=== PATIENT | male | born 1955 | race American Indian/Alaskan Native ===

== ENCOUNTER 2017-09-28 16:14 | Inpatient (IN) | payer MEDICARE ==
[2017-09-28] MEDS ORDERED: NACL 0.9% 500 ML 500 ML IV ONE (16:39)
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
[2017-09-28 17:19] LABS: Eosinophils % (Auto) 0.3 % (0.0-4.3)
[2017-09-28 17:43] LABS: Albumin 3.9 g/dL (3.9-5); Albumin/Globulin Ratio 1.7 %; Bilirubin,Total 0.3 mg/dL (0.1-1.2); Calcium 8.8 mg/dL (8.4-10.2); Chloride 94.7 mmol/L (98-107); Potassium 4.4 mmol/L (3.6-5.0); Total Protein 6.2 g/dL (6.3-8.2)
[2017-09-28 17:45] LABS: Creatine Kinase MB 1.4 ng/mL (0.0-4.0)
[2017-09-28 17:47] LABS: Creatine Kinase 75 units/L (55-170)
[2017-09-28 17:49] LABS: Basophils % (Auto) 0.6 % (0.0-1.8); Hematocrit 47.2 % (35.5-45.6); Hemoglobin 14.9 gm/dl (11.8-15.2); Mean Corpuscular HGB Conc 32 % (32-34); Mean Corpuscular Hemoglobin 27 pg (28-32); Mean Corpuscular Volume 85 fl (84-94); Platelet Count 173 K/mm3 (140-440); Red Blood Count 5.55 M/mm3 (3.65-5.03); Red Cell Distribution Width 16.6 % (13.2-15.2); White Blood Count 6.3 K/mm3 (4.5-11.0)
[2017-09-28 17:52] LABS: INR 0.91 (0.87-1.13)
[2017-09-28] MEDS ORDERED: ZOFRAN IV ONE (18:17)
[2017-09-28] MEDS ORDERED: PLAVIX PO ONE (18:17)
[2017-09-28] MEDS ORDERED: SUBLIMAZE IV ONE (18:17)
[2017-09-28] MEDS ORDERED: ZOFRAN ONE (18:51)
[2017-09-28] MEDS ORDERED: PLAVIX ONE (18:51)
[2017-09-28] MEDS: FIORICET PO PRN (20:36)
[2017-09-28 20:59] LABS: Bilirubin,Urine NEG (Negative); Blood,Urine NEG (Negative); Ketones,Urine NEG (Negative); Leukocyte Esterase,Urine NEG (Negative); Mucus,Urine FEW /HPF; Nitrite,Urine NEG (Negative); Protein,Urine <15 mg/dL mg/dL (Negative); Urobilinogen,Urine < 2.0 mg/dL (<2.0)
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
[2017-09-28] MEDS ORDERED: DULCOLAX PR PRN (22:54)
[2017-09-28] MEDS ORDERED: ZOFRAN IV PRN (22:54)
[2017-09-29 00:37] LABS: Creatine Kinase MB 1.3 ng/mL (0.0-4.0)
[2017-09-29 00:38] LABS: Creatine Kinase 80 units/L (55-170)
[2017-09-29] MEDS: TYLENOL PO PRN (01:07)
[2017-09-29] MEDS: DUONEB *Not for PRN Use IH SCH ×4 (02:29→20:39)
[2017-09-29 06:05] LABS: Hematocrit 46.8 % (35.5-45.6); Hemoglobin 14.7 gm/dl (11.8-15.2); Mean Corpuscular HGB Conc 32 % (32-34); Mean Corpuscular Hemoglobin 27 pg (28-32); Mean Corpuscular Volume 85 fl (84-94); Platelet Count 174 K/mm3 (140-440); Red Blood Count 5.51 M/mm3 (3.65-5.03); Red Cell Distribution Width 16.4 % (13.2-15.2); White Blood Count 6.8 K/mm3 (4.5-11.0)
[2017-09-29 06:21] LABS: Anion Gap 21 mmol/L; BUN/Creatinine Ratio 19; Blood Urea Nitrogen 23 mg/dL (9-20); Calcium 8.9 mg/dL (8.4-10.2); Carbon Dioxide 30 mmol/L (22-30); Chloride 94.1 mmol/L (98-107); Glucose 179 mg/dL (75-100); Sodium 140 mmol/L (137-145)
[2017-09-29 06:22] LABS: Creatine Kinase MB 1.7 ng/mL (0.0-4.0)
[2017-09-29 06:24] LABS: Potassium 5.3 mmol/L (3.6-5.0)
[2017-09-29 06:25] LABS: Creatine Kinase 99 units/L (55-170)
[2017-09-29 07:13] LABS: Basophils % (Manual) 0 % (0.0-1.8); Blastocytes % (Manual) 0 %
[2017-09-29 07:14] LABS: Anisocytosis 1+; Diff Status Complete; Platelet Estimate Consistent w Auto
[2017-09-29] MEDS ORDERED: KIONEX PO ONE (07:21)
[2017-09-29] MEDS: PULMICORT IH SCH ×2 (08:33→20:39)
[2017-09-29] MEDS: BROVANA NEBU IH SCH ×2 (08:33→20:40)
[2017-09-29] MEDS ORDERED: NON-FORMULARY (Fluticasone/Salmeterol [Advair Diskus 250-50 Mcg] 1 PUFF) IH SCH (10:00)
[2017-09-29] MEDS: PLAVIX PO SCH (11:14)
[2017-09-29] MEDS: FIORICET PO PRN ×2 (11:14→21:00)
[2017-09-29] MEDS: NORVASC PO SCH (11:14)
--- NOTE | 2017-09-29 12:12 | Consultation ---
Medications and Allergies Allergies Allergy/AdvReac Type Severity Reaction Status Date / Time No Known Allergies Allergy Unverified 10/12/13 10:41 Home Medications Medication Instructions Recorded Confirmed Last Taken Type Albuterol Sulfate [Albuterol 0.63% 0.63 mg IH QID PRN #30 vial.neb 05/25/1711/14 Unknown Rx NEBS] Albuterol Sulfate [Ventolin HFA] 2 puff IH Q4H PRN #30 hfa.aer.ad 05/25/1709/28 Unknown Rx AtorvaSTATin [Lipitor] 20 mg PO QHS 05/25/17 09/28/17 Unknown History Clopidogrel [Plavix] 75 mg PO QDAY 05/25/17 09/28/17 Unknown History Elviteg/Jannet/Emtric/Tenofo Ala 1 each PO DAILY 05/25/17 09/28/17 Unknown History [Genvoya (Nf)] Fluticasone/Salmeterol [Advair 1 puff IH BID 05/25/17 09/28/17 Unknown History Diskus 250-50 mcg] Tiotropium [Spiriva] 18 mcg IH QDAY 05/25/17 09/28/17 Unknown History amLODIPine [Norvasc] 5 mg PO DAILY 05/25/17 09/28/17 Unknown History predniSONE [Deltasone] 20 mg PO BID #10 tablet 05/25/17 09/28/17 Unknown Rx traMADol [Ultram 50 MG tab] 50 mg PO Q6HR PRN 05/25/17 09/28/17 Unknown History Lisinopril/Hydrochlorothiazide 1 tab PO QDAY 09/28/17 09/28/17 Unknown History [Zestoretic 20-12.5 mg] Active Meds: Active Medications Acetaminophen (Tylenol) 650 mg PO Q4H PRN PRN Reason: Pain MILD(1-3)/Fever >100.5/CHRISTIAN Last Admin: 09/29/17 01:07 Dose: 650 mg Acetaminophen/Butalbital/Caffeine (Fioricet) 1 tab PO Q6H PRN PRN Reason: Headache Last Admin: 09/29/17 11:14 Dose: 1 tab Albuterol/Ipratropium (Duoneb *Not For Prn Use*) 1 ampul IH Q6HRT [facility] Last Admin: 09/29/17 08:33 Dose: Not Given Amlodipine Besylate (Norvasc) 5 mg PO DAILY [facility] Last Admin: 09/29/17 11:14 Dose: 5 mg Arformoterol Tartrate (Brovana Nebu) 15 mcg IH Q12HRT [facility] Last Admin: 09/29/17 08:33 Dose: 15 mcg Atorvastatin Calcium (Lipitor) 20 mg PO QHS [facility] Bisacodyl (Dulcolax) 10 mg SD QDAY PRN PRN Reason: Constipation unrelieved by MOM Budesonide (Pulmicort) 0.5 mg IH Q12HRT [facility] Last Admin: 09/29/17 08:33 Dose: 0.5 mg Clopidogrel Bisulfate (Plavix) 75 mg PO QDAY [facility] Last Admin: 09/29/17 11:14 Dose: 75 mg Sodium Chloride (Nacl 0.9% 1000 Ml) 1,000 mls @ 75 mls/hr IV DIRECT [facility] Last Admin: 09/29/17 00:00 Dose: 75 mls/hr Magnesium Hydroxide (Milk Of Magnesia) 30 ml PO Q4H PRN PRN Reason: Constipation Methylprednisolone Sodium Succinate (Solu-Medrol) 125 mg IV Q6HR [facility] Last Admin: 09/29/17 11:19 Dose: 125 mg Miscellaneous Medication (Elviteg/Jannet/Emtric/Tenofo Ala) 1 each PO DAILY [facility] Ondansetron HCl (Zofran) 4 mg IV Q8H PRN PRN Reason: N/V unrelieved by Reglan Physical Examination Vital Signs Temp Pulse Resp BP Pulse Ox 97.6 F 92 H 28 H 66/39 92 09/28/17 16:36 09/28/17 16:36 09/28/17 16:36 09/28/17 16:36 09/28/17 16:36 Results 09/29/17 03:47 09/29/17 03:47 Cardiac Enzymes 09/28/17 09/28/17 09/28/17 Range/Units 16:52 16:52 23:38 AST 14 (5-40) units/L CK-MB (CK-2) 1.4 1.3 (0.0-4.0) ng/mL 09/29/17 Range/Units 03:47 AST (5-40) units/L CK-MB (CK-2) 1.7 (0.0-4.0) ng/mL Coagulation 09/28/17 Range/Units 16:52 PT 12.7 (12.2-14.9) Sec. INR 0.91 (0.87-1.13) CBC 09/28/17 09/29/17 Range/Units 16:52 03:47 WBC 6.3 6.8 (4.5-11.0) K/mm3 RBC 5.55 H 5.51 H (3.65-5.03) M/mm3 Hgb 14.9 14.7 (11.8-15.2) gm/dl Hct 47.2 H 46.8 H (35.5-45.6) % Plt Count 173 174 (140-440) K/mm3 Lymph # 0.8 L (1.2-5.4) K/mm3 [place] # 0.7 (0.0-0.8) K/mm3 Eos # 0.0 (0.0-0.4) K/mm3 Baso # 0.0 (0.0-0.1) K/mm3 Comprehensive Metabolic Panel 09/28/17 09/29/17 Range/Units 16:52 03:47 Sodium 140 140 (137-145) mmol/L Potassium 4.4 5.3 H D (3.6-5.0) mmol/L Chloride 94.7 L 94.1 L (98-107) mmol/L Carbon Dioxide 34 H 30 (22-30) mmol/L BUN 21 H 23 H (9-20) mg/dL Creatinine 1.8 H 1.2 (0.8-1.5) mg/dL Glucose 89 179 H (75-100) mg/dL Calcium 8.8 8.9 (8.4-10.2) mg/dL AST 14 (5-40) units/L ALT 21 (7-56) units/L Alkaline Phosphatase 60 (35-129) units/L Total Protein 6.2 L (6.3-8.2) g/dL Albumin 3.9 (3.9-5) g/dL Assessment and Plan full consult dictated thx
[2017-09-29] MEDS: NACL 0.9% 1000 ML 1,000 ML IV SCH ×2 (14:21)
--- NOTE | 2017-09-29 16:46 | Progress Note ---
Assessment and Plan Assessment and plan: COPD excaerbation. Cont solumedrol iv Q8hrs, Duoneb nebulizer, Supplemental Oxygen Acute on chronic respiratory failure due to COPD excerbation. Continue Oxygen supplementation Chest pain. Cardiology consulted for evaluation Coronary artery disease. Cardiology evaluation. For stress test. Hyperkalemia with Potassium 5.3. Give kayexalate and repeat in am Hypertension. BP stable HIV infection. On HAART DVT prophylaxis with Lovenox Full code status History Interval history: chest pain Shortness of breath Hospitalist Physical - Physical exam Narrative exam: GEN APPEARANCE :Not in acute distress HEENT: Normocephalic Atraumatic NECK : supple, no JVD LUNGS: Decreased Breath sounds bilat, bilateral rhonchi HEART: S1 and S2 regular, no murmurs, rubs or gallop, ABD: Soft, no tenderness, no distension, normal bowel sounds EXT: No edema, no clubbing, no cyanosis NEURO: Awake,alert,oriented x 3, moves all extremities, non focal - Constitutional Vitals: Temp Pulse Resp BP Pulse Ox 98.3 F 89 20 116/74 93 09/29/17 11:59 09/29/17 13:17 09/29/17 13:17 09/29/17 11:59 09/29/17 11:59 Results - Labs CBC & Chem 7: 09/29/17 03:47 09/30/17 07:24 Labs: Laboratory Last Values WBC 6.8 K/mm3 (4.5-11.0) 09/29/17 03:47 RBC 5.51 M/mm3 (3.65-5.03) H 09/29/17 03:47 Hgb 14.7 gm/dl (11.8-15.2) 09/29/17 03:47 Hct 46.8 % (35.5-45.6) H 09/29/17 03:47 MCV 85 fl (84-94) 09/29/17 03:47 MCH 27 pg (28-32) L 09/29/17 03:47 MCHC 32 % (32-34) 09/29/17 03:47 RDW 16.4 % (13.2-15.2) H 09/29/17 03:47 Plt Count 174 K/mm3 (140-440) 09/29/17 03:47 Lymph % (Auto) 12.3 % (13.4-35.0) L 09/28/17 16:52 [place] % (Auto) 11.3 % (0.0-7.3) H 09/28/17 16:52 Eos % (Auto) 0.3 % (0.0-4.3) 09/28/17 16:52 Baso % (Auto) 0.6 % (0.0-1.8) 09/28/17 16:52 Lymph # 0.8 K/mm3 (1.2-5.4) L 09/28/17 16:52 [place] # 0.7 K/mm3 (0.0-0.8) 09/28/17 16:52 Eos # 0.0 K/mm3 (0.0-0.4) 09/28/17 16:52 Baso # 0.0 K/mm3 (0.0-0.1) 09/28/17 16:52 Add Manual Diff Complete 09/29/17 03:47 Total Counted 100 09/29/17 03:47 Seg Neutrophils % Process Safety Engineer 09/29/17 03:47 Seg Neuts % (Manual) 91.0 % (40.0-70.0) H 09/29/17 03:47 Band Neutrophils % 0 % 09/29/17 03:47 Lymphocytes % (Manual) 5.0 % (13.4-35.0) L 09/29/17 03:47 Reactive Lymphs % (Man) 0 % 09/29/17 03:47 Monocytes % (Manual) 3.0 % (0.0-7.3) 09/29/17 03:47 Eosinophils % (Manual) 1.0 % (0.0-4.3) 09/29/17 03:47 Basophils % (Manual) 0 % (0.0-1.8) 09/29/17 03:47 Metamyelocytes % 0 % 09/29/17 03:47 Myelocytes % 0 % 09/29/17 03:47 Promyelocytes % 0 % 09/29/17 03:47 Blast Cells % 0 % 09/29/17 03:47 Nucleated RBC % Not Reportable 09/29/17 03:47 Seg Neutrophils # 4.7 K/mm3 (1.8-7.7) 09/28/17 16:52 Seg Neutrophils # Man 6.2 K/mm3 (1.8-7.7) 09/29/17 03:47 Band Neutrophils # 0.0 K/mm3 09/29/17 03:47 Lymphocytes # (Manual) 0.3 K/mm3 (1.2-5.4) L 09/29/17 03:47 Abs React Lymphs (Man) 0.0 K/mm3 09/29/17 03:47 Monocytes # (Manual) 0.2 K/mm3 (0.0-0.8) 09/29/17 03:47 Eosinophils # (Manual) 0.1 K/mm3 (0.0-0.4) 09/29/17 03:47 Basophils # (Manual) 0.0 K/mm3 (0.0-0.1) 09/29/17 03:47 Metamyelocytes # 0.0 K/mm3 09/29/17 03:47 Myelocytes # 0.0 K/mm3 09/29/17 03:47 Promyelocytes # 0.0 K/mm3 09/29/17 03:47 Blast Cells # 0.0 K/mm3 09/29/17 03:47 WBC Morphology Not Reportable 09/29/17 03:47 Hypersegmented Neuts Not Reportable 09/29/17 03:47 Hyposegmented Neuts Not Reportable 09/29/17 03:47 Hypogranular Neuts Not Reportable 09/29/17 03:47 Smudge Cells Not Reportable 09/29/17 03:47 Toxic Granulation Not Reportable 09/29/17 03:47 Toxic Vacuolation Not Reportable 09/29/17 03:47 Dohle Bodies Not Reportable 09/29/17 03:47 Pelger-Huet Anomaly Not Reportable 09/29/17 03:47 Davina Rods Not Reportable 09/29/17 03:47 Platelet Estimate Consistent w auto 09/29/17 03:47 Clumped Platelets Not Reportable 09/29/17 03:47 Plt Clumps, EDTA Not Reportable 09/29/17 03:47 Large Platelets Not Reportable 09/29/17 03:47 Giant Platelets Not Reportable 09/29/17 03:47 Platelet Satelliting Not Reportable 09/29/17 03:47 Plt Morphology Comment Not Reportable 09/29/17 03:47 RBC Morphology Not Reportable 09/29/17 03:47 Dimorphic RBCs Not Reportable 09/29/17 03:47 Polychromasia Not Reportable 09/29/17 03:47 Hypochromasia Not Reportable 09/29/17 03:47 Poikilocytosis Not Reportable 09/29/17 03:47 Anisocytosis 1+ 09/29/17 03:47 Microcytosis Not Reportable 09/29/17 03:47 Macrocytosis Not Reportable 09/29/17 03:47 Spherocytes Not Reportable 09/29/17 03:47 Pappenheimer Bodies Not Reportable 09/29/17 03:47 Sickle Cells Not Reportable 09/29/17 03:47 Target Cells Not Reportable 09/29/17 03:47 Tear Drop Cells Not Reportable 09/29/17 03:47 Ovalocytes Not Reportable 09/29/17 03:47 Helmet Cells Not Reportable 09/29/17 03:47 [place] Bodies Not Reportable 09/29/17 03:47 Sharon Rings Not Reportable 09/29/17 03:47 Marisa Cells Not Reportable 09/29/17 03:47 Bite Cells Not Reportable 09/29/17 03:47 Crenated Cell Not Reportable 09/29/17 03:47 Elliptocytes Not Reportable 09/29/17 03:47 Acanthocytes (Spur) Not Reportable 09/29/17 03:47 Rouleaux Not Reportable 09/29/17 03:47 Hemoglobin C Crystals Not Reportable 09/29/17 03:47 Schistocytes Not Reportable 09/29/17 03:47 Malaria parasites Not Reportable 09/29/17 03:47 German Bodies Not Reportable 09/29/17 03:47 Hem Pathologist Commnt No 09/29/17 03:47 PT 12.7 Sec. (12.2-14.9) 09/28/17 16:52 INR 0.91 (0.87-1.13) 09/28/17 16:52 VBG pH 7.354 (7.320-7.420) 09/28/17 16:52 Sodium 140 mmol/L (137-145) 09/29/17 03:47 Potassium 5.3 mmol/L (3.6-5.0) H D 09/29/17 03:47 Chloride 94.1 mmol/L (98-107) L 09/29/17 03:47 Carbon Dioxide 30 mmol/L (22-30) 09/29/17 03:47 Anion Gap 21 mmol/L 09/29/17 03:47 BUN 23 mg/dL (9-20) H 09/29/17 03:47 Creatinine 1.2 mg/dL (0.8-1.5) 09/29/17 03:47 Estimated GFR > 60 ml/min 09/29/17 03:47 BUN/Creatinine Ratio 19 % 09/29/17 03:47 Glucose 179 mg/dL (75-100) H 09/29/17 03:47 Lactic Acid 1.50 mmol/L (0.7-2.0) 09/28/17 17:43 Calcium 8.9 mg/dL (8.4-10.2) 09/29/17 03:47 Total Bilirubin 0.30 mg/dL (0.1-1.2) 09/28/17 16:52 AST 14 units/L (5-40) 09/28/17 16:52 ALT 21 units/L (7-56) 09/28/17 16:52 Alkaline Phosphatase 60 units/L (35-129) 09/28/17 16:52 Total Creatine Kinase 99 units/L (55-170) 09/29/17 03:47 CK-MB (CK-2) 1.7 ng/mL (0.0-4.0) 09/29/17 03:47 CK-MB (CK-2) Rel Index 1.7 (0-4) 09/29/17 03:47 Troponin T < 0.010 ng/mL (0.00-0.029) 09/29/17 03:47 NT-Pro-B Natriuret Pep 10.47 pg/mL (0-900) 09/28/17 16:52 Total Protein 6.2 g/dL (6.3-8.2) L 09/28/17 16:52 Albumin 3.9 g/dL (3.9-5) 09/28/17 16:52 Albumin/Globulin Ratio 1.7 % 09/28/17 16:52 Urine Color Yellow (Yellow) 09/28/17 20:30 Urine Turbidity Clear (Clear) 09/28/17 20:30 Urine pH 5.0 (5.0-7.0) 09/28/17 20:30 Ur Specific [place] 1.015 (1.003-1.030) 09/28/17 20:30 Urine Protein <15 mg/dl mg/dL (Negative) 09/28/17 20:30 Urine Glucose (UA) Neg mg/dL (Negative) 09/28/17 20:30 Urine Ketones Neg mg/dL (Negative) 09/28/17 20:30 Urine Blood Neg (Negative) 09/28/17 20:30 Urine Nitrite Neg (Negative) 09/28/17 20:30 Urine Bilirubin Neg (Negative) 09/28/17 20:30 Urine Urobilinogen < 2.0 mg/dL (<2.0) 09/28/17 20:30 Ur Leukocyte Esterase Neg (Negative) 09/28/17 20:30 Urine WBC (Auto) 1.0 /HPF (0.0-6.0) 09/28/17 20:30 Urine RBC (Auto) 2.0 /HPF (0.0-6.0) 09/28/17 20:30 Urine Mucus Few /HPF 09/28/17 20:30
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
[2017-09-30] MEDS: TYLENOL PO PRN (02:00)
[2017-09-30] MEDS: DUONEB *Not for PRN Use IH SCH ×4 (02:31→20:49)
[2017-09-30] MEDS: NACL 0.9% 1000 ML 1,000 ML IV SCH (07:00)
[2017-09-30] MEDS: PULMICORT IH SCH ×2 (07:42→20:49)
[2017-09-30] MEDS: BROVANA NEBU IH SCH ×2 (07:42→20:49)
[2017-09-30 08:07] LABS: Anion Gap 17 mmol/L; BUN/Creatinine Ratio 26; Blood Urea Nitrogen 18 mg/dL (9-20); Calcium 8.7 mg/dL (8.4-10.2); Carbon Dioxide 31 mmol/L (22-30); Chloride 100.9 mmol/L (98-107); Glucose 175 mg/dL (75-100); Potassium 4.4 mmol/L (3.6-5.0); Sodium 144 mmol/L (137-145)
[2017-09-30] MEDS: PLAVIX PO SCH (10:30)
[2017-09-30] MEDS: NORVASC PO SCH (10:30)
--- NOTE | 2017-09-30 11:58 | Progress Note ---
Assessment and Plan 62 aam: 1. Acute/chronic COPD exacerbation * on home o2 * nebs/solumedrol per primary 2. Atypical cp * now resolved * ecg w/o acute change * ce neg x 2 3. h/o cad/pci 4. caden - resolved 5. htn 6. hiv 7. hl rec: dobutamine stress mpi in am tte pending My findings and plan of care d/w pt at length Multiple questions addressed. Subjective Date of service: 09/30/17 Interval history: I hurt all over and don't feel well no cp, sob mildly improved Objective Vital Signs Temp Pulse Pulse Resp Resp BP BP 09/30/17 09:46 09/30/17 09:45 85 18 09/30/17 08:10 95 H 18 09/30/17 08:00 94 H 18 09/30/17 02:49 93 H 20 09/30/17 02:31 91 H 22 09/30/17 00:11 98.5 F 104 H 16 140/97 09/29/17 22:00 92 H 09/29/17 21:11 99 H 20 09/29/17 20:44 96 H 18 09/29/17 19:52 98.4 F 92 H 16 137/87 09/29/17 17:11 98.2 F 95 H 18 126/84 09/29/17 13:17 89 20 09/29/17 13:07 91 H 20 09/29/17 11:59 98.3 F 93 H 18 116/74 Pulse Ox 09/30/17 09:46 96 09/30/17 09:45 96 09/30/17 08:10 09/30/17 08:00 09/30/17 02:49 09/30/17 02:31 09/30/17 00:11 95 09/29/17 22:00 99 09/29/17 21:11 09/29/17 20:44 09/29/17 19:52 96 09/29/17 17:11 94 09/29/17 13:17 09/29/17 13:07 09/29/17 11:59 93 - Labs and Meds Comprehensive Metabolic Panel 09/30/17 Range/Units 07:24 Sodium 144 (137-145) mmol/L Potassium 4.4 (3.6-5.0) mmol/L Chloride 100.9 (98-107) mmol/L Carbon Dioxide 31 H (22-30) mmol/L BUN 18 (9-20) mg/dL Creatinine 0.7 L (0.8-1.5) mg/dL Glucose 175 H (75-100) mg/dL Calcium 8.7 (8.4-10.2) mg/dL - Imaging and Cardiology EKG: image reviewed
[2017-09-30] MEDS: MILK OF MAGNESIA PO PRN ×2 (12:59→17:42)
[2017-09-30] MEDS: HEPARIN SUB-Q SCH ×2 (14:16→22:00)
--- NOTE | 2017-09-30 18:28 | Progress Note ---
Assessment and Plan Assessment and plan: COPD excaerbation. Cont solumedrol iv Q8hrs, Duoneb nebulizer, Supplemental Oxygen. Still having shortness of breath. May consult Home Designer. Acute on chronic respiratory failure due to COPD excerbation. Continue Oxygen supplementation Chest pain. Still having chest pain. Stress test not done today because he had Fioricet which has caffeine. Cardiology following. I discussed with Dr. Martínez, Cardiology. Will also obtain d-dimer Coronary artery disease. Cardiology following. Hyperkalemia with Potassium 5.3 yesterday. Potassium 4.4 toay. Now resolved after Kayexalate. Hypertension. BP stable HIV infection. On HAART DVT prophylaxis with Heparin subcut. Full code status History Interval history: Still having chest pain Still having Shortness of breath Stress test not done today because he took Fioricet Hospitalist Physical - Physical exam Narrative exam: GEN APPEARANCE :Not in acute distress HEENT: Normocephalic Atraumatic NECK : supple, no JVD LUNGS: Decreased Breath sounds bilat, bilateral rhonchi HEART: S1 and S2 regular, no murmurs, rubs or gallop, ABD: Soft, no tenderness, no distension, normal bowel sounds EXT: No edema, no clubbing, no cyanosis NEURO: Awake,alert,oriented x 3, moves all extremities, non focal - Constitutional Vitals: Temp Pulse Resp BP Pulse Ox 98.5 F 85 18 140/97 96 09/30/17 00:11 09/30/17 09:45 09/30/17 09:45 09/30/17 00:11 09/30/17 09:46 Results - Labs CBC & Chem 7: 09/29/17 03:47 09/30/17 07:24 Labs: Laboratory Last Values WBC 6.8 K/mm3 (4.5-11.0) 09/29/17 03:47 RBC 5.51 M/mm3 (3.65-5.03) H 09/29/17 03:47 Hgb 14.7 gm/dl (11.8-15.2) 09/29/17 03:47 Hct 46.8 % (35.5-45.6) H 09/29/17 03:47 MCV 85 fl (84-94) 09/29/17 03:47 MCH 27 pg (28-32) L 09/29/17 03:47 MCHC 32 % (32-34) 09/29/17 03:47 RDW 16.4 % (13.2-15.2) H 09/29/17 03:47 Plt Count 174 K/mm3 (140-440) 09/29/17 03:47 Lymph % (Auto) 12.3 % (13.4-35.0) L 09/28/17 16:52 [place] % (Auto) 11.3 % (0.0-7.3) H 09/28/17 16:52 Eos % (Auto) 0.3 % (0.0-4.3) 09/28/17 16:52 Baso % (Auto) 0.6 % (0.0-1.8) 09/28/17 16:52 Lymph # 0.8 K/mm3 (1.2-5.4) L 09/28/17 16:52 [place] # 0.7 K/mm3 (0.0-0.8) 09/28/17 16:52 Eos # 0.0 K/mm3 (0.0-0.4) 09/28/17 16:52 Baso # 0.0 K/mm3 (0.0-0.1) 09/28/17 16:52 Add Manual Diff Complete 09/29/17 03:47 Total Counted 100 09/29/17 03:47 Seg Neutrophils % [employer] Office Markup Clerk 09/29/17 03:47 Seg Neuts % (Manual) 91.0 % (40.0-70.0) H 09/29/17 03:47 Band Neutrophils % 0 % 09/29/17 03:47 Lymphocytes % (Manual) 5.0 % (13.4-35.0) L 09/29/17 03:47 Reactive Lymphs % (Man) 0 % 09/29/17 03:47 Monocytes % (Manual) 3.0 % (0.0-7.3) 09/29/17 03:47 Eosinophils % (Manual) 1.0 % (0.0-4.3) 09/29/17 03:47 Basophils % (Manual) 0 % (0.0-1.8) 09/29/17 03:47 Metamyelocytes % 0 % 09/29/17 03:47 Myelocytes % 0 % 09/29/17 03:47 Promyelocytes % 0 % 09/29/17 03:47 Blast Cells % 0 % 09/29/17 03:47 Nucleated RBC % Not Reportable 09/29/17 03:47 Seg Neutrophils # 4.7 K/mm3 (1.8-7.7) 09/28/17 16:52 Seg Neutrophils # Man 6.2 K/mm3 (1.8-7.7) 09/29/17 03:47 Band Neutrophils # 0.0 K/mm3 09/29/17 03:47 Lymphocytes # (Manual) 0.3 K/mm3 (1.2-5.4) L 09/29/17 03:47 Abs React Lymphs (Man) 0.0 K/mm3 09/29/17 03:47 Monocytes # (Manual) 0.2 K/mm3 (0.0-0.8) 09/29/17 03:47 Eosinophils # (Manual) 0.1 K/mm3 (0.0-0.4) 09/29/17 03:47 Basophils # (Manual) 0.0 K/mm3 (0.0-0.1) 09/29/17 03:47 Metamyelocytes # 0.0 K/mm3 09/29/17 03:47 Myelocytes # 0.0 K/mm3 09/29/17 03:47 Promyelocytes # 0.0 K/mm3 09/29/17 03:47 Blast Cells # 0.0 K/mm3 09/29/17 03:47 WBC Morphology Not Reportable 09/29/17 03:47 Hypersegmented Neuts Not Reportable 09/29/17 03:47 Hyposegmented Neuts Not Reportable 09/29/17 03:47 Hypogranular Neuts Not Reportable 09/29/17 03:47 Smudge Cells Not Reportable 09/29/17 03:47 Toxic Granulation Not Reportable 09/29/17 03:47 Toxic Vacuolation Not Reportable 09/29/17 03:47 Dohle Bodies Not Reportable 09/29/17 03:47 Pelger-Huet Anomaly Not Reportable 09/29/17 03:47 Davina Rods Not Reportable 09/29/17 03:47 Platelet Estimate Consistent w auto 09/29/17 03:47 Clumped Platelets Not Reportable 09/29/17 03:47 Plt Clumps, EDTA Not Reportable 09/29/17 03:47 Large Platelets Not Reportable 09/29/17 03:47 Giant Platelets Not Reportable 09/29/17 03:47 Platelet Satelliting Not Reportable 09/29/17 03:47 Plt Morphology Comment Not Reportable 09/29/17 03:47 RBC Morphology Not Reportable 09/29/17 03:47 Dimorphic RBCs Not Reportable 09/29/17 03:47 Polychromasia Not Reportable 09/29/17 03:47 Hypochromasia Not Reportable 09/29/17 03:47 Poikilocytosis Not Reportable 09/29/17 03:47 Anisocytosis 1+ 09/29/17 03:47 Microcytosis Not Reportable 09/29/17 03:47 Macrocytosis Not Reportable 09/29/17 03:47 Spherocytes Not Reportable 09/29/17 03:47 Pappenheimer Bodies Not Reportable 09/29/17 03:47 Sickle Cells Not Reportable 09/29/17 03:47 Target Cells Not Reportable 09/29/17 03:47 Tear Drop Cells Not Reportable 09/29/17 03:47 Ovalocytes Not Reportable 09/29/17 03:47 Helmet Cells Not Reportable 09/29/17 03:47 [place] Bodies Not Reportable 09/29/17 03:47 [place] Rings Not Reportable 09/29/17 03:47 Marisa Cells Not Reportable 09/29/17 03:47 Bite Cells Not Reportable 09/29/17 03:47 Crenated Cell Not Reportable 09/29/17 03:47 Elliptocytes Not Reportable 09/29/17 03:47 Acanthocytes (Spur) Not Reportable 09/29/17 03:47 Rouleaux Not Reportable 09/29/17 03:47 Hemoglobin C Crystals Not Reportable 09/29/17 03:47 Schistocytes Not Reportable 09/29/17 03:47 Malaria parasites Not Reportable 09/29/17 03:47 German Bodies Not Reportable 09/29/17 03:47 Hem Pathologist Commnt No 09/29/17 03:47 PT 12.7 Sec. (12.2-14.9) 09/28/17 16:52 INR 0.91 (0.87-1.13) 09/28/17 16:52 D-Dimer 155.44 ng/mlDDU (0-234) 09/30/17 11:43 VBG pH 7.354 (7.320-7.420) 09/28/17 16:52 Sodium 144 mmol/L (137-145) 09/30/17 07:24 Potassium 4.4 mmol/L (3.6-5.0) 09/30/17 07:24 Chloride 100.9 mmol/L (98-107) 09/30/17 07:24 Carbon Dioxide 31 mmol/L (22-30) H 09/30/17 07:24 Anion Gap 17 mmol/L 09/30/17 07:24 BUN 18 mg/dL (9-20) 09/30/17 07:24 Creatinine 0.7 mg/dL (0.8-1.5) L 09/30/17 07:24 Estimated GFR > 60 ml/min 09/30/17 07:24 BUN/Creatinine Ratio 26 % 09/30/17 07:24 Glucose 175 mg/dL (75-100) H 09/30/17 07:24 Lactic Acid 1.50 mmol/L (0.7-2.0) 09/28/17 17:43 Calcium 8.7 mg/dL (8.4-10.2) 09/30/17 07:24 Total Bilirubin 0.30 mg/dL (0.1-1.2) 09/28/17 16:52 AST 14 units/L (5-40) 09/28/17 16:52 ALT 21 units/L (7-56) 09/28/17 16:52 Alkaline Phosphatase 60 units/L (35-129) 09/28/17 16:52 Total Creatine Kinase 99 units/L (55-170) 09/29/17 03:47 CK-MB (CK-2) 1.7 ng/mL (0.0-4.0) 09/29/17 03:47 CK-MB (CK-2) Rel Index 1.7 (0-4) 09/29/17 03:47 Troponin T < 0.010 ng/mL (0.00-0.029) 09/29/17 03:47 NT-Pro-B Natriuret Pep 10.47 pg/mL (0-900) 09/28/17 16:52 Total Protein 6.2 g/dL (6.3-8.2) L 09/28/17 16:52 Albumin 3.9 g/dL (3.9-5) 09/28/17 16:52 Albumin/Globulin Ratio 1.7 % 09/28/17 16:52 Urine Color Yellow (Yellow) 09/28/17 20:30 Urine Turbidity Clear (Clear) 09/28/17 20:30 Urine pH 5.0 (5.0-7.0) 09/28/17 20:30 Ur Specific [place] 1.015 (1.003-1.030) 09/28/17 20:30 Urine Protein <15 mg/dl mg/dL (Negative) 09/28/17 20:30 Urine Glucose (UA) Neg mg/dL (Negative) 09/28/17 20:30 Urine Ketones Neg mg/dL (Negative) 09/28/17 20:30 Urine Blood Neg (Negative) 09/28/17 20:30 Urine Nitrite Neg (Negative) 09/28/17 20:30 Urine Bilirubin Neg (Negative) 09/28/17 20:30 Urine Urobilinogen < 2.0 mg/dL (<2.0) 09/28/17 20:30 Ur Leukocyte Esterase Neg (Negative) 09/28/17 20:30 Urine WBC (Auto) 1.0 /HPF (0.0-6.0) 09/28/17 20:30 Urine RBC (Auto) 2.0 /HPF (0.0-6.0) 09/28/17 20:30 Urine Mucus Few /HPF 09/28/17 20:30
[2017-10-01] MEDS: DUONEB *Not for PRN Use IH SCH ×5 (02:20→20:51)
[2017-10-01] MEDS: TYLENOL PO PRN (08:39)
[2017-10-01] MEDS ORDERED: DOBUTamine 100 MG in D5W 92 ML IV ONE (09:00)
[2017-10-01] MEDS: BROVANA NEBU IH SCH ×3 (09:23→20:52)
[2017-10-01] MEDS: PULMICORT IH SCH ×3 (09:23→20:50)
[2017-10-01] MEDS ORDERED: LEXISCAN IV ONE (10:34)
[2017-10-01] MEDS ORDERED: ATROPINE IV ONE (11:01)
[2017-10-01] MEDS: HEPARIN SUB-Q SCH ×2 (12:22→22:54)
[2017-10-01] MEDS: PLAVIX PO SCH (12:23)
[2017-10-01] MEDS: NORVASC PO SCH (12:23)
[2017-10-01] MEDS: MILK OF MAGNESIA PO PRN (12:25)
--- NOTE | 2017-10-01 13:09 | Progress Note ---
Assessment and Plan 1. Acute/chronic COPD exacerbation * on home o2 * nebs/solumedrol per primary 2. Atypical cp possible costochrondisit * now resolved * ecg w/o acute change * ce neg x 2 3. h/o cad/pci 4. caden - resolved 5. htn 6. hiv 7. hl 8. acute respiratory failure secondary to hypoxemia rec: in view of negative stress test , try nsaid and cont home meds and followup with pcp in one week Subjective Date of service: 10/01/17 Principal diagnosis: chest pain Interval history: pt states having chest pain sometimes with inspiration. Objective Vital Signs Temp Pulse Pulse Resp Resp BP BP 10/01/17 12:32 98.2 F 88 20 140/79 10/01/17 12:24 10/01/17 12:18 75 18 10/01/17 11:56 91 H 18 10/01/17 09:52 73 10/01/17 08:39 16 10/01/17 07:52 97.7 F 77 18 145/106 10/01/17 05:33 97.8 F 81 20 124/80 10/01/17 00:49 97.8 F 92 H 20 133/72 09/30/17 22:00 88 09/30/17 21:42 18 09/30/17 20:51 09/30/17 20:00 91 H 18 09/30/17 19:22 97.9 F 94 H 20 116/80 09/30/17 17:00 98.6 F 86 22 136/83 Pulse Ox 10/01/17 12:32 96 10/01/17 12:24 99 10/01/17 12:18 10/01/17 11:56 10/01/17 09:52 10/01/17 08:39 10/01/17 07:52 97 10/01/17 05:33 98 10/01/17 00:49 95 09/30/17 22:00 09/30/17 21:42 96 09/30/17 20:51 97 09/30/17 20:00 09/30/17 19:22 97 09/30/17 17:00 - Physical Examination General: Appears Well, No Apparent Distress HEENT: Positive: PERRL Neck: Negative: neck supple Cardiac: Positive: Reg Rate and Rhythm, Audible Murmur Lungs: Positive: Decreased Breath Sounds Neuro: Positive: Grossly Intact Abdomen: Positive: Soft /Rectal: Normal Prostate, No Masses Skin: Musculoskeletal: No Fluid Collection, No Pain, Normal Range of Motion Gait: Normal Gait Extremities: Absent: edema - Imaging and Cardiology EKG: image reviewed Pharmacologic stress test: report reviewed (no ischemia ef 45%) - Telemetry EKG Rhythm: Sinus Rhythm
[2017-10-01] MEDS ORDERED: ATROPINE 0.1% (CARDIAC) ONE (14:29)
--- NOTE | 2017-10-01 17:03 | Progress Note ---
Assessment and Plan Assessment and plan: COPD excaerbation. Cont solumedrol iv Q8hrs, Duoneb nebulizer, Supplemental Oxygen. Still having shortness of breath. Consulted Charge Nurse. Acute on chronic respiratory failure due to COPD excerbation. Continue Oxygen supplementation Chest pain. Non-cardiac. Ngative dobutamine stress test today. I discussed with Dr. Can, Cardiology. D-dimer neg Coronary artery disease. Cardiology following. Hyperkalemia now rersolved after Kayexalate. Hypertension. BP stable HIV infection. On HAART DVT prophylaxis with Heparin subcut. Full code status History Interval history: Still having chest pain Still having Shortness of breath Hospitalist Physical - Physical exam Narrative exam: GEN APPEARANCE :Not in acute distress HEENT: Normocephalic Atraumatic NECK : supple, no JVD LUNGS: Decreased Breath sounds bilat, bilateral rhonchi HEART: S1 and S2 regular, no murmurs, rubs or gallop, ABD: Soft, no tenderness, no distension, normal bowel sounds EXT: No edema, no clubbing, no cyanosis NEURO: Awake,alert,oriented x 3, moves all extremities, non focal - Constitutional Vitals: Temp Pulse Resp BP Pulse Ox 97.8 F 84 18 129/83 97 10/01/17 16:44 10/01/17 16:44 10/01/17 16:44 10/01/17 16:44 10/01/17 16:44 Results - Labs CBC & Chem 7: 09/29/17 03:47 09/30/17 07:24 Labs: Laboratory Last Values WBC 6.8 K/mm3 (4.5-11.0) 09/29/17 03:47 RBC 5.51 M/mm3 (3.65-5.03) H 09/29/17 03:47 Hgb 14.7 gm/dl (11.8-15.2) 09/29/17 03:47 Hct 46.8 % (35.5-45.6) H 09/29/17 03:47 MCV 85 fl (84-94) 09/29/17 03:47 MCH 27 pg (28-32) L 09/29/17 03:47 MCHC 32 % (32-34) 09/29/17 03:47 RDW 16.4 % (13.2-15.2) H 09/29/17 03:47 Plt Count 174 K/mm3 (140-440) 09/29/17 03:47 Lymph % (Auto) 12.3 % (13.4-35.0) L 09/28/17 16:52 [place] % (Auto) 11.3 % (0.0-7.3) H 09/28/17 16:52 Eos % (Auto) 0.3 % (0.0-4.3) 09/28/17 16:52 Baso % (Auto) 0.6 % (0.0-1.8) 09/28/17 16:52 Lymph # 0.8 K/mm3 (1.2-5.4) L 09/28/17 16:52 [place] # 0.7 K/mm3 (0.0-0.8) 09/28/17 16:52 Eos # 0.0 K/mm3 (0.0-0.4) 09/28/17 16:52 Baso # 0.0 K/mm3 (0.0-0.1) 09/28/17 16:52 Add Manual Diff Complete 09/29/17 03:47 Total Counted 100 09/29/17 03:47 Seg Neutrophils % Skimmer Scoop Operator 09/29/17 03:47 Seg Neuts % (Manual) 91.0 % (40.0-70.0) H 09/29/17 03:47 Band Neutrophils % 0 % 09/29/17 03:47 Lymphocytes % (Manual) 5.0 % (13.4-35.0) L 09/29/17 03:47 Reactive Lymphs % (Man) 0 % 09/29/17 03:47 Monocytes % (Manual) 3.0 % (0.0-7.3) 09/29/17 03:47 Eosinophils % (Manual) 1.0 % (0.0-4.3) 09/29/17 03:47 Basophils % (Manual) 0 % (0.0-1.8) 09/29/17 03:47 Metamyelocytes % 0 % 09/29/17 03:47 Myelocytes % 0 % 09/29/17 03:47 Promyelocytes % 0 % 09/29/17 03:47 Blast Cells % 0 % 09/29/17 03:47 Nucleated RBC % Not Reportable 09/29/17 03:47 Seg Neutrophils # 4.7 K/mm3 (1.8-7.7) 09/28/17 16:52 Seg Neutrophils # Man 6.2 K/mm3 (1.8-7.7) 09/29/17 03:47 Band Neutrophils # 0.0 K/mm3 09/29/17 03:47 Lymphocytes # (Manual) 0.3 K/mm3 (1.2-5.4) L 09/29/17 03:47 Abs React Lymphs (Man) 0.0 K/mm3 09/29/17 03:47 Monocytes # (Manual) 0.2 K/mm3 (0.0-0.8) 09/29/17 03:47 Eosinophils # (Manual) 0.1 K/mm3 (0.0-0.4) 09/29/17 03:47 Basophils # (Manual) 0.0 K/mm3 (0.0-0.1) 09/29/17 03:47 Metamyelocytes # 0.0 K/mm3 09/29/17 03:47 Myelocytes # 0.0 K/mm3 09/29/17 03:47 Promyelocytes # 0.0 K/mm3 09/29/17 03:47 Blast Cells # 0.0 K/mm3 09/29/17 03:47 WBC Morphology Not Reportable 09/29/17 03:47 Hypersegmented Neuts Not Reportable 09/29/17 03:47 Hyposegmented Neuts Not Reportable 09/29/17 03:47 Hypogranular Neuts Not Reportable 09/29/17 03:47 Smudge Cells Not Reportable 09/29/17 03:47 Toxic Granulation Not Reportable 09/29/17 03:47 Toxic Vacuolation Not Reportable 09/29/17 03:47 Dohle Bodies Not Reportable 09/29/17 03:47 Pelger-Huet Anomaly Not Reportable 09/29/17 03:47 Davina Rods Not Reportable 09/29/17 03:47 Platelet Estimate Consistent w auto 09/29/17 03:47 Clumped Platelets Not Reportable 09/29/17 03:47 Plt Clumps, EDTA Not Reportable 09/29/17 03:47 Large Platelets Not Reportable 09/29/17 03:47 Giant Platelets Not Reportable 09/29/17 03:47 Platelet Satelliting Not Reportable 09/29/17 03:47 Plt Morphology Comment Not Reportable 09/29/17 03:47 RBC Morphology Not Reportable 09/29/17 03:47 Dimorphic RBCs Not Reportable 09/29/17 03:47 Polychromasia Not Reportable 09/29/17 03:47 Hypochromasia Not Reportable 09/29/17 03:47 Poikilocytosis Not Reportable 09/29/17 03:47 Anisocytosis 1+ 09/29/17 03:47 Microcytosis Not Reportable 09/29/17 03:47 Macrocytosis Not Reportable 09/29/17 03:47 Spherocytes Not Reportable 09/29/17 03:47 Pappenheimer Bodies Not Reportable 09/29/17 03:47 Sickle Cells Not Reportable 09/29/17 03:47 Target Cells Not Reportable 09/29/17 03:47 Tear Drop Cells Not Reportable 09/29/17 03:47 Ovalocytes Not Reportable 09/29/17 03:47 Helmet Cells Not Reportable 09/29/17 03:47 [place] Bodies Not Reportable 09/29/17 03:47 [place] Rings Not Reportable 09/29/17 03:47 Marisa Cells Not Reportable 09/29/17 03:47 Bite Cells Not Reportable 09/29/17 03:47 Crenated Cell Not Reportable 09/29/17 03:47 Elliptocytes Not Reportable 09/29/17 03:47 Acanthocytes (Spur) Not Reportable 09/29/17 03:47 Rouleaux Not Reportable 09/29/17 03:47 Hemoglobin C Crystals Not Reportable 09/29/17 03:47 Schistocytes Not Reportable 09/29/17 03:47 Malaria parasites Not Reportable 09/29/17 03:47 [place] Bodies Not Reportable 09/29/17 03:47 Hem Pathologist Commnt No 09/29/17 03:47 PT 12.7 Sec. (12.2-14.9) 09/28/17 16:52 INR 0.91 (0.87-1.13) 09/28/17 16:52 D-Dimer 155.44 ng/mlDDU (0-234) 09/30/17 11:43 VBG pH 7.354 (7.320-7.420) 09/28/17 16:52 Sodium 144 mmol/L (137-145) 09/30/17 07:24 Potassium 4.4 mmol/L (3.6-5.0) 09/30/17 07:24 Chloride 100.9 mmol/L (98-107) 09/30/17 07:24 Carbon Dioxide 31 mmol/L (22-30) H 09/30/17 07:24 Anion Gap 17 mmol/L 09/30/17 07:24 BUN 18 mg/dL (9-20) 09/30/17 07:24 Creatinine 0.7 mg/dL (0.8-1.5) L 09/30/17 07:24 Estimated GFR > 60 ml/min 09/30/17 07:24 BUN/Creatinine Ratio 26 % 09/30/17 07:24 Glucose 175 mg/dL (75-100) H 09/30/17 07:24 Lactic Acid 1.50 mmol/L (0.7-2.0) 09/28/17 17:43 Calcium 8.7 mg/dL (8.4-10.2) 09/30/17 07:24 Total Bilirubin 0.30 mg/dL (0.1-1.2) 09/28/17 16:52 AST 14 units/L (5-40) 09/28/17 16:52 ALT 21 units/L (7-56) 09/28/17 16:52 Alkaline Phosphatase 60 units/L (35-129) 09/28/17 16:52 Total Creatine Kinase 99 units/L (55-170) 09/29/17 03:47 CK-MB (CK-2) 1.7 ng/mL (0.0-4.0) 09/29/17 03:47 CK-MB (CK-2) Rel Index 1.7 (0-4) 09/29/17 03:47 Troponin T < 0.010 ng/mL (0.00-0.029) 09/29/17 03:47 NT-Pro-B Natriuret Pep 10.47 pg/mL (0-900) 09/28/17 16:52 Total Protein 6.2 g/dL (6.3-8.2) L 09/28/17 16:52 Albumin 3.9 g/dL (3.9-5) 09/28/17 16:52 Albumin/Globulin Ratio 1.7 % 09/28/17 16:52 Urine Color Yellow (Yellow) 09/28/17 20:30 Urine Turbidity Clear (Clear) 09/28/17 20:30 Urine pH 5.0 (5.0-7.0) 09/28/17 20:30 Ur Specific [place] 1.015 (1.003-1.030) 09/28/17 20:30 Urine Protein <15 mg/dl mg/dL (Negative) 09/28/17 20:30 Urine Glucose (UA) Neg mg/dL (Negative) 09/28/17 20:30 Urine Ketones Neg mg/dL (Negative) 09/28/17 20:30 Urine Blood Neg (Negative) 09/28/17 20:30 Urine Nitrite Neg (Negative) 09/28/17 20:30 Urine Bilirubin Neg (Negative) 09/28/17 20:30 Urine Urobilinogen < 2.0 mg/dL (<2.0) 09/28/17 20:30 Ur Leukocyte Esterase Neg (Negative) 09/28/17 20:30 Urine WBC (Auto) 1.0 /HPF (0.0-6.0) 09/28/17 20:30 Urine RBC (Auto) 2.0 /HPF (0.0-6.0) 09/28/17 20:30 Urine Mucus Few /HPF 09/28/17 20:30
--- NOTE | 2017-10-01 18:45 | Event Note ---
Date: 10/01/[address] Lewis thank you for asking me to participate in the care of this patient. Full consultation dictated. Consultation dictation number:[id number].. This is 61 year old male with history of COPD and on home O2 , Hypertension, hyperlipidemia,CAD,HIV positive admitted with shortness of breath and cough with productive green sputum.Patient also complained chest tightness. Patient has history of stress test and cardiac cath about year ago. Patient has no known drug allergies. Patient has history of smoking 1 pack a day. Denies alcohol or drug abuse. 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 Impression: 1. Acute Exacerbation of COPD 2. CAD 3. Hypertension 4. Hyperlipidemia. 5. HIV Positive. 6. Acute bronchitis PLAN: 1. ABGs on room air. 2. O2 2 litres via nasal canula. 3. Albuterol/atrovent aerosol treatments q 6 hours. 4. Increase I/V solumedral q 6 hours. 5. Continue S/C Heparin. 6. Sputum for gram stain and C&S 7. Augmentin 875 mg po BID Patient does not want to use BIPAP under any circumastances.
[2017-10-01] MEDS: AUGMENTIN 875 MG PO SCH (22:53)
--- NOTE | 2017-10-02 02:13 | Treadmill Report ---
NUCLEAR STUDY REASON FOR STUDY: Chest pain. IMAGING PROTOCOL: The patient received 10 mCi of Technetium 99m Tetrofosmin for resting image and 28 mCi of Technetium 99m Tetrofosmin for stress imaging. The imaging for the whole procedure was completed 30-90 minutes following the initial injection of Technetium 99m tetrofosmin. The SPECT imaging in the 180 degree arc was performed in the right anterior oblique projection. Computerized reconstruction of the images was performed for analysis. IMAGING RESULTS: Normal cavity size from stress to rest. Normal distribution of radionuclide in the anterior, inferior, septal, and apical regions. Gated SPECT; EF around 45-50%. The patient was infused with dobutamine and at 30 mcg with 0.25 atropine with which, he was able to achieve a peak heart rate 145, which is 90% of max predicted heart rate. The patient had no EKG changes that suggest ischemia. SUMMARY: 1. Negative dobutamine stress EKG. 2. Normal rest and stress myocardial perfusion scan. No significant stress ischemia. EF approximately 45-50%. No inducible ischemia noted. [facility]# [id number] MICAELA/DYLAN
[2017-10-02] MEDS: DUONEB *Not for PRN Use IH SCH ×4 (02:31→20:16)
[2017-10-02] MEDS: HEPARIN SUB-Q SCH ×2 (09:18→23:01)
[2017-10-02] MEDS: NORVASC PO SCH (09:18)
[2017-10-02] MEDS: PLAVIX PO SCH (09:18)
[2017-10-02] MEDS: AUGMENTIN 875 MG PO SCH ×3 (09:19→23:01)
[2017-10-02] MEDS: BROVANA NEBU IH SCH ×3 (12:21→20:15)
[2017-10-02] MEDS: PULMICORT IH SCH ×2 (12:22→20:15)
--- NOTE | 2017-10-02 14:02 | Progress Note ---
Assessment and Plan Assessment and plan: COPD excaerbation. Cont solumedrol iv Q8hrs, Duoneb nebulizer, Supplemental Oxygen. Still having shortness of breath. Consulted Scientific Advisor and he was seen by Dr. Schuster, and I discussed case with Dr. Schuster Acute on chronic respiratory failure due to COPD excerbation. Continue Oxygen supplementation. He is on home Oxygen. Chest pain. Non-cardiac. Negative dobutamine stress test today. I discussed with Dr. Can, Cardiology. D-dimer neg Coronary artery disease. Cardiology following. Hyperkalemia now rersolved after Kayexalate. Hypertension. BP stable HIV infection. On HAART DVT prophylaxis with Heparin subcut. Full code status Hopefully d/c home in 1-2 days History Interval history: Still having Shortness of breath, No more chest pain Hospitalist Physical - Physical exam Narrative exam: GEN APPEARANCE :Not in acute distress, obese HEENT: Normocephalic Atraumatic NECK : supple, no JVD LUNGS: Decreased Breath sounds bilat, bilateral rhonchi HEART: S1 and S2 regular, no murmurs, rubs or gallop, ABD: Soft, no tenderness, no distension, normal bowel sounds EXT: No edema, no clubbing, no cyanosis NEURO: Awake,alert,oriented x 3, moves all extremities, non focal - Constitutional Vitals: Temp Pulse Resp BP Pulse Ox 98.3 F 77 18 151/100 100 10/02/17 12:16 10/02/17 12:25 10/02/17 12:25 10/02/17 12:16 10/02/17 12:16 Results - Labs CBC & Chem 7: 09/29/17 03:47 09/30/17 07:24 Labs: Laboratory Last Values WBC 6.8 K/mm3 (4.5-11.0) 09/29/17 03:47 RBC 5.51 M/mm3 (3.65-5.03) H 09/29/17 03:47 Hgb 14.7 gm/dl (11.8-15.2) 09/29/17 03:47 Hct 46.8 % (35.5-45.6) H 09/29/17 03:47 MCV 85 fl (84-94) 09/29/17 03:47 MCH 27 pg (28-32) L 09/29/17 03:47 MCHC 32 % (32-34) 09/29/17 03:47 RDW 16.4 % (13.2-15.2) H 09/29/17 03:47 Plt Count 174 K/mm3 (140-440) 09/29/17 03:47 Lymph % (Auto) 12.3 % (13.4-35.0) L 09/28/17 16:52 [place] % (Auto) 11.3 % (0.0-7.3) H 09/28/17 16:52 Eos % (Auto) 0.3 % (0.0-4.3) 09/28/17 16:52 Baso % (Auto) 0.6 % (0.0-1.8) 09/28/17 16:52 Lymph # 0.8 K/mm3 (1.2-5.4) L 09/28/17 16:52 [place] # 0.7 K/mm3 (0.0-0.8) 09/28/17 16:52 Eos # 0.0 K/mm3 (0.0-0.4) 09/28/17 16:52 Baso # 0.0 K/mm3 (0.0-0.1) 09/28/17 16:52 Add Manual Diff Complete 09/29/17 03:47 Total Counted 100 09/29/17 03:47 Seg Neutrophils % Garbage Collector Driver 09/29/17 03:47 Seg Neuts % (Manual) 91.0 % (40.0-70.0) H 09/29/17 03:47 Band Neutrophils % 0 % 09/29/17 03:47 Lymphocytes % (Manual) 5.0 % (13.4-35.0) L 09/29/17 03:47 Reactive Lymphs % (Man) 0 % 09/29/17 03:47 Monocytes % (Manual) 3.0 % (0.0-7.3) 09/29/17 03:47 Eosinophils % (Manual) 1.0 % (0.0-4.3) 09/29/17 03:47 Basophils % (Manual) 0 % (0.0-1.8) 09/29/17 03:47 Metamyelocytes % 0 % 09/29/17 03:47 Myelocytes % 0 % 09/29/17 03:47 Promyelocytes % 0 % 09/29/17 03:47 Blast Cells % 0 % 09/29/17 03:47 Nucleated RBC % Not Reportable 09/29/17 03:47 Seg Neutrophils # 4.7 K/mm3 (1.8-7.7) 09/28/17 16:52 Seg Neutrophils # Man 6.2 K/mm3 (1.8-7.7) 09/29/17 03:47 Band Neutrophils # 0.0 K/mm3 09/29/17 03:47 Lymphocytes # (Manual) 0.3 K/mm3 (1.2-5.4) L 09/29/17 03:47 Abs React Lymphs (Man) 0.0 K/mm3 09/29/17 03:47 Monocytes # (Manual) 0.2 K/mm3 (0.0-0.8) 09/29/17 03:47 Eosinophils # (Manual) 0.1 K/mm3 (0.0-0.4) 09/29/17 03:47 Basophils # (Manual) 0.0 K/mm3 (0.0-0.1) 09/29/17 03:47 Metamyelocytes # 0.0 K/mm3 09/29/17 03:47 Myelocytes # 0.0 K/mm3 09/29/17 03:47 Promyelocytes # 0.0 K/mm3 09/29/17 03:47 Blast Cells # 0.0 K/mm3 09/29/17 03:47 WBC Morphology Not Reportable 09/29/17 03:47 Hypersegmented Neuts Not Reportable 09/29/17 03:47 Hyposegmented Neuts Not Reportable 09/29/17 03:47 Hypogranular Neuts Not Reportable 09/29/17 03:47 Smudge Cells Not Reportable 09/29/17 03:47 Toxic Granulation Not Reportable 09/29/17 03:47 Toxic Vacuolation Not Reportable 09/29/17 03:47 Dohle Bodies Not Reportable 09/29/17 03:47 Pelger-Huet Anomaly Not Reportable 09/29/17 03:47 Davina Rods Not Reportable 09/29/17 03:47 Platelet Estimate Consistent w auto 09/29/17 03:47 Clumped Platelets Not Reportable 09/29/17 03:47 Plt Clumps, EDTA Not Reportable 09/29/17 03:47 Large Platelets Not Reportable 09/29/17 03:47 Giant Platelets Not Reportable 09/29/17 03:47 Platelet Satelliting Not Reportable 09/29/17 03:47 Plt Morphology Comment Not Reportable 09/29/17 03:47 RBC Morphology Not Reportable 09/29/17 03:47 Dimorphic RBCs Not Reportable 09/29/17 03:47 Polychromasia Not Reportable 09/29/17 03:47 Hypochromasia Not Reportable 09/29/17 03:47 Poikilocytosis Not Reportable 09/29/17 03:47 Anisocytosis 1+ 09/29/17 03:47 Microcytosis Not Reportable 09/29/17 03:47 Macrocytosis Not Reportable 09/29/17 03:47 Spherocytes Not Reportable 09/29/17 03:47 Pappenheimer Bodies Not Reportable 09/29/17 03:47 Sickle Cells Not Reportable 09/29/17 03:47 Target Cells Not Reportable 09/29/17 03:47 Tear Drop Cells Not Reportable 09/29/17 03:47 Ovalocytes Not Reportable 09/29/17 03:47 Helmet Cells Not Reportable 09/29/17 03:47 [place] Bodies Not Reportable 09/29/17 03:47 [place] Rings Not Reportable 09/29/17 03:47 [place] Cells Not Reportable 09/29/17 03:47 Bite Cells Not Reportable 09/29/17 03:47 Crenated Cell Not Reportable 09/29/17 03:47 Elliptocytes Not Reportable 09/29/17 03:47 Acanthocytes (Spur) Not Reportable 09/29/17 03:47 Rouleaux Not Reportable 09/29/17 03:47 Hemoglobin C Crystals Not Reportable 09/29/17 03:47 Schistocytes Not Reportable 09/29/17 03:47 Malaria parasites Not Reportable 09/29/17 03:47 [place] Bodies Not Reportable 09/29/17 03:47 Hem Pathologist Commnt No 09/29/17 03:47 PT 12.7 Sec. (12.2-14.9) 09/28/17 16:52 INR 0.91 (0.87-1.13) 09/28/17 16:52 D-Dimer 155.44 ng/mlDDU (0-234) 09/30/17 11:43 VBG pH 7.354 (7.320-7.420) 09/28/17 16:52 Sodium 144 mmol/L (137-145) 09/30/17 07:24 Potassium 4.4 mmol/L (3.6-5.0) 09/30/17 07:24 Chloride 100.9 mmol/L (98-107) 09/30/17 07:24 Carbon Dioxide 31 mmol/L (22-30) H 09/30/17 07:24 Anion Gap 17 mmol/L 09/30/17 07:24 BUN 18 mg/dL (9-20) 09/30/17 07:24 Creatinine 0.7 mg/dL (0.8-1.5) L 09/30/17 07:24 Estimated GFR > 60 ml/min 09/30/17 07:24 BUN/Creatinine Ratio 26 % 09/30/17 07:24 Glucose 175 mg/dL (75-100) H 09/30/17 07:24 Lactic Acid 1.50 mmol/L (0.7-2.0) 09/28/17 17:43 Calcium 8.7 mg/dL (8.4-10.2) 09/30/17 07:24 Total Bilirubin 0.30 mg/dL (0.1-1.2) 09/28/17 16:52 AST 14 units/L (5-40) 09/28/17 16:52 ALT 21 units/L (7-56) 09/28/17 16:52 Alkaline Phosphatase 60 units/L (35-129) 09/28/17 16:52 Total Creatine Kinase 99 units/L (55-170) 09/29/17 03:47 CK-MB (CK-2) 1.7 ng/mL (0.0-4.0) 09/29/17 03:47 CK-MB (CK-2) Rel Index 1.7 (0-4) 09/29/17 03:47 Troponin T < 0.010 ng/mL (0.00-0.029) 09/29/17 03:47 NT-Pro-B Natriuret Pep 10.47 pg/mL (0-900) 09/28/17 16:52 Total Protein 6.2 g/dL (6.3-8.2) L 09/28/17 16:52 Albumin 3.9 g/dL (3.9-5) 09/28/17 16:52 Albumin/Globulin Ratio 1.7 % 09/28/17 16:52 Urine Color Yellow (Yellow) 09/28/17 20:30 Urine Turbidity Clear (Clear) 09/28/17 20:30 Urine pH 5.0 (5.0-7.0) 09/28/17 20:30 Ur Specific [place] 1.015 (1.003-1.030) 09/28/17 20:30 Urine Protein <15 mg/dl mg/dL (Negative) 09/28/17 20:30 Urine Glucose (UA) Neg mg/dL (Negative) 09/28/17 20:30 Urine Ketones Neg mg/dL (Negative) 09/28/17 20:30 Urine Blood Neg (Negative) 09/28/17 20:30 Urine Nitrite Neg (Negative) 09/28/17 20:30 Urine Bilirubin Neg (Negative) 09/28/17 20:30 Urine Urobilinogen < 2.0 mg/dL (<2.0) 09/28/17 20:30 Ur Leukocyte Esterase Neg (Negative) 09/28/17 20:30 Urine WBC (Auto) 1.0 /HPF (0.0-6.0) 09/28/17 20:30 Urine RBC (Auto) 2.0 /HPF (0.0-6.0) 09/28/17 20:30 Urine Mucus Few /HPF 09/28/17 20:30
--- NOTE | 2017-10-02 18:42 | Progress Note ---
Assessment and Plan Patient awake. Anxious and irritable. still complaining shortness of breath. No Acute respiratory distress at rest.O2 saturation 99% on 3 litres O2. - Patient Problems (1) COPD (chronic obstructive pulmonary disease) Current Visit: No Status: Chronic Qualifiers: COPD type: emphysema Emphysema type: unspecified Qualified Code(s): J43.9 - Emphysema, unspecified Plan to address problem: O2 3 litres via nasal canula. Albuterol/atrovent aerosol treatments q 6 hours I/V solumedral 100mg I/V q 6 hours. Continue S/C Heparin. (2) HIV (human immunodeficiency virus infection) Current Visit: No Status: Chronic Plan to address problem: Management as per infectious disease specialists. (3) CAD (coronary artery disease) Current Visit: No Status: Acute Qualifiers: Coronary Disease-Associated Artery/Lesion type: [place] artery Plan to address problem: Management as per cardiology. (4) History of coronary artery stent placement Current Visit: No Status: Chronic Plan to address problem: Management as per cardiology. (5) Hypertension Current Visit: No Status: Chronic Plan to address problem: Management as per primary care. Subjective Date of service: 10/02/17 Principal diagnosis: chest pain Interval history: Patient awake. Anxious and irritable. still complaining shortness of breath. No Acute respiratory distress at rest.O2 saturation 99% on 3 litres O2. Objective Vital Signs - 12hr 10/02/17 10/02/17 10/02/17 10:00 12:16 12:25 Temperature 98.3 F Pulse Rate 82 79 Pulse Rate [ 77 Bilateral Throughout] Pulse Rate [ 80 Throughout] Respiratory 18 Rate Respiratory 18 Rate [Bilateral Throughout] Respiratory 18 Rate [ Throughout] Blood Pressure 151/100 O2 Sat by Pulse 100 100 Oximetry 10/02/17 10/02/17 14:00 15:57 Temperature 98.3 F Pulse Rate 88 Pulse Rate [ Bilateral Throughout] Pulse Rate [ 87 Throughout] Respiratory 20 Rate Respiratory Rate [Bilateral Throughout] Respiratory 20 Rate [ Throughout] Blood Pressure 132/80 O2 Sat by Pulse 99 Oximetry Constitutional: no acute distress, alert Eyes: non-icteric ENT: oropharynx moist Neck: supple, no lymphadenopathy Ascultation: Bilateral: diminished breath sounds Cardiovascular: regular rate and rhythm Gastrointestinal: normoactive bowel sounds, soft, non-tender Integumentary: normal Extremities: no cyanosis, no edema Neurologic: non-focal exam, pupils equal and round, CN II-XII normal Psychiatric: anxious, other (Irritable.) CBC and BMP: 09/29/17 03:47 09/30/17 07:24 ABG, PT/INR, D-dimer: PT/INR, D-dimer PT 12.7 Sec. (12.2-14.9) 09/28/17 16:52 INR 0.91 (0.87-1.13) 09/28/17 16:52 D-Dimer 155.44 ng/mlDDU (0-234) 09/30/17 11:43 Abnormal lab findings: Abnormal Labs 09/28/17 09/28/17 09/28/17 16:52 16:52 16:52 RBC 5.55 H Hct 47.2 H MCH 27 L RDW 16.6 H Lymph % (Auto) 12.3 L [place] % (Auto) 11.3 H Lymph # 0.8 L Seg Neutrophils % 75.5 H Seg Neuts % (Manual) Lymphocytes % (Manual) Lymphocytes # (Manual) Potassium Chloride 94.7 L Carbon Dioxide 34 H BUN 21 H Creatinine 1.8 H Glucose Lactic Acid 2.50 H* Total Protein 6.2 L 09/29/17 09/29/17 09/30/17 03:47 03:47 07:24 RBC 5.51 H Hct 46.8 H MCH 27 L RDW 16.4 H Lymph % (Auto) [place] % (Auto) Lymph # Seg Neutrophils % Seg Neuts % (Manual) 91.0 H Lymphocytes % (Manual) 5.0 L Lymphocytes # (Manual) 0.3 L Potassium 5.3 H D Chloride 94.1 L Carbon Dioxide 31 H BUN 23 H Creatinine 0.7 L Glucose 179 H 175 H Lactic Acid Total Protein
[2017-10-03] MEDS: PULMICORT IH SCH ×3 (01:38→20:44)
[2017-10-03] MEDS: DUONEB *Not for PRN Use IH SCH ×4 (01:47→20:47)
[2017-10-03] MEDS: TYLENOL PO PRN (05:56)
[2017-10-03] MEDS: BROVANA NEBU IH SCH ×2 (08:22→20:44)
[2017-10-03] MEDS: MILK OF MAGNESIA PO PRN ×2 (10:05→17:46)
[2017-10-03] MEDS: NORVASC PO SCH (10:05)
[2017-10-03] MEDS: HEPARIN SUB-Q SCH ×2 (10:05→21:55)
[2017-10-03] MEDS: AUGMENTIN 875 MG PO SCH ×2 (10:05→21:54)
[2017-10-03] MEDS: PLAVIX PO SCH (10:05)
[2017-10-03] MEDS: NON-FORMULARY (Elviteg/Cobi/Emtric/Tenofo Ala 1 EACH) PO SCH (10:08)
--- NOTE | 2017-10-03 16:11 | Progress Note ---
Assessment and Plan Assessment and plan: COPD excaerbation. Cont solumedrol iv Q8hrs, Duoneb nebulizer, Supplemental Oxygen. Still having shortness of breath. Consulted Contour Sander and he was seen by Dr. Schuster, and I discussed case with Dr. Schuster. his solumedrol dose was increased to 100mg q 6. he feels a little better. Acute on chronic respiratory failure due to COPD excerbation. Continue Oxygen supplementation. He is on home Oxygen. Chest pain. Non-cardiac. may be due to GERD. Negative dobutamine stress test. D- dimer neg GERD. Start Pepcid. Coronary artery disease. Stress test negative. Hyperkalemia now rersolved after Kayexalate. Hypertension. BP stable HIV infection. On HAART DVT prophylaxis with Heparin subcut. Full code status Hopefully d/c home tomorrow. Patient refused to do ABG History Interval history: Feels slightly better , less shortness of breath, No more chest pain no fever Hospitalist Physical - Physical exam Narrative exam: GEN APPEARANCE :Not in acute distress, obese HEENT: Normocephalic Atraumatic NECK : supple, no JVD LUNGS: Decreased Breath sounds bilat, bilateral rhonchi HEART: S1 and S2 regular, no murmurs, rubs or gallop, ABD: Soft, no tenderness, no distension, normal bowel sounds EXT: No edema, no clubbing, no cyanosis NEURO: Awake,alert,oriented x 3, moves all extremities, non focal - Constitutional Vitals: Temp Pulse Resp BP Pulse Ox 98.3 F 90 16 137/85 97 10/03/17 12:38 10/03/17 14:06 10/03/17 14:06 10/03/17 12:38 10/03/17 12:38 Results - Labs CBC & Chem 7: 09/29/17 03:47 09/30/17 07:24 Labs: Laboratory Last Values WBC 6.8 K/mm3 (4.5-11.0) 09/29/17 03:47 RBC 5.51 M/mm3 (3.65-5.03) H 09/29/17 03:47 Hgb 14.7 gm/dl (11.8-15.2) 09/29/17 03:47 Hct 46.8 % (35.5-45.6) H 09/29/17 03:47 MCV 85 fl (84-94) 09/29/17 03:47 MCH 27 pg (28-32) L 09/29/17 03:47 MCHC 32 % (32-34) 09/29/17 03:47 RDW 16.4 % (13.2-15.2) H 09/29/17 03:47 Plt Count 174 K/mm3 (140-440) 09/29/17 03:47 Lymph % (Auto) 12.3 % (13.4-35.0) L 09/28/17 16:52 [place] % (Auto) 11.3 % (0.0-7.3) H 09/28/17 16:52 Eos % (Auto) 0.3 % (0.0-4.3) 09/28/17 16:52 Baso % (Auto) 0.6 % (0.0-1.8) 09/28/17 16:52 Lymph # 0.8 K/mm3 (1.2-5.4) L 09/28/17 16:52 [place] # 0.7 K/mm3 (0.0-0.8) 09/28/17 16:52 Eos # 0.0 K/mm3 (0.0-0.4) 09/28/17 16:52 Baso # 0.0 K/mm3 (0.0-0.1) 09/28/17 16:52 Add Manual Diff Complete 09/29/17 03:47 Total Counted 100 09/29/17 03:47 Seg Neutrophils % Life Enrichment Specialist 09/29/17 03:47 Seg Neuts % (Manual) 91.0 % (40.0-70.0) H 09/29/17 03:47 Band Neutrophils % 0 % 09/29/17 03:47 Lymphocytes % (Manual) 5.0 % (13.4-35.0) L 09/29/17 03:47 Reactive Lymphs % (Man) 0 % 09/29/17 03:47 Monocytes % (Manual) 3.0 % (0.0-7.3) 09/29/17 03:47 Eosinophils % (Manual) 1.0 % (0.0-4.3) 09/29/17 03:47 Basophils % (Manual) 0 % (0.0-1.8) 09/29/17 03:47 Metamyelocytes % 0 % 09/29/17 03:47 Myelocytes % 0 % 09/29/17 03:47 Promyelocytes % 0 % 09/29/17 03:47 Blast Cells % 0 % 09/29/17 03:47 Nucleated RBC % Not Reportable 09/29/17 03:47 Seg Neutrophils # 4.7 K/mm3 (1.8-7.7) 09/28/17 16:52 Seg Neutrophils # Man 6.2 K/mm3 (1.8-7.7) 09/29/17 03:47 Band Neutrophils # 0.0 K/mm3 09/29/17 03:47 Lymphocytes # (Manual) 0.3 K/mm3 (1.2-5.4) L 09/29/17 03:47 Abs React Lymphs (Man) 0.0 K/mm3 09/29/17 03:47 Monocytes # (Manual) 0.2 K/mm3 (0.0-0.8) 09/29/17 03:47 Eosinophils # (Manual) 0.1 K/mm3 (0.0-0.4) 09/29/17 03:47 Basophils # (Manual) 0.0 K/mm3 (0.0-0.1) 09/29/17 03:47 Metamyelocytes # 0.0 K/mm3 09/29/17 03:47 Myelocytes # 0.0 K/mm3 09/29/17 03:47 Promyelocytes # 0.0 K/mm3 09/29/17 03:47 Blast Cells # 0.0 K/mm3 09/29/17 03:47 WBC Morphology Not Reportable 09/29/17 03:47 Hypersegmented Neuts Not Reportable 09/29/17 03:47 Hyposegmented Neuts Not Reportable 09/29/17 03:47 Hypogranular Neuts Not Reportable 09/29/17 03:47 Smudge Cells Not Reportable 09/29/17 03:47 Toxic Granulation Not Reportable 09/29/17 03:47 Toxic Vacuolation Not Reportable 09/29/17 03:47 Dohle Bodies Not Reportable 09/29/17 03:47 Pelger-Huet Anomaly Not Reportable 09/29/17 03:47 Davina Rods Not Reportable 09/29/17 03:47 Platelet Estimate Consistent w auto 09/29/17 03:47 Clumped Platelets Not Reportable 09/29/17 03:47 Plt Clumps, EDTA Not Reportable 09/29/17 03:47 Large Platelets Not Reportable 09/29/17 03:47 Giant Platelets Not Reportable 09/29/17 03:47 Platelet Satelliting Not Reportable 09/29/17 03:47 Plt Morphology Comment Not Reportable 09/29/17 03:47 RBC Morphology Not Reportable 09/29/17 03:47 Dimorphic RBCs Not Reportable 09/29/17 03:47 Polychromasia Not Reportable 09/29/17 03:47 Hypochromasia Not Reportable 09/29/17 03:47 Poikilocytosis Not Reportable 09/29/17 03:47 Anisocytosis 1+ 09/29/17 03:47 Microcytosis Not Reportable 09/29/17 03:47 Macrocytosis Not Reportable 09/29/17 03:47 Spherocytes Not Reportable 09/29/17 03:47 Pappenheimer Bodies Not Reportable 09/29/17 03:47 Sickle Cells Not Reportable 09/29/17 03:47 Target Cells Not Reportable 09/29/17 03:47 Tear Drop Cells Not Reportable 09/29/17 03:47 Ovalocytes Not Reportable 09/29/17 03:47 Helmet Cells Not Reportable 09/29/17 03:47 [place] Bodies Not Reportable 09/29/17 03:47 [place] Rings Not Reportable 09/29/17 03:47 [place] Cells Not Reportable 09/29/17 03:47 Bite Cells Not Reportable 09/29/17 03:47 Crenated Cell Not Reportable 09/29/17 03:47 Elliptocytes Not Reportable 09/29/17 03:47 Acanthocytes (Spur) Not Reportable 09/29/17 03:47 Rouleaux Not Reportable 09/29/17 03:47 Hemoglobin C Crystals Not Reportable 09/29/17 03:47 Schistocytes Not Reportable 09/29/17 03:47 Malaria parasites Not Reportable 09/29/17 03:47 [place] Bodies Not Reportable 09/29/17 03:47 Hem Pathologist Commnt No 09/29/17 03:47 PT 12.7 Sec. (12.2-14.9) 09/28/17 16:52 INR 0.91 (0.87-1.13) 09/28/17 16:52 D-Dimer 155.44 ng/mlDDU (0-234) 09/30/17 11:43 VBG pH 7.354 (7.320-7.420) 09/28/17 16:52 Sodium 144 mmol/L (137-145) 09/30/17 07:24 Potassium 4.4 mmol/L (3.6-5.0) 09/30/17 07:24 Chloride 100.9 mmol/L (98-107) 09/30/17 07:24 Carbon Dioxide 31 mmol/L (22-30) H 09/30/17 07:24 Anion Gap 17 mmol/L 09/30/17 07:24 BUN 18 mg/dL (9-20) 09/30/17 07:24 Creatinine 0.7 mg/dL (0.8-1.5) L 09/30/17 07:24 Estimated GFR > 60 ml/min 09/30/17 07:24 BUN/Creatinine Ratio 26 % 09/30/17 07:24 Glucose 175 mg/dL (75-100) H 09/30/17 07:24 Lactic Acid 1.50 mmol/L (0.7-2.0) 09/28/17 17:43 Calcium 8.7 mg/dL (8.4-10.2) 09/30/17 07:24 Total Bilirubin 0.30 mg/dL (0.1-1.2) 09/28/17 16:52 AST 14 units/L (5-40) 09/28/17 16:52 ALT 21 units/L (7-56) 09/28/17 16:52 Alkaline Phosphatase 60 units/L (35-129) 09/28/17 16:52 Total Creatine Kinase 99 units/L (55-170) 09/29/17 03:47 CK-MB (CK-2) 1.7 ng/mL (0.0-4.0) 09/29/17 03:47 CK-MB (CK-2) Rel Index 1.7 (0-4) 09/29/17 03:47 Troponin T < 0.010 ng/mL (0.00-0.029) 09/29/17 03:47 NT-Pro-B Natriuret Pep 10.47 pg/mL (0-900) 09/28/17 16:52 Total Protein 6.2 g/dL (6.3-8.2) L 09/28/17 16:52 Albumin 3.9 g/dL (3.9-5) 09/28/17 16:52 Albumin/Globulin Ratio 1.7 % 09/28/17 16:52 Urine Color Yellow (Yellow) 09/28/17 20:30 Urine Turbidity Clear (Clear) 09/28/17 20:30 Urine pH 5.0 (5.0-7.0) 09/28/17 20:30 Ur Specific [place] 1.015 (1.003-1.030) 09/28/17 20:30 Urine Protein <15 mg/dl mg/dL (Negative) 09/28/17 20:30 Urine Glucose (UA) Neg mg/dL (Negative) 09/28/17 20:30 Urine Ketones Neg mg/dL (Negative) 09/28/17 20:30 Urine Blood Neg (Negative) 09/28/17 20:30 Urine Nitrite Neg (Negative) 09/28/17 20:30 Urine Bilirubin Neg (Negative) 09/28/17 20:30 Urine Urobilinogen < 2.0 mg/dL (<2.0) 09/28/17 20:30 Ur Leukocyte Esterase Neg (Negative) 09/28/17 20:30 Urine WBC (Auto) 1.0 /HPF (0.0-6.0) 09/28/17 20:30 Urine RBC (Auto) 2.0 /HPF (0.0-6.0) 09/28/17 20:30 Urine Mucus Few /HPF 09/28/17 20:30
--- NOTE | 2017-10-03 21:41 | Progress Note ---
Assessment and Plan Patient awake. Says shortness of breath litttle better today. No Acute respiratory distress at rest.O2 saturation 99% on 3 litres O2. Patient refusing to draw blood gases. - Patient Problems (1) COPD (chronic obstructive pulmonary disease) Current Visit: No Status: Chronic Qualifiers: COPD type: emphysema Emphysema type: unspecified Qualified Code(s): J43.9 - Emphysema, unspecified Plan to address problem: O2 3 litres via nasal canula. Albuterol/atrovent aerosol treatments q 6 hours I/V solumedral 100mg I/V q 6 hours. Continue S/C Heparin. (2) HIV (human immunodeficiency virus infection) Current Visit: No Status: Chronic Plan to address problem: Management as per infectious disease specialists. (3) CAD (coronary artery disease) Current Visit: No Status: Acute Qualifiers: Coronary Disease-Associated Artery/Lesion type: [place] artery Plan to address problem: Management as per cardiology. (4) History of coronary artery stent placement Current Visit: No Status: Chronic Plan to address problem: Management as per cardiology. (5) Hypertension Current Visit: No Status: Chronic Plan to address problem: Management as per primary care. Subjective Date of service: 10/03/17 Principal diagnosis: chest pain Interval history: Patient awake. Says shortness of breath litttle better today. No Acute respiratory distress at rest.O2 saturation 99% on 3 litres O2. Patient refusing to draw blood gases. Objective Vital Signs - 12hr 10/03/17 10/03/17 10/03/17 12:38 13:55 14:06 Temperature 98.3 F Pulse Rate 86 Pulse Rate [ 89 90 Throughout] Respiratory 18 Rate Respiratory 16 16 Rate [ Throughout] Blood Pressure 137/85 O2 Sat by Pulse 97 Oximetry 10/03/17 10/03/17 10/03/17 16:02 19:44 20:45 Temperature 98.7 F 97.7 F Pulse Rate 100 H 88 Pulse Rate [ Throughout] Respiratory 18 18 Rate Respiratory Rate [ Throughout] Blood Pressure 136/87 152/97 O2 Sat by Pulse 98 97 99 Oximetry 10/03/17 20:54 Temperature Pulse Rate Pulse Rate [ 81 Throughout] Respiratory Rate Respiratory 17 Rate [ Throughout] Blood Pressure O2 Sat by Pulse Oximetry Constitutional: no acute distress, alert Eyes: non-icteric ENT: oropharynx moist Neck: supple, no lymphadenopathy Ascultation: Bilateral: diminished breath sounds Cardiovascular: regular rate and rhythm Gastrointestinal: normoactive bowel sounds, soft, non-tender Integumentary: normal Extremities: no cyanosis, no edema Neurologic: non-focal exam, pupils equal and round, CN II-XII normal Psychiatric: anxious, other (Irritable.) CBC and BMP: 09/29/17 03:47 09/30/17 07:24 ABG, PT/INR, D-dimer: PT/INR, D-dimer PT 12.7 Sec. (12.2-14.9) 09/28/17 16:52 INR 0.91 (0.87-1.13) 09/28/17 16:52 D-Dimer 155.44 ng/mlDDU (0-234) 09/30/17 11:43 Abnormal lab findings: Abnormal Labs 09/28/17 09/28/17 09/28/17 16:52 16:52 16:52 RBC 5.55 H Hct 47.2 H MCH 27 L RDW 16.6 H Lymph % (Auto) 12.3 L [place] % (Auto) 11.3 H Lymph # 0.8 L Seg Neutrophils % 75.5 H Seg Neuts % (Manual) Lymphocytes % (Manual) Lymphocytes # (Manual) Potassium Chloride 94.7 L Carbon Dioxide 34 H BUN 21 H Creatinine 1.8 H Glucose Lactic Acid 2.50 H* Total Protein 6.2 L 09/29/17 09/29/17 09/30/17 03:47 03:47 07:24 RBC 5.51 H Hct 46.8 H MCH 27 L RDW 16.4 H Lymph % (Auto) [place] % (Auto) Lymph # Seg Neutrophils % Seg Neuts % (Manual) 91.0 H Lymphocytes % (Manual) 5.0 L Lymphocytes # (Manual) 0.3 L Potassium 5.3 H D Chloride 94.1 L Carbon Dioxide 31 H BUN 23 H Creatinine 0.7 L Glucose 179 H 175 H Lactic Acid Total Protein
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
[2017-10-04] MEDS: DUONEB *Not for PRN Use IH SCH ×4 (01:57→20:00)
[2017-10-04] MEDS: TYLENOL PO PRN (04:40)
[2017-10-04] MEDS: PULMICORT IH SCH ×2 (08:33→20:00)
[2017-10-04] MEDS: BROVANA NEBU IH SCH ×2 (08:33→20:00)
[2017-10-04] MEDS: PLAVIX PO SCH (09:59)
[2017-10-04] MEDS: AUGMENTIN 875 MG PO SCH (09:59)
[2017-10-04] MEDS: HEPARIN SUB-Q SCH (10:00)
[2017-10-04] MEDS: NORVASC PO SCH (10:00)
[2017-10-04] MEDS: NON-FORMULARY (Elviteg/Cobi/Emtric/Tenofo Ala 1 EACH) PO SCH (10:32)
--- NOTE | 2017-10-04 11:18 | Progress Note ---
Assessment and Plan Acute COPD excaerbation Acute on chronic respiratory failure due to COPD excerbation Chest pain GERD Coronary artery disease Hyperkalemia Hypertension HIV infection - continue systemic steroids but taper - continue supplemental oxygen to keep sats > 90% - has home oxygen - chest pain resolved - negative stress test - EF 55% - hyperkalemia resolved s/p kayexalate - continue ART for HIV ...d/c planning ongoing ...overall improved Subjective Date of service: 10/04/17 Principal diagnosis: Acute COPD exacerbation; SOB; Chest Pain Interval history: Patient is seen today for: Seen and examined at bedside; 24hour events reviewed; nursing and respiratory care staff consulted; no adverse overnight events reported to me; resting in bed; denies acute chest pains or increased SOB; No palpitations; overall feels better Objective Vital Signs - 12hr 10/04/17 10/04/17 10/04/17 00:08 06:03 08:00 Temperature 97.2 F L 97.8 F Pulse Rate 90 77 Pulse Rate [ 80 Throughout] Respiratory 20 18 Rate Respiratory 17 Rate [ Throughout] Blood Pressure 147/89 159/98 O2 Sat by Pulse 95 96 Oximetry 10/04/17 08:34 Temperature Pulse Rate Pulse Rate [ 81 Throughout] Respiratory Rate Respiratory 19 Rate [ Throughout] Blood Pressure O2 Sat by Pulse 100 Oximetry Constitutional: no acute distress, alert Eyes: non-icteric ENT: oropharynx moist Neck: supple, no lymphadenopathy, no JVD, other (No Thyromegaly) Effort: mildly labored Ascultation: Bilateral: diminished breath sounds, rhonchi (scant in posterior bases) Percussion: Bilateral: not dull Cardiovascular: regular rate and rhythm, murmur noted, other (No rubs) Gastrointestinal: normoactive bowel sounds, soft, non-tender, non-distended, other (No HSM) Integumentary: normal Extremities: no cyanosis, no edema, pulses normal, no ischemia or petechiae Neurologic: normal mental status, non-focal exam, pupils equal and round, CN II- XII normal Psychiatric: anxious CBC and BMP: 09/29/17 03:47 09/30/17 07:24 ABG, PT/INR, D-dimer: PT/INR, D-dimer PT 12.7 Sec. (12.2-14.9) 09/28/17 16:52 INR 0.91 (0.87-1.13) 09/28/17 16:52 D-Dimer 155.44 ng/mlDDU (0-234) 09/30/17 11:43 Abnormal lab findings: Abnormal Labs 09/28/17 09/28/17 09/28/17 16:52 16:52 16:52 RBC 5.55 H Hct 47.2 H MCH 27 L RDW 16.6 H Lymph % (Auto) 12.3 L [facility] % (Auto) 11.3 H Lymph # 0.8 L Seg Neutrophils % 75.5 H Seg Neuts % (Manual) Lymphocytes % (Manual) Lymphocytes # (Manual) Potassium Chloride 94.7 L Carbon Dioxide 34 H BUN 21 H Creatinine 1.8 H Glucose Lactic Acid 2.50 H* Total Protein 6.2 L 09/29/17 09/29/17 09/30/17 03:47 03:47 07:24 RBC 5.51 H Hct 46.8 H MCH 27 L RDW 16.4 H Lymph % (Auto) [facility] % (Auto) Lymph # Seg Neutrophils % Seg Neuts % (Manual) 91.0 H Lymphocytes % (Manual) 5.0 L Lymphocytes # (Manual) 0.3 L Potassium 5.3 H D Chloride 94.1 L Carbon Dioxide 31 H BUN 23 H Creatinine 0.7 L Glucose 179 H 175 H Lactic Acid Total Protein Chest x-ray: image reviewed (right costophrenic angle pleural thickening) Allied health notes reviewed: nursing
[2017-10-04] MEDS ORDERED: PEPCID PO SCH (13:00)
--- NOTE | 2017-10-04 15:06 | Discharge Summary ---
Providers - Providers Date of Admission: 09/28/17 18:36 Date of discharge: 10/04/17 Attending physician: RADHA MOY 09/28/17 22:54 Consult to Physician [CONS] Routine Consulting Provider: DEREK STERN Reason For Exam: ua Place consult to:: [facility] Notified:: y Comment:: added to list 10/01/17 08:19 Consult to Physician [CONS] Routine Consulting Provider: APPLE AVALOS Reason For Exam: COPD exacerbation Place consult to:: Office Notified:: yes Phone number called:: [phone] Was contact made?: Yes If yes, spoke with:: Arely Time called:: 10:45 Primary care physician: ANTIONETTE DUFF MD Hospitalization Condition: Stable Hospital course: 61 year old man with a history of hypertension, hyperlipidemia, coronary artery disease, COPD on home oxygen, HIV comes to the emergency room with complaints of shortness of breath, cough productive of green phlegm for 2 weeks and no improvement with his nebulizer treatments. He was admitted and treated for COPD exacerbation and discharged home in stable condition. Discharge diagnosis and management: /COPD excaerbation. Placed on solumedrol iv Q8hrs, Duoneb nebulizer, Supplemental Oxygen. Consulted Director Trading and he was seen by Dr. Schuster, and his solumedrol dose was increased to 100mg q 6. His symptom improved. Steroid tapered off. O2 requirement was at baseline. /Acute on chronic respiratory failure due to COPD excerbation. Continued Oxygen supplementation to keep o2 sat >92%. He is on home Oxygen. /Chest pain. Non-cardiac. may be due to GERD. Negative dobutamine stress test. D -dimer neg /GERD. Started on Pepcid. /Coronary artery disease. Stress test was negative. /Hyperkalemia now rersolved after Kayexalate. /Hypertension. BP stable, cont current meds /HIV infection. On HAART Disposition: TO HOME OR SELFCARE Time spent for discharge: 32 minutes Core Measure Documentation - Palliative Care Palliative Care/ Comfort Measures: Not Applicable - Core Measures Any of the following diagnoses?: history only Exam - Physical Exam Narrative exam: GEN APPEARANCE: Not in acute distress, obese HEENT: Normocephalic Atraumatic NECK : supple, no JVD LUNGS: Decreased Breath sounds bilat, bilateral rhonchi HEART: S1 and S2 regular, no murmurs, rubs or gallop, ABD: Soft, no tenderness, no distension, normal bowel sounds EXT: No edema, no clubbing, no cyanosis NEURO: Awake,alert,oriented x 3, moves all extremities, non focal - Constitutional Vitals: Temp Pulse Resp BP Pulse Ox 97.8 F 80 17 149/88 100 10/04/17 06:03 10/04/17 14:08 10/04/17 14:08 10/04/17 06:03 10/04/17 08:34 Plan Activity: advance as tolerated Weight Bearing Status: Weight Bear as Tolerated Diet: low fat, low salt Durable Medical Equipment Needed Upon Discharge: Oxygen Follow up with: DEREK STERN MD [Staff Physician] - 7 Days ANTIONETTE DUFF MD [Primary Care Provider] - 7 Days Prescriptions: Albuterol Sulfate [Albuterol 0.63% NEBS] 0.63 mg IH QID PRN #30 vial.neb PRN Reason: Shortness Of Breath Amoxicillin/K Clav Tab [Augmentin 875MG TAB] 1 each PO Q12HR #6 tablet Fluticasone/Salmeterol [Advair Diskus 250-50 mcg] 1 puff IH BID 30 Days blst.w.dev predniSONE [Deltasone] 20 mg PO BID #10 tablet Tiotropium [Spiriva] 18 mcg IH QDAY #30 cap
[2017-10-04 18:32] VITALS: BP 126/78
== END 2017-10-04 22:30 | disposition home or self-care (01) | DRG 682 ==
LOC: ED 16:14 → 4A 18:36
PROVIDERS: ADMIT Internal Medicine; ATTEND Internal Medicine
DX: N17.9 Acute kidney failure, unspecified (principal); J96.21 Acute and chronic respiratory failure with hypoxia; J44.1 Chronic obstructive pulmonary disease with (acute) exacerbation; J44.0 Chronic obstructive pulmonary disease with (acute) lower respiratory infection; K21.9 Gastro-esophageal reflux disease without esophagitis; Z79.899 Other long term (current) drug therapy; Z82.49 Family history of ischemic heart disease and other diseases of the circulatory system; F17.200 Nicotine dependence, unspecified, uncomplicated; J20.9 Acute bronchitis, unspecified
CPT/HCPCS: 36415; 71010; 78452; 80048; 80053; 81001; 82140; 82550; 82553; 82805; 83880; 84484; 85007; 85025; 85379; 85610; 87040; 87070; 87076; 87086; 87186; 87205; 93005; 93010; 93017; 93306; 94640; 94760; 96374; 96375; A9270-GY; A9502; J0461; J1250; J1644; J2405; J2785; J2930; J3010; J7030

== ENCOUNTER 2018-11-28 22:50 | Inpatient (IN) | payer MEDICARE ==
[2018-11-28] MEDS ORDERED: PROVENTIL IH ONE ×2 (23:09→23:10)
[2018-11-28] MEDS ORDERED: ATROVENT IH ONE ×2 (23:09→23:10)
[2018-11-28] MEDS ORDERED: BRETHINE SUB-Q ONE (23:22)
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
[2018-11-29 00:03] LABS: INR 0.9 (0.87-1.13)
[2018-11-29 00:04] LABS: Partial Thromboplastin Time 30.8 Sec. (24.2-36.6)
[2018-11-29 00:13] LABS: Basophils # (Auto) 0.1 K/mm3 (0.0-0.1); Basophils % (Auto) 0.8 % (0.0-1.8); Eosinophils % (Auto) 0.2 % (0.0-4.3); Lymphocytes # (Auto) 0.6 K/mm3 (1.2-5.4); Mean Corpuscular HGB Conc 30 % (32-34); Mean Corpuscular Volume 87 fl (84-94); Monocytes # (Auto) 0.5 K/mm3 (0.0-0.8); Monocytes % (Auto) 7.5 % (0.0-7.3); Platelet Count 157 K/mm3 (140-440); Red Cell Distribution Width 17.7 % (13.2-15.2)
[2018-11-29 00:19] LABS: Creatine Kinase MB 3.3 ng/mL (0.0-4.0)
[2018-11-29 00:21] LABS: Alanine Aminotransferase 30 units/L (7-56); Albumin 4.3 g/dL (3.9-5); BUN/Creatinine Ratio 16; Blood Urea Nitrogen 11 mg/dL (9-20); Hemolysis Index 16
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
[2018-11-29 00:26] LABS: Hematocrit 45.1 % (35.5-45.6); Hemoglobin 13.8 gm/dl (11.8-15.2)
[2018-11-29] MEDS ORDERED: ZOFRAN IV PRN (01:08)
[2018-11-29] MEDS ORDERED: SODIUM CHLORIDE FLUSH SYRINGE 10 ML IV PRN (01:08)
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
[2018-11-29] MEDS: SOLU-Medrol IV SCH ×3 (02:15→17:45)
[2018-11-29] MEDS: DUONEB *Not for PRN Use IH SCH ×5 (02:57→19:31)
[2018-11-29 04:26] LABS: Mean Corpuscular HGB Conc 30 % (32-34); Mean Corpuscular Volume 87 fl (84-94); Platelet Count 171 K/mm3 (140-440); Red Cell Distribution Width 17.2 % (13.2-15.2)
[2018-11-29 04:29] LABS: Hematocrit 47.7 % (35.5-45.6); Hemoglobin 14.3 gm/dl (11.8-15.2)
[2018-11-29 04:41] LABS: BUN/Creatinine Ratio 17; Blood Urea Nitrogen 12 mg/dL (9-20); Calcium 9.4 mg/dL (8.4-10.2); Hemolysis Index 17
[2018-11-29] MEDS ORDERED: APRESOLINE IV ONE (05:32)
[2018-11-29] MEDS ORDERED: APRESOLINE ONE (05:37)
[2018-11-29 05:57] LABS: Band Neutrophils # (Manual) 0.3 K/mm3; Basophils % (Manual) 0 % (0.0-1.8); Eosinophils % (Manual) 0 % (0.0-4.3); Total Cells Counted 100
[2018-11-29 05:58] LABS: Hypochromasia 1+
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
[2018-11-29] MEDS: LOVENOX SUB-Q SCH (09:59)
[2018-11-29] MEDS: PLAVIX PO SCH (09:59)
[2018-11-29] MEDS ORDERED: LOVENOX SUB-Q SCH (10:00)
[2018-11-29] MEDS: NORVASC PO SCH (10:00)
[2018-11-29] MEDS: SODIUM CHLORIDE FLUSH SYRINGE 10 ML IV SCH ×2 (10:01→21:13)
--- NOTE | 2018-11-29 10:56 | Event Note ---
Date: 11/29/18 Patient was seen and developed this morning, patient was on BiPAP. Alert and oriented. H&P, workup includes events and recommendations noted. Continue management per H&P. Will check ABG at 11 AM.
[2018-11-29] MEDS: TYLENOL PO PRN ×2 (12:14→23:06)
[2018-11-29] MEDS: APRESOLINE IV PRN ×2 (12:33→22:19)
[2018-11-29] MEDS: LEVAQUIN 750MG/150ML 750 MG/150 ML BAG IV SCH (13:43)
[2018-11-29] MEDS: ZITHROMAX PO SCH (13:43)
[2018-11-29] MEDS: COLCHICINE PO SCH ×2 (13:43→22:20)
[2018-11-30] MEDS: SOLU-Medrol IV SCH ×3 (01:25→16:46)
[2018-11-30] MEDS: DUONEB *Not for PRN Use IH SCH ×4 (02:14→19:49)
[2018-11-30 05:51] LABS: Mean Corpuscular HGB Conc 31 % (32-34); Mean Corpuscular Volume 84 fl (84-94); Platelet Count 175 K/mm3 (140-440); Red Blood Count 5.09 M/mm3 (3.65-5.03); Red Cell Distribution Width 16.9 % (13.2-15.2)
[2018-11-30 05:59] LABS: BUN/Creatinine Ratio 21; Blood Urea Nitrogen 17 mg/dL (9-20); Calcium 9.3 mg/dL (8.4-10.2); Hemolysis Index 6
[2018-11-30 06:04] LABS: Hematocrit 42.8 % (35.5-45.6); Hemoglobin 13.1 gm/dl (11.8-15.2)
[2018-11-30 07:58] LABS: Basophils % (Manual) 0 % (0.0-1.8); Eosinophils % (Manual) 0 % (0.0-4.3); Total Cells Counted 100
[2018-11-30 07:59] LABS: Anisocytosis 1+
[2018-11-30 08:00] LABS: Hypochromasia 1+
[2018-11-30] MEDS: PLAVIX PO SCH (09:04)
[2018-11-30] MEDS: ZITHROMAX PO SCH (09:05)
[2018-11-30] MEDS: NORVASC PO SCH (09:05)
[2018-11-30] MEDS: LOVENOX SUB-Q SCH (09:05)
[2018-11-30] MEDS: LEVAQUIN 750MG/150ML 750 MG/150 ML BAG IV SCH (09:06)
[2018-11-30] MEDS: SODIUM CHLORIDE FLUSH SYRINGE 10 ML IV SCH ×2 (09:06→22:50)
[2018-11-30] MEDS: COLCHICINE PO SCH ×2 (09:08→22:49)
--- NOTE | 2018-11-30 12:30 | Progress Note ---
Assessment and Plan - Acute and chronic hypoxemic-hypercapnic respiratory failure Continue on bronchodilators, supplemental oxygen, IV Solu-Medrol, IV antibiotics - Right lower lobe infiltrate IV Levaquin and azithromycin, on supplemental oxygen - COPD exacerbation [place] additives, IV Solu-Medrol, supplemental oxygen - CKD IV hydration. Trend BUN and creatinine - H/o Tobacco abuse disorder/Nicotine dependence Counseling on tobacco cessation done -Coronary artery disease Aspirin, statins, -Hypertension Controlled. Continue with antihypertensive medications -Hyperlipidemia Continue with atorvastatin - HIV Resume any antiretroviral medications - DVT and GI prophylaxis with Lovenox and Pepcid Disposition: Per Clinical course Subjective Date of service: 11/30/18 Principal diagnosis: Acute on Chr. Hypoxemic Respir Failure, Pneumonia, COPD Exace Interval history: Having shortness of breath. Denies any fever. No orthopnea. Objective - Exam Narrative Exam: Constitutional: Well-nourished well-developed. In no distress Head: Normocephalic atraumatic Eyes: Pupils are equal round and reactive to light Nose: No enlarged turbinates, no septal deviation. Mouth: Moist mucous membranes. Neck: Supple no thyromegaly. No bruit. No JVD Heart: Regular rate and rhythm, S1-S2 normal. No rubs murmurs or gallop Lungs: Decreased breath sounds bilaterally. Has rhonchi Abdomen: Soft, nontender. Bowel sound are present. Extremities: No edema, no cyanosis, no clubbing. Neuro: Alert oriented Oriented x3. No focal sensory or motor deficit. Skin: No rashes or hyperpigmented spots Musculoskeletal system: No joint pain or swelling Hematological: No petechia or subcutanous hemorrhages. Immunological: No multiple septic spots on the skin Lymphatic: No generalized lymphadenopathy Psychiatry: Euthymic. Calm. - Constitutional Vitals: Vital Signs - 12hr 11/30/18 11/30/18 11/30/18 00:31 00:41 00:51 Temperature Pulse Rate 82 89 81 Pulse Rate [ Anterior Bilateral Throughout] Pulse Rate [ From Monitor] Respiratory 18 42 H 37 H Rate Respiratory Rate [Anterior Bilateral Throughout] Respiratory Rate [Chest] Respiratory Rate [Head] Blood Pressure 123/75 123/75 123/75 O2 Sat by Pulse 94 98 95 Oximetry 11/30/18 11/30/18 11/30/18 01:00 01:11 01:21 Temperature Pulse Rate 91 H 83 89 Pulse Rate [ Anterior Bilateral Throughout] Pulse Rate [ From Monitor] Respiratory 38 H 39 H 37 H Rate Respiratory Rate [Anterior Bilateral Throughout] Respiratory Rate [Chest] Respiratory Rate [Head] Blood Pressure 132/77 132/77 132/77 O2 Sat by Pulse 98 98 Oximetry 11/30/18 11/30/18 11/30/18 01:31 01:41 01:51 Temperature Pulse Rate 86 88 86 Pulse Rate [ Anterior Bilateral Throughout] Pulse Rate [ From Monitor] Respiratory 27 H 33 H 35 H Rate Respiratory Rate [Anterior Bilateral Throughout] Respiratory Rate [Chest] Respiratory Rate [Head] Blood Pressure 132/77 132/77 132/77 O2 Sat by Pulse 98 98 97 Oximetry 11/30/18 11/30/18 11/30/18 02:01 02:11 02:14 Temperature Pulse Rate 83 91 H Pulse Rate [ 89 Anterior Bilateral Throughout] Pulse Rate [ From Monitor] Respiratory 37 H 37 H Rate Respiratory 21 Rate [Anterior Bilateral Throughout] Respiratory Rate [Chest] Respiratory Rate [Head] Blood Pressure 143/79 143/79 O2 Sat by Pulse 98 98 Oximetry 11/30/18 11/30/18 11/30/18 02:21 02:29 02:31 Temperature Pulse Rate 89 88 Pulse Rate [ 91 H Anterior Bilateral Throughout] Pulse Rate [ From Monitor] Respiratory 34 H 38 H Rate Respiratory 21 Rate [Anterior Bilateral Throughout] Respiratory Rate [Chest] Respiratory Rate [Head] Blood Pressure 143/79 143/79 O2 Sat by Pulse 95 93 Oximetry 11/30/18 11/30/18 11/30/18 02:41 02:51 03:01 Temperature Pulse Rate 99 H 98 H 96 H Pulse Rate [ Anterior Bilateral Throughout] Pulse Rate [ From Monitor] Respiratory 41 H 36 H 34 H Rate Respiratory Rate [Anterior Bilateral Throughout] Respiratory Rate [Chest] Respiratory Rate [Head] Blood Pressure 143/79 143/79 149/68 O2 Sat by Pulse 92 96 97 Oximetry 11/30/18 11/30/18 11/30/18 03:11 03:17 03:20 Temperature Pulse Rate 96 H 96 H 92 H Pulse Rate [ Anterior Bilateral Throughout] Pulse Rate [ 85 From Monitor] Respiratory 30 H 34 H 33 H Rate Respiratory Rate [Anterior Bilateral Throughout] Respiratory Rate [Chest] Respiratory Rate [Head] Blood Pressure 149/68 149/68 O2 Sat by Pulse 96 96 97 Oximetry 11/30/18 11/30/18 11/30/18 03:30 03:31 03:41 Temperature 98.0 F Pulse Rate 85 96 H Pulse Rate [ Anterior Bilateral Throughout] Pulse Rate [ From Monitor] Respiratory 21 25 H Rate Respiratory Rate [Anterior Bilateral Throughout] Respiratory Rate [Chest] Respiratory Rate [Head] Blood Pressure 149/68 149/68 O2 Sat by Pulse 94 97 Oximetry 11/30/18 11/30/18 11/30/18 03:51 04:01 04:11 Temperature Pulse Rate 93 H 97 H 85 Pulse Rate [ Anterior Bilateral Throughout] Pulse Rate [ From Monitor] Respiratory 32 H 16 25 H Rate Respiratory Rate [Anterior Bilateral Throughout] Respiratory Rate [Chest] Respiratory Rate [Head] Blood Pressure 149/68 149/68 149/68 O2 Sat by Pulse 97 96 Oximetry 11/30/18 11/30/18 11/30/18 04:21 04:31 04:41 Temperature Pulse Rate 94 H 84 79 Pulse Rate [ Anterior Bilateral Throughout] Pulse Rate [ From Monitor] Respiratory 19 39 H 39 H Rate Respiratory Rate [Anterior Bilateral Throughout] Respiratory Rate [Chest] Respiratory Rate [Head] Blood Pressure 149/68 149/68 149/68 O2 Sat by Pulse 95 95 94 Oximetry 11/30/18 11/30/18 11/30/18 04:51 05:01 05:11 Temperature Pulse Rate 80 87 92 H Pulse Rate [ Anterior Bilateral Throughout] Pulse Rate [ From Monitor] Respiratory 41 H 33 H 42 H Rate Respiratory Rate [Anterior Bilateral Throughout] Respiratory Rate [Chest] Respiratory Rate [Head] Blood Pressure 149/68 149/68 149/68 O2 Sat by Pulse 96 98 97 Oximetry 11/30/18 11/30/18 11/30/18 05:17 05:21 05:31 Temperature Pulse Rate 97 H 82 84 Pulse Rate [ Anterior Bilateral Throughout] Pulse Rate [ From Monitor] Respiratory 31 H 37 H 25 H Rate Respiratory Rate [Anterior Bilateral Throughout] Respiratory Rate [Chest] Respiratory Rate [Head] Blood Pressure 149/68 149/68 O2 Sat by Pulse 97 97 97 Oximetry 11/30/18 11/30/18 11/30/18 05:41 05:51 06:01 Temperature Pulse Rate 88 84 84 Pulse Rate [ Anterior Bilateral Throughout] Pulse Rate [ From Monitor] Respiratory 38 H 38 H 35 H Rate Respiratory Rate [Anterior Bilateral Throughout] Respiratory Rate [Chest] Respiratory Rate [Head] Blood Pressure 149/68 149/68 149/68 O2 Sat by Pulse 98 95 95 Oximetry 11/30/18 11/30/18 11/30/18 06:11 06:21 06:31 Temperature Pulse Rate 86 85 87 Pulse Rate [ Anterior Bilateral Throughout] Pulse Rate [ From Monitor] Respiratory 34 H 31 H 37 H Rate Respiratory Rate [Anterior Bilateral Throughout] Respiratory Rate [Chest] Respiratory Rate [Head] Blood Pressure 149/68 149/68 149/68 O2 Sat by Pulse 94 95 95 Oximetry 11/30/18 11/30/18 11/30/18 06:41 06:51 07:01 Temperature Pulse Rate 86 83 83 Pulse Rate [ Anterior Bilateral Throughout] Pulse Rate [ From Monitor] Respiratory 36 H 32 H 38 H Rate Respiratory Rate [Anterior Bilateral Throughout] Respiratory Rate [Chest] Respiratory Rate [Head] Blood Pressure 146/89 146/89 143/95 O2 Sat by Pulse 93 93 94 Oximetry 11/30/18 11/30/18 11/30/18 07:11 07:21 07:31 Temperature Pulse Rate 84 86 88 Pulse Rate [ Anterior Bilateral Throughout] Pulse Rate [ From Monitor] Respiratory 34 H 27 H 34 H Rate Respiratory Rate [Anterior Bilateral Throughout] Respiratory Rate [Chest] Respiratory Rate [Head] Blood Pressure 143/95 143/95 143/95 O2 Sat by Pulse 95 96 93 Oximetry 11/30/18 11/30/18 11/30/18 07:41 07:51 08:00 Temperature Pulse Rate 89 87 90 Pulse Rate [ Anterior Bilateral Throughout] Pulse Rate [ 86 From Monitor] Respiratory 22 22 36 H Rate Respiratory Rate [Anterior Bilateral Throughout] Respiratory Rate [Chest] Respiratory Rate [Head] Blood Pressure 143/95 143/95 137/93 O2 Sat by Pulse 94 94 95 Oximetry 11/30/18 11/30/18 11/30/18 08:11 08:21 08:31 Temperature Pulse Rate 87 85 87 Pulse Rate [ Anterior Bilateral Throughout] Pulse Rate [ From Monitor] Respiratory 36 H 37 H 37 H Rate Respiratory Rate [Anterior Bilateral Throughout] Respiratory Rate [Chest] Respiratory Rate [Head] Blood Pressure 137/93 137/93 137/93 O2 Sat by Pulse 95 98 96 Oximetry 11/30/18 11/30/18 11/30/18 08:41 08:51 09:05 Temperature Pulse Rate 87 84 98 H Pulse Rate [ Anterior Bilateral Throughout] Pulse Rate [ From Monitor] Respiratory 35 H 30 H Rate Respiratory Rate [Anterior Bilateral Throughout] Respiratory Rate [Chest] Respiratory Rate [Head] Blood Pressure 137/93 137/93 151/129 O2 Sat by Pulse 97 98 Oximetry 11/30/18 11/30/18 11/30/18 09:49 10:00 10:03 Temperature Pulse Rate 103 H Pulse Rate [ 89 98 H Anterior Bilateral Throughout] Pulse Rate [ From Monitor] Respiratory Rate Respiratory 20 20 Rate [Anterior Bilateral Throughout] Respiratory 34 H Rate [Chest] Respiratory 34 H Rate [Head] Blood Pressure O2 Sat by Pulse Oximetry 11/30/18 10:04 Temperature Pulse Rate Pulse Rate [ Anterior Bilateral Throughout] Pulse Rate [ From Monitor] Respiratory Rate Respiratory Rate [Anterior Bilateral Throughout] Respiratory Rate [Chest] Respiratory Rate [Head] Blood Pressure O2 Sat by Pulse 97 Oximetry - Labs CBC & Chem 7: 11/30/18 05:16 11/30/18 05:16 Labs: Abnormal lab results 11/29/18 11/30/18 11/30/18 Range/Units 16:07 05:16 05:16 WBC 15.7 H (4.5-11.0) K/mm3 RBC 5.09 H (3.65-5.03) M/mm3 MCH 26 L (28-32) pg MCHC 31 L (32-34) % RDW 16.9 H (13.2-15.2) % Seg Neuts % (Manual) 74.0 H (40.0-70.0) % Lymphocytes % (Manual) 6.0 L (13.4-35.0) % Seg Neutrophils # Man 11.6 H (1.8-7.7) K/mm3 Lymphocytes # (Manual) 0.9 L (1.2-5.4) K/mm3 POC ABG pCO2 61.8 H (35-45) POC ABG pO2 38 L (80-105) Chloride 95.2 L (98-107) mmol/L Carbon Dioxide 35 H (22-30) mmol/L Glucose 149 H (75-100) mg/dL 11/30/18 Range/Units 05:31 WBC (4.5-11.0) K/mm3 RBC (3.65-5.03) M/mm3 MCH (28-32) pg MCHC (32-34) % RDW (13.2-15.2) % Seg Neuts % (Manual) (40.0-70.0) % Lymphocytes % (Manual) (13.4-35.0) % Seg Neutrophils # Man (1.8-7.7) K/mm3 Lymphocytes # (Manual) (1.2-5.4) K/mm3 POC ABG pCO2 69.1 H (35-45) POC ABG pO2 (80-105) Chloride (98-107) mmol/L Carbon Dioxide (22-30) mmol/L Glucose (75-100) mg/dL
--- NOTE | 2018-11-30 21:24 | Progress Note ---
Assessment and Plan atient alert, awake. Presently resting on BIPAP 16/6, rate 20, FIO2 40%.O2 saturation 97%.No acute respiratory distress. - Patient Problems (1) COPD exacerbation Current Visit: Yes Status: Acute Plan to address problem: BIPAP 16/6, rate 20, FIO2 40% Albuterol/atrovent aerosol treatments q 6 hours. Continue I/V solumedrol. Continue S/C Lovenox. Continue Levaquin. (2) Hypoxia Current Visit: Yes Status: Acute Plan to address problem: Patient is on BIPAP 16/6, rate 20, FIO2 40%. O2 saturation 97%. (3) CAD (coronary artery disease) Current Visit: No Status: Acute Qualifiers: Coronary Disease-Associated Artery/Lesion type: [place] artery Plan to address problem: Patient has history of coronary stent placement. Management as per cardiology. (4) HIV (human immunodeficiency virus infection) Current Visit: No Status: Chronic Plan to address problem: Management as per primary care and infectious diseases. (5) Hypertension Current Visit: No Status: Chronic Plan to address problem: Management as per primary care. Subjective Date of service: 11/30/18 Interval history: Patient alert, awake. Presently resting on BIPAP 16/6, rate 20, FIO2 40%.O2 saturation 97%.No acute respiratory distress. Objective Vital Signs - 12hr 11/30/18 11/30/18 11/30/18 09:21 09:31 09:41 Temperature Pulse Rate 99 H 99 H 99 H Pulse Rate [ Anterior Bilateral Throughout] Pulse Rate [ From Monitor] Respiratory 22 49 H 40 H Rate Respiratory Rate [Anterior Bilateral Throughout] Respiratory Rate [Chest] Respiratory Rate [Head] Blood Pressure 137/93 137/93 137/93 O2 Sat by Pulse 100 96 99 Oximetry 11/30/18 11/30/18 11/30/18 09:49 09:51 10:00 Temperature Pulse Rate 99 H 103 H Pulse Rate [ 89 Anterior Bilateral Throughout] Pulse Rate [ From Monitor] Respiratory 28 H Rate Respiratory 20 Rate [Anterior Bilateral Throughout] Respiratory 34 H Rate [Chest] Respiratory 34 H Rate [Head] Blood Pressure 151/129 O2 Sat by Pulse 94 Oximetry 11/30/18 11/30/18 11/30/18 10:01 10:03 10:04 Temperature Pulse Rate 102 H Pulse Rate [ 98 H Anterior Bilateral Throughout] Pulse Rate [ From Monitor] Respiratory 28 H Rate Respiratory 20 Rate [Anterior Bilateral Throughout] Respiratory Rate [Chest] Respiratory Rate [Head] Blood Pressure 124/87 O2 Sat by Pulse 95 97 Oximetry 11/30/18 11/30/18 11/30/18 10:11 10:21 10:31 Temperature Pulse Rate 103 H 100 H 94 H Pulse Rate [ Anterior Bilateral Throughout] Pulse Rate [ From Monitor] Respiratory 16 19 49 H Rate Respiratory Rate [Anterior Bilateral Throughout] Respiratory Rate [Chest] Respiratory Rate [Head] Blood Pressure 124/87 124/87 124/87 O2 Sat by Pulse 96 96 98 Oximetry 11/30/18 11/30/18 11/30/18 10:41 10:51 11:00 Temperature Pulse Rate 97 H 96 H 98 H Pulse Rate [ Anterior Bilateral Throughout] Pulse Rate [ From Monitor] Respiratory 41 H 51 H 17 Rate Respiratory Rate [Anterior Bilateral Throughout] Respiratory Rate [Chest] Respiratory Rate [Head] Blood Pressure 124/87 124/87 132/113 O2 Sat by Pulse 96 96 97 Oximetry 11/30/18 11/30/18 11/30/18 11:11 11:21 11:31 Temperature Pulse Rate 90 92 H 89 Pulse Rate [ Anterior Bilateral Throughout] Pulse Rate [ From Monitor] Respiratory 41 H 39 H 44 H Rate Respiratory Rate [Anterior Bilateral Throughout] Respiratory Rate [Chest] Respiratory Rate [Head] Blood Pressure 132/113 132/113 132/113 O2 Sat by Pulse 98 98 99 Oximetry 11/30/18 11/30/18 11/30/18 11:41 11:51 12:00 Temperature Pulse Rate 88 85 Pulse Rate [ Anterior Bilateral Throughout] Pulse Rate [ 96 H From Monitor] Respiratory 23 42 H 27 H Rate Respiratory Rate [Anterior Bilateral Throughout] Respiratory Rate [Chest] Respiratory Rate [Head] Blood Pressure 132/113 132/113 O2 Sat by Pulse 100 98 96 Oximetry 11/30/18 11/30/18 11/30/18 12:01 12:11 12:21 Temperature Pulse Rate 84 85 87 Pulse Rate [ Anterior Bilateral Throughout] Pulse Rate [ From Monitor] Respiratory 40 H 41 H 40 H Rate Respiratory Rate [Anterior Bilateral Throughout] Respiratory Rate [Chest] Respiratory Rate [Head] Blood Pressure 132/113 132/113 132/113 O2 Sat by Pulse 97 97 99 Oximetry 11/30/18 11/30/18 11/30/18 12:31 12:41 12:51 Temperature Pulse Rate 94 H 91 H 93 H Pulse Rate [ Anterior Bilateral Throughout] Pulse Rate [ From Monitor] Respiratory 17 25 H 23 Rate Respiratory Rate [Anterior Bilateral Throughout] Respiratory Rate [Chest] Respiratory Rate [Head] Blood Pressure 132/113 132/113 132/113 O2 Sat by Pulse 97 96 95 Oximetry 11/30/18 11/30/18 11/30/18 13:01 13:11 13:21 Temperature Pulse Rate 95 H 106 H 96 H Pulse Rate [ Anterior Bilateral Throughout] Pulse Rate [ From Monitor] Respiratory 12 27 H 36 H Rate Respiratory Rate [Anterior Bilateral Throughout] Respiratory Rate [Chest] Respiratory Rate [Head] Blood Pressure 132/113 132/113 132/113 O2 Sat by Pulse 96 96 97 Oximetry 11/30/18 11/30/18 11/30/18 13:31 13:41 13:45 Temperature Pulse Rate 100 H 98 H 95 H Pulse Rate [ Anterior Bilateral Throughout] Pulse Rate [ From Monitor] Respiratory 28 H 27 H 39 H Rate Respiratory Rate [Anterior Bilateral Throughout] Respiratory Rate [Chest] Respiratory Rate [Head] Blood Pressure 132/113 132/113 104/76 O2 Sat by Pulse 93 94 95 Oximetry 11/30/18 11/30/18 11/30/18 13:51 14:00 14:09 Temperature Pulse Rate 93 H 90 Pulse Rate [ 92 H 92 H Anterior Bilateral Throughout] Pulse Rate [ From Monitor] Respiratory 25 H 42 H Rate Respiratory 34 H 31 H Rate [Anterior Bilateral Throughout] Respiratory Rate [Chest] Respiratory Rate [Head] Blood Pressure 104/76 112/73 O2 Sat by Pulse 91 Oximetry 11/30/18 11/30/18 11/30/18 14:11 14:21 14:31 Temperature Pulse Rate 90 90 90 Pulse Rate [ Anterior Bilateral Throughout] Pulse Rate [ From Monitor] Respiratory 41 H 42 H 42 H Rate Respiratory Rate [Anterior Bilateral Throughout] Respiratory Rate [Chest] Respiratory Rate [Head] Blood Pressure 112/73 112/73 112/73 O2 Sat by Pulse 95 Oximetry 11/30/18 11/30/18 11/30/18 14:41 14:51 15:00 Temperature Pulse Rate 90 89 91 H Pulse Rate [ Anterior Bilateral Throughout] Pulse Rate [ From Monitor] Respiratory 37 H 38 H 22 Rate Respiratory Rate [Anterior Bilateral Throughout] Respiratory Rate [Chest] Respiratory Rate [Head] Blood Pressure 112/73 112/73 114/78 O2 Sat by Pulse Oximetry 11/30/18 11/30/18 11/30/18 15:11 15:21 15:31 Temperature Pulse Rate 97 H 84 90 Pulse Rate [ Anterior Bilateral Throughout] Pulse Rate [ From Monitor] Respiratory 23 34 H 33 H Rate Respiratory Rate [Anterior Bilateral Throughout] Respiratory Rate [Chest] Respiratory Rate [Head] Blood Pressure 114/78 114/78 114/78 O2 Sat by Pulse Oximetry 11/30/18 11/30/18 11/30/18 15:41 15:51 16:00 Temperature Pulse Rate 92 H 92 H 90 Pulse Rate [ Anterior Bilateral Throughout] Pulse Rate [ 89 From Monitor] Respiratory 31 H 33 H 35 H Rate Respiratory Rate [Anterior Bilateral Throughout] Respiratory Rate [Chest] Respiratory Rate [Head] Blood Pressure 114/78 114/78 120/84 O2 Sat by Pulse 96 Oximetry 11/30/18 11/30/18 11/30/18 16:54 17:00 18:00 Temperature Pulse Rate 86 89 111 H Pulse Rate [ Anterior Bilateral Throughout] Pulse Rate [ From Monitor] Respiratory 26 H 40 H 24 Rate Respiratory Rate [Anterior Bilateral Throughout] Respiratory Rate [Chest] Respiratory Rate [Head] Blood Pressure 120/84 130/81 113/76 O2 Sat by Pulse 95 98 Oximetry 11/30/18 11/30/18 11/30/18 19:01 19:49 19:50 Temperature Pulse Rate 92 H Pulse Rate [ 89 Anterior Bilateral Throughout] Pulse Rate [ From Monitor] Respiratory 31 H Rate Respiratory 26 H Rate [Anterior Bilateral Throughout] Respiratory Rate [Chest] Respiratory Rate [Head] Blood Pressure 117/86 O2 Sat by Pulse 100 100 Oximetry 11/30/18 11/30/18 11/30/18 20:00 20:05 20:11 Temperature 98.4 F Pulse Rate 92 H Pulse Rate [ 91 H Anterior Bilateral Throughout] Pulse Rate [ From Monitor] Respiratory 26 H Rate Respiratory 26 H Rate [Anterior Bilateral Throughout] Respiratory Rate [Chest] Respiratory Rate [Head] Blood Pressure 122/90 O2 Sat by Pulse 97 Oximetry Constitutional: no acute distress, alert Ascultation: Bilateral: diminished breath sounds, wheezes Cardiovascular: regular rate and rhythm Gastrointestinal: normoactive bowel sounds Integumentary: normal Extremities: no cyanosis, no edema Neurologic: normal mental status CBC and BMP: 11/30/18 05:16 11/30/18 05:16 ABG, PT/INR, D-dimer: ABG POC ABG pH 7.384 (7.35-7.45) 11/30/18 05:31 POC ABG pCO2 69.1 (35-45) H 11/30/18 05:31 POC ABG pO2 90 (80-105) 11/30/18 05:31 POC ABG HCO3 41.2 11/30/18 05:31 POC ABG Total CO2 43 11/30/18 05:31 POC ABG O2 Sat 96 11/30/18 05:31 PT/INR, D-dimer PT 12.6 Sec. (12.2-14.9) 11/28/18 23:34 INR 0.90 (0.87-1.13) 11/28/18 23:34 Abnormal lab findings: Abnormal Labs 11/28/18 11/28/18 11/29/18 23:34 23:34 00:26 WBC RBC 5.30 H Hct MCH 26 L MCHC 30 L RDW 17.7 H Lymph % (Auto) 10.0 L [place] % (Auto) 7.5 H Lymph # 0.6 L Seg Neutrophils % 81.5 H Seg Neuts % (Manual) Lymphocytes % (Manual) Seg Neutrophils # Man Lymphocytes # (Manual) POC ABG pH 7.230 L POC ABG pCO2 100.6 H POC ABG pO2 Chloride 96.9 L Carbon Dioxide 38 H Creatinine 0.7 L Glucose 123 H 11/29/18 11/29/18 11/29/18 01:37 03:07 04:04 WBC RBC 5.50 H Hct 47.7 H MCH 26 L MCHC 30 L RDW 17.2 H Lymph % (Auto) [place] % (Auto) Lymph # Seg Neutrophils % Seg Neuts % (Manual) 85.0 H Lymphocytes % (Manual) 6.0 L Seg Neutrophils # Man Lymphocytes # (Manual) 0.3 L POC ABG pH 7.211 L 7.236 L POC ABG pCO2 108.5 H 98.1 H POC ABG pO2 62 L Chloride Carbon Dioxide Creatinine Glucose 11/29/18 11/29/18 11/29/18 04:04 11:04 11:15 WBC RBC Hct MCH MCHC RDW Lymph % (Auto) [place] % (Auto) Lymph # Seg Neutrophils % Seg Neuts % (Manual) Lymphocytes % (Manual) Seg Neutrophils # Man Lymphocytes # (Manual) POC ABG pH POC ABG pCO2 72.9 H 71.0 H POC ABG pO2 32 L 53 L Chloride 94.7 L Carbon Dioxide 38 H Creatinine 0.7 L Glucose 152 H 11/29/18 11/30/18 11/30/18 16:07 05:16 05:16 WBC 15.7 H RBC 5.09 H Hct MCH 26 L MCHC 31 L RDW 16.9 H Lymph % (Auto) [place] % (Auto) Lymph # Seg Neutrophils % Seg Neuts % (Manual) 74.0 H Lymphocytes % (Manual) 6.0 L Seg Neutrophils # Man 11.6 H Lymphocytes # (Manual) 0.9 L POC ABG pH POC ABG pCO2 61.8 H POC ABG pO2 38 L Chloride 95.2 L Carbon Dioxide 35 H Creatinine Glucose 149 H 11/30/18 05:31 WBC RBC Hct MCH MCHC RDW Lymph % (Auto) [place] % (Auto) Lymph # Seg Neutrophils % Seg Neuts % (Manual) Lymphocytes % (Manual) Seg Neutrophils # Man Lymphocytes # (Manual) POC ABG pH POC ABG pCO2 69.1 H POC ABG pO2 Chloride Carbon Dioxide Creatinine Glucose Chest x-ray: report reviewed (Reported no acute cardiopulmonary process.), image reviewed
[2018-12-01] MEDS: SOLU-Medrol IV SCH ×3 (00:52→17:50)
[2018-12-01] MEDS: DUONEB *Not for PRN Use IH SCH ×4 (03:29→20:06)
[2018-12-01] MEDS: TYLENOL PO PRN ×2 (09:14→14:48)
[2018-12-01] MEDS: PLAVIX PO SCH (09:15)
[2018-12-01] MEDS: NORVASC PO SCH (09:15)
[2018-12-01] MEDS: LOVENOX SUB-Q SCH (09:16)
[2018-12-01] MEDS: LEVAQUIN 750MG/150ML 750 MG/150 ML BAG IV SCH (09:24)
[2018-12-01] MEDS: COLCHICINE PO SCH ×2 (09:24→21:40)
[2018-12-01] MEDS: SODIUM CHLORIDE FLUSH SYRINGE 10 ML IV SCH ×2 (09:24→21:42)
[2018-12-01] MEDS: ZITHROMAX PO SCH (09:25)
--- NOTE | 2018-12-01 12:16 | Progress Note ---
Assessment and Plan - Acute and chronic hypoxemic-hypercapnic respiratory failure Continue on bronchodilators, supplemental oxygen, IV Solu-Medrol, IV antibiotics - Right lower lobe infiltrate IV Levaquin and azithromycin, on supplemental oxygen - COPD exacerbation [place] additives, IV Solu-Medrol, supplemental oxygen - CKD IV hydration. Trend BUN and creatinine - H/o Tobacco abuse disorder/Nicotine dependence Counseling on tobacco cessation done -Coronary artery disease Aspirin, statins, -Hypertension Controlled. Continue with antihypertensive medications -Hyperlipidemia Continue with atorvastatin - HIV Resume any antiretroviral medications - DVT and GI prophylaxis with Lovenox and Pepcid Disposition: Per Clinical course Subjective Date of service: 12/01/18 Principal diagnosis: Acute on Chr. Hypoxemic Respir Failure, Pneumonia, COPD Exace Interval history: Having shortness of breath. Denies any fever. No orthopnea. On oxygen via nasal cannula Objective - Exam Narrative Exam: Constitutional: Well-nourished well-developed. In no distress Head: Normocephalic atraumatic Eyes: Pupils are equal round and reactive to light Nose: No enlarged turbinates, no septal deviation. Mouth: Moist mucous membranes. Neck: Supple no thyromegaly. No bruit. No JVD Heart: Regular rate and rhythm, S1-S2 normal. No rubs murmurs or gallop Lungs: Decreased breath sounds bilaterally. Has rhonchi Abdomen: Soft, nontender. Bowel sound are present. Extremities: No edema, no cyanosis, no clubbing. Neuro: Alert oriented Oriented x3. No focal sensory or motor deficit. Skin: No rashes or hyperpigmented spots Musculoskeletal system: No joint pain or swelling Hematological: No petechia or subcutanous hemorrhages. Immunological: No multiple septic spots on the skin Lymphatic: No generalized lymphadenopathy Psychiatry: Euthymic. Calm. - Constitutional Vitals: Vital Signs - 12hr 12/01/18 12/01/18 12/01/18 00:21 01:00 02:02 Temperature Pulse Rate 78 81 87 Pulse Rate [ Anterior Bilateral Throughout] Respiratory 30 H 22 Rate Respiratory Rate [Anterior Bilateral Throughout] Blood Pressure 133/80 133/80 O2 Sat by Pulse 95 93 Oximetry 12/01/18 12/01/18 12/01/18 03:00 03:29 03:44 Temperature Pulse Rate 99 H Pulse Rate [ 90 92 H Anterior Bilateral Throughout] Respiratory 21 Rate Respiratory 23 23 Rate [Anterior Bilateral Throughout] Blood Pressure 125/94 O2 Sat by Pulse 95 Oximetry 12/01/18 12/01/18 12/01/18 04:00 04:40 07:42 Temperature 98.1 F 98.2 F Pulse Rate 91 H 25 L Pulse Rate [ Anterior Bilateral Throughout] Respiratory 42 H 20 Rate Respiratory Rate [Anterior Bilateral Throughout] Blood Pressure 126/80 126/80 O2 Sat by Pulse 91 93 Oximetry 12/01/18 12/01/18 12/01/18 08:20 08:35 08:36 Temperature Pulse Rate Pulse Rate [ 87 89 Anterior Bilateral Throughout] Respiratory Rate Respiratory 20 22 Rate [Anterior Bilateral Throughout] Blood Pressure O2 Sat by Pulse 96 Oximetry 12/01/18 12/01/18 09:15 09:45 Temperature Pulse Rate 94 H 92 H Pulse Rate [ Anterior Bilateral Throughout] Respiratory 38 H Rate Respiratory Rate [Anterior Bilateral Throughout] Blood Pressure 139/90 139/90 O2 Sat by Pulse 96 Oximetry - Labs CBC & Chem 7: 11/30/18 05:16 11/30/18 05:16
--- NOTE | 2018-12-01 17:57 | Progress Note ---
Assessment and Plan Patient sleeping at this time.. Presently resting on BIPAP 16/6, rate 20, FIO2 40%.O2 saturation 96%.No acute respiratory distress. - Patient Problems (1) COPD exacerbation Current Visit: Yes Status: Acute Plan to address problem: BIPAP 16/6, rate 20, FIO2 40% Albuterol/atrovent aerosol treatments q 6 hours. Continue I/V solumedrol. Continue S/C Lovenox. Continue Levaquin. (2) Hypoxia Current Visit: Yes Status: Acute Plan to address problem: Patient is on BIPAP 16/6, rate 20, FIO2 40%. O2 saturation 96%. (3) CAD (coronary artery disease) Current Visit: No Status: Acute Qualifiers: Coronary Disease-Associated Artery/Lesion type: [place] artery Plan to address problem: Patient has history of coronary stent placement. Management as per cardiology. (4) HIV (human immunodeficiency virus infection) Current Visit: No Status: Chronic Plan to address problem: Management as per primary care and infectious diseases. (5) Hypertension Current Visit: No Status: Chronic Plan to address problem: Management as per primary care. Subjective Date of service: 12/01/18 Principal diagnosis: Acute on Chr. Hypoxemic Respir Failure, Pneumonia, COPD Exace Interval history: Patient sleeping at this time. Presently resting on BIPAP 16/6, rate 20, FIO2 40%.O2 saturation 96%.No acute respiratory distress. Objective Vital Signs - 12hr 12/01/18 12/01/18 12/01/18 06:00 07:00 07:42 Temperature 98.2 F Pulse Rate 83 77 Pulse Rate [ Anterior Bilateral Throughout] Respiratory 33 H 27 H Rate Respiratory Rate [Anterior Bilateral Throughout] Blood Pressure 144/89 124/75 O2 Sat by Pulse 95 95 Oximetry 12/01/18 12/01/18 12/01/18 08:00 08:20 08:35 Temperature Pulse Rate 89 Pulse Rate [ 87 89 Anterior Bilateral Throughout] Respiratory 27 H Rate Respiratory 20 22 Rate [Anterior Bilateral Throughout] Blood Pressure 124/75 O2 Sat by Pulse 96 Oximetry 12/01/18 12/01/18 12/01/18 08:36 09:00 09:15 Temperature Pulse Rate 93 H 94 H Pulse Rate [ Anterior Bilateral Throughout] Respiratory 24 Rate Respiratory Rate [Anterior Bilateral Throughout] Blood Pressure 139/90 139/90 O2 Sat by Pulse 96 97 Oximetry 12/01/18 12/01/18 12/01/18 09:45 10:00 11:00 Temperature Pulse Rate 92 H 83 90 Pulse Rate [ Anterior Bilateral Throughout] Respiratory 38 H 41 H 34 H Rate Respiratory Rate [Anterior Bilateral Throughout] Blood Pressure 139/90 139/90 141/101 O2 Sat by Pulse 96 97 95 Oximetry 12/01/18 12/01/18 12/01/18 12:00 13:00 14:00 Temperature 97.6 F Pulse Rate 84 89 91 H Pulse Rate [ Anterior Bilateral Throughout] Respiratory 22 41 H 16 Rate Respiratory Rate [Anterior Bilateral Throughout] Blood Pressure 135/84 135/84 135/84 O2 Sat by Pulse 96 98 94 Oximetry 12/01/18 12/01/18 12/01/18 14:29 14:43 15:00 Temperature Pulse Rate 82 Pulse Rate [ 83 93 H Anterior Bilateral Throughout] Respiratory 27 H Rate Respiratory 20 23 Rate [Anterior Bilateral Throughout] Blood Pressure 130/87 O2 Sat by Pulse 97 Oximetry 12/01/18 12/01/18 15:14 16:00 Temperature Pulse Rate 92 H Pulse Rate [ Anterior Bilateral Throughout] Respiratory 21 Rate Respiratory Rate [Anterior Bilateral Throughout] Blood Pressure 130/87 O2 Sat by Pulse 95 95 Oximetry Constitutional: no acute distress, asleep Ascultation: Bilateral: diminished breath sounds, wheezes Cardiovascular: regular rate and rhythm Gastrointestinal: normoactive bowel sounds Integumentary: normal Extremities: no cyanosis, no edema Neurologic: normal mental status CBC and BMP: 12/02/18 05:50 12/02/18 05:50 ABG, PT/INR, D-dimer: ABG POC ABG pH 7.384 (7.35-7.45) 11/30/18 05:31 POC ABG pCO2 69.1 (35-45) H 11/30/18 05:31 POC ABG pO2 90 (80-105) 11/30/18 05:31 POC ABG HCO3 41.2 11/30/18 05:31 POC ABG Total CO2 43 11/30/18 05:31 POC ABG O2 Sat 96 11/30/18 05:31 PT/INR, D-dimer PT 12.6 Sec. (12.2-14.9) 11/28/18 23:34 INR 0.90 (0.87-1.13) 11/28/18 23:34 Abnormal lab findings: Abnormal Labs 11/28/18 11/28/18 11/29/18 23:34 23:34 00:26 WBC RBC 5.30 H Hct MCH 26 L MCHC 30 L RDW 17.7 H Lymph % (Auto) 10.0 L [place] % (Auto) 7.5 H Lymph # 0.6 L Seg Neutrophils % 81.5 H Seg Neuts % (Manual) Lymphocytes % (Manual) Seg Neutrophils # Man Lymphocytes # (Manual) POC ABG pH 7.230 L POC ABG pCO2 100.6 H POC ABG pO2 Chloride 96.9 L Carbon Dioxide 38 H Creatinine 0.7 L Glucose 123 H 11/29/18 11/29/18 11/29/18 01:37 03:07 04:04 WBC RBC 5.50 H Hct 47.7 H MCH 26 L MCHC 30 L RDW 17.2 H Lymph % (Auto) [place] % (Auto) Lymph # Seg Neutrophils % Seg Neuts % (Manual) 85.0 H Lymphocytes % (Manual) 6.0 L Seg Neutrophils # Man Lymphocytes # (Manual) 0.3 L POC ABG pH 7.211 L 7.236 L POC ABG pCO2 108.5 H 98.1 H POC ABG pO2 62 L Chloride Carbon Dioxide Creatinine Glucose 11/29/18 11/29/18 11/29/18 04:04 11:04 11:15 WBC RBC Hct MCH MCHC RDW Lymph % (Auto) [place] % (Auto) Lymph # Seg Neutrophils % Seg Neuts % (Manual) Lymphocytes % (Manual) Seg Neutrophils # Man Lymphocytes # (Manual) POC ABG pH POC ABG pCO2 72.9 H 71.0 H POC ABG pO2 32 L 53 L Chloride 94.7 L Carbon Dioxide 38 H Creatinine 0.7 L Glucose 152 H 11/29/18 11/30/18 11/30/18 16:07 05:16 05:16 WBC 15.7 H RBC 5.09 H Hct MCH 26 L MCHC 31 L RDW 16.9 H Lymph % (Auto) [place] % (Auto) Lymph # Seg Neutrophils % Seg Neuts % (Manual) 74.0 H Lymphocytes % (Manual) 6.0 L Seg Neutrophils # Man 11.6 H Lymphocytes # (Manual) 0.9 L POC ABG pH POC ABG pCO2 61.8 H POC ABG pO2 38 L Chloride 95.2 L Carbon Dioxide 35 H Creatinine Glucose 149 H 11/30/18 05:31 WBC RBC Hct MCH MCHC RDW Lymph % (Auto) [place] % (Auto) Lymph # Seg Neutrophils % Seg Neuts % (Manual) Lymphocytes % (Manual) Seg Neutrophils # Man Lymphocytes # (Manual) POC ABG pH POC ABG pCO2 69.1 H POC ABG pO2 Chloride Carbon Dioxide Creatinine Glucose
[2018-12-02] MEDS: DUONEB *Not for PRN Use IH SCH ×5 (01:20→20:06)
[2018-12-02] MEDS: TYLENOL PO PRN ×2 (03:35→09:30)
[2018-12-02 06:42] LABS: Mean Corpuscular HGB Conc 30 % (32-34); Mean Corpuscular Volume 85 fl (84-94); Platelet Count 185 K/mm3 (140-440); Red Blood Count 5.33 M/mm3 (3.65-5.03); Red Cell Distribution Width 16.7 % (13.2-15.2)
[2018-12-02 06:46] LABS: Hematocrit 45.1 % (35.5-45.6); Hemoglobin 13.7 gm/dl (11.8-15.2)
[2018-12-02 07:01] LABS: Alanine Aminotransferase 17 units/L (7-56); Albumin 3.9 g/dL (3.9-5); BUN/Creatinine Ratio 28; Blood Urea Nitrogen 28 mg/dL (9-20); Calcium 9.1 mg/dL (8.4-10.2); Hemolysis Index 6
[2018-12-02 08:18] LABS: Basophils % (Manual) 0 % (0.0-1.8); Total Cells Counted 100
[2018-12-02 08:19] LABS: Anisocytosis 1+; Hypochromasia 1+; Platelet Estimate Consistent w Auto
[2018-12-02] MEDS: LEVAQUIN 750MG/150ML 750 MG/150 ML BAG IV SCH (09:27)
[2018-12-02] MEDS: ZITHROMAX PO SCH (09:27)
[2018-12-02] MEDS: LOVENOX SUB-Q SCH (09:27)
[2018-12-02] MEDS: COLCHICINE PO SCH ×2 (09:27→22:36)
[2018-12-02] MEDS: PLAVIX PO SCH (09:28)
[2018-12-02] MEDS: SOLU-Medrol IV SCH ×4 (09:28→23:55)
[2018-12-02] MEDS: SODIUM CHLORIDE FLUSH SYRINGE 10 ML IV SCH ×2 (09:29→22:38)
[2018-12-02] MEDS: NORVASC PO SCH (09:29)
--- NOTE | 2018-12-02 14:40 | Progress Note ---
Assessment and Plan Patient alert, awake .Resting on nasal canula.Patient is on 4 litres O2. O2 saturation 94%. Patient goes on BIPAP during night time.No acute respiratory distress. - Patient Problems (1) COPD exacerbation Current Visit: Yes Status: Acute Plan to address problem: Presently resting on 4 litres O2. O2 saturation 94% BIPAP 16/6, rate 20, FIO2 40% during night time. Albuterol/atrovent aerosol treatments q 6 hours. Continue I/V solumedrol. Continue S/C Lovenox. Continue Levaquin. (2) Hypoxia Current Visit: Yes Status: Acute Plan to address problem: Presently resting on 4 litres O2. O2 saturation 94% Patient is on BIPAP 16/6, rate 20, FIO2 40%. O2 saturation 96%. (3) CAD (coronary artery disease) Current Visit: No Status: Acute Qualifiers: Coronary Disease-Associated Artery/Lesion type: [place] artery Plan to address problem: Patient has history of coronary stent placement. Management as per cardiology. (4) HIV (human immunodeficiency virus infection) Current Visit: No Status: Chronic Plan to address problem: Management as per primary care and infectious diseases. (5) Hypertension Current Visit: No Status: Chronic Plan to address problem: Management as per primary care. Subjective Date of service: 12/02/18 Principal diagnosis: Acute on Chr. Hypoxemic Respir Failure, Pneumonia, COPD Exace Interval history: Patient alert, awake .Resting on nasal canula.Patient is on 4 litres O2. O2 saturation 94%. Patient goes on BIPAP during night time.No acute respiratory distress. Objective Vital Signs - 12hr 12/02/18 12/02/18 12/02/18 03:00 03:12 03:27 Temperature 98.9 F Pulse Rate 82 Pulse Rate [ 88 Anterior Bilateral Throughout] Pulse Rate [ From Monitor] Respiratory 19 Rate Respiratory 18 Rate [Anterior Bilateral Throughout] Respiratory Rate [Head] Blood Pressure 113/62 O2 Sat by Pulse 96 Oximetry 12/02/18 12/02/18 12/02/18 03:36 04:00 05:00 Temperature Pulse Rate 98 H Pulse Rate [ 89 Anterior Bilateral Throughout] Pulse Rate [ From Monitor] Respiratory Rate Respiratory 17 Rate [Anterior Bilateral Throughout] Respiratory Rate [Head] Blood Pressure 151/96 133/75 O2 Sat by Pulse 97 93 Oximetry 12/02/18 12/02/1819 06:00 07:00 07:18 Temperature Pulse Rate 90 92 H Pulse Rate [ 86 Anterior Bilateral Throughout] Pulse Rate [ From Monitor] Respiratory 13 Rate Respiratory 20 Rate [Anterior Bilateral Throughout] Respiratory Rate [Head] Blood Pressure 133/75 134/74 O2 Sat by Pulse 96 92 94 Oximetry 12/02/18 12/02/18 12/02/18 08:00 09:00 10:00 Temperature Pulse Rate 94 H 97 H Pulse Rate [ Anterior Bilateral Throughout] Pulse Rate [ 93 H From Monitor] Respiratory 21 40 H Rate Respiratory Rate [Anterior Bilateral Throughout] Respiratory 23 Rate [Head] Blood Pressure 141/110 163/101 145/78 O2 Sat by Pulse 95 99 Oximetry 12/02/18 12/02/18 12/02/18 11:00 12:00 13:00 Temperature 98.4 F Pulse Rate 95 H 96 H 108 H Pulse Rate [ Anterior Bilateral Throughout] Pulse Rate [ 98 H From Monitor] Respiratory 19 33 H 27 H Rate Respiratory Rate [Anterior Bilateral Throughout] Respiratory Rate [Head] Blood Pressure 141/74 164/92 164/92 O2 Sat by Pulse 96 93 93 Oximetry Constitutional: no acute distress, asleep Ascultation: Bilateral: diminished breath sounds, wheezes Cardiovascular: regular rate and rhythm Gastrointestinal: normoactive bowel sounds Integumentary: normal Extremities: no cyanosis, no edema Neurologic: normal mental status CBC and BMP: 12/02/18 05:50 12/02/18 05:50 ABG, PT/INR, D-dimer: ABG POC ABG pH 7.384 (7.35-7.45) 11/30/18 05:31 POC ABG pCO2 69.1 (35-45) H 11/30/18 05:31 POC ABG pO2 90 (80-105) 11/30/18 05:31 POC ABG HCO3 41.2 11/30/18 05:31 POC ABG Total CO2 43 11/30/18 05:31 POC ABG O2 Sat 96 11/30/18 05:31 PT/INR, D-dimer PT 12.6 Sec. (12.2-14.9) 11/28/18 23:34 INR 0.90 (0.87-1.13) 11/28/18 23:34 Abnormal lab findings: Abnormal Labs 11/28/18 11/28/1811/29/19 23:34 23:34 00:26 WBC RBC 5.30 H Hct MCH 26 L MCHC 30 L RDW 17.7 H Lymph % (Auto) 10.0 L [place] % (Auto) 7.5 H Lymph # 0.6 L Seg Neutrophils % 81.5 H Seg Neuts % (Manual) Lymphocytes % (Manual) Seg Neutrophils # Man Lymphocytes # (Manual) POC ABG pH 7.230 L POC ABG pCO2 100.6 H POC ABG pO2 Sodium Chloride 96.9 L Carbon Dioxide 38 H BUN Creatinine 0.7 L Glucose 123 H 11/29/18 11/29/18 11/29/18 01:37 03:07 04:04 WBC RBC 5.50 H Hct 47.7 H MCH 26 L MCHC 30 L RDW 17.2 H Lymph % (Auto) [place] % (Auto) Lymph # Seg Neutrophils % Seg Neuts % (Manual) 85.0 H Lymphocytes % (Manual) 6.0 L Seg Neutrophils # Man Lymphocytes # (Manual) 0.3 L POC ABG pH 7.211 L 7.236 L POC ABG pCO2 108.5 H 98.1 H POC ABG pO2 62 L Sodium Chloride Carbon Dioxide BUN Creatinine Glucose 11/29/18 11/29/18 11/29/18 04:04 11:04 11:15 WBC RBC Hct MCH MCHC RDW Lymph % (Auto) [place] % (Auto) Lymph # Seg Neutrophils % Seg Neuts % (Manual) Lymphocytes % (Manual) Seg Neutrophils # Man Lymphocytes # (Manual) POC ABG pH POC ABG pCO2 72.9 H 71.0 H POC ABG pO2 32 L 53 L Sodium Chloride 94.7 L Carbon Dioxide 38 H BUN Creatinine 0.7 L Glucose 152 H 11/29/18 11/30/18 11/30/18 16:07 05:16 05:16 WBC 15.7 H RBC 5.09 H Hct MCH 26 L MCHC 31 L RDW 16.9 H Lymph % (Auto) [place] % (Auto) Lymph # Seg Neutrophils % Seg Neuts % (Manual) 74.0 H Lymphocytes % (Manual) 6.0 L Seg Neutrophils # Man 11.6 H Lymphocytes # (Manual) 0.9 L POC ABG pH POC ABG pCO2 61.8 H POC ABG pO2 38 L Sodium Chloride 95.2 L Carbon Dioxide 35 H BUN Creatinine Glucose 149 H 02/02/19 02/04/19 02/04/19 05:31 05:50 05:50 WBC 11.5 H RBC 5.33 H Hct MCH 26 L MCHC 30 L RDW 16.7 H Lymph % (Auto) [place] % (Auto) Lymph # Seg Neutrophils % Seg Neuts % (Manual) 91.0 H Lymphocytes % (Manual) 6.0 L Seg Neutrophils # Man 10.5 H Lymphocytes # (Manual) 0.7 L POC ABG pH POC ABG pCO2 69.1 H POC ABG pO2 Sodium 146 H Chloride 97.9 L Carbon Dioxide 40 H BUN 28 H Creatinine Glucose 230 H
[2018-12-02] MEDS: APRESOLINE IV PRN (15:22)
[2018-12-02] MEDS ORDERED: NON-FORMULARY (Elviteg/Cobi/Emtric/Tenofo Ala 1 EACH) PO SCH (16:15)
--- NOTE | 2018-12-02 16:25 | Progress Note ---
Assessment and Plan Assessment and plan: - Acute and chronic hypoxemic-hypercapnic respiratory failure Continue on bronchodilators, supplemental oxygen, IV Solu-Medrol, IV antibiotics Pulmonary is following Patient said he is not feeling better - Right lower lobe infiltrate IV Levaquin and azithromycin, rocephin on supplemental oxygen - COPD exacerbation [place] additives, IV Solu-Medrol, supplemental oxygen - CKD IV hydration Resolved - H/o Tobacco abuse disorder/Nicotine dependence Counseling on tobacco cessation done -Coronary artery disease Aspirin, statins, -Hypertension Controlled. Continue with antihypertensive medications -Hyperlipidemia Continue with atorvastatin - HIV patient doesn't want to discuss about his HIV status - DVT and GI prophylaxis with Lovenox and Pepcid Loose stool - c.diff ordered Disposition: Per Clinical course History Interval history: Patient was seen and vital to this morning, patient said he has shortness of breath and is not feeling good. Patient doesn't want to discuss about his HIV status and medications. Hospitalist Physical - Physical exam Narrative exam: Patient is on [place] oxygen The patient appeared well nourished and normally developed. Vital signs as documented. Head exam is unremarkable. No scleral icterus . Neck is without jugular venous distension, thyromegaly, or carotid bruits. Lungs wheezing and decrease air entry. Cardiac exam reveals regular rate and Rhythm. First and second heart sounds normal. No murmurs, rubs or gallops. Abdominal exam reveals normal bowel sounds, no masses, no organomegaly and no aortic enlargement. Extremities are nonedematous and both femoral and pedal pulses are normal. DEFENSE ATTORNEY: Alert and oriented 3. No focal weakness. - Constitutional Vitals: Temp Pulse Resp BP Pulse Ox 98.4 F 90 20 163/93 93 12/02/18 12:00 12/02/18 15:22 12/02/18 14:53 12/02/18 15:22 12/02/18 13:00 Results - Labs CBC & Chem 7: 12/02/18 05:50 12/02/18 05:50 Labs: Laboratory Last Values WBC 11.5 K/mm3 (4.5-11.0) H 12/02/18 05:50 RBC 5.33 M/mm3 (3.65-5.03) H 12/02/18 05:50 Hgb 13.7 gm/dl (11.8-15.2) 12/02/18 05:50 Hct 45.1 % (35.5-45.6) 12/02/18 05:50 MCV 85 fl (84-94) 12/02/18 05:50 MCH 26 pg (28-32) L 12/02/18 05:50 MCHC 30 % (32-34) L 12/02/18 05:50 RDW 16.7 % (13.2-15.2) H 12/02/18 05:50 Plt Count 185 K/mm3 (140-440) 12/02/18 05:50 Lymph % (Auto) 10.0 % (13.4-35.0) L 11/28/18 23:34 [place] % (Auto) 7.5 % (0.0-7.3) H 11/28/18 23:34 Eos % (Auto) 0.2 % (0.0-4.3) 11/28/18 23:34 Baso % (Auto) 0.8 % (0.0-1.8) 11/28/18 23:34 Lymph # 0.6 K/mm3 (1.2-5.4) L 11/28/18 23:34 [place] # 0.5 K/mm3 (0.0-0.8) 11/28/18 23:34 Eos # 0.0 K/mm3 (0.0-0.4) 11/28/18 23:34 Baso # 0.1 K/mm3 (0.0-0.1) 11/28/18 23:34 Add Manual Diff Complete 12/02/18 05:50 Total Counted 100 12/02/18 05:50 Seg Neutrophils % Carpet Installer Helper 12/02/18 05:50 Seg Neuts % (Manual) 91.0 % (40.0-70.0) H 12/02/18 05:50 Band Neutrophils % 0 % 12/02/18 05:50 Lymphocytes % (Manual) 6.0 % (13.4-35.0) L 12/02/18 05:50 Reactive Lymphs % (Man) 0 % 12/02/18 05:50 Monocytes % (Manual) 1.0 % (0.0-7.3) 12/02/18 05:50 Eosinophils % (Manual) 2.0 % (0.0-4.3) 12/02/18 05:50 Basophils % (Manual) 0 % (0.0-1.8) 12/02/18 05:50 Metamyelocytes % 0 % 12/02/18 05:50 Myelocytes % 0 % 12/02/18 05:50 Promyelocytes % 0 % 12/02/18 05:50 Blast Cells % 0 % 12/02/18 05:50 Nucleated RBC % Not Reportable 12/02/18 05:50 Seg Neutrophils # 5.3 K/mm3 (1.8-7.7) 11/28/18 23:34 Seg Neutrophils # Man 10.5 K/mm3 (1.8-7.7) H 12/02/18 05:50 Band Neutrophils # 0.0 K/mm3 12/02/18 05:50 Lymphocytes # (Manual) 0.7 K/mm3 (1.2-5.4) L 12/02/18 05:50 Abs React Lymphs (Man) 0.0 K/mm3 12/02/18 05:50 Monocytes # (Manual) 0.1 K/mm3 (0.0-0.8) 12/02/18 05:50 Eosinophils # (Manual) 0.2 K/mm3 (0.0-0.4) 12/02/18 05:50 Basophils # (Manual) 0.0 K/mm3 (0.0-0.1) 12/02/18 05:50 Metamyelocytes # 0.0 K/mm3 12/02/18 05:50 Myelocytes # 0.0 K/mm3 12/02/18 05:50 Promyelocytes # 0.0 K/mm3 12/02/18 05:50 Blast Cells # 0.0 K/mm3 12/02/18 05:50 WBC Morphology Not Reportable 12/02/18 05:50 Hypersegmented Neuts Not Reportable 12/02/18 05:50 Hyposegmented Neuts Not Reportable 12/02/18 05:50 Hypogranular Neuts Not Reportable 12/02/18 05:50 Smudge Cells Not Reportable 12/02/18 05:50 Toxic Granulation Not Reportable 12/02/18 05:50 Toxic Vacuolation Not Reportable 12/02/18 05:50 Dohle Bodies Not Reportable 12/02/18 05:50 [place]-Huet Anomaly Not Reportable 12/02/18 05:50 Davina Rods Not Reportable 12/02/18 05:50 Platelet Estimate Consistent w auto 12/02/18 05:50 Clumped Platelets Not Reportable 12/02/18 05:50 Plt Clumps, EDTA Not Reportable 12/02/18 05:50 Large Platelets Not Reportable 12/02/18 05:50 Giant Platelets Not Reportable 12/02/18 05:50 Platelet Satelliting Not Reportable 12/02/18 05:50 Plt Morphology Comment Not Reportable 12/02/18 05:50 RBC Morphology Not Reportable 12/02/18 05:50 Dimorphic RBCs Not Reportable 12/02/18 05:50 Polychromasia Not Reportable 12/02/18 05:50 Hypochromasia 1+ 12/02/18 05:50 Poikilocytosis Not Reportable 12/02/18 05:50 Anisocytosis 1+ 12/02/18 05:50 Microcytosis Not Reportable 12/02/18 05:50 Macrocytosis Not Reportable 12/02/18 05:50 Spherocytes Not Reportable 12/02/18 05:50 Pappenheimer Bodies Not Reportable 12/02/18 05:50 Sickle Cells Not Reportable 12/02/18 05:50 Target Cells Not Reportable 12/02/18 05:50 Tear Drop Cells Not Reportable 12/02/18 05:50 Ovalocytes Not Reportable 12/02/18 05:50 Helmet Cells Not Reportable 12/02/18 05:50 [place] Bodies Not Reportable 12/02/18 05:50 [place] Rings Not Reportable 12/02/18 05:50 Marisa Cells Not Reportable 12/02/18 05:50 Bite Cells Not Reportable 12/02/18 05:50 Crenated Cell Not Reportable 12/02/18 05:50 Elliptocytes Not Reportable 12/02/18 05:50 Acanthocytes (Spur) Not Reportable 12/02/18 05:50 Rouleaux Not Reportable 12/02/18 05:50 Hemoglobin C Crystals Not Reportable 12/02/18 05:50 Schistocytes Not Reportable 12/02/18 05:50 Malaria parasites Not Reportable 12/02/18 05:50 [place] Bodies Not Reportable 12/02/18 05:50 Hem Pathologist Commnt No 12/02/18 05:50 PT 12.6 Sec. (12.2-14.9) 11/28/18 23:34 INR 0.90 (0.87-1.13) 11/28/18 23:34 APTT 30.8 Sec. (24.2-36.6) 11/28/18 23:34 POC ABG pH 7.384 (7.35-7.45) 11/30/18 05:31 POC ABG pCO2 69.1 (35-45) H 11/30/18 05:31 POC ABG pO2 90 (80-105) 11/30/18 05:31 POC ABG HCO3 41.2 11/30/18 05:31 POC ABG Total CO2 43 11/30/18 05:31 POC ABG O2 Sat 96 11/30/18 05:31 POC ABG Base Excess 16 11/30/18 05:31 FiO2 40 % 11/30/18 05:31 Sodium 146 mmol/L (137-145) H 12/02/18 05:50 Potassium 4.3 mmol/L (3.6-5.0) 12/02/18 05:50 Chloride 97.9 mmol/L (98-107) L 12/02/18 05:50 Carbon Dioxide 40 mmol/L (22-30) H 12/02/18 05:50 Anion Gap 12 mmol/L 12/02/18 05:50 BUN 28 mg/dL (9-20) H 12/02/18 05:50 Creatinine 1.0 mg/dL (0.8-1.5) 12/02/18 05:50 Estimated GFR > 60 ml/min 12/02/18 05:50 BUN/Creatinine Ratio 28 % 12/02/18 05:50 Glucose 230 mg/dL (75-100) H 12/02/18 05:50 Calcium 9.1 mg/dL (8.4-10.2) 12/02/18 05:50 Total Bilirubin < 0.20 mg/dL (0.1-1.2) 12/02/18 05:50 AST 10 units/L (5-40) 12/02/18 05:50 ALT 17 units/L (7-56) 12/02/18 05:50 Alkaline Phosphatase 80 units/L (35-129) 12/02/18 05:50 Total Creatine Kinase 145 units/L (55-170) 11/28/18 23:34 CK-MB (CK-2) 3.3 ng/mL (0.0-4.0) 11/28/18 23:34 CK-MB (CK-2) Rel Index 2.2 (0-4) 11/28/18 23:34 Troponin T < 0.010 ng/mL (0.00-0.029) 11/28/18 23:34 NT-Pro-B Natriuret Pep 99.93 pg/mL (0-900) 11/28/18 23:34 Total Protein 6.7 g/dL (6.3-8.2) 12/02/18 05:50 Albumin 3.9 g/dL (3.9-5) 12/02/18 05:50 Albumin/Globulin Ratio 1.4 % 12/02/18 05:50 Nutrition/Malnutrition Assess - Dietary Evaluation Nutrition/Malnutrition Findings: Nutrition Notes Start: 12/02/18 11:54 Freq: Status: Active Protocol: Document 12/02/18 11:54 OL (Rec: 12/02/18 11:55 OL [id number]) Nutrition Notes Need for Assessment generated from: Low BMI Initial or Follow up Brief Note Current Diagnosis COPD Coronary Artery Disease Hypertension Hyperlipidemia Current Diet cardiac Subjective/Other Information RD screen for low BMI. Pt. with wt. of 30.7kg in chart. Had RN ronn pt. Current wt. reflects wt. obtained from [facility]. Nutrition Intervention Revisit per MD consult or patient Sign Off request:
[2018-12-02] MEDS: ROCEPHIN/NS 1 GM/50 ML 1 GM/50 ML BAG IV SCH (18:39)
[2018-12-03] MEDS: DUONEB *Not for PRN Use IH SCH ×5 (02:58→19:25)
[2018-12-03] MEDS: TYLENOL PO PRN ×2 (05:25→10:40)
[2018-12-03 05:28] LABS: Mean Corpuscular HGB Conc 30 % (32-34); Mean Corpuscular Volume 86 fl (84-94); Platelet Count 167 K/mm3 (140-440); Red Blood Count 5.31 M/mm3 (3.65-5.03); Red Cell Distribution Width 16.9 % (13.2-15.2)
[2018-12-03 05:30] LABS: Hematocrit 45.5 % (35.5-45.6); Hemoglobin 13.7 gm/dl (11.8-15.2)
[2018-12-03 05:37] LABS: BUN/Creatinine Ratio 38; Blood Urea Nitrogen 23 mg/dL (9-20); Hemolysis Index 28
[2018-12-03 07:46] LABS: Band Neutrophils # (Manual) 1.2 K/mm3; Basophils % (Manual) 0 % (0.0-1.8); Eosinophils % (Manual) 0 % (0.0-4.3); Total Cells Counted 100
[2018-12-03 07:47] LABS: Anisocytosis 1+; Hypochromasia 1+; Ovalocytes Few; Target Cells Few
[2018-12-03] MEDS: ZITHROMAX PO SCH (10:11)
[2018-12-03] MEDS: PLAVIX PO SCH (10:11)
[2018-12-03] MEDS: LOVENOX SUB-Q SCH (10:11)
[2018-12-03] MEDS: ROCEPHIN/NS 1 GM/50 ML 1 GM/50 ML BAG IV SCH (10:11)
[2018-12-03] MEDS: NORVASC PO SCH (10:12)
[2018-12-03] MEDS: SODIUM CHLORIDE FLUSH SYRINGE 10 ML IV SCH ×2 (10:13→23:17)
[2018-12-03] MEDS: APRESOLINE IV PRN (10:14)
[2018-12-03] MEDS: SOLU-Medrol IV SCH ×3 (10:14→23:35)
[2018-12-03] MEDS: COLCHICINE PO SCH ×2 (10:15→23:16)
--- NOTE | 2018-12-03 13:14 | Progress Note ---
Assessment and Plan Patient awake . Still complaining shortness of breath.On nasal canula 5 litres O2. O2 saturation 97%. Patient goes on BIPAP during night time. Mild respiratory distress at rest. - Patient Problems (1) COPD exacerbation Current Visit: Yes Status: Acute Plan to address problem: Presently resting on 5 litres O2. O2 saturation 97% BIPAP 16/6, rate 20, FIO2 40% during night time. Albuterol/atrovent aerosol treatments q 6 hours. Continue I/V solumedrol. Continue S/C Lovenox. Continue Levaquin. (2) Hypoxia Current Visit: Yes Status: Acute Plan to address problem: Presently resting on 5 litres O2. O2 saturation 97% Patient is on BIPAP 16/6, rate 20, FIO2 40%. O2 saturation 96%. (3) CAD (coronary artery disease) Current Visit: No Status: Acute Qualifiers: Coronary Disease-Associated Artery/Lesion type: [place] artery Plan to address problem: Patient has history of coronary stent placement. Management as per cardiology. (4) HIV (human immunodeficiency virus infection) Current Visit: No Status: Chronic Plan to address problem: Management as per primary care and infectious diseases. (5) Hypertension Current Visit: No Status: Chronic Plan to address problem: Management as per primary care. Subjective Date of service: 12/03/18 Principal diagnosis: Acute on Chr. Hypoxemic Respir Failure, Pneumonia, COPD Exace Interval history: Patient awake . Still complaining shortness of breath.On nasal canula 5 litres O2. O2 saturation 97%. Patient goes on BIPAP during night time. Mild respiratory distress at rest. Objective Vital Signs - 12hr 12/03/18 12/03/18 12/03/18 02:00 03:00 04:00 Temperature Pulse Rate 83 75 84 Pulse Rate [ Anterior Bilateral Throughout] Pulse Rate [ 85 From Monitor] Pulse Rate [ Throughout] Respiratory 36 H 11 L 36 H Rate Respiratory Rate [Anterior Bilateral Throughout] Respiratory Rate [ Throughout] Blood Pressure 155/84 150/126 150/126 O2 Sat by Pulse 96 97 96 Oximetry 12/03/18 12/03/18 12/03/18 05:00 06:00 07:00 Temperature Pulse Rate 83 85 96 H Pulse Rate [ Anterior Bilateral Throughout] Pulse Rate [ From Monitor] Pulse Rate [ Throughout] Respiratory 32 H 23 32 H Rate Respiratory Rate [Anterior Bilateral Throughout] Respiratory Rate [ Throughout] Blood Pressure 183/115 188/114 144/121 O2 Sat by Pulse 98 95 97 Oximetry 12/03/18 12/03/18 12/03/18 08:00 09:29 09:35 Temperature Pulse Rate 80 Pulse Rate [ 78 Anterior Bilateral Throughout] Pulse Rate [ From Monitor] Pulse Rate [ 80 Throughout] Respiratory 27 H Rate Respiratory 27 H Rate [Anterior Bilateral Throughout] Respiratory 20 Rate [ Throughout] Blood Pressure O2 Sat by Pulse 97 97 Oximetry 12/03/18 12/03/18 12/03/18 10:12 10:14 12:00 Temperature 98.4 F Pulse Rate 95 H 97 H Pulse Rate [ Anterior Bilateral Throughout] Pulse Rate [ From Monitor] Pulse Rate [ Throughout] Respiratory Rate Respiratory Rate [Anterior Bilateral Throughout] Respiratory Rate [ Throughout] Blood Pressure 194/125 195/125 O2 Sat by Pulse Oximetry Constitutional: no acute distress, alert Ascultation: Bilateral: diminished breath sounds, wheezes Cardiovascular: regular rate and rhythm Gastrointestinal: normoactive bowel sounds Integumentary: normal Extremities: no cyanosis, no edema Neurologic: normal mental status CBC and BMP: 12/03/18 04:51 12/03/18 04:51 ABG, PT/INR, D-dimer: ABG POC ABG pH 7.384 (7.35-7.45) 11/30/18 05:31 POC ABG pCO2 69.1 (35-45) H 11/30/18 05:31 POC ABG pO2 90 (80-105) 11/30/18 05:31 POC ABG HCO3 41.2 11/30/18 05:31 POC ABG Total CO2 43 11/30/18 05:31 POC ABG O2 Sat 96 11/30/18 05:31 PT/INR, D-dimer PT 12.6 Sec. (12.2-14.9) 11/28/18 23:34 INR 0.90 (0.87-1.13) 11/28/18 23:34 Abnormal lab findings: Abnormal Labs 11/28/18 11/28/18 11/29/18 23:34 23:34 00:26 WBC RBC 5.30 H Hct MCH 26 L MCHC 30 L RDW 17.7 H Lymph % (Auto) 10.0 L [place] % (Auto) 7.5 H Lymph # 0.6 L Seg Neutrophils % 81.5 H Seg Neuts % (Manual) Lymphocytes % (Manual) Seg Neutrophils # Man Lymphocytes # (Manual) POC ABG pH 7.230 L POC ABG pCO2 100.6 H POC ABG pO2 Sodium Chloride 96.9 L Carbon Dioxide 38 H BUN Creatinine 0.7 L Glucose 123 H 11/29/18 11/29/18 11/29/18 01:37 03:07 04:04 WBC RBC 5.50 H Hct 47.7 H MCH 26 L MCHC 30 L RDW 17.2 H Lymph % (Auto) [place] % (Auto) Lymph # Seg Neutrophils % Seg Neuts % (Manual) 85.0 H Lymphocytes % (Manual) 6.0 L Seg Neutrophils # Man Lymphocytes # (Manual) 0.3 L POC ABG pH 7.211 L 7.236 L POC ABG pCO2 108.5 H 98.1 H POC ABG pO2 62 L Sodium Chloride Carbon Dioxide BUN Creatinine Glucose 11/29/18 11/29/18 11/29/18 04:04 11:04 11:15 WBC RBC Hct MCH MCHC RDW Lymph % (Auto) [place] % (Auto) Lymph # Seg Neutrophils % Seg Neuts % (Manual) Lymphocytes % (Manual) Seg Neutrophils # Man Lymphocytes # (Manual) POC ABG pH POC ABG pCO2 72.9 H 71.0 H POC ABG pO2 32 L 53 L Sodium Chloride 94.7 L Carbon Dioxide 38 H BUN Creatinine 0.7 L Glucose 152 H 11/29/18 11/30/18 11/30/18 16:07 05:16 05:16 WBC 15.7 H RBC 5.09 H Hct MCH 26 L MCHC 31 L RDW 16.9 H Lymph % (Auto) [place] % (Auto) Lymph # Seg Neutrophils % Seg Neuts % (Manual) 74.0 H Lymphocytes % (Manual) 6.0 L Seg Neutrophils # Man 11.6 H Lymphocytes # (Manual) 0.9 L POC ABG pH POC ABG pCO2 61.8 H POC ABG pO2 38 L Sodium Chloride 95.2 L Carbon Dioxide 35 H BUN Creatinine Glucose 149 H 11/30/18 12/02/18 12/02/18 05:31 05:50 05:50 WBC 11.5 H RBC 5.33 H Hct MCH 26 L MCHC 30 L RDW 16.7 H Lymph % (Auto) [place] % (Auto) Lymph # Seg Neutrophils % Seg Neuts % (Manual) 91.0 H Lymphocytes % (Manual) 6.0 L Seg Neutrophils # Man 10.5 H Lymphocytes # (Manual) 0.7 L POC ABG pH POC ABG pCO2 69.1 H POC ABG pO2 Sodium 146 H Chloride 97.9 L Carbon Dioxide 40 H BUN 28 H Creatinine Glucose 230 H 12/03/18 12/03/18 04:51 04:51 WBC RBC 5.31 H Hct MCH 26 L MCHC 30 L RDW 16.9 H Lymph % (Auto) [place] % (Auto) Lymph # Seg Neutrophils % Seg Neuts % (Manual) 79.0 H Lymphocytes % (Manual) 3.0 L Seg Neutrophils # Man 8.4 H Lymphocytes # (Manual) 0.3 L POC ABG pH POC ABG pCO2 POC ABG pO2 Sodium 146 H Chloride Carbon Dioxide 39 H BUN 23 H Creatinine 0.6 L Glucose 141 H
[2018-12-03] MEDS ORDERED: LASIX IV ONE ×2 (16:00→18:22)
--- NOTE | 2018-12-03 17:36 | Progress Note ---
Assessment and Plan Assessment and plan: - Acute and chronic hypoxemic-hypercapnic respiratory failure Continue on bronchodilators, supplemental oxygen, IV Solu-Medrol, IV antibiotics Pulmonary is following Patient said he is not feeling better - Right lower lobe infiltrate IV Levaquin and azithromycin, rocephin on supplemental oxygen Give lasix one dose. - COPD exacerbation additives, IV Solu-Medrol, supplemental oxygen - CKD IV hydration Resolved - H/o Tobacco abuse disorder/Nicotine dependence Counseling on tobacco cessation done -Coronary artery disease Aspirin, statins, -Hypertension Controlled. Continue with antihypertensive medications -Hyperlipidemia Continue with atorvastatin - HIV patient doesn't want to discuss about his HIV status - DVT and GI prophylaxis with Lovenox and Pepcid Loose stool - c.diff ordered Disposition: Per Clinical course History Interval history: Patient is seen today for: Sitting up at bedside still complain of shortness of breath. Seen and examined at bedside; 24hour events reviewed; nursing staff ; no adverse overnight events reported to me; Denies any chest pain, nausea, vomiting, diarrhea No fever noted blood pressure controlled Hospitalist Physical - Physical exam Narrative exam: Patient is on [place] oxygen The patient appeared well nourished and normally developed. Mild shortness of breath persist Vital signs as documented. Head exam is unremarkable. No scleral icterus . Neck is without jugular venous distension, thyromegaly, or carotid bruits. Lungs wheezing and decrease air entry bilaterally. Cardiac exam reveals regular rate and Rhythm. First and second heart sounds normal. No murmurs, rubs or gallops. Abdominal exam reveals normal bowel sounds, no masses, no organomegaly and no aortic enlargement. Extremities are trace pitting edema and both femoral and pedal pulses are normal. GOLD MARKER: Alert and oriented 3. No focal weakness. - Constitutional Vitals: Temp Pulse Resp BP Pulse Ox 98.4 F 95 H 26 H 168/93 100 12/03/18 12:00 12/03/18 13:47 12/03/18 13:47 12/03/18 13:00 12/03/18 13:00 Results - Labs CBC & Chem 7: 12/04/18 05:00 12/04/18 05:00 Labs: Laboratory Last Values WBC 10.6 K/mm3 (4.5-11.0) 12/03/18 04:51 RBC 5.31 M/mm3 (3.65-5.03) H 12/03/18 04:51 Hgb 13.7 gm/dl (11.8-15.2) 12/03/18 04:51 Hct 45.5 % (35.5-45.6) 12/03/18 04:51 MCV 86 fl (84-94) 12/03/18 04:51 MCH 26 pg (28-32) L 12/03/18 04:51 MCHC 30 % (32-34) L 12/03/18 04:51 RDW 16.9 % (13.2-15.2) H 12/03/18 04:51 Plt Count 167 K/mm3 (140-440) 12/03/18 04:51 Lymph % (Auto) 10.0 % (13.4-35.0) L 11/28/18 23:34 [place] % (Auto) 7.5 % (0.0-7.3) H 11/28/18 23:34 Eos % (Auto) 0.2 % (0.0-4.3) 11/28/18 23:34 Baso % (Auto) 0.8 % (0.0-1.8) 11/28/18 23:34 Lymph # 0.6 K/mm3 (1.2-5.4) L 11/28/18 23:34 [place] # 0.5 K/mm3 (0.0-0.8) 11/28/18 23:34 Eos # 0.0 K/mm3 (0.0-0.4) 11/28/18 23:34 Baso # 0.1 K/mm3 (0.0-0.1) 11/28/18 23:34 Add Manual Diff Complete 12/03/18 04:51 Total Counted 100 12/03/18 04:51 Seg Neutrophils % Crop Pest Control Specialist 12/03/18 04:51 Seg Neuts % (Manual) 79.0 % (40.0-70.0) H 12/03/18 04:51 Band Neutrophils % 11.0 % 12/03/18 04:51 Lymphocytes % (Manual) 3.0 % (13.4-35.0) L 12/03/18 04:51 Reactive Lymphs % (Man) 0 % 12/03/18 04:51 Monocytes % (Manual) 7.0 % (0.0-7.3) 12/03/18 04:51 Eosinophils % (Manual) 0 % (0.0-4.3) 12/03/18 04:51 Basophils % (Manual) 0 % (0.0-1.8) 12/03/18 04:51 Metamyelocytes % 0 % 12/03/18 04:51 Myelocytes % 0 % 12/03/18 04:51 Promyelocytes % 0 % 12/03/18 04:51 Blast Cells % 0 % 12/03/18 04:51 Nucleated RBC % Not Reportable 12/03/18 04:51 Seg Neutrophils # 5.3 K/mm3 (1.8-7.7) 11/28/18 23:34 Seg Neutrophils # Man 8.4 K/mm3 (1.8-7.7) H 12/03/18 04:51 Band Neutrophils # 1.2 K/mm3 12/03/18 04:51 Lymphocytes # (Manual) 0.3 K/mm3 (1.2-5.4) L 12/03/18 04:51 Abs React Lymphs (Man) 0.0 K/mm3 12/03/18 04:51 Monocytes # (Manual) 0.7 K/mm3 (0.0-0.8) 12/03/18 04:51 Eosinophils # (Manual) 0.0 K/mm3 (0.0-0.4) 12/03/18 04:51 Basophils # (Manual) 0.0 K/mm3 (0.0-0.1) 12/03/18 04:51 Metamyelocytes # 0.0 K/mm3 12/03/18 04:51 Myelocytes # 0.0 K/mm3 12/03/18 04:51 Promyelocytes # 0.0 K/mm3 12/03/18 04:51 Blast Cells # 0.0 K/mm3 12/03/18 04:51 WBC Morphology Not Reportable 12/03/18 04:51 Hypersegmented Neuts Not Reportable 12/03/18 04:51 Hyposegmented Neuts Not Reportable 12/03/18 04:51 Hypogranular Neuts Not Reportable 12/03/18 04:51 Smudge Cells Not Reportable 12/03/18 04:51 Toxic Granulation Not Reportable 12/03/18 04:51 Toxic Vacuolation Not Reportable 12/03/18 04:51 Dohle Bodies Not Reportable 12/03/18 04:51 Pelger-Huet Anomaly Not Reportable 12/03/18 04:51 Davina Rods Not Reportable 12/03/18 04:51 Platelet Estimate Appears normal 12/03/18 04:51 Clumped Platelets Not Reportable 12/03/18 04:51 Plt Clumps, EDTA Not Reportable 12/03/18 04:51 Large Platelets Not Reportable 12/03/18 04:51 Giant Platelets Not Reportable 12/03/18 04:51 Platelet Satelliting Not Reportable 12/03/18 04:51 Plt Morphology Comment Not Reportable 12/03/18 04:51 RBC Morphology Not Reportable 12/03/18 04:51 Dimorphic RBCs Not Reportable 12/03/18 04:51 Polychromasia Rare 12/03/18 04:51 Hypochromasia 1+ 12/03/18 04:51 Poikilocytosis Not Reportable 12/03/18 04:51 Anisocytosis 1+ 12/03/18 04:51 Microcytosis Not Reportable 12/03/18 04:51 Macrocytosis Not Reportable 12/03/18 04:51 Spherocytes Not Reportable 12/03/18 04:51 Pappenheimer Bodies Not Reportable 12/03/18 04:51 Sickle Cells Not Reportable 12/03/18 04:51 Target Cells Few 12/03/18 04:51 Tear Drop Cells Not Reportable 12/03/18 04:51 Ovalocytes Few 12/03/18 04:51 Helmet Cells Not Reportable 12/03/18 04:51 [place] Bodies Not Reportable 12/03/18 04:51 [place] Rings Not Reportable 12/03/18 04:51 [place]isa Cells Not Reportable 12/03/18 04:51 Bite Cells Not Reportable 12/03/18 04:51 Crenated Cell Not Reportable 12/03/18 04:51 Elliptocytes Not Reportable 12/03/18 04:51 Acanthocytes (Spur) Not Reportable 12/03/18 04:51 Rouleaux Not Reportable 12/03/18 04:51 Hemoglobin C Crystals Not Reportable 12/03/18 04:51 Schistocytes Not Reportable 12/03/18 04:51 Malaria parasites Not Reportable 12/03/18 04:51 German Bodies Not Reportable 12/03/18 04:51 Hem Pathologist Commnt No 12/03/18 04:51 PT 12.6 Sec. (12.2-14.9) 11/28/18 23:34 INR 0.90 (0.87-1.13) 11/28/18 23:34 APTT 30.8 Sec. (24.2-36.6) 11/28/18 23:34 POC ABG pH 7.384 (7.35-7.45) 11/30/18 05:31 POC ABG pCO2 69.1 (35-45) H 11/30/18 05:31 POC ABG pO2 90 (80-105) 11/30/18 05:31 POC ABG HCO3 41.2 11/30/18 05:31 POC ABG Total CO2 43 11/30/18 05:31 POC ABG O2 Sat 96 11/30/18 05:31 POC ABG Base Excess 16 11/30/18 05:31 FiO2 40 % 11/30/18 05:31 Sodium 146 mmol/L (137-145) H 12/03/18 04:51 Potassium 4.7 mmol/L (3.6-5.0) 12/03/18 04:51 Chloride 99.8 mmol/L (98-107) 12/03/18 04:51 Carbon Dioxide 39 mmol/L (22-30) H 12/03/18 04:51 Anion Gap 12 mmol/L 12/03/18 04:51 BUN 23 mg/dL (9-20) H 12/03/18 04:51 Creatinine 0.6 mg/dL (0.8-1.5) L 12/03/18 04:51 Estimated GFR > 60 ml/min 12/03/18 04:51 BUN/Creatinine Ratio 38 % 12/03/18 04:51 Glucose 141 mg/dL (75-100) H 12/03/18 04:51 Lactic Acid 1.30 mmol/L (0.7-2.0) 12/02/18 16:09 Calcium 9.0 mg/dL (8.4-10.2) 12/03/18 04:51 Total Bilirubin < 0.20 mg/dL (0.1-1.2) 12/02/18 05:50 AST 10 units/L (5-40) 12/02/18 05:50 ALT 17 units/L (7-56) 12/02/18 05:50 Alkaline Phosphatase 80 units/L (35-129) 12/02/18 05:50 Total Creatine Kinase 145 units/L (55-170) 11/28/18 23:34 CK-MB (CK-2) 3.3 ng/mL (0.0-4.0) 11/28/18 23:34 CK-MB (CK-2) Rel Index 2.2 (0-4) 11/28/18 23:34 Troponin T < 0.010 ng/mL (0.00-0.029) 12/02/18 16:09 NT-Pro-B Natriuret Pep 99.93 pg/mL (0-900) 11/28/18 23:34 Total Protein 6.7 g/dL (6.3-8.2) 12/02/18 05:50 Albumin 3.9 g/dL (3.9-5) 12/02/18 05:50 Albumin/Globulin Ratio 1.4 % 12/02/18 05:50 Nutrition/Malnutrition Assess - Dietary Evaluation Nutrition/Malnutrition Findings: Nutrition Notes Start: 12/02/18 11:54 Freq: Status: Active Protocol: Document 12/02/18 11:54 OL (Rec: 12/02/18 11:55 OL [id number]) Nutrition Notes Need for Assessment generated from: Low BMI Initial or Follow up Brief Note Current Diagnosis COPD Coronary Artery Disease Hypertension Hyperlipidemia Current Diet cardiac Subjective/Other Information RD screen for low BMI. Pt. with wt. of 30.7kg in chart. Had SUSAN brody pt. Current wt. reflects wt. obtained from [facility]. Nutrition Intervention Revisit per MD consult or patient Sign Off request:
[2018-12-03] MEDS: PULMICORT IH SCH (19:25)
[2018-12-03] MEDS: BROVANA NEBU IH SCH (19:25)
[2018-12-04] MEDS: DUONEB *Not for PRN Use IH SCH ×4 (02:14→20:03)
[2018-12-04 05:12] LABS: Hematocrit 44.5 % (35.5-45.6); Hemoglobin 13.5 gm/dl (11.8-15.2); Mean Corpuscular Volume 85 fl (84-94); Red Blood Count 5.26 M/mm3 (3.65-5.03)
[2018-12-04 05:13] LABS: Mean Corpuscular HGB Conc 30 % (32-34); Platelet Count 188 K/mm3 (140-440); Red Cell Distribution Width 16.6 % (13.2-15.2)
[2018-12-04 05:31] LABS: BUN/Creatinine Ratio 33; Blood Urea Nitrogen 23 mg/dL (9-20); Calcium 8.7 mg/dL (8.4-10.2); Hemolysis Index 12
[2018-12-04] MEDS: APRESOLINE IV PRN (08:03)
[2018-12-04] MEDS: COLCHICINE PO SCH ×2 (09:43→22:21)
[2018-12-04] MEDS: LOVENOX SUB-Q SCH (09:43)
[2018-12-04] MEDS: PLAVIX PO SCH (09:43)
[2018-12-04] MEDS: ZITHROMAX PO SCH (09:45)
[2018-12-04] MEDS: ROCEPHIN/NS 1 GM/50 ML 1 GM/50 ML BAG IV SCH (09:47)
[2018-12-04] MEDS: SODIUM CHLORIDE FLUSH SYRINGE 10 ML IV SCH ×2 (09:48→22:21)
[2018-12-04] MEDS ORDERED: NON-FORMULARY (Lisinopril/Hydrochlorothiazide [Zestoretic 20-12.5 Mg] 1 TAB) PO SCH (10:00)
[2018-12-04] MEDS: BROVANA NEBU IH SCH ×2 (11:46→20:03)
[2018-12-04] MEDS: PULMICORT IH SCH ×2 (11:47→20:03)
--- NOTE | 2018-12-04 13:20 | Progress Note ---
Assessment and Plan Patient awake . Patient says breathing slightly better than yesterday.On nasal canula 5 litres O2. O2 saturation 98%. Patient goes on BIPAP during night time. - Patient Problems (1) COPD exacerbation Current Visit: Yes Status: Acute Plan to address problem: Presently resting on 5 litres O2. O2 saturation 98% BIPAP 16/6, rate 20, FIO2 40% during night time. Albuterol/atrovent aerosol treatments q 6 hours. Continue I/V solumedrol. Continue S/C Lovenox. Continue Levaquin. (2) Hypoxia Current Visit: Yes Status: Acute Plan to address problem: Presently resting on 5 litres O2. O2 saturation 98% Patient is on BIPAP 16/6, rate 20, FIO2 40%. (3) CAD (coronary artery disease) Current Visit: No Status: Acute Qualifiers: Coronary Disease-Associated Artery/Lesion type: [place] artery Plan to address problem: Patient has history of coronary stent placement. Management as per cardiology. (4) HIV (human immunodeficiency virus infection) Current Visit: No Status: Chronic Plan to address problem: Management as per primary care and infectious diseases. (5) Hypertension Current Visit: No Status: Chronic Plan to address problem: Management as per primary care. Subjective Date of service: 12/04/18 Principal diagnosis: Acute on Chr. Hypoxemic Respir Failure, Pneumonia, COPD Exace Interval history: Patient awake . Patient says breathing slightly better than yesterday.On nasal canula 5 litres O2. O2 saturation 98%. Patient goes on BIPAP during night time. Objective Vital Signs - 12hr 12/04/18 12/04/18 12/04/18 02:00 02:15 02:22 Temperature Pulse Rate 88 Pulse Rate [ From Monitor] Pulse Rate [ 80 81 Throughout] Respiratory 14 Rate Respiratory 23 23 Rate [ Throughout] Blood Pressure 144/90 O2 Sat by Pulse Oximetry 12/04/18 12/04/18 12/04/18 03:01 04:00 05:01 Temperature 98.7 F Pulse Rate Pulse Rate [ 72 From Monitor] Pulse Rate [ Throughout] Respiratory 22 Rate Respiratory Rate [ Throughout] Blood Pressure 161/93 161/93 158/97 O2 Sat by Pulse Oximetry 12/04/18 12/04/18 12/04/18 05:41 06:00 07:00 Temperature Pulse Rate 93 H 82 95 H Pulse Rate [ From Monitor] Pulse Rate [ Throughout] Respiratory 25 H 20 32 H Rate Respiratory Rate [ Throughout] Blood Pressure 170/101 170/101 O2 Sat by Pulse 98 Oximetry 12/04/18 12/04/18 08:03 12:05 Temperature Pulse Rate 84 87 Pulse Rate [ From Monitor] Pulse Rate [ Throughout] Respiratory 20 Rate Respiratory Rate [ Throughout] Blood Pressure 180/113 163/106 O2 Sat by Pulse 98 Oximetry Constitutional: no acute distress, alert Ascultation: Bilateral: diminished breath sounds, wheezes Cardiovascular: regular rate and rhythm Gastrointestinal: normoactive bowel sounds Integumentary: normal Extremities: no cyanosis, no edema Neurologic: normal mental status CBC and BMP: 12/04/18 05:00 12/04/18 05:00 ABG, PT/INR, D-dimer: ABG POC ABG pH 7.384 (7.35-7.45) 11/30/18 05:31 POC ABG pCO2 69.1 (35-45) H 11/30/18 05:31 POC ABG pO2 90 (80-105) 11/30/18 05:31 POC ABG HCO3 41.2 11/30/18 05:31 POC ABG Total CO2 43 11/30/18 05:31 POC ABG O2 Sat 96 11/30/18 05:31 PT/INR, D-dimer PT 12.6 Sec. (12.2-14.9) 11/28/18 23:34 INR 0.90 (0.87-1.13) 11/28/18 23:34 Abnormal lab findings: Abnormal Labs 11/28/18 11/28/18 11/29/18 23:34 23:34 00:26 WBC RBC 5.30 H Hct MCH 26 L MCHC 30 L RDW 17.7 H Lymph % (Auto) 10.0 L [place] % (Auto) 7.5 H Lymph # 0.6 L Seg Neutrophils % 81.5 H Seg Neuts % (Manual) Lymphocytes % (Manual) Seg Neutrophils # Man Lymphocytes # (Manual) POC ABG pH 7.230 L POC ABG pCO2 100.6 H POC ABG pO2 Sodium Chloride 96.9 L Carbon Dioxide 38 H BUN Creatinine 0.7 L Glucose 123 H 11/29/18 11/29/18 11/29/18 01:37 03:07 04:04 WBC RBC 5.50 H Hct 47.7 H MCH 26 L MCHC 30 L RDW 17.2 H Lymph % (Auto) [place] % (Auto) Lymph # Seg Neutrophils % Seg Neuts % (Manual) 85.0 H Lymphocytes % (Manual) 6.0 L Seg Neutrophils # Man Lymphocytes # (Manual) 0.3 L POC ABG pH 7.211 L 7.236 L POC ABG pCO2 108.5 H 98.1 H POC ABG pO2 62 L Sodium Chloride Carbon Dioxide BUN Creatinine Glucose 11/29/18 11/29/18 11/29/18 04:04 11:04 11:15 WBC RBC Hct MCH MCHC RDW Lymph % (Auto) [place] % (Auto) Lymph # Seg Neutrophils % Seg Neuts % (Manual) Lymphocytes % (Manual) Seg Neutrophils # Man Lymphocytes # (Manual) POC ABG pH POC ABG pCO2 72.9 H 71.0 H POC ABG pO2 32 L 53 L Sodium Chloride 94.7 L Carbon Dioxide 38 H BUN Creatinine 0.7 L Glucose 152 H 11/29/18 11/30/18 11/30/18 16:07 05:16 05:16 WBC 15.7 H RBC 5.09 H Hct MCH 26 L MCHC 31 L RDW 16.9 H Lymph % (Auto) [place] % (Auto) Lymph # Seg Neutrophils % Seg Neuts % (Manual) 74.0 H Lymphocytes % (Manual) 6.0 L Seg Neutrophils # Man 11.6 H Lymphocytes # (Manual) 0.9 L POC ABG pH POC ABG pCO2 61.8 H POC ABG pO2 38 L Sodium Chloride 95.2 L Carbon Dioxide 35 H BUN Creatinine Glucose 149 H 11/30/18 12/02/18 12/02/18 05:31 05:50 05:50 WBC 11.5 H RBC 5.33 H Hct MCH 26 L MCHC 30 L RDW 16.7 H Lymph % (Auto) [place] % (Auto) Lymph # Seg Neutrophils % Seg Neuts % (Manual) 91.0 H Lymphocytes % (Manual) 6.0 L Seg Neutrophils # Man 10.5 H Lymphocytes # (Manual) 0.7 L POC ABG pH POC ABG pCO2 69.1 H POC ABG pO2 Sodium 146 H Chloride 97.9 L Carbon Dioxide 40 H BUN 28 H Creatinine Glucose 230 H 12/03/18 12/03/18 12/04/18 04:51 04:51 05:00 WBC RBC 5.31 H 5.26 H Hct MCH 26 L 26 L MCHC 30 L 30 L RDW 16.9 H 16.6 H Lymph % (Auto) [place] % (Auto) Lymph # Seg Neutrophils % Seg Neuts % (Manual) 79.0 H Lymphocytes % (Manual) 3.0 L Seg Neutrophils # Man 8.4 H Lymphocytes # (Manual) 0.3 L POC ABG pH POC ABG pCO2 POC ABG pO2 Sodium 146 H Chloride Carbon Dioxide 39 H BUN 23 H Creatinine 0.6 L Glucose 141 H 12/04/18 05:00 WBC RBC Hct MCH MCHC RDW Lymph % (Auto) [place] % (Auto) Lymph # Seg Neutrophils % Seg Neuts % (Manual) Lymphocytes % (Manual) Seg Neutrophils # Man Lymphocytes # (Manual) POC ABG pH POC ABG pCO2 POC ABG pO2 Sodium 149 H Chloride Carbon Dioxide 43 H* BUN 23 H Creatinine 0.7 L Glucose 147 H
[2018-12-04] MEDS ORDERED: DIAMOX PO ONE (16:21)
--- NOTE | 2018-12-04 17:52 | Progress Note ---
Assessment and Plan Assessment and plan: - Acute and chronic hypoxemic-hypercapnic respiratory failure Continue on bronchodilators, supplemental oxygen, IV Solu-Medrol, IV antibiotics BIPAP Pulmonary is following Patient said he is not feeling better - Right lower lobe infiltrate IV Levaquin and azithromycin, rocephin on supplemental oxygen Give lasix one dose. - COPD exacerbation additives, IV Solu-Medrol, supplemental oxygen - CKD IV hydration Resolved - H/o Tobacco abuse disorder/Nicotine dependence Counseling on tobacco cessation done -Coronary artery disease Aspirin, statins, -Hypertension Controlled. Continue with antihypertensive medications -Hyperlipidemia Continue with atorvastatin Hypernatremia -Monitor Metabolic Alkalosis -Possible contraction -Monitor - HIV patient doesn't want to discuss about his HIV status - DVT and GI prophylaxis with Lovenox and Pepcid Loose stool - c.diff ordered- will cancel. No further Loss stool Disposition: Per Clinical course History Interval history: Patient is seen today for: Sitting up at bedside still complain of shortness of breath. Seen and examined at bedside; 24hour events reviewed; nursing staff ; no adverse overnight events reported to me; Denies any chest pain, nausea, vomiting, diarrhea No fever noted blood pressure controlled Asked patient multipile times if he will want to be intubated if it arrives to that, he changed his mind multiple times but now more affirmative that if need be he is ok with intubated Hospitalist Physical - Physical exam Narrative exam: Patient is on BIPAP The patient appeared well nourished and normally developed. Mild shortness of breath persist Vital signs as documented. Head exam is unremarkable. No scleral icterus . Neck is without jugular venous distension, thyromegaly, or carotid bruits. Lungs wheezing and decrease air entry bilaterally. Cardiac exam reveals regular rate and Rhythm. First and second heart sounds normal. No murmurs, rubs or gallops. Abdominal exam reveals normal bowel sounds, no masses, no organomegaly and no aortic enlargement. Extremities are trace pitting edema and both femoral and pedal pulses are normal. DRIED FRUIT WASHER: Alert and oriented 3. No focal weakness. - Constitutional Vitals: Temp Pulse Resp BP Pulse Ox 98.7 F 88 20 154/109 98 12/04/18 04:00 12/04/18 15:30 12/04/18 15:30 12/04/18 15:30 12/04/18 15:30 Results - Labs CBC & Chem 7: 12/04/18 05:00 12/04/18 05:00 Labs: Laboratory Last Values WBC 7.5 K/mm3 (4.5-11.0) 12/04/18 05:00 RBC 5.26 M/mm3 (3.65-5.03) H 12/04/18 05:00 Hgb 13.5 gm/dl (11.8-15.2) 12/04/18 05:00 Hct 44.5 % (35.5-45.6) 12/04/18 05:00 MCV 85 fl (84-94) 12/04/18 05:00 MCH 26 pg (28-32) L 12/04/18 05:00 MCHC 30 % (32-34) L 12/04/18 05:00 RDW 16.6 % (13.2-15.2) H 12/04/18 05:00 Plt Count 188 K/mm3 (140-440) 12/04/18 05:00 Lymph % (Auto) 10.0 % (13.4-35.0) L 11/28/18 23:34 [place] % (Auto) 7.5 % (0.0-7.3) H 11/28/18 23:34 Eos % (Auto) 0.2 % (0.0-4.3) 11/28/18 23:34 Baso % (Auto) 0.8 % (0.0-1.8) 11/28/18 23:34 Lymph # 0.6 K/mm3 (1.2-5.4) L 11/28/18 23:34 [place] # 0.5 K/mm3 (0.0-0.8) 11/28/18 23:34 Eos # 0.0 K/mm3 (0.0-0.4) 11/28/18 23:34 Baso # 0.1 K/mm3 (0.0-0.1) 11/28/18 23:34 Add Manual Diff Complete 12/03/18 04:51 Total Counted 100 12/03/18 04:51 Seg Neutrophils % Customer Relations Specialist 12/03/18 04:51 Seg Neuts % (Manual) 79.0 % (40.0-70.0) H 12/03/18 04:51 Band Neutrophils % 11.0 % 12/03/18 04:51 Lymphocytes % (Manual) 3.0 % (13.4-35.0) L 12/03/18 04:51 Reactive Lymphs % (Man) 0 % 12/03/18 04:51 Monocytes % (Manual) 7.0 % (0.0-7.3) 12/03/18 04:51 Eosinophils % (Manual) 0 % (0.0-4.3) 12/03/18 04:51 Basophils % (Manual) 0 % (0.0-1.8) 12/03/18 04:51 Metamyelocytes % 0 % 12/03/18 04:51 Myelocytes % 0 % 12/03/18 04:51 Promyelocytes % 0 % 12/03/18 04:51 Blast Cells % 0 % 12/03/18 04:51 Nucleated RBC % Not Reportable 12/03/18 04:51 Seg Neutrophils # 5.3 K/mm3 (1.8-7.7) 11/28/18 23:34 Seg Neutrophils # Man 8.4 K/mm3 (1.8-7.7) H 12/03/18 04:51 Band Neutrophils # 1.2 K/mm3 12/03/18 04:51 Lymphocytes # (Manual) 0.3 K/mm3 (1.2-5.4) L 12/03/18 04:51 Abs React Lymphs (Man) 0.0 K/mm3 12/03/18 04:51 Monocytes # (Manual) 0.7 K/mm3 (0.0-0.8) 12/03/18 04:51 Eosinophils # (Manual) 0.0 K/mm3 (0.0-0.4) 12/03/18 04:51 Basophils # (Manual) 0.0 K/mm3 (0.0-0.1) 12/03/18 04:51 Metamyelocytes # 0.0 K/mm3 12/03/18 04:51 Myelocytes # 0.0 K/mm3 12/03/18 04:51 Promyelocytes # 0.0 K/mm3 12/03/18 04:51 Blast Cells # 0.0 K/mm3 12/03/18 04:51 WBC Morphology Not Reportable 12/03/18 04:51 Hypersegmented Neuts Not Reportable 12/03/18 04:51 Hyposegmented Neuts Not Reportable 12/03/18 04:51 Hypogranular Neuts Not Reportable 12/03/18 04:51 Smudge Cells Not Reportable 12/03/18 04:51 Toxic Granulation Not Reportable 12/03/18 04:51 Toxic Vacuolation Not Reportable 12/03/18 04:51 Dohle Bodies Not Reportable 12/03/18 04:51 Pelger-Huet Anomaly Not Reportable 12/03/18 04:51 Davina Rods Not Reportable 12/03/18 04:51 Platelet Estimate Appears normal 12/03/18 04:51 Clumped Platelets Not Reportable 12/03/18 04:51 Plt Clumps, EDTA Not Reportable 12/03/18 04:51 Large Platelets Not Reportable 12/03/18 04:51 Giant Platelets Not Reportable 12/03/18 04:51 Platelet Satelliting Not Reportable 12/03/18 04:51 Plt Morphology Comment Not Reportable 12/03/18 04:51 RBC Morphology Not Reportable 12/03/18 04:51 Dimorphic RBCs Not Reportable 12/03/18 04:51 Polychromasia Rare 12/03/18 04:51 Hypochromasia 1+ 12/03/18 04:51 Poikilocytosis Not Reportable 12/03/18 04:51 Anisocytosis 1+ 12/03/18 04:51 Microcytosis Not Reportable 12/03/18 04:51 Macrocytosis Not Reportable 12/03/18 04:51 Spherocytes Not Reportable 12/03/18 04:51 Pappenheimer Bodies Not Reportable 12/03/18 04:51 Sickle Cells Not Reportable 12/03/18 04:51 Target Cells Few 12/03/18 04:51 Tear Drop Cells Not Reportable 12/03/18 04:51 Ovalocytes Few 12/03/18 04:51 Helmet Cells Not Reportable 12/03/18 04:51 [place] Bodies Not Reportable 12/03/18 04:51 [place] Rings Not Reportable 12/03/18 04:51 Marisa Cells Not Reportable 12/03/18 04:51 Bite Cells Not Reportable 12/03/18 04:51 Crenated Cell Not Reportable 12/03/18 04:51 Elliptocytes Not Reportable 12/03/18 04:51 Acanthocytes (Spur) Not Reportable 12/03/18 04:51 Rouleaux Not Reportable 12/03/18 04:51 Hemoglobin C Crystals Not Reportable 12/03/18 04:51 Schistocytes Not Reportable 12/03/18 04:51 Malaria parasites Not Reportable 12/03/18 04:51 [place] Bodies Not Reportable 12/03/18 04:51 Hem Pathologist Commnt No 12/03/18 04:51 PT 12.6 Sec. (12.2-14.9) 11/28/18 23:34 INR 0.90 (0.87-1.13) 11/28/18 23:34 APTT 30.8 Sec. (24.2-36.6) 11/28/18 23:34 POC ABG pH 7.487 (7.35-7.45) H 12/04/18 15:58 POC ABG pCO2 67.0 (35-45) H 12/04/18 15:58 POC ABG pO2 85 (80-105) 12/04/18 15:58 POC ABG HCO3 50.7 12/04/18 15:58 POC ABG Total CO2 > 50 12/04/18 15:58 POC ABG O2 Sat 97 12/04/18 15:58 POC ABG Base Excess 27 12/04/18 15:58 FiO2 40 % 11/30/18 05:31 Sodium 149 mmol/L (137-145) H 12/04/18 05:00 Potassium 4.4 mmol/L (3.6-5.0) 12/04/18 05:00 Chloride 99.7 mmol/L (98-107) 12/04/18 05:00 Carbon Dioxide 43 mmol/L (22-30) H* 12/04/18 05:00 Anion Gap 11 mmol/L 12/04/18 05:00 BUN 23 mg/dL (9-20) H 12/04/18 05:00 Creatinine 0.7 mg/dL (0.8-1.5) L 12/04/18 05:00 Estimated GFR > 60 ml/min 12/04/18 05:00 BUN/Creatinine Ratio 33 % 12/04/18 05:00 Glucose 147 mg/dL (75-100) H 12/04/18 05:00 Lactic Acid 1.30 mmol/L (0.7-2.0) 12/02/18 16:09 Calcium 8.7 mg/dL (8.4-10.2) 12/04/18 05:00 Total Bilirubin < 0.20 mg/dL (0.1-1.2) 12/02/18 05:50 AST 10 units/L (5-40) 12/02/18 05:50 ALT 17 units/L (7-56) 12/02/18 05:50 Alkaline Phosphatase 80 units/L (35-129) 12/02/18 05:50 Total Creatine Kinase 145 units/L (55-170) 11/28/18 23:34 CK-MB (CK-2) 3.3 ng/mL (0.0-4.0) 11/28/18 23:34 CK-MB (CK-2) Rel Index 2.2 (0-4) 11/28/18 23:34 Troponin T < 0.010 ng/mL (0.00-0.029) 12/02/18 16:09 NT-Pro-B Natriuret Pep 99.93 pg/mL (0-900) 11/28/18 23:34 Total Protein 6.7 g/dL (6.3-8.2) 12/02/18 05:50 Albumin 3.9 g/dL (3.9-5) 12/02/18 05:50 Albumin/Globulin Ratio 1.4 % 12/02/18 05:50 Nutrition/Malnutrition Assess - Dietary Evaluation Nutrition/Malnutrition Findings: Nutrition Notes Start: 12/02/18 11:54 Freq: Status: Active Protocol: Document 12/02/18 11:54 OL (Rec: 12/02/18 11:55 OL [id number]) Nutrition Notes Need for Assessment generated from: Low BMI Initial or Follow up Brief Note Current Diagnosis COPD Coronary Artery Disease Hypertension Hyperlipidemia Current Diet cardiac Subjective/Other Information RD screen for low BMI. Pt. with wt. of 30.7kg in chart. Had SUSAN brody pt. Current wt. reflects wt. obtained from [facility]. Nutrition Intervention Revisit per MD consult or patient Sign Off request:
[2018-12-04] MEDS: NORVASC PO SCH (18:27)
[2018-12-04] MEDS: SOLU-Medrol IV SCH (18:28)
[2018-12-05] MEDS: SOLU-Medrol IV SCH ×4 (00:31→17:08)
[2018-12-05] MEDS: DUONEB *Not for PRN Use IH SCH ×4 (02:00→21:05)
[2018-12-05 05:30] LABS: Mean Corpuscular HGB Conc 31 % (32-34); Mean Corpuscular Volume 84 fl (84-94); Platelet Count 188 K/mm3 (140-440); Red Blood Count 5.84 M/mm3 (3.65-5.03); Red Cell Distribution Width 16.6 % (13.2-15.2)
[2018-12-05 05:36] LABS: Hematocrit 49.2 % (35.5-45.6)
[2018-12-05 05:42] LABS: BUN/Creatinine Ratio 37; Blood Urea Nitrogen 22 mg/dL (9-20); Calcium 8.9 mg/dL (8.4-10.2); Hemolysis Index 37
[2018-12-05] MEDS: BROVANA NEBU IH SCH ×2 (07:29→21:27)
[2018-12-05] MEDS: PULMICORT IH SCH ×2 (07:29→21:05)
[2018-12-05] MEDS ORDERED: HCTZ PO SCH ×2 (10:00)
[2018-12-05] MEDS: ROCEPHIN/NS 1 GM/50 ML 1 GM/50 ML BAG IV SCH (10:05)
[2018-12-05] MEDS: SODIUM CHLORIDE FLUSH SYRINGE 10 ML IV SCH ×2 (10:06→22:09)
[2018-12-05] MEDS: LOVENOX SUB-Q SCH (10:06)
[2018-12-05] MEDS: ZESTRIL PO SCH (10:07)
[2018-12-05] MEDS: ZITHROMAX PO SCH (10:08)
[2018-12-05] MEDS: NORVASC PO SCH (10:09)
[2018-12-05] MEDS: PLAVIX PO SCH (10:10)
[2018-12-05] MEDS: COLCHICINE PO SCH ×2 (10:10→22:09)
--- NOTE | 2018-12-05 10:35 | Progress Note ---
Assessment and Plan Assessment and plan: 63 year old man with a history of hypertension, hyperlipidemia, coronary artery disease, COPD, HIV comes to the emergency room with complaints of shortness of breath not relieved with his nebulizer treatments. Complain of cough productive of santos phlegm - Acute and chronic hypoxemic-hypercapnic respiratory failure Continue on bronchodilators, supplemental oxygen, IV Solu-Medrol, IV antibiotics BIPAP Pulmonary is following Patient said he is not feeling better - Right lower lobe infiltrate IV Levaquin and azithromycin, rocephin on supplemental oxygen - COPD exacerbation Continue with slow taper, IV Solu-Medrol, supplemental oxygen - CKD IV hydration Resolved - H/o Tobacco abuse disorder/Nicotine dependence Counseling on tobacco cessation done -Coronary artery disease Aspirin, statins, -Hypertension Controlled. Continue with antihypertensive medications -Hyperlipidemia Continue with atorvastatin Hypernatremia -Monitor Metabolic Alkalosis Resolved - HIV patient doesn't want to discuss about his HIV status - DVT and GI prophylaxis with Lovenox and Pepcid Loose stool - c.diff ordered- will cancel. No further Loss stool Disposition: Per Clinical course History Interval history: Patient is seen today for: respiratory failure Seen and examined at bedside; 24hour events reviewed; nursing staff ; no adverse overnight events reported to me; reports improvement in shortness of breath. A bit emotional this am. Denies any chest pain, nausea, vomiting, diarrhea No fever Hospitalist Physical - Physical exam Narrative exam: Patient is on NC The patient appeared well nourished and normally developed. Mild shortness of breath persist Vital signs as documented. Head exam is unremarkable. No scleral icterus . Neck is without jugular venous distension, thyromegaly, or carotid bruits. Lungs wheezing improved and decrease air entry bilaterally. Cardiac exam reveals regular rate and Rhythm. First and second heart sounds normal. No murmurs, rubs or gallops. Abdominal exam reveals normal bowel sounds, no masses, no organomegaly and no aortic enlargement. Extremities are trace pitting edema and both femoral and pedal pulses are normal. HAIR BOILER: Alert and oriented 3. No focal weakness. - Constitutional Vitals: Temp Pulse Resp BP Pulse Ox 98.0 F 89 20 160/78 94 12/05/18 08:00 12/05/18 10:12/05/18 07:43 12/05/18 10:12/05/18 08:03 Results - Labs CBC & Chem 7: 12/05/18 05:06 12/05/18 05:06 Labs: Laboratory Last Values WBC 5.9 K/mm3 (4.5-11.0) 12/05/18 05:06 RBC 5.84 M/mm3 (3.65-5.03) H 12/05/18 05:06 Hgb 15.0 gm/dl (11.8-15.2) 12/05/18 05:06 Hct 49.2 % (35.5-45.6) H 12/05/18 05:06 MCV 84 fl (84-94) 12/05/18 05:06 MCH 26 pg (28-32) L 12/05/18 05:06 MCHC 31 % (32-34) L 12/05/18 05:06 RDW 16.6 % (13.2-15.2) H 12/05/18 05:06 Plt Count 188 K/mm3 (140-440) 12/05/18 05:06 Lymph % (Auto) 10.0 % (13.4-35.0) L 11/28/18 23:34 [place] % (Auto) 7.5 % (0.0-7.3) H 11/28/18 23:34 Eos % (Auto) 0.2 % (0.0-4.3) 11/28/18 23:34 Baso % (Auto) 0.8 % (0.0-1.8) 11/28/18 23:34 Lymph # 0.6 K/mm3 (1.2-5.4) L 11/28/18 23:34 [place] # 0.5 K/mm3 (0.0-0.8) 11/28/18 23:34 Eos # 0.0 K/mm3 (0.0-0.4) 11/28/18 23:34 Baso # 0.1 K/mm3 (0.0-0.1) 11/28/18 23:34 Add Manual Diff Complete 12/03/18 04:51 Total Counted 100 12/03/18 04:51 Seg Neutrophils % Resource Conservation Specialist 12/03/18 04:51 Seg Neuts % (Manual) 79.0 % (40.0-70.0) H 12/03/18 04:51 Band Neutrophils % 11.0 % 12/03/18 04:51 Lymphocytes % (Manual) 3.0 % (13.4-35.0) L 12/03/18 04:51 Reactive Lymphs % (Man) 0 % 12/03/18 04:51 Monocytes % (Manual) 7.0 % (0.0-7.3) 12/03/18 04:51 Eosinophils % (Manual) 0 % (0.0-4.3) 12/03/18 04:51 Basophils % (Manual) 0 % (0.0-1.8) 12/03/18 04:51 Metamyelocytes % 0 % 12/03/18 04:51 Myelocytes % 0 % 12/03/18 04:51 Promyelocytes % 0 % 12/03/18 04:51 Blast Cells % 0 % 12/03/18 04:51 Nucleated RBC % Not Reportable 12/03/18 04:51 Seg Neutrophils # 5.3 K/mm3 (1.8-7.7) 11/28/18 23:34 Seg Neutrophils # Man 8.4 K/mm3 (1.8-7.7) H 12/03/18 04:51 Band Neutrophils # 1.2 K/mm3 12/03/18 04:51 Lymphocytes # (Manual) 0.3 K/mm3 (1.2-5.4) L 12/03/18 04:51 Abs React Lymphs (Man) 0.0 K/mm3 12/03/18 04:51 Monocytes # (Manual) 0.7 K/mm3 (0.0-0.8) 12/03/18 04:51 Eosinophils # (Manual) 0.0 K/mm3 (0.0-0.4) 12/03/18 04:51 Basophils # (Manual) 0.0 K/mm3 (0.0-0.1) 12/03/18 04:51 Metamyelocytes # 0.0 K/mm3 12/03/18 04:51 Myelocytes # 0.0 K/mm3 12/03/18 04:51 Promyelocytes # 0.0 K/mm3 12/03/18 04:51 Blast Cells # 0.0 K/mm3 12/03/18 04:51 WBC Morphology Not Reportable 12/03/18 04:51 Hypersegmented Neuts Not Reportable 12/03/18 04:51 Hyposegmented Neuts Not Reportable 12/03/18 04:51 Hypogranular Neuts Not Reportable 12/03/18 04:51 Smudge Cells Not Reportable 12/03/18 04:51 Toxic Granulation Not Reportable 12/03/18 04:51 Toxic Vacuolation Not Reportable 12/03/18 04:51 Dohle Bodies Not Reportable 12/03/18 04:51 Pelger-Huet Anomaly Not Reportable 12/03/18 04:51 Davina Rods Not Reportable 12/03/18 04:51 Platelet Estimate Appears normal 12/03/18 04:51 Clumped Platelets Not Reportable 12/03/18 04:51 Plt Clumps, EDTA Not Reportable 12/03/18 04:51 Large Platelets Not Reportable 12/03/18 04:51 Giant Platelets Not Reportable 12/03/18 04:51 Platelet Satelliting Not Reportable 12/03/18 04:51 Plt Morphology Comment Not Reportable 12/03/18 04:51 RBC Morphology Not Reportable 12/03/18 04:51 Dimorphic RBCs Not Reportable 12/03/18 04:51 Polychromasia Rare 12/03/18 04:51 Hypochromasia 1+ 12/03/18 04:51 Poikilocytosis Not Reportable 12/03/18 04:51 Anisocytosis 1+ 12/03/18 04:51 Microcytosis Not Reportable 12/03/18 04:51 Macrocytosis Not Reportable 12/03/18 04:51 Spherocytes Not Reportable 12/03/18 04:51 Pappenheimer Bodies Not Reportable 12/03/18 04:51 Sickle Cells Not Reportable 12/03/18 04:51 Target Cells Few 12/03/18 04:51 Tear Drop Cells Not Reportable 12/03/18 04:51 Ovalocytes Few 12/03/18 04:51 Helmet Cells Not Reportable 12/03/18 04:51 [place] Bodies Not Reportable 12/03/18 04:51 [place] Rings Not Reportable 12/03/18 04:51 [place] Cells Not Reportable 12/03/18 04:51 Bite Cells Not Reportable 12/03/18 04:51 Crenated Cell Not Reportable 12/03/18 04:51 Elliptocytes Not Reportable 12/03/18 04:51 Acanthocytes (Spur) Not Reportable 12/03/18 04:51 Rouleaux Not Reportable 12/03/18 04:51 Hemoglobin C Crystals Not Reportable 12/03/18 04:51 Schistocytes Not Reportable 12/03/18 04:51 Malaria parasites Not Reportable 12/03/18 04:51 [place] Bodies Not Reportable 12/03/18 04:51 Hem Pathologist Commnt No 12/03/18 04:51 PT 12.6 Sec. (12.2-14.9) 11/28/18 23:34 INR 0.90 (0.87-1.13) 11/28/18 23:34 APTT 30.8 Sec. (24.2-36.6) 11/28/18 23:34 POC ABG pH 7.487 (7.35-7.45) H 12/04/18 15:58 POC ABG pCO2 67.0 (35-45) H 12/04/18 15:58 POC ABG pO2 85 (80-105) 12/04/18 15:58 POC ABG HCO3 50.7 12/04/18 15:58 POC ABG Total CO2 > 50 12/04/18 15:58 POC ABG O2 Sat 97 12/04/18 15:58 POC ABG Base Excess 27 12/04/18 15:58 FiO2 40 % 11/30/18 05:31 Sodium 146 mmol/L (137-145) H 12/05/18 05:06 Potassium 4.9 mmol/L (3.6-5.0) 12/05/18 05:06 Chloride 96.2 mmol/L (98-107) L 12/05/18 05:06 Carbon Dioxide 39 mmol/L (22-30) H 12/05/18 05:06 Anion Gap 16 mmol/L 12/05/18 05:06 BUN 22 mg/dL (9-20) H 12/05/18 05:06 Creatinine 0.6 mg/dL (0.8-1.5) L 12/05/18 05:06 Estimated GFR > 60 ml/min 12/05/18 05:06 BUN/Creatinine Ratio 37 % 12/05/18 05:06 Glucose 156 mg/dL (75-100) H 12/05/18 05:06 Lactic Acid 1.30 mmol/L (0.7-2.0) 12/02/18 16:09 Calcium 8.9 mg/dL (8.4-10.2) 12/05/18 05:06 Total Bilirubin < 0.20 mg/dL (0.1-1.2) 12/02/18 05:50 AST 10 units/L (5-40) 12/02/18 05:50 ALT 17 units/L (7-56) 12/02/18 05:50 Alkaline Phosphatase 80 units/L (35-129) 12/02/18 05:50 Total Creatine Kinase 145 units/L (55-170) 11/28/18 23:34 CK-MB (CK-2) 3.3 ng/mL (0.0-4.0) 11/28/18 23:34 CK-MB (CK-2) Rel Index 2.2 (0-4) 11/28/18 23:34 Troponin T < 0.010 ng/mL (0.00-0.029) 12/02/18 16:09 NT-Pro-B Natriuret Pep 99.93 pg/mL (0-900) 11/28/18 23:34 Total Protein 6.7 g/dL (6.3-8.2) 12/02/18 05:50 Albumin 3.9 g/dL (3.9-5) 12/02/18 05:50 Albumin/Globulin Ratio 1.4 % 12/02/18 05:50 Nutrition/Malnutrition Assess - Dietary Evaluation Nutrition/Malnutrition Findings: Nutrition Notes Start: 12/02/18 11:54 Freq: Status: Active Protocol: Document 12/02/18 11:54 OL (Rec: 12/02/18 11:55 OL [id number]) Nutrition Notes Need for Assessment generated from: Low BMI Initial or Follow up Brief Note Current Diagnosis COPD Coronary Artery Disease Hypertension Hyperlipidemia Current Diet cardiac Subjective/Other Information RD screen for low BMI. Pt. with wt. of 30.7kg in chart. Had SUSAN brody pt. Current wt. reflects wt. obtained from [facility]. Nutrition Intervention Revisit per MD consult or patient Sign Off request:
[2018-12-05] MEDS: HCTZ PO SCH (11:54)
[2018-12-05] MEDS: GENVOYA (NF) PO SCH (12:32)
--- NOTE | 2018-12-05 14:50 | Progress Note ---
Assessment and Plan Acute and chronic hypoxemic hypercapnic respiratory failure Right lower lobe infiltrate COPD exacerbation CKD Obesity h/o Tobacco abuse disorder/Nicotine dependence Coronary artery disease Hypertension Hyperlipidemia HIV - get stats ABG re: ? hypercapnia ansd address - asked RT to place him back on BIPAP at this time - continue NIPPV scheduled QHS otherwise - continue supplemental oxygen but oxygen restrictive strategies to keep O2 sats 88-90%, avoid Haldane effect - Follow up CXR ordered re: RLL process - continue bronchodilators with pulmonary hygiene per RT - complete empiric antibiotics course - continue VTE prophylaxis - add GI prophylaxis especially with NIV / positive pressure ventilation - continue systemic steroids with slow taper - continued smoking cessation counselling done and encouraged to remain quit - continue chronic home medications per attending - continue aspiration precautions - PT/OT/Mobility as tolerated - continue Accuchecks with glycemic control per SSI for target blood glucose 140mg/dL to 180mg/dL - continue other care per attending / other consultants ... re-evaluate in am & prn Subjective Date of service: 12/05/18 Principal diagnosis: Acute on Chr. Hypoxemic Respir Failure, Pneumonia, COPD Exace Interval history: Patient is seen today for: Seen and examined at bedside; 24hour events reviewed; nursing and respiratory care staff consulted; no adverse overnight events reported to me; sitting in bed with head on table; "i dont feel good doc"; denies acute chest pains or palpitations; his oxygen if off ; No N/V/F/C; no new issues otherwise Objective Vital Signs - 12hr 12/05/18 12/05/18 12/05/18 03:01 04:00 04:25 Temperature Pulse Rate 84 83 124 H Pulse Rate [ 82 From Monitor] Pulse Rate [ Right Dorsalis Pedis] Pulse Rate [ Throughout] Respiratory 21 24 Rate Respiratory Rate [ Throughout] Blood Pressure 165/103 137/79 119/66 O2 Sat by Pulse 94 97 100 Oximetry 12/05/18 12/05/18 12/05/18 05:00 06:00 07:01 Temperature Pulse Rate 90 85 Pulse Rate [ From Monitor] Pulse Rate [ Right Dorsalis Pedis] Pulse Rate [ Throughout] Respiratory Rate Respiratory Rate [ Throughout] Blood Pressure 145/99 164/116 161/47 O2 Sat by Pulse 99 100 100 Oximetry 02/07/19 02/07/19 02/07/19 07:24 07:29 07:43 Temperature Pulse Rate 82 Pulse Rate [ From Monitor] Pulse Rate [ Right Dorsalis Pedis] Pulse Rate [ 82 84 Throughout] Respiratory 22 Rate Respiratory 22 20 Rate [ Throughout] Blood Pressure 161/47 O2 Sat by Pulse 98 Oximetry 12/05/18 12/05/18 12/05/18 08:00 08:03 09:01 Temperature 98.0 F Pulse Rate 85 85 Pulse Rate [ 85 From Monitor] Pulse Rate [ 84 Right Dorsalis Pedis] Pulse Rate [ Throughout] Respiratory 17 14 Rate Respiratory Rate [ Throughout] Blood Pressure 159/54 181/53 O2 Sat by Pulse 97 94 98 Oximetry 12/05/18 12/05/18 12/05/18 10:00 10:07 10:09 Temperature Pulse Rate 91 H 89 89 Pulse Rate [ From Monitor] Pulse Rate [ Right Dorsalis Pedis] Pulse Rate [ Throughout] Respiratory 41 H Rate Respiratory Rate [ Throughout] Blood Pressure 160/78 160/78 160/78 O2 Sat by Pulse 72 L Oximetry 12/05/18 12/05/18 12/05/18 11:00 12:00 12:01 Temperature 98.6 F Pulse Rate 85 90 Pulse Rate [ 94 H From Monitor] Pulse Rate [ 94 H Right Dorsalis Pedis] Pulse Rate [ Throughout] Respiratory 30 H 24 28 H Rate Respiratory Rate [ Throughout] Blood Pressure 159/100 121/82 O2 Sat by Pulse 93 97 96 Oximetry Constitutional: alert (AAM normocephalic and atraumatic resting in bed with increased resp effort at rest), appears uncomfortable, other Eyes: non-icteric ENT: oropharynx moist, other (Mallampati 3) Neck: supple, no lymphadenopathy, no JVD, other (large neck circumference) Effort: mildly labored Ascultation: Bilateral: diminished breath sounds, rhonchi, other (prolonged exp phase) Percussion: Bilateral: not dull Cardiovascular: regular rate and rhythm Gastrointestinal: normoactive bowel sounds, soft, non-tender, non-distended Integumentary: normal Extremities: no cyanosis, no edema, pulses normal, no ischemia or petechiae Neurologic: normal mental status, non-focal exam, pupils equal and round, CN II- XII normal, motor strength normal and Psychiatric: depressed CBC and BMP: 12/05/18 05:06 12/05/18 05:06 ABG, PT/INR, D-dimer: ABG POC ABG pH 7.487 (7.35-7.45) H 12/04/18 15:58 POC ABG pCO2 67.0 (35-45) H 12/04/18 15:58 POC ABG pO2 85 (80-105) 12/04/18 15:58 POC ABG HCO3 50.7 12/04/18 15:58 POC ABG Total CO2 > 50 12/04/18 15:58 POC ABG O2 Sat 97 12/04/18 15:58 PT/INR, D-dimer PT 12.6 Sec. (12.2-14.9) 11/28/18 23:34 INR 0.90 (0.87-1.13) 11/28/18 23:34 Abnormal lab findings: Abnormal Labs 11/28/18 11/28/18 11/29/18 23:34 23:34 00:26 WBC RBC 5.30 H Hct MCH 26 L MCHC 30 L RDW 17.7 H Lymph % (Auto) 10.0 L Jay % (Auto) 7.5 H Lymph # 0.6 L Seg Neutrophils % 81.5 H Seg Neuts % (Manual) Lymphocytes % (Manual) Seg Neutrophils # Man Lymphocytes # (Manual) POC ABG pH 7.230 L POC ABG pCO2 100.6 H POC ABG pO2 Sodium Chloride 96.9 L Carbon Dioxide 38 H BUN Creatinine 0.7 L Glucose 123 H 11/29/18 11/29/18 11/29/18 01:37 03:07 04:04 WBC RBC 5.50 H Hct 47.7 H MCH 26 L MCHC 30 L RDW 17.2 H Lymph % (Auto) Jay % (Auto) Lymph # Seg Neutrophils % Seg Neuts % (Manual) 85.0 H Lymphocytes % (Manual) 6.0 L Seg Neutrophils # Man Lymphocytes # (Manual) 0.3 L POC ABG pH 7.211 L 7.236 L POC ABG pCO2 108.5 H 98.1 H POC ABG pO2 62 L Sodium Chloride Carbon Dioxide BUN Creatinine Glucose 11/29/18 11/29/18 11/30/18 04:04 11:15 05:16 WBC 15.7 H RBC 5.09 H Hct MCH 26 L MCHC 31 L RDW 16.9 H Lymph % (Auto) [place] % (Auto) Lymph # Seg Neutrophils % Seg Neuts % (Manual) 74.0 H Lymphocytes % (Manual) 6.0 L Seg Neutrophils # Man 11.6 H Lymphocytes # (Manual) 0.9 L POC ABG pH POC ABG pCO2 71.0 H POC ABG pO2 53 L Sodium Chloride 94.7 L Carbon Dioxide 38 H BUN Creatinine 0.7 L Glucose 152 H 11/30/18 11/30/18 12/02/18 05:16 05:31 05:50 WBC 11.5 H RBC 5.33 H Hct MCH 26 L MCHC 30 L RDW 16.7 H Lymph % (Auto) [place] % (Auto) Lymph # Seg Neutrophils % Seg Neuts % (Manual) 91.0 H Lymphocytes % (Manual) 6.0 L Seg Neutrophils # Man 10.5 H Lymphocytes # (Manual) 0.7 L POC ABG pH POC ABG pCO2 69.1 H POC ABG pO2 Sodium Chloride 95.2 L Carbon Dioxide 35 H BUN Creatinine Glucose 149 H 12/02/18 12/03/18 12/03/18 05:50 04:51 04:51 WBC RBC 5.31 H Hct MCH 26 L MCHC 30 L RDW 16.9 H Lymph % (Auto) Jay % (Auto) Lymph # Seg Neutrophils % Seg Neuts % (Manual) 79.0 H Lymphocytes % (Manual) 3.0 L Seg Neutrophils # Man 8.4 H Lymphocytes # (Manual) 0.3 L POC ABG pH POC ABG pCO2 POC ABG pO2 Sodium 146 H 146 H Chloride 97.9 L Carbon Dioxide 40 H 39 H BUN 28 H 23 H Creatinine 0.6 L Glucose 230 H 141 H 12/04/18 12/04/18 12/04/18 05:00 05:00 15:58 WBC RBC 5.26 H Hct MCH 26 L MCHC 30 L RDW 16.6 H Lymph % (Auto) Jay % (Auto) Lymph # Seg Neutrophils % Seg Neuts % (Manual) Lymphocytes % (Manual) Seg Neutrophils # Man Lymphocytes # (Manual) POC ABG pH 7.487 H POC ABG pCO2 67.0 H POC ABG pO2 Sodium 149 H Chloride Carbon Dioxide 43 H* BUN 23 H Creatinine 0.7 L Glucose 147 H 12/05/18 12/05/18 05:06 05:06 WBC RBC 5.84 H Hct 49.2 H MCH 26 L MCHC 31 L RDW 16.6 H Lymph % (Auto) Jay % (Auto) Lymph # Seg Neutrophils % Seg Neuts % (Manual) Lymphocytes % (Manual) Seg Neutrophils # Man Lymphocytes # (Manual) POC ABG pH POC ABG pCO2 POC ABG pO2 Sodium 146 H Chloride 96.2 L Carbon Dioxide 39 H BUN 22 H Creatinine 0.6 L Glucose 156 H Chest x-ray: pending Allied health notes reviewed: nursing
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
[2018-12-06] MEDS: SOLU-Medrol IV SCH ×4 (01:19→23:31)
[2018-12-06] MEDS: DUONEB *Not for PRN Use IH SCH ×4 (02:46→19:47)
[2018-12-06] MEDS: PULMICORT IH SCH ×2 (07:19→19:47)
[2018-12-06] MEDS: BROVANA NEBU IH SCH ×2 (07:19→19:47)
--- NOTE | 2018-12-06 09:31 | Progress Note ---
Assessment and Plan Assessment and plan: 63 year old man with a history of hypertension, hyperlipidemia, coronary artery disease, COPD, HIV comes to the emergency room with complaints of shortness of breath not relieved with his nebulizer treatments. Complain of cough productive of santos phlegm - Acute and chronic hypoxemic-hypercapnic respiratory failure Continue on bronchodilators, supplemental oxygen, slow IV Solu-Medrol, IV antibiotics BIPAP Pulmonary is following ABG still showing elevated CO2 Will need CPAP at night on discharge - Right lower lobe infiltrate IV Levaquin and azithromycin, rocephin on supplemental oxygen - COPD exacerbation Continue with slow taper, IV Solu-Medrol, supplemental oxygen - CKD IV hydration Resolved - H/o Tobacco abuse disorder/Nicotine dependence Counseling on tobacco cessation done -Coronary artery disease Aspirin, statins, -Hypertension Controlled. Continue with antihypertensive medications -Hyperlipidemia Continue with atorvastatin Hypernatremia -Monitor Metabolic Alkalosis Resolved - HIV patient doesn't want to discuss about his HIV status - DVT and GI prophylaxis with Lovenox and Pepcid Loose stool - c.diff ordered- will cancel. No further Loss stool Disposition: Per Clinical course History Interval history: Patient is seen today for: respiratory failure Seen and examined at bedside; 24hour events reviewed; nursing staff ; no adverse overnight events reported to me; reports improvement in shortness of breath. Denies any chest pain, nausea, vomiting, diarrhea No fever Hospitalist Physical - Physical exam Narrative exam: Patient is on NC The patient appeared well nourished and normally developed. Mild shortness of breath persist Vital signs as documented. Head exam is unremarkable. No scleral icterus . Neck is without jugular venous distension, thyromegaly, or carotid bruits. Lungs wheezing improved and decrease air entry bilaterally. Cardiac exam reveals regular rate and Rhythm. First and second heart sounds normal. No murmurs, rubs or gallops. Abdominal exam reveals normal bowel sounds, no masses, no organomegaly and no aortic enlargement. Extremities are trace pitting edema and both femoral and pedal pulses are larisa l. [employer] PROCESSING: Alert and oriented 3. No focal weakness. - Constitutional Vitals: Temp Pulse Resp BP Pulse Ox 98.0 F 87 31 H 123/66 93 12/06/18 04:00 12/06/18 08:00 12/06/18 08:00 12/06/18 08:00 12/06/18 08:00 Results - Labs CBC & Chem 7: 12/05/18 05:06 12/05/18 05:06 Labs: Laboratory Last Values WBC 5.9 K/mm3 (4.5-11.0) 12/05/18 05:06 RBC 5.84 M/mm3 (3.65-5.03) H 12/05/18 05:06 Hgb 15.0 gm/dl (11.8-15.2) 12/05/18 05:06 Hct 49.2 % (35.5-45.6) H 12/05/18 05:06 MCV 84 fl (84-94) 12/05/18 05:06 MCH 26 pg (28-32) L 12/05/18 05:06 MCHC 31 % (32-34) L 12/05/18 05:06 RDW 16.6 % (13.2-15.2) H 12/05/18 05:06 Plt Count 188 K/mm3 (140-440) 12/05/18 05:06 Lymph % (Auto) 10.0 % (13.4-35.0) L 11/28/18 23:34 [place] % (Auto) 7.5 % (0.0-7.3) H 11/28/18 23:34 Eos % (Auto) 0.2 % (0.0-4.3) 11/28/18 23:34 Baso % (Auto) 0.8 % (0.0-1.8) 11/28/18 23:34 Lymph # 0.6 K/mm3 (1.2-5.4) L 11/28/18 23:34 [place] # 0.5 K/mm3 (0.0-0.8) 11/28/18 23:34 Eos # 0.0 K/mm3 (0.0-0.4) 11/28/18 23:34 Baso # 0.1 K/mm3 (0.0-0.1) 11/28/18 23:34 Add Manual Diff Complete 12/03/18 04:51 Total Counted 100 12/03/18 04:51 Seg Neutrophils % Bell Maker 12/03/18 04:51 Seg Neuts % (Manual) 79.0 % (40.0-70.0) H 12/03/18 04:51 Band Neutrophils % 11.0 % 12/03/18 04:51 Lymphocytes % (Manual) 3.0 % (13.4-35.0) L 12/03/18 04:51 Reactive Lymphs % (Man) 0 % 12/03/18 04:51 Monocytes % (Manual) 7.0 % (0.0-7.3) 12/03/18 04:51 Eosinophils % (Manual) 0 % (0.0-4.3) 12/03/18 04:51 Basophils % (Manual) 0 % (0.0-1.8) 12/03/18 04:51 Metamyelocytes % 0 % 12/03/18 04:51 Myelocytes % 0 % 12/03/18 04:51 Promyelocytes % 0 % 12/03/18 04:51 Blast Cells % 0 % 12/03/18 04:51 Nucleated RBC % Not Reportable 12/03/18 04:51 Seg Neutrophils # 5.3 K/mm3 (1.8-7.7) 11/28/18 23:34 Seg Neutrophils # Man 8.4 K/mm3 (1.8-7.7) H 12/03/18 04:51 Band Neutrophils # 1.2 K/mm3 12/03/18 04:51 Lymphocytes # (Manual) 0.3 K/mm3 (1.2-5.4) L 12/03/18 04:51 Abs React Lymphs (Man) 0.0 K/mm3 12/03/18 04:51 Monocytes # (Manual) 0.7 K/mm3 (0.0-0.8) 12/03/18 04:51 Eosinophils # (Manual) 0.0 K/mm3 (0.0-0.4) 12/03/18 04:51 Basophils # (Manual) 0.0 K/mm3 (0.0-0.1) 12/03/18 04:51 Metamyelocytes # 0.0 K/mm3 12/03/18 04:51 Myelocytes # 0.0 K/mm3 12/03/18 04:51 Promyelocytes # 0.0 K/mm3 12/03/18 04:51 Blast Cells # 0.0 K/mm3 12/03/18 04:51 WBC Morphology Not Reportable 12/03/18 04:51 Hypersegmented Neuts Not Reportable 12/03/18 04:51 Hyposegmented Neuts Not Reportable 12/03/18 04:51 Hypogranular Neuts Not Reportable 12/03/18 04:51 Smudge Cells Not Reportable 12/03/18 04:51 Toxic Granulation Not Reportable 12/03/18 04:51 Toxic Vacuolation Not Reportable 12/03/18 04:51 Dohle Bodies Not Reportable 12/03/18 04:51 Pelger-Huet Anomaly Not Reportable 12/03/18 04:51 Davina Rods Not Reportable 12/03/18 04:51 Platelet Estimate Appears normal 12/03/18 04:51 Clumped Platelets Not Reportable 12/03/18 04:51 Plt Clumps, EDTA Not Reportable 12/03/18 04:51 Large Platelets Not Reportable 12/03/18 04:51 Giant Platelets Not Reportable 12/03/18 04:51 Platelet Satelliting Not Reportable 12/03/18 04:51 Plt Morphology Comment Not Reportable 12/03/18 04:51 RBC Morphology Not Reportable 12/03/18 04:51 Dimorphic RBCs Not Reportable 12/03/18 04:51 Polychromasia Rare 12/03/18 04:51 Hypochromasia 1+ 12/03/18 04:51 Poikilocytosis Not Reportable 12/03/18 04:51 Anisocytosis 1+ 12/03/18 04:51 Microcytosis Not Reportable 12/03/18 04:51 Macrocytosis Not Reportable 12/03/18 04:51 Spherocytes Not Reportable 12/03/18 04:51 Pappenheimer Bodies Not Reportable 12/03/18 04:51 Sickle Cells Not Reportable 12/03/18 04:51 Target Cells Few 12/03/18 04:51 Tear Drop Cells Not Reportable 12/03/18 04:51 Ovalocytes Few 12/03/18 04:51 Helmet Cells Not Reportable 12/03/18 04:51 Devries-Cuartelez Bodies Not Reportable 12/03/18 04:51 Sylmar Rings Not Reportable 12/03/18 04:51 Marisa Cells Not Reportable 12/03/18 04:51 Bite Cells Not Reportable 12/03/18 04:51 Crenated Cell Not Reportable 12/03/18 04:51 Elliptocytes Not Reportable 12/03/18 04:51 Acanthocytes (Spur) Not Reportable 12/03/18 04:51 Rouleaux Not Reportable 12/03/18 04:51 Hemoglobin C Crystals Not Reportable 12/03/18 04:51 Schistocytes Not Reportable 12/03/18 04:51 Malaria parasites Not Reportable 12/03/18 04:51 [place] Bodies Not Reportable 12/03/18 04:51 Hem Pathologist Commnt No 12/03/18 04:51 PT 12.6 Sec. (12.2-14.9) 11/28/18 23:34 INR 0.90 (0.87-1.13) 11/28/18 23:34 APTT 30.8 Sec. (24.2-36.6) 11/28/18 23:34 POC ABG pH 7.329 (7.35-7.45) L 12/05/18 15:52 POC ABG pCO2 80.5 (35-45) H 12/05/18 15:52 POC ABG pO2 73 (80-105) L 12/05/18 15:52 POC ABG HCO3 42.3 12/05/18 15:52 POC ABG Total CO2 45 12/05/18 15:52 POC ABG O2 Sat 92 12/05/18 15:52 POC ABG Base Excess 16 12/05/18 15:52 FiO2 35 % 12/05/18 15:52 Sodium 146 mmol/L (137-145) H 12/05/18 05:06 Potassium 4.9 mmol/L (3.6-5.0) 12/05/18 05:06 Chloride 96.2 mmol/L (98-107) L 12/05/18 05:06 Carbon Dioxide 39 mmol/L (22-30) H 12/05/18 05:06 Anion Gap 16 mmol/L 12/05/18 05:06 BUN 22 mg/dL (9-20) H 12/05/18 05:06 Creatinine 0.6 mg/dL (0.8-1.5) L 12/05/18 05:06 Estimated GFR > 60 ml/min 12/05/18 05:06 BUN/Creatinine Ratio 37 % 12/05/18 05:06 Glucose 156 mg/dL (75-100) H 12/05/18 05:06 Lactic Acid 1.30 mmol/L (0.7-2.0) 12/02/18 16:09 Calcium 8.9 mg/dL (8.4-10.2) 12/05/18 05:06 Total Bilirubin < 0.20 mg/dL (0.1-1.2) 12/02/18 05:50 AST 10 units/L (5-40) 12/02/18 05:50 ALT 17 units/L (7-56) 12/02/18 05:50 Alkaline Phosphatase 80 units/L (35-129) 12/02/18 05:50 Total Creatine Kinase 145 units/L (55-170) 11/28/18 23:34 CK-MB (CK-2) 3.3 ng/mL (0.0-4.0) 11/28/18 23:34 CK-MB (CK-2) Rel Index 2.2 (0-4) 11/28/18 23:34 Troponin T < 0.010 ng/mL (0.00-0.029) 12/02/18 16:09 NT-Pro-B Natriuret Pep 99.93 pg/mL (0-900) 11/28/18 23:34 Total Protein 6.7 g/dL (6.3-8.2) 12/02/18 05:50 Albumin 3.9 g/dL (3.9-5) 12/02/18 05:50 Albumin/Globulin Ratio 1.4 % 12/02/18 05:50 Nutrition/Malnutrition Assess - Dietary Evaluation Nutrition/Malnutrition Findings: Nutrition Notes Start: 12/02/18 11:54 Freq: Status: Active Protocol: Document 12/02/18 11:54 OL (Rec: 12/02/18 11:55 OL [id number]) Nutrition Notes Need for Assessment generated from: Low BMI Initial or Follow up Brief Note Current Diagnosis COPD Coronary Artery Disease Hypertension Hyperlipidemia Current Diet cardiac Subjective/Other Information RD screen for low BMI. Pt. with wt. of 30.7kg in chart. Had SUSAN brody pt. Current wt. reflects wt. obtained from [facility]. Nutrition Intervention Revisit per MD consult or patient Sign Off request:
[2018-12-06] MEDS: ZESTRIL PO SCH (10:37)
[2018-12-06] MEDS: NORVASC PO SCH (10:38)
[2018-12-06] MEDS: PLAVIX PO SCH (10:38)
[2018-12-06] MEDS: HCTZ PO SCH (10:38)
[2018-12-06] MEDS: ZITHROMAX PO SCH (10:38)
[2018-12-06] MEDS: LOVENOX SUB-Q SCH (10:39)
[2018-12-06] MEDS: ROCEPHIN/NS 1 GM/50 ML 1 GM/50 ML BAG IV SCH (10:39)
[2018-12-06] MEDS: COLCHICINE PO SCH ×2 (10:39→21:25)
[2018-12-06] MEDS: SODIUM CHLORIDE FLUSH SYRINGE 10 ML IV SCH ×2 (10:40→21:26)
[2018-12-06] MEDS: GENVOYA (NF) PO SCH (10:41)
--- NOTE | 2018-12-06 15:12 | Progress Note ---
Assessment and Plan Acute and chronic hypoxemic hypercapnic respiratory failure Right lower lobe infiltrate COPD exacerbation CKD Obesity h/o Tobacco abuse disorder/Nicotine dependence Coronary artery disease Hypertension Hyperlipidemia HIV - ABG reviewed and addressed - continue NIPPV scheduled QHS otherwise - continue supplemental oxygen but oxygen restrictive strategies to keep O2 sats 88-90%, avoid Haldane effect - Follow up CXR ordered re: RLL process - continue bronchodilators with pulmonary hygiene per RT - complete empiric antibiotics course - continue VTE prophylaxis - add GI prophylaxis especially with NIV / positive pressure ventilation - continue systemic steroids with slow taper - continued smoking cessation counselling done and encouraged to remain quit - continue chronic home medications per attending - continue aspiration precautions - PT/OT/Mobility as tolerated - continue Accuchecks with glycemic control per SSI for target blood glucose 140mg/dL to 180mg/dL - continue other care per attending / other consultants ... re-evaluate in am & prn Subjective Date of service: 12/06/18 Principal diagnosis: Ac and Ch hypoxemic hypercapnic Resp failure; RLL infiltrate; AE-COPD; CKD Interval history: Patient is seen today for: Acute and chronic hypoxemic hypercapnic respiratory failure; Right lower lobe infiltrate; COPD exacerbation; CKD; Obesity Seen and examined at bedside; 24hour events reviewed; nursing and respiratory care staff consulted; no adverse overnight events reported to me; remains on supplemental oxygen; No N/V/F/C Objective Vital Signs - 12hr 12/06/18 12/06/18 12/06/18 04:00 05:00 06:00 Temperature 98.0 F Pulse Rate 78 88 79 Pulse Rate [ 87 From Monitor] Pulse Rate [ 94 H Right Dorsalis Pedis] Pulse Rate [ Throughout] Respiratory 30 H 20 28 H Rate Respiratory Rate [ Throughout] Blood Pressure 119/79 125/93 130/71 O2 Sat by Pulse 96 96 99 Oximetry 12/06/18 12/06/18 12/06/18 07:00 07:15 07:19 Temperature Pulse Rate 78 77 Pulse Rate [ From Monitor] Pulse Rate [ Right Dorsalis Pedis] Pulse Rate [ 77 Throughout] Respiratory 22 21 Rate Respiratory 21 Rate [ Throughout] Blood Pressure 112/70 112/70 O2 Sat by Pulse 96 99 Oximetry 12/06/18 12/06/18 12/06/18 07:40 08:00 09:01 Temperature Pulse Rate 79 90 Pulse Rate [ 87 From Monitor] Pulse Rate [ 94 H Right Dorsalis Pedis] Pulse Rate [ Throughout] Respiratory 30 H 20 Rate Respiratory Rate [ Throughout] Blood Pressure 123/66 156/88 O2 Sat by Pulse 99 92 90 Oximetry 12/06/18 12/06/18 12/06/18 10:00 10:37 10:38 Temperature Pulse Rate 85 90 93 H Pulse Rate [ From Monitor] Pulse Rate [ Right Dorsalis Pedis] Pulse Rate [ Throughout] Respiratory 34 H Rate Respiratory Rate [ Throughout] Blood Pressure 98/59 112/69 112/69 O2 Sat by Pulse 97 Oximetry 12/06/18 12/06/18 12/06/18 11:00 12:00 13:00 Temperature Pulse Rate 91 H 93 H 90 Pulse Rate [ 87 From Monitor] Pulse Rate [ 94 H Right Dorsalis Pedis] Pulse Rate [ Throughout] Respiratory 37 H 26 H 25 H Rate Respiratory Rate [ Throughout] Blood Pressure 142/87 122/76 125/74 O2 Sat by Pulse 95 95 92 Oximetry Constitutional: alert (AAM normocephalic and atraumatic resting in bed with increased resp effort at rest), appears uncomfortable, other Eyes: non-icteric ENT: oropharynx moist, other (Mallampati 3) Neck: supple, no lymphadenopathy, no JVD, other (large neck circumference) Effort: mildly labored Ascultation: Bilateral: diminished breath sounds, rhonchi, other (prolonged exp phase) Percussion: Bilateral: not dull Cardiovascular: regular rate and rhythm Gastrointestinal: normoactive bowel sounds, soft, non-tender, non-distended Integumentary: normal Extremities: no cyanosis, no edema, pulses normal, no ischemia or petechiae Neurologic: normal mental status, non-focal exam, pupils equal and round, CN II- XII normal, motor strength normal and Psychiatric: depressed CBC and BMP: 12/16/18 04:37 12/16/18 04:37 ABG, PT/INR, D-dimer: ABG POC ABG pH 7.329 (7.35-7.45) L 12/05/18 15:52 POC ABG pCO2 80.5 (35-45) H 12/05/18 15:52 POC ABG pO2 73 (80-105) L 12/05/18 15:52 POC ABG HCO3 42.3 12/05/18 15:52 POC ABG Total CO2 45 12/05/18 15:52 POC ABG O2 Sat 92 12/05/18 15:52 PT/INR, D-dimer PT 12.6 Sec. (12.2-14.9) 11/28/18 23:34 INR 0.90 (0.87-1.13) 11/28/18 23:34 Abnormal lab findings: Abnormal Labs 11/28/18 11/28/18 11/29/18 23:34 23:34 00:26 WBC RBC 5.30 H Hct MCH 26 L MCHC 30 L RDW 17.7 H Lymph % (Auto) 10.0 L [place] % (Auto) 7.5 H Lymph # 0.6 L Seg Neutrophils % 81.5 H Seg Neuts % (Manual) Lymphocytes % (Manual) Seg Neutrophils # Man Lymphocytes # (Manual) POC ABG pH 7.230 L POC ABG pCO2 100.6 H POC ABG pO2 Sodium Chloride 96.9 L Carbon Dioxide 38 H BUN Creatinine 0.7 L Glucose 123 H 11/29/18 11/29/18 11/29/18 01:37 03:07 04:04 WBC RBC 5.50 H Hct 47.7 H MCH 26 L MCHC 30 L RDW 17.2 H Lymph % (Auto) [place] % (Auto) Lymph # Seg Neutrophils % Seg Neuts % (Manual) 85.0 H Lymphocytes % (Manual) 6.0 L Seg Neutrophils # Man Lymphocytes # (Manual) 0.3 L POC ABG pH 7.211 L 7.236 L POC ABG pCO2 108.5 H 98.1 H POC ABG pO2 62 L Sodium Chloride Carbon Dioxide BUN Creatinine Glucose 11/29/18 11/29/18 11/30/18 04:04 11:15 05:16 WBC 15.7 H RBC 5.09 H Hct MCH 26 L MCHC 31 L RDW 16.9 H Lymph % (Auto) [place] % (Auto) Lymph # Seg Neutrophils % Seg Neuts % (Manual) 74.0 H Lymphocytes % (Manual) 6.0 L Seg Neutrophils # Man 11.6 H Lymphocytes # (Manual) 0.9 L POC ABG pH POC ABG pCO2 71.0 H POC ABG pO2 53 L Sodium Chloride 94.7 L Carbon Dioxide 38 H BUN Creatinine 0.7 L Glucose 152 H 11/30/18 11/30/1819 05:16 05:31 05:50 WBC 11.5 H RBC 5.33 H Hct MCH 26 L MCHC 30 L RDW 16.7 H Lymph % (Auto) [place] % (Auto) Lymph # Seg Neutrophils % Seg Neuts % (Manual) 91.0 H Lymphocytes % (Manual) 6.0 L Seg Neutrophils # Man 10.5 H Lymphocytes # (Manual) 0.7 L POC ABG pH POC ABG pCO2 69.1 H POC ABG pO2 Sodium Chloride 95.2 L Carbon Dioxide 35 H BUN Creatinine Glucose 149 H 12/02/18 12/03/18 12/03/18 05:50 04:51 04:51 WBC RBC 5.31 H Hct MCH 26 L MCHC 30 L RDW 16.9 H Lymph % (Auto) [place] % (Auto) Lymph # Seg Neutrophils % Seg Neuts % (Manual) 79.0 H Lymphocytes % (Manual) 3.0 L Seg Neutrophils # Man 8.4 H Lymphocytes # (Manual) 0.3 L POC ABG pH POC ABG pCO2 POC ABG pO2 Sodium 146 H 146 H Chloride 97.9 L Carbon Dioxide 40 H 39 H BUN 28 H 23 H Creatinine 0.6 L Glucose 230 H 141 H 12/04/18 12/04/18 12/04/18 05:00 05:00 15:58 WBC RBC 5.26 H Hct MCH 26 L MCHC 30 L RDW 16.6 H Lymph % (Auto) [place] % (Auto) Lymph # Seg Neutrophils % Seg Neuts % (Manual) Lymphocytes % (Manual) Seg Neutrophils # Man Lymphocytes # (Manual) POC ABG pH 7.487 H POC ABG pCO2 67.0 H POC ABG pO2 Sodium 149 H Chloride Carbon Dioxide 43 H* BUN 23 H Creatinine 0.7 L Glucose 147 H 12/05/18 12/05/18 12/05/18 05:06 05:06 15:52 WBC RBC 5.84 H Hct 49.2 H MCH 26 L MCHC 31 L RDW 16.6 H Lymph % (Auto) [place] % (Auto) Lymph # Seg Neutrophils % Seg Neuts % (Manual) Lymphocytes % (Manual) Seg Neutrophils # Man Lymphocytes # (Manual) POC ABG pH 7.329 L POC ABG pCO2 80.5 H POC ABG pO2 73 L Sodium 146 H Chloride 96.2 L Carbon Dioxide 39 H BUN 22 H Creatinine 0.6 L Glucose 156 H Allied health notes reviewed: nursing
[2018-12-07] MEDS: DUONEB *Not for PRN Use IH SCH ×4 (02:35→20:03)
--- NOTE | 2018-12-07 06:41 | Progress Note ---
Assessment and Plan Acute and chronic hypoxemic-hypercapnic respiratory failure Right lower lobe infiltrate COPD exacerbation CKD Obesity h/o Tobacco abuse disorder/Nicotine dependence Coronary artery disease Hypertension Hyperlipidemia HIV -NIPPV QHS and prn - ABG prn -Supplemental oxygen but oxygen restrictive strategies to keep O2 sats 88-90%, avoid Haldane effect -Bronchodilators -Antibiotics- levofloxacin, add azithromycin while monitoring for arrhythmias -VTE prophylaxis -Steroids, start oral steroids with taper in the morning -Smoking cessation counselling, encouraged to remain quit -Continue chronic home medications -Aspiration precautions -PT/OT/Mobility as tolerated -OOB to chair daily -Accucheck with glycemic control, target blood glucose 140mg/dL to 180mg/dL CONDITION: FAIR PROGNOSIS: FAIR CODE STATUS: FULL Subjective Date of service: 12/07/18 Principal diagnosis: Ac and Ch hypoxemic hypercapnic Resp failure; RLL infiltrate; AE-COPD; CKD Interval history: Follow up: Acute on chronic hypercapnic-hypoxic respiratory failure; CKD; AE-COPD; RLL infiltrate Patient seen and examined. Vitals, labs, medications, chart and imaging reviewed. No acute overnight events reported. Discussed with RT and RN Patient is on vapotherm -optiflow at 35L, 30% with some abdominal breathing. On going shortness of breath Did not use BIPAP overnight, it was not offered to him. Has ongoing shortness of breath, denies any fevers or chills. No cough. Has "abdominal breathing" Objective Vital Signs - 12hr 12/06/18 12/06/18 12/06/18 19:00 19:47 19:49 Temperature Pulse Rate 93 H Pulse Rate [ Right Dorsalis Pedis] Pulse Rate [ 98 H Throughout] Respiratory 40 H Rate Respiratory 16 Rate [ Throughout] Blood Pressure 121/76 O2 Sat by Pulse 91 93 Oximetry 12/06/18 12/06/18 12/06/18 20:00 20:08 21:00 Temperature Pulse Rate 99 H 99 H Pulse Rate [ 95 H Right Dorsalis Pedis] Pulse Rate [ 97 H Throughout] Respiratory 28 H 33 H Rate Respiratory 16 Rate [ Throughout] Blood Pressure 121/76 129/71 O2 Sat by Pulse 94 89 Oximetry 12/06/18 12/06/18 12/06/18 22:00 22:10 23:00 Temperature Pulse Rate 93 H 91 H 92 H Pulse Rate [ Right Dorsalis Pedis] Pulse Rate [ Throughout] Respiratory 38 H 29 H 40 H Rate Respiratory Rate [ Throughout] Blood Pressure 129/68 129/68 106/65 O2 Sat by Pulse 91 95 86 Oximetry 12/07/18 12/07/18 12/07/18 00:00 00:18 01:00 Temperature Pulse Rate 91 H 87 Pulse Rate [ 89 Right Dorsalis Pedis] Pulse Rate [ Throughout] Respiratory 34 H 29 H Rate Respiratory Rate [ Throughout] Blood Pressure 129/73 107/57 O2 Sat by Pulse 91 94 91 Oximetry 12/07/18 12/07/18 12/07/18 02:00 03:00 04:00 Temperature 98.3 F Pulse Rate 88 85 83 Pulse Rate [ 84 Right Dorsalis Pedis] Pulse Rate [ Throughout] Respiratory 30 H 33 H 29 H Rate Respiratory Rate [ Throughout] Blood Pressure 107/57 107/57 107/57 O2 Sat by Pulse 92 92 93 Oximetry 12/07/18 05:09 Temperature Pulse Rate Pulse Rate [ Right Dorsalis Pedis] Pulse Rate [ Throughout] Respiratory Rate Respiratory Rate [ Throughout] Blood Pressure O2 Sat by Pulse 98 Oximetry Constitutional: alert (AAM normocephalic and atraumatic resting in bed with increased resp effort at rest), appears uncomfortable, other (mild respiratroy distress with abdominal breathing, obese) Eyes: non-icteric ENT: oropharynx moist, other (Mallampati 3) Neck: supple, no lymphadenopathy, no JVD, other (large neck circumference) Effort: mildly labored Ascultation: Bilateral: diminished breath sounds, wheezes, rhonchi, other (prolonged exp phase) Percussion: Bilateral: not dull Cardiovascular: regular rate and rhythm, other (S1,S2, no murmurs, gallops or rubs) Gastrointestinal: normoactive bowel sounds, soft, non-tender, non-distended, other (anterior abdominal wall ecchymosis) Integumentary: normal Extremities: no cyanosis, no edema, pulses normal, no ischemia or petechiae, other (old nielsen scars on his hands) Neurologic: normal mental status, non-focal exam, pupils equal and round, CN II- XII normal, motor strength normal and Psychiatric: depressed CBC and BMP: 12/05/18 05:06 12/05/18 05:06 ABG, PT/INR, D-dimer: ABG POC ABG pH 7.329 (7.35-7.45) L 12/05/18 15:52 POC ABG pCO2 80.5 (35-45) H 12/05/18 15:52 POC ABG pO2 73 (80-105) L 12/05/18 15:52 POC ABG HCO3 42.3 12/05/18 15:52 POC ABG Total CO2 45 12/05/18 15:52 POC ABG O2 Sat 92 12/05/18 15:52 PT/INR, D-dimer PT 12.6 Sec. (12.2-14.9) 11/28/18 23:34 INR 0.90 (0.87-1.13) 11/28/18 23:34 Abnormal lab findings: Abnormal Labs 11/28/18 11/28/18 11/29/18 23:34 23:34 00:26 WBC RBC 5.30 H Hct MCH 26 L MCHC 30 L RDW 17.7 H Lymph % (Auto) 10.0 L [place] % (Auto) 7.5 H Lymph # 0.6 L Seg Neutrophils % 81.5 H Seg Neuts % (Manual) Lymphocytes % (Manual) Seg Neutrophils # Man Lymphocytes # (Manual) POC ABG pH 7.230 L POC ABG pCO2 100.6 H POC ABG pO2 Sodium Chloride 96.9 L Carbon Dioxide 38 H BUN Creatinine 0.7 L Glucose 123 H 11/29/18 11/29/18 11/29/18 01:37 03:07 04:04 WBC RBC 5.50 H Hct 47.7 H MCH 26 L MCHC 30 L RDW 17.2 H Lymph % (Auto) [place] % (Auto) Lymph # Seg Neutrophils % Seg Neuts % (Manual) 85.0 H Lymphocytes % (Manual) 6.0 L Seg Neutrophils # Man Lymphocytes # (Manual) 0.3 L POC ABG pH 7.211 L 7.236 L POC ABG pCO2 108.5 H 98.1 H POC ABG pO2 62 L Sodium Chloride Carbon Dioxide BUN Creatinine Glucose 11/29/18 11/29/18 11/30/18 04:04 11:15 05:16 WBC 15.7 H RBC 5.09 H Hct MCH 26 L MCHC 31 L RDW 16.9 H Lymph % (Auto) [place] % (Auto) Lymph # Seg Neutrophils % Seg Neuts % (Manual) 74.0 H Lymphocytes % (Manual) 6.0 L Seg Neutrophils # Man 11.6 H Lymphocytes # (Manual) 0.9 L POC ABG pH POC ABG pCO2 71.0 H POC ABG pO2 53 L Sodium Chloride 94.7 L Carbon Dioxide 38 H BUN Creatinine 0.7 L Glucose 152 H 11/30/18 11/30/18 12/02/18 05:16 05:31 05:50 WBC 11.5 H RBC 5.33 H Hct MCH 26 L MCHC 30 L RDW 16.7 H Lymph % (Auto) [place] % (Auto) Lymph # Seg Neutrophils % Seg Neuts % (Manual) 91.0 H Lymphocytes % (Manual) 6.0 L Seg Neutrophils # Man 10.5 H Lymphocytes # (Manual) 0.7 L POC ABG pH POC ABG pCO2 69.1 H POC ABG pO2 Sodium Chloride 95.2 L Carbon Dioxide 35 H BUN Creatinine Glucose 149 H 12/02/18 12/03/18 12/03/18 05:50 04:51 04:51 WBC RBC 5.31 H Hct MCH 26 L MCHC 30 L RDW 16.9 H Lymph % (Auto) [place] % (Auto) Lymph # Seg Neutrophils % Seg Neuts % (Manual) 79.0 H Lymphocytes % (Manual) 3.0 L Seg Neutrophils # Man 8.4 H Lymphocytes # (Manual) 0.3 L POC ABG pH POC ABG pCO2 POC ABG pO2 Sodium 146 H 146 H Chloride 97.9 L Carbon Dioxide 40 H 39 H BUN 28 H 23 H Creatinine 0.6 L Glucose 230 H 141 H 12/04/18 12/04/18 12/04/18 05:00 05:00 15:58 WBC RBC 5.26 H Hct MCH 26 L MCHC 30 L RDW 16.6 H Lymph % (Auto) [place] % (Auto) Lymph # Seg Neutrophils % Seg Neuts % (Manual) Lymphocytes % (Manual) Seg Neutrophils # Man Lymphocytes # (Manual) POC ABG pH 7.487 H POC ABG pCO2 67.0 H POC ABG pO2 Sodium 149 H Chloride Carbon Dioxide 43 H* BUN 23 H Creatinine 0.7 L Glucose 147 H 12/05/18 12/05/18 12/05/18 05:06 05:06 15:52 WBC RBC 5.84 H Hct 49.2 H MCH 26 L MCHC 31 L RDW 16.6 H Lymph % (Auto) [place] % (Auto) Lymph # Seg Neutrophils % Seg Neuts % (Manual) Lymphocytes % (Manual) Seg Neutrophils # Man Lymphocytes # (Manual) POC ABG pH 7.329 L POC ABG pCO2 80.5 H POC ABG pO2 73 L Sodium 146 H Chloride 96.2 L Carbon Dioxide 39 H BUN 22 H Creatinine 0.6 L Glucose 156 H Chest x-ray: image reviewed (No evidence of RLL infitrate) Allied health notes reviewed: nursing
[2018-12-07] MEDS: PULMICORT IH SCH ×2 (07:25→20:03)
[2018-12-07] MEDS: BROVANA NEBU IH SCH ×2 (07:25→20:03)
[2018-12-07] MEDS: ROCEPHIN/NS 1 GM/50 ML 1 GM/50 ML BAG IV SCH (09:08)
[2018-12-07] MEDS: LOVENOX SUB-Q SCH (09:08)
[2018-12-07] MEDS: ZITHROMAX PO SCH (09:09)
[2018-12-07] MEDS: SODIUM CHLORIDE FLUSH SYRINGE 10 ML IV SCH ×2 (09:09→21:51)
[2018-12-07] MEDS: COLCHICINE PO SCH ×2 (09:09→21:50)
[2018-12-07] MEDS: HCTZ PO SCH (09:10)
[2018-12-07] MEDS: NORVASC PO SCH (09:10)
[2018-12-07] MEDS: PLAVIX PO SCH (09:10)
[2018-12-07] MEDS: ZESTRIL PO SCH (09:11)
[2018-12-07] MEDS: SOLU-Medrol IV SCH ×3 (09:11→23:21)
[2018-12-07] MEDS: GENVOYA (NF) PO SCH (10:30)
--- NOTE | 2018-12-07 14:29 | Progress Note ---
Assessment and Plan - Patient Problems (1) Acute respiratory failure Current Visit: Yes Status: Acute Plan to address problem: Issue with acute respiratory failure has not totally resolved. Patient placed back on BiPAP. Will need CPAP upon discharge. Underlying etiology most likely infectious aspiration pneumonia. Continue broad-spectrum antibiotics IV steroids Solu-Medrol O2 supplementation with BiPAP in 4 to CPAP upon discharge. (2) CAD (coronary artery disease) Current Visit: No Status: Acute Qualifiers: Coronary Disease-Associated Artery/Lesion type: [place] artery Plan to address problem: Patient history of coronary disease remained chest pain-free at this time. (3) COPD with acute exacerbation Current Visit: No Status: Acute Plan to address problem: COPD what appears to be aspiration pneumonia. Tobacco nicotine abuse. Continue nicotine patch. (4) Accelerated hypertension Current Visit: No Status: Acute Plan to address problem: Hypertension fair control coronary disease continue medical management. History Interval history: Patient appears to be resting comfortably. Pulmonology has just place patient on BiPAP for little while. Patient: Will no new concerns. Hospitalist Physical - Constitutional Vitals: Temp Pulse Resp BP Pulse Ox 98.4 F 88 25 H 113/75 98 12/07/18 12:00 12/07/18 10:45 12/07/18 10:45 12/07/18 09:11 12/07/18 10:45 General appearance: Present: no acute distress - EENT Eyes: Present: PERRL, EOM intact ENT: hearing intact, clear oral mucosa, dentition normal, no oropharyngeal erythema, no poor dentition, no thrush - Neck Neck: Present: supple, normal ROM - Respiratory Respiratory effort: normal Respiratory: bilateral: diminished - Cardiovascular Rhythm: regular Heart Sounds: Absent: S1 & S2, systolic murmur - Extremities Extremities: no ischemia, pulses intact, pulses symmetrical, No edema, normal temperature, normal color Peripheral Pulses: within normal limits - Abdominal General gastrointestinal: soft, tender, distended, normal bowel sounds, no hypoactive bowel sounds - Integumentary Integumentary: Present: clear, warm, dry - Psychiatric Psychiatric: appropriate mood/affect, cooperative - Neurologic Neurologic: CNII-XII intact, no focal deficits Results - Labs CBC & Chem 7: 12/05/18 05:06 12/05/18 05:06 Labs: Laboratory Last Values WBC 5.9 K/mm3 (4.5-11.0) 02/07/19 05:06 RBC 5.84 M/mm3 (3.65-5.03) H 12/05/18 05:06 Hgb 15.0 gm/dl (11.8-15.2) 12/05/18 05:06 Hct 49.2 % (35.5-45.6) H 12/05/18 05:06 MCV 84 fl (84-94) 12/05/18 05:06 MCH 26 pg (28-32) L 12/05/18 05:06 MCHC 31 % (32-34) L 12/05/18 05:06 RDW 16.6 % (13.2-15.2) H 12/05/18 05:06 Plt Count 188 K/mm3 (140-440) 12/05/18 05:06 Lymph % (Auto) 10.0 % (13.4-35.0) L 11/28/18 23:34 Esmeralda % (Auto) 7.5 % (0.0-7.3) H 11/28/18 23:34 Eos % (Auto) 0.2 % (0.0-4.3) 11/28/18 23:34 Baso % (Auto) 0.8 % (0.0-1.8) 11/28/18 23:34 Lymph # 0.6 K/mm3 (1.2-5.4) L 11/28/18 23:34 Esmeralda # 0.5 K/mm3 (0.0-0.8) 11/28/18 23:34 Eos # 0.0 K/mm3 (0.0-0.4) 11/28/18 23:34 Baso # 0.1 K/mm3 (0.0-0.1) 11/28/18 23:34 Add Manual Diff Complete 12/03/18 04:51 Total Counted 100 12/03/18 04:51 Seg Neutrophils % [employer] 12/03/18 04:51 Seg Neuts % (Manual) 79.0 % (40.0-70.0) H 12/03/18 04:51 Band Neutrophils % 11.0 % 12/03/18 04:51 Lymphocytes % (Manual) 3.0 % (13.4-35.0) L 12/03/18 04:51 Reactive Lymphs % (Man) 0 % 12/03/18 04:51 Monocytes % (Manual) 7.0 % (0.0-7.3) 12/03/18 04:51 Eosinophils % (Manual) 0 % (0.0-4.3) 12/03/18 04:51 Basophils % (Manual) 0 % (0.0-1.8) 12/03/18 04:51 Metamyelocytes % 0 % 12/03/18 04:51 Myelocytes % 0 % 12/03/18 04:51 Promyelocytes % 0 % 12/03/18 04:51 Blast Cells % 0 % 12/03/18 04:51 Nucleated RBC % Not Reportable 12/03/18 04:51 Seg Neutrophils # 5.3 K/mm3 (1.8-7.7) 11/28/18 23:34 Seg Neutrophils # Man 8.4 K/mm3 (1.8-7.7) H 12/03/18 04:51 Band Neutrophils # 1.2 K/mm3 12/03/18 04:51 Lymphocytes # (Manual) 0.3 K/mm3 (1.2-5.4) L 12/03/18 04:51 Abs React Lymphs (Man) 0.0 K/mm3 12/03/18 04:51 Monocytes # (Manual) 0.7 K/mm3 (0.0-0.8) 12/03/18 04:51 Eosinophils # (Manual) 0.0 K/mm3 (0.0-0.4) 12/03/18 04:51 Basophils # (Manual) 0.0 K/mm3 (0.0-0.1) 12/03/18 04:51 Metamyelocytes # 0.0 K/mm3 12/03/18 04:51 Myelocytes # 0.0 K/mm3 12/03/18 04:51 Promyelocytes # 0.0 K/mm3 12/03/18 04:51 Blast Cells # 0.0 K/mm3 12/03/18 04:51 WBC Morphology Not Reportable 12/03/18 04:51 Hypersegmented Neuts Not Reportable 12/03/18 04:51 Hyposegmented Neuts Not Reportable 12/03/18 04:51 Hypogranular Neuts Not Reportable 12/03/18 04:51 Smudge Cells Not Reportable 12/03/18 04:51 Toxic Granulation Not Reportable 12/03/18 04:51 Toxic Vacuolation Not Reportable 12/03/18 04:51 Dohle Bodies Not Reportable 12/03/18 04:51 Pelger-Huet Anomaly Not Reportable 12/03/18 04:51 Davina Rods Not Reportable 12/03/18 04:51 Platelet Estimate Appears normal 12/03/18 04:51 Clumped Platelets Not Reportable 12/03/18 04:51 Plt Clumps, EDTA Not Reportable 12/03/18 04:51 Large Platelets Not Reportable 12/03/18 04:51 Giant Platelets Not Reportable 12/03/18 04:51 Platelet Satelliting Not Reportable 12/03/18 04:51 Plt Morphology Comment Not Reportable 12/03/18 04:51 RBC Morphology Not Reportable 12/03/18 04:51 Dimorphic RBCs Not Reportable 12/03/18 04:51 Polychromasia Rare 12/03/18 04:51 Hypochromasia 1+ 12/03/18 04:51 Poikilocytosis Not Reportable 12/03/18 04:51 Anisocytosis 1+ 12/03/18 04:51 Microcytosis Not Reportable 12/03/18 04:51 Macrocytosis Not Reportable 12/03/18 04:51 Spherocytes Not Reportable 12/03/18 04:51 Pappenheimer Bodies Not Reportable 12/03/18 04:51 Sickle Cells Not Reportable 12/03/18 04:51 Target Cells Few 12/03/18 04:51 Tear Drop Cells Not Reportable 12/03/18 04:51 Ovalocytes Few 12/03/18 04:51 Helmet Cells Not Reportable 12/03/18 04:51 [place] Bodies Not Reportable 12/03/18 04:51 [place] Rings Not Reportable 12/03/18 04:51 [place] Cells Not Reportable 12/03/18 04:51 Bite Cells Not Reportable 12/03/18 04:51 Crenated Cell Not Reportable 12/03/18 04:51 Elliptocytes Not Reportable 12/03/18 04:51 Acanthocytes (Spur) Not Reportable 12/03/18 04:51 Rouleaux Not Reportable 12/03/18 04:51 Hemoglobin C Crystals Not Reportable 12/03/18 04:51 Schistocytes Not Reportable 12/03/18 04:51 Malaria parasites Not Reportable 12/03/18 04:51 [place] Bodies Not Reportable 12/03/18 04:51 Hem Pathologist Commnt No 12/03/18 04:51 PT 12.6 Sec. (12.2-14.9) 11/28/18 23:34 INR 0.90 (0.87-1.13) 11/28/18 23:34 APTT 30.8 Sec. (24.2-36.6) 11/28/18 23:34 POC ABG pH 7.329 (7.35-7.45) L 12/05/18 15:52 POC ABG pCO2 80.5 (35-45) H 12/05/18 15:52 POC ABG pO2 73 (80-105) L 12/05/18 15:52 POC ABG HCO3 42.3 12/05/18 15:52 POC ABG Total CO2 45 12/05/18 15:52 POC ABG O2 Sat 92 12/05/18 15:52 POC ABG Base Excess 16 12/05/18 15:52 FiO2 35 % 12/05/18 15:52 Sodium 146 mmol/L (137-145) H 12/05/18 05:06 Potassium 4.9 mmol/L (3.6-5.0) 12/05/18 05:06 Chloride 96.2 mmol/L (98-107) L 12/05/18 05:06 Carbon Dioxide 39 mmol/L (22-30) H 12/05/18 05:06 Anion Gap 16 mmol/L 12/05/18 05:06 BUN 22 mg/dL (9-20) H 12/05/18 05:06 Creatinine 0.6 mg/dL (0.8-1.5) L 12/05/18 05:06 Estimated GFR > 60 ml/min 12/05/18 05:06 BUN/Creatinine Ratio 37 % 12/05/18 05:06 Glucose 156 mg/dL (75-100) H 12/05/18 05:06 Lactic Acid 1.30 mmol/L (0.7-2.0) 12/02/18 16:09 Calcium 8.9 mg/dL (8.4-10.2) 12/05/18 05:06 Total Bilirubin < 0.20 mg/dL (0.1-1.2) 12/02/18 05:50 AST 10 units/L (5-40) 12/02/18 05:50 ALT 17 units/L (7-56) 12/02/18 05:50 Alkaline Phosphatase 80 units/L (35-129) 12/02/18 05:50 Total Creatine Kinase 145 units/L (55-170) 11/28/18 23:34 CK-MB (CK-2) 3.3 ng/mL (0.0-4.0) 11/28/18 23:34 CK-MB (CK-2) Rel Index 2.2 (0-4) 11/28/18 23:34 Troponin T < 0.010 ng/mL (0.00-0.029) 12/02/18 16:09 NT-Pro-B Natriuret Pep 99.93 pg/mL (0-900) 11/28/18 23:34 Total Protein 6.7 g/dL (6.3-8.2) 12/02/18 05:50 Albumin 3.9 g/dL (3.9-5) 12/02/18 05:50 Albumin/Globulin Ratio 1.4 % 12/02/18 05:50 Nutrition/Malnutrition Assess - Dietary Evaluation Nutrition/Malnutrition Findings: Nutrition Notes Start: 12/02/18 11:5 4 Freq: Status: Active Protocol: Document 12/06/18 11:06 CT (Rec: 12/06/18 11:32 CT [email or web address]) Co-Sign 12/06/18 11:06 LP Nutrition Notes Initial or Follow up Brief Note Current Diagnosis COPD Coronary Artery Disease Hypertension Hyperlipidemia Other Pertinent Diagnosis HIV Current Diet cardiac Height 5 ft 11 in Weight 104.1 kg Strong Body Weight (kg) 78.18 BMI 32.0 Subjective/Other Information RD screen for LOS. Pt. eating 100% of meals. Preferences noted. Nutrition Intervention Revisit per MD consult or patient Sign Off request:
[2018-12-08] MEDS: DUONEB *Not for PRN Use IH SCH ×4 (01:21→21:25)
[2018-12-08] MEDS: PULMICORT IH SCH ×2 (08:40→20:21)
[2018-12-08] MEDS: BROVANA NEBU IH SCH ×2 (08:40→20:21)
[2018-12-08] MEDS: COLCHICINE PO SCH ×2 (10:07→22:46)
[2018-12-08] MEDS: ROCEPHIN/NS 1 GM/50 ML 1 GM/50 ML BAG IV SCH (10:07)
[2018-12-08] MEDS: TYLENOL PO PRN (10:07)
[2018-12-08] MEDS: GENVOYA (NF) PO SCH (10:07)
[2018-12-08] MEDS: NORVASC PO SCH (10:08)
[2018-12-08] MEDS: ZESTRIL PO SCH (10:08)
[2018-12-08] MEDS: PLAVIX PO SCH (10:08)
[2018-12-08] MEDS: ZITHROMAX PO SCH (10:08)
[2018-12-08] MEDS: LOVENOX SUB-Q SCH (10:09)
[2018-12-08] MEDS: SOLU-Medrol IV SCH ×2 (10:15→16:00)
[2018-12-08] MEDS: HCTZ PO SCH (10:15)
[2018-12-08] MEDS: SODIUM CHLORIDE FLUSH SYRINGE 10 ML IV SCH ×2 (10:16→22:47)
--- NOTE | 2018-12-08 13:39 | Progress Note ---
Assessment and Plan - Patient Problems (1) Acute respiratory failure Current Visit: Yes Status: Acute Plan to address problem: Issue with acute respiratory unable to wean patient off high flow O2. Both times O2 saturations went down to the 70s.. . Will need CPAP upon discharge. We'll attempt to arrange CPAP for Sunday. Underlying etiology most likely infectious aspiration pneumonia. Continue broad-spectrum antibiotics IV steroids Solu-Medrol O2 supplementation with BiPAP in 4 to CPAP upon discharge. (2) CAD (coronary artery disease) Current Visit: No Status: Acute Qualifiers: Coronary Disease-Associated Artery/Lesion type: [place] artery Plan to address problem: Patient history of coronary disease remained chest pain-free at this time. (3) COPD with acute exacerbation Current Visit: No Status: Acute Plan to address problem: COPD what appears to be aspiration pneumonia. Tobacco nicotine abuse. Continue nicotine patch. (4) Accelerated hypertension Current Visit: No Status: Acute Plan to address problem: Hypertension fair control coronary disease continue medical management. Amlodipine lisinopril. (5) Diarrhea Current Visit: Yes Status: Acute Plan to address problem: lomotil PRN (6) HIV (human immunodeficiency virus infection) Current Visit: Yes Status: Acute Plan to address problem: resume meds History Interval history: Patient today somewhat upset because of plan. He did not understand the plan. After 20 minutes explaining the plan patient understands. Hospital course, gave today by diarrhea 3. Unable to wean patient off high flow O2. Patient's sats go down into the 70s. Awaiting CPAP to go home with possibly Sunday. Hospitalist Physical - Constitutional Vitals: Temp Pulse Resp BP Pulse Ox 98.8 F 85 20 142/89 96 12/08/18 12:00 12/08/18 10:08 12/08/18 08:43 12/08/18 10:08 12/08/18 08:44 General appearance: Present: no acute distress - Respiratory Respiratory: bilateral: diminished, rhonchi, wheezing - Cardiovascular Rhythm: regular - Extremities Extremities: no ischemia, pulses intact, pulses symmetrical, No edema, normal temperature, normal color Peripheral Pulses: within normal limits - Abdominal General gastrointestinal: soft, non-tender, non-distended - Integumentary Integumentary: Present: clear, warm, dry - Psychiatric Psychiatric: appropriate mood/affect, intact judgment & insight - Neurologic Neurologic: CNII-XII intact, focal deficits, moves all extremities Results - Labs CBC & Chem 7: 12/05/18 05:06 12/05/18 05:06 Labs: Laboratory Last Values WBC 5.9 K/mm3 (4.5-11.0) 12/05/18 05:06 RBC 5.84 M/mm3 (3.65-5.03) H 12/05/18 05:06 Hgb 15.0 gm/dl (11.8-15.2) 12/05/18 05:06 Hct 49.2 % (35.5-45.6) H 12/05/18 05:06 MCV 84 fl (84-94) 12/05/18 05:06 MCH 26 pg (28-32) L 12/05/18 05:06 MCHC 31 % (32-34) L 12/05/18 05:06 RDW 16.6 % (13.2-15.2) H 12/05/18 05:06 Plt Count 188 K/mm3 (140-440) 12/05/18 05:06 Lymph % (Auto) 10.0 % (13.4-35.0) L 11/28/18 23:34 [place] % (Auto) 7.5 % (0.0-7.3) H 11/28/18 23:34 Eos % (Auto) 0.2 % (0.0-4.3) 11/28/18 23:34 Baso % (Auto) 0.8 % (0.0-1.8) 11/28/18 23:34 Lymph # 0.6 K/mm3 (1.2-5.4) L 11/28/18 23:34 [place] # 0.5 K/mm3 (0.0-0.8) 11/28/18 23:34 Eos # 0.0 K/mm3 (0.0-0.4) 11/28/18 23:34 Baso # 0.1 K/mm3 (0.0-0.1) 11/28/18 23:34 Add Manual Diff Complete 12/03/18 04:51 Total Counted 100 12/03/18 04:51 Seg Neutrophils % [employer] 12/03/18 04:51 Seg Neuts % (Manual) 79.0 % (40.0-70.0) H 12/03/18 04:51 Band Neutrophils % 11.0 % 12/03/18 04:51 Lymphocytes % (Manual) 3.0 % (13.4-35.0) L 12/03/18 04:51 Reactive Lymphs % (Man) 0 % 12/03/18 04:51 Monocytes % (Manual) 7.0 % (0.0-7.3) 12/03/18 04:51 Eosinophils % (Manual) 0 % (0.0-4.3) 12/03/18 04:51 Basophils % (Manual) 0 % (0.0-1.8) 12/03/18 04:51 Metamyelocytes % 0 % 12/03/18 04:51 Myelocytes % 0 % 12/03/18 04:51 Promyelocytes % 0 % 12/03/18 04:51 Blast Cells % 0 % 12/03/18 04:51 Nucleated RBC % Not Reportable 12/03/18 04:51 Seg Neutrophils # 5.3 K/mm3 (1.8-7.7) 11/28/18 23:34 Seg Neutrophils # Man 8.4 K/mm3 (1.8-7.7) H 12/03/18 04:51 Band Neutrophils # 1.2 K/mm3 12/03/18 04:51 Lymphocytes # (Manual) 0.3 K/mm3 (1.2-5.4) L 12/03/18 04:51 Abs React Lymphs (Man) 0.0 K/mm3 12/03/18 04:51 Monocytes # (Manual) 0.7 K/mm3 (0.0-0.8) 12/03/18 04:51 Eosinophils # (Manual) 0.0 K/mm3 (0.0-0.4) 12/03/18 04:51 Basophils # (Manual) 0.0 K/mm3 (0.0-0.1) 12/03/18 04:51 Metamyelocytes # 0.0 K/mm3 12/03/18 04:51 Myelocytes # 0.0 K/mm3 12/03/18 04:51 Promyelocytes # 0.0 K/mm3 12/03/18 04:51 Blast Cells # 0.0 K/mm3 12/03/18 04:51 WBC Morphology Not Reportable 12/03/18 04:51 Hypersegmented Neuts Not Reportable 12/03/18 04:51 Hyposegmented Neuts Not Reportable 12/03/18 04:51 Hypogranular Neuts Not Reportable 12/03/18 04:51 Smudge Cells Not Reportable 12/03/18 04:51 Toxic Granulation Not Reportable 12/03/18 04:51 Toxic Vacuolation Not Reportable 12/03/18 04:51 Dohle Bodies Not Reportable 12/03/18 04:51 Pelger-Huet Anomaly Not Reportable 12/03/18 04:51 Davina Rods Not Reportable 12/03/18 04:51 Platelet Estimate Appears normal 12/03/18 04:51 Clumped Platelets Not Reportable 12/03/18 04:51 Plt Clumps, EDTA Not Reportable 12/03/18 04:51 Large Platelets Not Reportable 12/03/18 04:51 Giant Platelets Not Reportable 12/03/18 04:51 Platelet Satelliting Not Reportable 12/03/18 04:51 Plt Morphology Comment Not Reportable 12/03/18 04:51 RBC Morphology Not Reportable 12/03/18 04:51 Dimorphic RBCs Not Reportable 12/03/18 04:51 Polychromasia Rare 12/03/18 04:51 Hypochromasia 1+ 12/03/18 04:51 Poikilocytosis Not Reportable 12/03/18 04:51 Anisocytosis 1+ 12/03/18 04:51 Microcytosis Not Reportable 12/03/18 04:51 Macrocytosis Not Reportable 12/03/18 04:51 Spherocytes Not Reportable 12/03/18 04:51 Pappenheimer Bodies Not Reportable 12/03/18 04:51 Sickle Cells Not Reportable 12/03/18 04:51 Target Cells Few 12/03/18 04:51 Tear Drop Cells Not Reportable 12/03/18 04:51 Ovalocytes Few 12/03/18 04:51 Helmet Cells Not Reportable 12/03/18 04:51 [place] Bodies Not Reportable 12/03/18 04:51 [place] Rings Not Reportable 12/03/18 04:51 [place] Cells Not Reportable 12/03/18 04:51 Bite Cells Not Reportable 12/03/18 04:51 Crenated Cell Not Reportable 12/03/18 04:51 Elliptocytes Not Reportable 12/03/18 04:51 Acanthocytes (Spur) Not Reportable 12/03/18 04:51 Rouleaux Not Reportable 12/03/18 04:51 Hemoglobin C Crystals Not Reportable 12/03/18 04:51 Schistocytes Not Reportable 12/03/18 04:51 Malaria parasites Not Reportable 12/03/18 04:51 [place] Bodies Not Reportable 12/03/18 04:51 Hem Pathologist Commnt No 12/03/18 04:51 PT 12.6 Sec. (12.2-14.9) 11/28/18 23:34 INR 0.90 (0.87-1.13) 11/28/18 23:34 APTT 30.8 Sec. (24.2-36.6) 11/28/18 23:34 POC ABG pH 7.329 (7.35-7.45) L 12/05/18 15:52 POC ABG pCO2 80.5 (35-45) H 12/05/18 15:52 POC ABG pO2 73 (80-105) L 12/05/18 15:52 POC ABG HCO3 42.3 12/05/18 15:52 POC ABG Total CO2 45 12/05/18 15:52 POC ABG O2 Sat 92 12/05/18 15:52 POC ABG Base Excess 16 12/05/18 15:52 FiO2 35 % 12/05/18 15:52 Sodium 146 mmol/L (137-145) H 12/05/18 05:06 Potassium 4.9 mmol/L (3.6-5.0) 12/05/18 05:06 Chloride 96.2 mmol/L (98-107) L 12/05/18 05:06 Carbon Dioxide 39 mmol/L (22-30) H 12/05/18 05:06 Anion Gap 16 mmol/L 12/05/18 05:06 BUN 22 mg/dL (9-20) H 12/05/18 05:06 Creatinine 0.6 mg/dL (0.8-1.5) L 12/05/18 05:06 Estimated GFR > 60 ml/min 12/05/18 05:06 BUN/Creatinine Ratio 37 % 12/05/18 05:06 Glucose 156 mg/dL (75-100) H 12/05/18 05:06 Lactic Acid 1.30 mmol/L (0.7-2.0) 12/02/18 16:09 Calcium 8.9 mg/dL (8.4-10.2) 12/05/18 05:06 Total Bilirubin < 0.20 mg/dL (0.1-1.2) 12/02/18 05:50 AST 10 units/L (5-40) 12/02/18 05:50 ALT 17 units/L (7-56) 12/02/18 05:50 Alkaline Phosphatase 80 units/L (35-129) 12/02/18 05:50 Total Creatine Kinase 145 units/L (55-170) 11/28/18 23:34 CK-MB (CK-2) 3.3 ng/mL (0.0-4.0) 11/28/18 23:34 CK-MB (CK-2) Rel Index 2.2 (0-4) 11/28/18 23:34 Troponin T < 0.010 ng/mL (0.00-0.029) 12/02/18 16:09 NT-Pro-B Natriuret Pep 99.93 pg/mL (0-900) 11/28/18 23:34 Total Protein 6.7 g/dL (6.3-8.2) 12/02/18 05:50 Albumin 3.9 g/dL (3.9-5) 12/02/18 05:50 Albumin/Globulin Ratio 1.4 % 12/02/18 05:50 Nutrition/Malnutrition Assess - Dietary Evaluation Nutrition/Malnutrition Findings: Nutrition Notes Start: 12/02/18 11:54 Freq: Status: Active Protocol: Document 12/06/18 11:06 CT (Rec: 12/06/18 11:32 CT [id number]) Co-Sign 12/06/18 11:06 LP Nutrition Notes Initial or Follow up Brief Note Current Diagnosis COPD Coronary Artery Disease Hypertension Hyperlipidemia Other Pertinent Diagnosis HIV Current Diet cardiac Height 5 ft 11 in Weight 104.1 kg [place] Body Weight (kg) 78.18 BMI 32.0 Subjective/Other Information RD screen for LOS. Pt. eating 100% of meals. Preferences noted. Nutrition Intervention Revisit per MD consult or patient Sign Off request:
[2018-12-08] MEDS ORDERED: LOMOTIL PO PRN (13:40)
--- NOTE | 2018-12-08 15:28 | Progress Note ---
Assessment and Plan Acute and chronic hypoxemic-hypercapnic respiratory failure on HFO Right lower lobe infiltrate COPD exacerbation CKD Obesity h/o Tobacco abuse disorder/Nicotine dependence Coronary artery disease Hypertension Hyperlipidemia HIV -NIPPV QHS and prn - ABG prn -Supplemental oxygen but oxygen restrictive strategies to keep O2 sats 88-90%, avoid [place] effect -Bronchodilators -Antibiotics- levofloxacin and azithromycin while monitoring for arrhythmias, to complete course for severe A-COPD -VTE prophylaxis -Oral steroids with taper -Smoking cessation counselling, encouraged to remain quit -Continue chronic home medications -Aspiration precautions -PT/OT/Mobility as tolerated -OOB to chair daily -Accucheck with glycemic control, target blood glucose 140mg/dL to 180mg/dL Discussed with Ezra RT to wean off high flow and place on regular oxygen via [place] Discharge planning. 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 Vitals, labs, medications, chart and imaging reviewed. No acute overnight events reported. Discussed with RT and RN Patient is on vapotherm -optiflow at 35L, 30% with baseline shortness of breath. He was on oxygen prior to admission at 3-4L/min On going shortness of breath Used BIPAP overnight. Has ongoing shortness of breath, denies any fevers or chills. No cough. Objective Vital Signs - 12hr 12/08/18 12/08/18 12/08/18 04:00 04:15 05:00 Temperature 98.2 F Pulse Rate 82 80 81 Pulse Rate [ 80 Right Dorsalis Pedis] Pulse Rate [ Throughout] Respiratory 28 H 22 18 Rate Respiratory Rate [ Throughout] Blood Pressure 131/86 114/74 O2 Sat by Pulse 94 99 97 Oximetry 12/08/18 12/08/18 12/08/18 06:00 08:00 08:43 Temperature 98.0 F Pulse Rate 93 H Pulse Rate [ Right Dorsalis Pedis] Pulse Rate [ 88 91 H Throughout] Respiratory 31 H Rate Respiratory 24 20 Rate [ Throughout] Blood Pressure 132/94 O2 Sat by Pulse 96 Oximetry 12/08/18 12/08/18 12/08/18 08:44 10:08 12:00 Temperature 98.8 F Pulse Rate 85 Pulse Rate [ Right Dorsalis Pedis] Pulse Rate [ Throughout] Respiratory Rate Respiratory Rate [ Throughout] Blood Pressure 142/89 O2 Sat by Pulse 96 Oximetry Constitutional: alert (AAM normocephalic and atraumatic resting in bed with increased resp effort at rest), appears uncomfortable, other (mild respiratroy distress with abdominal breathing, obese) Eyes: non-icteric ENT: oropharynx moist, other (Mallampati 3) Neck: supple, no lymphadenopathy, no JVD, other (large neck circumference) Effort: mildly labored Ascultation: Bilateral: diminished breath sounds, wheezes, rhonchi, other (prolonged exp phase) Percussion: Bilateral: not dull Cardiovascular: regular rate and rhythm, other (S1,S2, no murmurs, gallops or rubs) Gastrointestinal: normoactive bowel sounds, soft, non-tender, non-distended, other (anterior abdominal wall ecchymosis) Integumentary: normal Extremities: no cyanosis, no edema, pulses normal, no ischemia or petechiae, other (old nielsen scars on his hands) Neurologic: normal mental status, non-focal exam, pupils equal and round, CN II- XII normal, motor strength normal and Psychiatric: depressed CBC and BMP: 12/05/18 05:06 12/09/18 06:11 ABG, PT/INR, D-dimer: ABG POC ABG pH 7.329 (7.35-7.45) L 12/05/18 15:52 POC ABG pCO2 80.5 (35-45) H 12/05/18 15:52 POC ABG pO2 73 (80-105) L 12/05/18 15:52 POC ABG HCO3 42.3 12/05/18 15:52 POC ABG Total CO2 45 12/05/18 15:52 POC ABG O2 Sat 92 12/05/18 15:52 PT/INR, D-dimer PT 12.6 Sec. (12.2-14.9) 11/28/18 23:34 INR 0.90 (0.87-1.13) 11/28/18 23:34 Abnormal lab findings: Abnormal Labs 11/28/18 11/28/18 11/29/18 23:34 23:34 00:26 WBC RBC 5.30 H Hct MCH 26 L MCHC 30 L RDW 17.7 H Lymph % (Auto) 10.0 L [place] % (Auto) 7.5 H Lymph # 0.6 L Seg Neutrophils % 81.5 H Seg Neuts % (Manual) Lymphocytes % (Manual) Seg Neutrophils # Man Lymphocytes # (Manual) POC ABG pH 7.230 L POC ABG pCO2 100.6 H POC ABG pO2 Sodium Chloride 96.9 L Carbon Dioxide 38 H BUN Creatinine 0.7 L Glucose 123 H 11/29/18 11/29/18 11/29/18 01:37 03:07 04:04 WBC RBC 5.50 H Hct 47.7 H MCH 26 L MCHC 30 L RDW 17.2 H Lymph % (Auto) [place] % (Auto) Lymph # Seg Neutrophils % Seg Neuts % (Manual) 85.0 H Lymphocytes % (Manual) 6.0 L Seg Neutrophils # Man Lymphocytes # (Manual) 0.3 L POC ABG pH 7.211 L 7.236 L POC ABG pCO2 108.5 H 98.1 H POC ABG pO2 62 L Sodium Chloride Carbon Dioxide BUN Creatinine Glucose 11/29/18 11/29/18 11/30/18 04:04 11:15 05:16 WBC 15.7 H RBC 5.09 H Hct MCH 26 L MCHC 31 L RDW 16.9 H Lymph % (Auto) [place] % (Auto) Lymph # Seg Neutrophils % Seg Neuts % (Manual) 74.0 H Lymphocytes % (Manual) 6.0 L Seg Neutrophils # Man 11.6 H Lymphocytes # (Manual) 0.9 L POC ABG pH POC ABG pCO2 71.0 H POC ABG pO2 53 L Sodium Chloride 94.7 L Carbon Dioxide 38 H BUN Creatinine 0.7 L Glucose 152 H 11/30/18 11/30/18 12/02/18 05:16 05:31 05:50 WBC 11.5 H RBC 5.33 H Hct MCH 26 L MCHC 30 L RDW 16.7 H Lymph % (Auto) [place] % (Auto) Lymph # Seg Neutrophils % Seg Neuts % (Manual) 91.0 H Lymphocytes % (Manual) 6.0 L Seg Neutrophils # Man 10.5 H Lymphocytes # (Manual) 0.7 L POC ABG pH POC ABG pCO2 69.1 H POC ABG pO2 Sodium Chloride 95.2 L Carbon Dioxide 35 H BUN Creatinine Glucose 149 H 12/02/18 12/03/18 12/03/18 05:50 04:51 04:51 WBC RBC 5.31 H Hct MCH 26 L MCHC 30 L RDW 16.9 H Lymph % (Auto) [place] % (Auto) Lymph # Seg Neutrophils % Seg Neuts % (Manual) 79.0 H Lymphocytes % (Manual) 3.0 L Seg Neutrophils # Man 8.4 H Lymphocytes # (Manual) 0.3 L POC ABG pH POC ABG pCO2 POC ABG pO2 Sodium 146 H 146 H Chloride 97.9 L Carbon Dioxide 40 H 39 H BUN 28 H 23 H Creatinine 0.6 L Glucose 230 H 141 H 12/04/18 12/04/18 12/04/18 05:00 05:00 15:58 WBC RBC 5.26 H Hct MCH 26 L MCHC 30 L RDW 16.6 H Lymph % (Auto) [place] % (Auto) Lymph # Seg Neutrophils % Seg Neuts % (Manual) Lymphocytes % (Manual) Seg Neutrophils # Man Lymphocytes # (Manual) POC ABG pH 7.487 H POC ABG pCO2 67.0 H POC ABG pO2 Sodium 149 H Chloride Carbon Dioxide 43 H* BUN 23 H Creatinine 0.7 L Glucose 147 H 12/05/18 12/05/18 12/05/18 05:06 05:06 15:52 WBC RBC 5.84 H Hct 49.2 H MCH 26 L MCHC 31 L RDW 16.6 H Lymph % (Auto) [place] % (Auto) Lymph # Seg Neutrophils % Seg Neuts % (Manual) Lymphocytes % (Manual) Seg Neutrophils # Man Lymphocytes # (Manual) POC ABG pH 7.329 L POC ABG pCO2 80.5 H POC ABG pO2 73 L Sodium 146 H Chloride 96.2 L Carbon Dioxide 39 H BUN 22 H Creatinine 0.6 L Glucose 156 H Allied health notes reviewed: nursing
[2018-12-09] MEDS: SOLU-Medrol IV SCH ×4 (00:02→22:56)
[2018-12-09] MEDS: DUONEB *Not for PRN Use IH SCH ×4 (02:07→19:33)
[2018-12-09 06:51] LABS: BUN/Creatinine Ratio 48; Blood Urea Nitrogen 38 mg/dL (9-20); Calcium 8.7 mg/dL (8.4-10.2); Hemolysis Index 5
[2018-12-09] MEDS ORDERED: DIAMOX PO NR (08:04)
[2018-12-09] MEDS: PULMICORT IH SCH ×2 (08:35→19:33)
[2018-12-09] MEDS: BROVANA NEBU IH SCH ×2 (08:35→19:33)
[2018-12-09] MEDS: HCTZ PO SCH (10:33)
[2018-12-09] MEDS: NORVASC PO SCH (10:33)
[2018-12-09] MEDS: PLAVIX PO SCH (10:33)
[2018-12-09] MEDS: ZESTRIL PO SCH (10:34)
[2018-12-09] MEDS: LOVENOX SUB-Q SCH (10:34)
[2018-12-09] MEDS: COLCHICINE PO SCH ×2 (10:35→22:56)
[2018-12-09] MEDS: ZITHROMAX PO SCH (10:35)
[2018-12-09] MEDS: SODIUM CHLORIDE FLUSH SYRINGE 10 ML IV SCH ×2 (10:36→22:27)
[2018-12-09] MEDS: GENVOYA (NF) PO SCH (10:36)
--- NOTE | 2018-12-09 16:15 | Progress Note ---
Assessment and Plan Assessment and plan: - Patient Problems (1) Acute respiratory failure Current Visit: Yes Status: Acute Plan to address problem: Issue with acute respiratory unable to wean patient off high flow O2. Both times O2 saturations went down to the 70s.. . Will need CPAP upon discharge. We'll attempt to arrange CPAP for Sunday. Underlying etiology most likely infectious aspiration pneumonia. Continue broad-spectrum antibiotics IV steroids Solu-Medrol O2 supplementation with BiPAP in 4 to CPAP upon discharge. Discussed with Pulmonary will continue to wean O2 Goal is for discharge in AM. (2) CAD (coronary artery disease) Current Visit: No Status: Acute Qualifiers: Coronary Disease-Associated Artery/Lesion type: [place] artery Plan to address problem: Patient history of coronary disease remained chest pain-free at this time. (3) COPD with acute exacerbation Current Visit: No Status: Acute Plan to address problem: COPD what appears to be aspiration pneumonia. Tobacco nicotine abuse. Continue nicotine patch. (4) Accelerated hypertension Current Visit: No Status: Acute Plan to address problem: Hypertension fair control coronary disease continue medical management. Amlodipine lisinopril. (5) Diarrhea Current Visit: Yes Status: Acute Plan to address problem: lomotil PRN (6) HIV (human immunodeficiency virus infection) Current Visit: Yes Status: Acute Plan to address problem: resume meds History Interval history: Patient is seen today for: respiratory failure Seen and examined at bedside; 24hour events reviewed; nursing staff ; no adverse overnight events reported to me; reports improvement in shortness of breath. Denies any chest pain, nausea, vomiting, diarrhea No fever Hospitalist Physical - Physical exam Narrative exam: VITAL SIGNS: Reviewed. GENERAL: The patient appeared well nourished and normally developed. Vital signs as documented. HEAD: No signs of head trauma. EYES: Pupils are equal. Extraocular motions intact. EARS: Hearing grossly intact. MOUTH: Oropharynx is normal. NECK: No adenopathy, no JVD. CHEST: Chest with Diminshed breath sounds bilaterally. No wheezes, rales, or rhonchi. CARDIAC: Regular rate and rhythm. S1 and S2, without murmurs, gallops, or rubs. VASCULAR: No Edema. Peripheral pulses normal and equal in all extremities. ABDOMEN: Soft, without detectable tenderness. No sign of distention. No rebound or guarding, and no masses palpated. Bowel Sounds normal. MUSCULOSKELETAL: Good range of motion of all major joints. Extremities without clubbing, cyanosis or edema. NEUROLOGIC EXAM: Alert and oriented x 3. No focal sensory or strength deficits. Speech normal. Follows commands. PSYCHIATRIC: Mood normal. SKIN: No rash or lesions. - Constitutional Vitals: Temp Pulse Resp BP Pulse Ox 98.6 F 79 18 125/75 100 12/09/18 08:00 12/09/18 13:48 12/09/18 13:48 12/09/18 11:00 12/09/18 11:19 General appearance: Present: no acute distress Results - Labs CBC & Chem 7: 12/05/18 05:06 12/09/18 06:11 Labs: Laboratory Last Values WBC 5.9 K/mm3 (4.5-11.0) 12/05/18 05:06 RBC 5.84 M/mm3 (3.65-5.03) H 12/05/18 05:06 Hgb 15.0 gm/dl (11.8-15.2) 12/05/18 05:06 Hct 49.2 % (35.5-45.6) H 12/05/18 05:06 MCV 84 fl (84-94) 12/05/18 05:06 MCH 26 pg (28-32) L 12/05/18 05:06 MCHC 31 % (32-34) L 12/05/18 05:06 RDW 16.6 % (13.2-15.2) H 12/05/18 05:06 Plt Count 188 K/mm3 (140-440) 12/05/18 05:06 Lymph % (Auto) 10.0 % (13.4-35.0) L 11/28/18 23:34 [place] % (Auto) 7.5 % (0.0-7.3) H 11/28/18 23:34 Eos % (Auto) 0.2 % (0.0-4.3) 11/28/18 23:34 Baso % (Auto) 0.8 % (0.0-1.8) 11/28/18 23:34 Lymph # 0.6 K/mm3 (1.2-5.4) L 11/28/18 23:34 [place] # 0.5 K/mm3 (0.0-0.8) 11/28/18 23:34 Eos # 0.0 K/mm3 (0.0-0.4) 11/28/18 23:34 Baso # 0.1 K/mm3 (0.0-0.1) 11/28/18 23:34 Add Manual Diff Complete 12/03/18 04:51 Total Counted 100 12/03/18 04:51 Seg Neutrophils % [employer] Business Analyst 12/03/18 04:51 Seg Neuts % (Manual) 79.0 % (40.0-70.0) H 12/03/18 04:51 Band Neutrophils % 11.0 % 12/03/18 04:51 Lymphocytes % (Manual) 3.0 % (13.4-35.0) L 12/03/18 04:51 Reactive Lymphs % (Man) 0 % 12/03/18 04:51 Monocytes % (Manual) 7.0 % (0.0-7.3) 12/03/18 04:51 Eosinophils % (Manual) 0 % (0.0-4.3) 12/03/18 04:51 Basophils % (Manual) 0 % (0.0-1.8) 12/03/18 04:51 Metamyelocytes % 0 % 12/03/18 04:51 Myelocytes % 0 % 12/03/18 04:51 Promyelocytes % 0 % 12/03/18 04:51 Blast Cells % 0 % 12/03/18 04:51 Nucleated RBC % Not Reportable 12/03/18 04:51 Seg Neutrophils # 5.3 K/mm3 (1.8-7.7) 11/28/18 23:34 Seg Neutrophils # Man 8.4 K/mm3 (1.8-7.7) H 12/03/18 04:51 Band Neutrophils # 1.2 K/mm3 12/03/18 04:51 Lymphocytes # (Manual) 0.3 K/mm3 (1.2-5.4) L 12/03/18 04:51 Abs React Lymphs (Man) 0.0 K/mm3 12/03/18 04:51 Monocytes # (Manual) 0.7 K/mm3 (0.0-0.8) 12/03/18 04:51 Eosinophils # (Manual) 0.0 K/mm3 (0.0-0.4) 12/03/18 04:51 Basophils # (Manual) 0.0 K/mm3 (0.0-0.1) 12/03/18 04:51 Metamyelocytes # 0.0 K/mm3 12/03/18 04:51 Myelocytes # 0.0 K/mm3 12/03/18 04:51 Promyelocytes # 0.0 K/mm3 12/03/18 04:51 Blast Cells # 0.0 K/mm3 12/03/18 04:51 WBC Morphology Not Reportable 12/03/18 04:51 Hypersegmented Neuts Not Reportable 12/03/18 04:51 Hyposegmented Neuts Not Reportable 12/03/18 04:51 Hypogranular Neuts Not Reportable 12/03/18 04:51 Smudge Cells Not Reportable 12/03/18 04:51 Toxic Granulation Not Reportable 12/03/18 04:51 Toxic Vacuolation Not Reportable 12/03/18 04:51 Dohle Bodies Not Reportable 12/03/18 04:51 Pelger-Huet Anomaly Not Reportable 12/03/18 04:51 Davina Rods Not Reportable 12/03/18 04:51 Platelet Estimate Appears normal 12/03/18 04:51 Clumped Platelets Not Reportable 12/03/18 04:51 Plt Clumps, EDTA Not Reportable 12/03/18 04:51 Large Platelets Not Reportable 12/03/18 04:51 Giant Platelets Not Reportable 12/03/18 04:51 Platelet Satelliting Not Reportable 12/03/18 04:51 Plt Morphology Comment Not Reportable 12/03/18 04:51 RBC Morphology Not Reportable 12/03/18 04:51 Dimorphic RBCs Not Reportable 12/03/18 04:51 Polychromasia Rare 12/03/18 04:51 Hypochromasia 1+ 12/03/18 04:51 Poikilocytosis Not Reportable 12/03/18 04:51 Anisocytosis 1+ 12/03/18 04:51 Microcytosis Not Reportable 12/03/18 04:51 Macrocytosis Not Reportable 12/03/18 04:51 Spherocytes Not Reportable 12/03/18 04:51 Pappenheimer Bodies Not Reportable 12/03/18 04:51 Sickle Cells Not Reportable 12/03/18 04:51 Target Cells Few 12/03/18 04:51 Tear Drop Cells Not Reportable 12/03/18 04:51 Ovalocytes Few 12/03/18 04:51 Helmet Cells Not Reportable 12/03/18 04:51 [place] Bodies Not Reportable 12/03/18 04:51 [place] Rings Not Reportable 12/03/18 04:51 [place] Cells Not Reportable 12/03/18 04:51 Bite Cells Not Reportable 12/03/18 04:51 Crenated Cell Not Reportable 12/03/18 04:51 Elliptocytes Not Reportable 12/03/18 04:51 Acanthocytes (Spur) Not Reportable 12/03/18 04:51 Rouleaux Not Reportable 12/03/18 04:51 Hemoglobin C Crystals Not Reportable 12/03/18 04:51 Schistocytes Not Reportable 12/03/18 04:51 Malaria parasites Not Reportable 12/03/18 04:51 [place] Bodies Not Reportable 12/03/18 04:51 Hem Pathologist Commnt No 12/03/18 04:51 PT 12.6 Sec. (12.2-14.9) 11/28/18 23:34 INR 0.90 (0.87-1.13) 11/28/18 23:34 APTT 30.8 Sec. (24.2-36.6) 11/28/18 23:34 POC ABG pH 7.329 (7.35-7.45) L 12/05/18 15:52 POC ABG pCO2 80.5 (35-45) H 12/05/18 15:52 POC ABG pO2 73 (80-105) L 12/05/18 15:52 POC ABG HCO3 42.3 12/05/18 15:52 POC ABG Total CO2 45 12/05/18 15:52 POC ABG O2 Sat 92 12/05/18 15:52 POC ABG Base Excess 16 12/05/18 15:52 FiO2 35 % 12/05/18 15:52 Sodium 144 mmol/L (137-145) 12/09/18 06:11 Potassium 4.3 mmol/L (3.6-5.0) 12/09/18 06:11 Chloride 93.3 mmol/L (98-107) L 12/09/18 06:11 Carbon Dioxide 45 mmol/L (22-30) H* 12/09/18 06:11 Anion Gap 10 mmol/L 12/09/18 06:11 BUN 38 mg/dL (9-20) H 12/09/18 06:11 Creatinine 0.8 mg/dL (0.8-1.5) 12/09/18 06:11 Estimated GFR > 60 ml/min 12/09/18 06:11 BUN/Creatinine Ratio 48 % 12/09/18 06:11 Glucose 176 mg/dL (75-100) H 12/09/18 06:11 Lactic Acid 1.30 mmol/L (0.7-2.0) 12/02/18 16:09 Calcium 8.7 mg/dL (8.4-10.2) 12/09/18 06:11 Total Bilirubin < 0.20 mg/dL (0.1-1.2) 12/02/18 05:50 AST 10 units/L (5-40) 12/02/18 05:50 ALT 17 units/L (7-56) 12/02/18 05:50 Alkaline Phosphatase 80 units/L (35-129) 12/02/18 05:50 Total Creatine Kinase 145 units/L (55-170) 11/28/18 23:34 CK-MB (CK-2) 3.3 ng/mL (0.0-4.0) 11/28/18 23:34 CK-MB (CK-2) Rel Index 2.2 (0-4) 11/28/18 23:34 Troponin T < 0.010 ng/mL (0.00-0.029) 12/02/18 16:09 NT-Pro-B Natriuret Pep 99.93 pg/mL (0-900) 11/28/18 23:34 Total Protein 6.7 g/dL (6.3-8.2) 12/02/18 05:50 Albumin 3.9 g/dL (3.9-5) 12/02/18 05:50 Albumin/Globulin Ratio 1.4 % 12/02/18 05:50 Nutrition/Malnutrition Assess - Dietary Evaluation Nutrition/Malnutrition Findings: Nutrition Notes Start: 12/02/18 11:54 Freq: Status: Active Protocol: Document 12/06/18 11:06 CT (Rec: 12/06/18 11:32 CT [id number]) Co-Sign 12/06/18 11:06 LP Nutrition Notes Initial or Follow up Brief Note Current Diagnosis COPD Coronary Artery Disease Hypertension Hyperlipidemia Other Pertinent Diagnosis HIV Current Diet cardiac Height 5 ft 11 in Weight 104.1 kg [place] Body Weight (kg) 78.18 BMI 32.0 Subjective/Other Information RD screen for LOS. Pt. eating 100% of meals. Preferences noted. Nutrition Intervention Revisit per MD consult or patient Sign Off request:
--- NOTE | 2018-12-09 19:00 | Progress Note ---
Assessment and Plan Patient sleeping at this time. No acute respiratory distress. On 5 litres O2.O2 saturation 100%.. - Patient Problems (1) COPD exacerbation Current Visit: Yes Status: Acute Plan to address problem: Presently resting on 5 litres O2. O2 saturation 100% BIPAP 16/6, rate 20, FIO2 40% during night time. Albuterol/atrovent aerosol treatments q 6 hours. Continue I/V solumedrol. Continue S/C Lovenox. (2) Hypoxia Current Visit: Yes Status: Acute Plan to address problem: Presently resting on 5 litres O2. O2 saturation 100% Patient is on BIPAP 16/6, rate 20, FIO2 40%. (3) CAD (coronary artery disease) Current Visit: No Status: Acute Qualifiers: Coronary Disease-Associated Artery/Lesion type: [place] artery Plan to address problem: Patient has history of coronary stent placement. Management as per cardiology. (4) HIV (human immunodeficiency virus infection) Current Visit: No Status: Chronic Plan to address problem: Management as per primary care and infectious diseases. (5) Hypertension Current Visit: No Status: Chronic Plan to address problem: Management as per primary care. Subjective Date of service: 12/09/18 Principal diagnosis: Ac and Ch hypoxemic hypercapnic Resp failure; RLL infiltrate; AE-COPD; CKD Interval history: Patient sleeping at this time. No acute respiratory distress. On 5 litres O2.O2 saturation 100%. Objective Vital Signs - 12hr 12/09/18 12/09/18 12/09/18 08:00 08:36 09:00 Temperature 98.6 F Pulse Rate 75 91 H Pulse Rate [ Anterior Bilateral Throughout] Pulse Rate [ 86 Right Dorsalis Pedis] Pulse Rate [ 85 85 Throughout] Respiratory 22 36 H Rate Respiratory Rate [Anterior Bilateral Throughout] Respiratory 23 22 Rate [ Throughout] Blood Pressure 130/70 130/70 O2 Sat by Pulse 96 Oximetry 12/09/18 12/09/18 12/09/18 09:27 10:00 10:33 Temperature Pulse Rate 85 88 Pulse Rate [ Anterior Bilateral Throughout] Pulse Rate [ Right Dorsalis Pedis] Pulse Rate [ Throughout] Respiratory 14 Rate Respiratory Rate [Anterior Bilateral Throughout] Respiratory Rate [ Throughout] Blood Pressure 125/75 125/75 O2 Sat by Pulse 99 98 Oximetry 12/09/18 12/09/18 12/09/18 10:34 11:00 11:19 Temperature Pulse Rate 89 89 Pulse Rate [ Anterior Bilateral Throughout] Pulse Rate [ Right Dorsalis Pedis] Pulse Rate [ Throughout] Respiratory 38 H Rate Respiratory Rate [Anterior Bilateral Throughout] Respiratory Rate [ Throughout] Blood Pressure 125/75 125/75 O2 Sat by Pulse 97 100 Oximetry 12/09/18 12/09/18 12/09/18 13:38 13:48 16:37 Temperature 97.6 F Pulse Rate 78 Pulse Rate [ 77 79 Anterior Bilateral Throughout] Pulse Rate [ Right Dorsalis Pedis] Pulse Rate [ Throughout] Respiratory 18 Rate Respiratory 18 18 Rate [Anterior Bilateral Throughout] Respiratory Rate [ Throughout] Blood Pressure 110/68 O2 Sat by Pulse 98 Oximetry Constitutional: no acute distress, asleep Eyes: non-icteric ENT: oropharynx moist, other (Mallampati 3) Neck: supple, no lymphadenopathy, no JVD, other (large neck circumference) Effort: mildly labored Ascultation: Bilateral: diminished breath sounds, other (prolonged exp phase) Percussion: Bilateral: not dull Cardiovascular: regular rate and rhythm, other (S1,S2, no murmurs, gallops or rubs) Gastrointestinal: normoactive bowel sounds, soft, non-tender, non-distended, other (anterior abdominal wall ecchymosis) Integumentary: normal Extremities: no cyanosis, no edema, pulses normal, no ischemia or petechiae, other (old nielsen scars on his hands) Neurologic: normal mental status, non-focal exam, pupils equal and round, CN II- XII normal Psychiatric: other (Patient sleeping at this time.) CBC and BMP: 12/05/18 05:06 12/09/18 06:11 ABG, PT/INR, D-dimer: ABG POC ABG pH 7.329 (7.35-7.45) L 12/05/18 15:52 POC ABG pCO2 80.5 (35-45) H 12/05/18 15:52 POC ABG pO2 73 (80-105) L 12/05/18 15:52 POC ABG HCO3 42.3 12/05/18 15:52 POC ABG Total CO2 45 12/05/18 15:52 POC ABG O2 Sat 92 12/05/18 15:52 PT/INR, D-dimer PT 12.6 Sec. (12.2-14.9) 11/28/18 23:34 INR 0.90 (0.87-1.13) 11/28/18 23:34 Abnormal lab findings: Abnormal Labs 11/28/18 11/28/18 11/29/18 23:34 23:34 00:26 WBC RBC 5.30 H Hct MCH 26 L MCHC 30 L RDW 17.7 H Lymph % (Auto) 10.0 L [place] % (Auto) 7.5 H Lymph # 0.6 L Seg Neutrophils % 81.5 H Seg Neuts % (Manual) Lymphocytes % (Manual) Seg Neutrophils # Man Lymphocytes # (Manual) POC ABG pH 7.230 L POC ABG pCO2 100.6 H POC ABG pO2 Sodium Chloride 96.9 L Carbon Dioxide 38 H BUN Creatinine 0.7 L Glucose 123 H 11/29/18 11/29/18 11/29/18 01:37 03:07 04:04 WBC RBC 5.50 H Hct 47.7 H MCH 26 L MCHC 30 L RDW 17.2 H Lymph % (Auto) [place] % (Auto) Lymph # Seg Neutrophils % Seg Neuts % (Manual) 85.0 H Lymphocytes % (Manual) 6.0 L Seg Neutrophils # Man Lymphocytes # (Manual) 0.3 L POC ABG pH 7.211 L 7.236 L POC ABG pCO2 108.5 H 98.1 H POC ABG pO2 62 L Sodium Chloride Carbon Dioxide BUN Creatinine Glucose 11/29/18 11/29/18 11/30/18 04:04 11:15 05:16 WBC 15.7 H RBC 5.09 H Hct MCH 26 L MCHC 31 L RDW 16.9 H Lymph % (Auto) [place] % (Auto) Lymph # Seg Neutrophils % Seg Neuts % (Manual) 74.0 H Lymphocytes % (Manual) 6.0 L Seg Neutrophils # Man 11.6 H Lymphocytes # (Manual) 0.9 L POC ABG pH POC ABG pCO2 71.0 H POC ABG pO2 53 L Sodium Chloride 94.7 L Carbon Dioxide 38 H BUN Creatinine 0.7 L Glucose 152 H 11/30/18 11/30/18 12/02/18 05:16 05:31 05:50 WBC 11.5 H RBC 5.33 H Hct MCH 26 L MCHC 30 L RDW 16.7 H Lymph % (Auto) [place] % (Auto) Lymph # Seg Neutrophils % Seg Neuts % (Manual) 91.0 H Lymphocytes % (Manual) 6.0 L Seg Neutrophils # Man 10.5 H Lymphocytes # (Manual) 0.7 L POC ABG pH POC ABG pCO2 69.1 H POC ABG pO2 Sodium Chloride 95.2 L Carbon Dioxide 35 H BUN Creatinine Glucose 149 H 12/02/18 12/03/18 12/03/18 05:50 04:51 04:51 WBC RBC 5.31 H Hct MCH 26 L MCHC 30 L RDW 16.9 H Lymph % (Auto) [place] % (Auto) Lymph # Seg Neutrophils % Seg Neuts % (Manual) 79.0 H Lymphocytes % (Manual) 3.0 L Seg Neutrophils # Man 8.4 H Lymphocytes # (Manual) 0.3 L POC ABG pH POC ABG pCO2 POC ABG pO2 Sodium 146 H 146 H Chloride 97.9 L Carbon Dioxide 40 H 39 H BUN 28 H 23 H Creatinine 0.6 L Glucose 230 H 141 H 12/04/18 12/04/18 12/04/18 05:00 05:00 15:58 WBC RBC 5.26 H Hct MCH 26 L MCHC 30 L RDW 16.6 H Lymph % (Auto) [place] % (Auto) Lymph # Seg Neutrophils % Seg Neuts % (Manual) Lymphocytes % (Manual) Seg Neutrophils # Man Lymphocytes # (Manual) POC ABG pH 7.487 H POC ABG pCO2 67.0 H POC ABG pO2 Sodium 149 H Chloride Carbon Dioxide 43 H* BUN 23 H Creatinine 0.7 L Glucose 147 H 12/05/18 12/05/18 12/05/18 05:06 05:06 15:52 WBC RBC 5.84 H Hct 49.2 H MCH 26 L MCHC 31 L RDW 16.6 H Lymph % (Auto) [place] % (Auto) Lymph # Seg Neutrophils % Seg Neuts % (Manual) Lymphocytes % (Manual) Seg Neutrophils # Man Lymphocytes # (Manual) POC ABG pH 7.329 L POC ABG pCO2 80.5 H POC ABG pO2 73 L Sodium 146 H Chloride 96.2 L Carbon Dioxide 39 H BUN 22 H Creatinine 0.6 L Glucose 156 H 12/09/18 06:11 WBC RBC Hct MCH MCHC RDW Lymph % (Auto) [place] % (Auto) Lymph # Seg Neutrophils % Seg Neuts % (Manual) Lymphocytes % (Manual) Seg Neutrophils # Man Lymphocytes # (Manual) POC ABG pH POC ABG pCO2 POC ABG pO2 Sodium Chloride 93.3 L Carbon Dioxide 45 H* BUN 38 H Creatinine Glucose 176 H Chest x-ray: report reviewed (Reported no acute abnormalities noted.), image reviewed Allied health notes reviewed: nursing
[2018-12-10] MEDS: DUONEB *Not for PRN Use IH SCH ×4 (02:01→19:05)
[2018-12-10] MEDS: SOLU-Medrol IV SCH ×3 (06:23→22:41)
[2018-12-10] MEDS: TYLENOL PO PRN (08:30)
[2018-12-10] MEDS: PULMICORT IH SCH ×2 (10:06→19:05)
[2018-12-10] MEDS: BROVANA NEBU IH SCH ×2 (10:06→19:05)
[2018-12-10] MEDS: LOVENOX SUB-Q SCH (10:08)
[2018-12-10] MEDS: PLAVIX PO SCH (10:08)
[2018-12-10] MEDS: NORVASC PO SCH (10:08)
[2018-12-10] MEDS: HCTZ PO SCH (10:08)
[2018-12-10] MEDS: ZESTRIL PO SCH (10:08)
[2018-12-10] MEDS: GENVOYA (NF) PO SCH (10:08)
[2018-12-10] MEDS: COLCHICINE PO SCH ×2 (10:09→22:40)
[2018-12-10] MEDS: SODIUM CHLORIDE FLUSH SYRINGE 10 ML IV SCH ×2 (10:10→22:41)
--- NOTE | 2018-12-10 11:18 | Discharge Summary ---
Providers - Providers Date of Admission: 11/29/18 03:28 Attending physician: SURYA REAL MD 11/29/18 03:37 Consult to Physician [CONS] Routine Comment: Consulting Provider: ANSHU FELIPE Physician Instructions: Reason For Exam: copd 12/03/18 14:22 Physical Therapy Evaluation and Treat [CONS] Routine Comment: Reason For Exam: Debility Primary care physician: DANELLE CHEUNG Hospitalization Condition: Stable Disposition: [id number]/[place]-06 HOME UNDER HOME HLTH Time spent for discharge: 35 mins Exam - Constitutional Vitals: Temp Pulse Resp BP Pulse Ox 97.8 F 83 18 126/71 98 12/10/18 06:50 12/10/18 10:00 12/10/18 10:00 12/10/18 06:50 12/10/18 10:00 Plan Activity: advance as tolerated, fall precautions Diet: low fat Special Instructions: smoking cessation (second hand tobacco use) Durable Medical Equipment Needed Upon Discharge: other (TRilogy machine) Additional Instructions: pateint should follow with his primary doctor and primary board mixer tender in 3-5 days Follow up with: DANELLE CHEUNG MD [Primary Care Provider] - 7 Days ANSHU FELIPE MD [Staff Physician] - 7 Days Prescriptions: Albuterol Sulfate [Albuterol 0.63% NEBS] 0.63 mg IH QID PRN #30 [email or web address] PRN Reason: Shortness Of Breath Albuterol Sulfate [Ventolin HFA] 2 puff IH Q4H PRN #30 [email or web address] PRN Reason: Shortness Of Breath Fluticasone/Salmeterol [Advair Diskus 250-50 mcg] 1 puff IH BID 30 Days blst.w.dev Prednisone [predniSONE 10 mg (6-Day Pack, 21 Tabs)] 10 mg PO .TAPER #1 tab.ds.pk
--- NOTE | 2018-12-10 16:17 | Progress Note ---
Assessment and Plan Assessment and plan: - Patient Problems (1) Acute respiratory failure Current Visit: Yes Status: Acute Plan to address problem: Issue with acute respiratory unable to wean patient off high flow O2. Both times O2 saturations went down to the 70s.. . Will need CPAP upon discharge. We'll attempt to arrange CPAP for Sunday. Underlying etiology most likely infectious aspiration pneumonia. Continue broad-spectrum antibiotics IV steroids Solu-Medrol O2 supplementation with BiPAP in 4 to CPAP upon discharge. Discussed with Pulmonary will continue to wean O2 Discussed with case management, patient and family feel better going to SNF due to the oxygen requirement (2) CAD (coronary artery disease) Current Visit: No Status: Acute Qualifiers: Coronary Disease-Associated Artery/Lesion type: [place] artery Plan to address problem: Patient history of coronary disease remained chest pain-free at this time. (3) COPD with acute exacerbation Current Visit: No Status: Acute Plan to address problem: COPD what appears to be aspiration pneumonia. Tobacco nicotine abuse. Continue nicotine patch. (4) Accelerated hypertension Current Visit: No Status: Acute Plan to address problem: Hypertension fair control coronary disease continue medical management. Amlodipine lisinopril. (5) Diarrhea Current Visit: Yes Status: Acute Plan to address problem: lomotil PRN (6) HIV (human immunodeficiency virus infection) Current Visit: Yes Status: Acute Plan to address problem: resume meds Pending SNF placement History Interval history: Patient is seen today for: respiratory failure Seen and examined at bedside; 24hour events reviewed; nursing staff ; no adverse overnight events reported to me; reports improvement in shortness of breath. Ambulating with PT today, Denies any chest pain, nausea, vomiting, diarrhea No fever Hospitalist Physical - Physical exam Narrative exam: VITAL SIGNS: Reviewed. GENERAL: The patient appeared well nourished and normally developed. Vital signs as documented. HEAD: No signs of head trauma. EYES: Pupils are equal. Extraocular motions intact. EARS: Hearing grossly intact. MOUTH: Oropharynx is normal. NECK: No adenopathy, no JVD. CHEST: Chest with Diminshed breath sounds bilaterally. No wheezes, rales, or rhonchi. CARDIAC: Regular rate and rhythm. S1 and S2, without murmurs, gallops, or rubs . VASCULAR: No Edema. Peripheral pulses normal and equal in all extremities. ABDOMEN: Soft, without detectable tenderness. No sign of distention. No rebound or guarding, and no masses palpated. Bowel Sounds normal. MUSCULOSKELETAL: Good range of motion of all major joints. Extremities without clubbing, cyanosis or edema. NEUROLOGIC EXAM: Alert and oriented x 3. No focal sensory or strength deficits. Speech normal. Follows commands. PSYCHIATRIC: Mood normal. SKIN: No rash or lesions. - Constitutional Vitals: Temp Pulse Resp BP Pulse Ox 97.8 F 82 18 126/71 98 12/10/18 06:50 12/10/18 13:10 12/10/18 13:10 12/10/18 06:50 12/10/18 10:00 General appearance: Present: no acute distress Results - Labs CBC & Chem 7: 12/05/18 05:06 12/09/18 06:11 Labs: Laboratory Last Values WBC 5.9 K/mm3 (4.5-11.0) 12/05/18 05:06 RBC 5.84 M/mm3 (3.65-5.03) H 12/05/18 05:06 Hgb 15.0 gm/dl (11.8-15.2) 12/05/18 05:06 Hct 49.2 % (35.5-45.6) H 12/05/18 05:06 MCV 84 fl (84-94) 12/05/18 05:06 MCH 26 pg (28-32) L 12/05/18 05:06 MCHC 31 % (32-34) L 12/05/18 05:06 RDW 16.6 % (13.2-15.2) H 12/05/18 05:06 Plt Count 188 K/mm3 (140-440) 12/05/18 05:06 Lymph % (Auto) 10.0 % (13.4-35.0) L 11/28/18 23:34 [place] % (Auto) 7.5 % (0.0-7.3) H 11/28/18 23:34 Eos % (Auto) 0.2 % (0.0-4.3) 11/28/18 23:34 Baso % (Auto) 0.8 % (0.0-1.8) 11/28/18 23:34 Lymph # 0.6 K/mm3 (1.2-5.4) L 11/28/18 23:34 [place] # 0.5 K/mm3 (0.0-0.8) 11/28/18 23:34 Eos # 0.0 K/mm3 (0.0-0.4) 11/28/18 23:34 Baso # 0.1 K/mm3 (0.0-0.1) 11/28/18 23:34 Add Manual Diff Complete 12/03/18 04:51 Total Counted 100 12/03/18 04:51 Seg Neutrophils % Value Engineer 12/03/18 04:51 Seg Neuts % (Manual) 79.0 % (40.0-70.0) H 12/03/18 04:51 Band Neutrophils % 11.0 % 12/03/18 04:51 Lymphocytes % (Manual) 3.0 % (13.4-35.0) L 12/03/18 04:51 Reactive Lymphs % (Man) 0 % 12/03/18 04:51 Monocytes % (Manual) 7.0 % (0.0-7.3) 12/03/18 04:51 Eosinophils % (Manual) 0 % (0.0-4.3) 12/03/18 04:51 Basophils % (Manual) 0 % (0.0-1.8) 12/03/18 04:51 Metamyelocytes % 0 % 12/03/18 04:51 Myelocytes % 0 % 12/03/18 04:51 Promyelocytes % 0 % 12/03/18 04:51 Blast Cells % 0 % 12/03/18 04:51 Nucleated RBC % Not Reportable 12/03/18 04:51 Seg Neutrophils # 5.3 K/mm3 (1.8-7.7) 11/28/18 23:34 Seg Neutrophils # Man 8.4 K/mm3 (1.8-7.7) H 12/03/18 04:51 Band Neutrophils # 1.2 K/mm3 12/03/18 04:51 Lymphocytes # (Manual) 0.3 K/mm3 (1.2-5.4) L 12/03/18 04:51 Abs React Lymphs (Man) 0.0 K/mm3 12/03/18 04:51 Monocytes # (Manual) 0.7 K/mm3 (0.0-0.8) 12/03/18 04:51 Eosinophils # (Manual) 0.0 K/mm3 (0.0-0.4) 12/03/18 04:51 Basophils # (Manual) 0.0 K/mm3 (0.0-0.1) 12/03/18 04:51 Metamyelocytes # 0.0 K/mm3 12/03/18 04:51 Myelocytes # 0.0 K/mm3 12/03/18 04:51 Promyelocytes # 0.0 K/mm3 12/03/18 04:51 Blast Cells # 0.0 K/mm3 12/03/18 04:51 WBC Morphology Not Reportable 12/03/18 04:51 Hypersegmented Neuts Not Reportable 12/03/18 04:51 Hyposegmented Neuts Not Reportable 12/03/18 04:51 Hypogranular Neuts Not Reportable 12/03/18 04:51 Smudge Cells Not Reportable 12/03/18 04:51 Toxic Granulation Not Reportable 12/03/18 04:51 Toxic Vacuolation Not Reportable 12/03/18 04:51 Dohle Bodies Not Reportable 12/03/18 04:51 Pelger-Huet Anomaly Not Reportable 12/03/18 04:51 Davina Rods Not Reportable 12/03/18 04:51 Platelet Estimate Appears normal 12/03/18 04:51 Clumped Platelets Not Reportable 12/03/18 04:51 Plt Clumps, EDTA Not Reportable 12/03/18 04:51 Large Platelets Not Reportable 12/03/18 04:51 Giant Platelets Not Reportable 12/03/18 04:51 Platelet Satelliting Not Reportable 12/03/18 04:51 Plt Morphology Comment Not Reportable 12/03/18 04:51 RBC Morphology Not Reportable 12/03/18 04:51 Dimorphic RBCs Not Reportable 12/03/18 04:51 Polychromasia Rare 12/03/18 04:51 Hypochromasia 1+ 12/03/18 04:51 Poikilocytosis Not Reportable 12/03/18 04:51 Anisocytosis 1+ 12/03/18 04:51 Microcytosis Not Reportable 12/03/18 04:51 Macrocytosis Not Reportable 12/03/18 04:51 Spherocytes Not Reportable 12/03/18 04:51 Pappenheimer Bodies Not Reportable 12/03/18 04:51 Sickle Cells Not Reportable 12/03/18 04:51 Target Cells Few 12/03/18 04:51 Tear Drop Cells Not Reportable 12/03/18 04:51 Ovalocytes Few 12/03/18 04:51 Helmet Cells Not Reportable 12/03/18 04:51 [place] Bodies Not Reportable 12/03/18 04:51 [place] Rings Not Reportable 12/03/18 04:51 [place] Cells Not Reportable 12/03/18 04:51 Bite Cells Not Reportable 12/03/18 04:51 Crenated Cell Not Reportable 12/03/18 04:51 Elliptocytes Not Reportable 12/03/18 04:51 Acanthocytes (Spur) Not Reportable 12/03/18 04:51 Rouleaux Not Reportable 12/03/18 04:51 Hemoglobin C Crystals Not Reportable 12/03/18 04:51 Schistocytes Not Reportable 12/03/18 04:51 Malaria parasites Not Reportable 12/03/18 04:51 [place] Bodies Not Reportable 12/03/18 04:51 Hem Pathologist Commnt No 12/03/18 04:51 PT 12.6 Sec. (12.2-14.9) 11/28/18 23:34 INR 0.90 (0.87-1.13) 11/28/18 23:34 APTT 30.8 Sec. (24.2-36.6) 11/28/18 23:34 POC ABG pH 7.329 (7.35-7.45) L 12/05/18 15:52 POC ABG pCO2 80.5 (35-45) H 12/05/18 15:52 POC ABG pO2 73 (80-105) L 12/05/18 15:52 POC ABG HCO3 42.3 12/05/18 15:52 POC ABG Total CO2 45 12/05/18 15:52 POC ABG O2 Sat 92 12/05/18 15:52 POC ABG Base Excess 16 12/05/18 15:52 FiO2 35 % 12/05/18 15:52 Sodium 144 mmol/L (137-145) 12/09/18 06:11 Potassium 4.3 mmol/L (3.6-5.0) 12/09/18 06:11 Chloride 93.3 mmol/L (98-107) L 12/09/18 06:11 Carbon Dioxide 45 mmol/L (22-30) H* 12/09/18 06:11 Anion Gap 10 mmol/L 12/09/18 06:11 BUN 38 mg/dL (9-20) H 12/09/18 06:11 Creatinine 0.8 mg/dL (0.8-1.5) 12/09/18 06:11 Estimated GFR > 60 ml/min 12/09/18 06:11 BUN/Creatinine Ratio 48 % 12/09/18 06:11 Glucose 176 mg/dL (75-100) H 12/09/18 06:11 Lactic Acid 1.30 mmol/L (0.7-2.0) 12/02/18 16:09 Calcium 8.7 mg/dL (8.4-10.2) 12/09/18 06:11 Total Bilirubin < 0.20 mg/dL (0.1-1.2) 12/02/18 05:50 AST 10 units/L (5-40) 12/02/18 05:50 ALT 17 units/L (7-56) 12/02/18 05:50 Alkaline Phosphatase 80 units/L (35-129) 12/02/18 05:50 Total Creatine Kinase 145 units/L (55-170) 11/28/18 23:34 CK-MB (CK-2) 3.3 ng/mL (0.0-4.0) 11/28/18 23:34 CK-MB (CK-2) Rel Index 2.2 (0-4) 11/28/18 23:34 Troponin T < 0.010 ng/mL (0.00-0.029) 12/02/18 16:09 NT-Pro-B Natriuret Pep 99.93 pg/mL (0-900) 11/28/18 23:34 Total Protein 6.7 g/dL (6.3-8.2) 12/02/18 05:50 Albumin 3.9 g/dL (3.9-5) 12/02/18 05:50 Albumin/Globulin Ratio 1.4 % 12/02/18 05:50 Nutrition/Malnutrition Assess - Dietary Evaluation Nutrition/Malnutrition Findings: Nutrition Notes Start: 12/02/18 11:54 Freq: Status: Active Protocol: Document 12/06/18 11:06 CT (Rec: 12/06/18 11:32 CT [id number]) Co-Sign 12/06/18 11:06 LP Nutrition Notes Initial or Follow up Brief Note Current Diagnosis COPD Coronary Artery Disease Hypertension Hyperlipidemia Other Pertinent Diagnosis HIV Current Diet cardiac Height 5 ft 11 in Weight 104.1 kg [place] Body Weight (kg) 78.18 BMI 32.0 Subjective/Other Information RD screen for LOS. Pt. eating 100% of meals. Preferences noted. Nutrition Intervention Revisit per MD consult or patient Sign Off request:
--- NOTE | 2018-12-10 18:13 | Progress Note ---
Assessment and Plan Patient AWAKE. Eating his dinner. No acute respiratory distress at rest.Still complaining some shortness of breath. On 6 litres O2 O2 saturation 98%. - Patient Problems (1) COPD exacerbation Current Visit: Yes Status: Acute Plan to address problem: Presently resting on 6 litres O2. O2 saturation 98% BIPAP 16/6, rate 20, FIO2 40% during night time. Albuterol/atrovent aerosol treatments q 6 hours. Continue I/V solumedrol. Continue S/C Lovenox. (2) Hypoxia Current Visit: Yes Status: Acute Plan to address problem: Presently resting on 5 litres O2. O2 saturation 100% Patient is on BIPAP 16/6, rate 20, FIO2 40%. (3) CAD (coronary artery disease) Current Visit: No Status: Acute Qualifiers: Coronary Disease-Associated Artery/Lesion type: [place] artery Plan to address problem: Patient has history of coronary stent placement. Management as per cardiology. (4) HIV (human immunodeficiency virus infection) Current Visit: No Status: Chronic Plan to address problem: Management as per primary care and infectious diseases. (5) Hypertension Current Visit: No Status: Chronic Plan to address problem: Management as per primary care. 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 Eating his dinner. No acute respiratory distress at rest.Still complaining some shortness of breath. On 6 litres O2 O2 saturation 98%. Objective Vital Signs - 12hr 12/10/18 12/10/18 12/10/18 06:50 10:00 13:10 Temperature 97.8 F Pulse Rate 90 Pulse Rate [ 83 82 Anterior Bilateral Throughout] Pulse Rate [ 82 80 Throughout] Respiratory 20 Rate Respiratory 18 18 Rate [Anterior Bilateral Throughout] Respiratory 18 18 Rate [ Throughout] Blood Pressure 126/71 O2 Sat by Pulse 77 L 98 Oximetry 12/10/18 17:08 Temperature 98.9 F Pulse Rate 76 Pulse Rate [ Anterior Bilateral Throughout] Pulse Rate [ Throughout] Respiratory 18 Rate Respiratory Rate [Anterior Bilateral Throughout] Respiratory Rate [ Throughout] Blood Pressure 105/71 O2 Sat by Pulse 95 Oximetry Constitutional: no acute distress, alert Eyes: non-icteric ENT: oropharynx moist, other (Mallampati 3) Neck: supple, no lymphadenopathy, no JVD, other (large neck circumference) Effort: mildly labored Ascultation: Bilateral: diminished breath sounds, wheezes, rhonchi, other (prolonged exp phase) Percussion: Bilateral: not dull Cardiovascular: regular rate and rhythm, other (S1,S2, no murmurs, gallops or rubs) Gastrointestinal: normoactive bowel sounds, soft, non-tender, non-distended, other (anterior abdominal wall ecchymosis) Integumentary: normal Extremities: no cyanosis, no edema, pulses normal, no ischemia or petechiae, other (old nielsen scars on his hands) Neurologic: normal mental status, non-focal exam, pupils equal and round, CN II- XII normal Psychiatric: other (Patient sleeping at this time.) CBC and BMP: 12/05/18 05:06 12/09/18 06:11 ABG, PT/INR, D-dimer: ABG POC ABG pH 7.329 (7.35-7.45) L 12/05/18 15:52 POC ABG pCO2 80.5 (35-45) H 12/05/18 15:52 POC ABG pO2 73 (80-105) L 12/05/18 15:52 POC ABG HCO3 42.3 12/05/18 15:52 POC ABG Total CO2 45 12/05/18 15:52 POC ABG O2 Sat 92 12/05/18 15:52 PT/INR, D-dimer PT 12.6 Sec. (12.2-14.9) 11/28/18 23:34 INR 0.90 (0.87-1.13) 11/28/18 23:34 Abnormal lab findings: Abnormal Labs 11/28/18 11/28/18 11/29/18 23:34 23:34 00:26 WBC RBC 5.30 H Hct MCH 26 L MCHC 30 L RDW 17.7 H Lymph % (Auto) 10.0 L [place] % (Auto) 7.5 H Lymph # 0.6 L Seg Neutrophils % 81.5 H Seg Neuts % (Manual) Lymphocytes % (Manual) Seg Neutrophils # Man Lymphocytes # (Manual) POC ABG pH 7.230 L POC ABG pCO2 100.6 H POC ABG pO2 Sodium Chloride 96.9 L Carbon Dioxide 38 H BUN Creatinine 0.7 L Glucose 123 H 11/29/18 11/29/18 11/29/18 01:37 03:07 04:04 WBC RBC 5.50 H Hct 47.7 H MCH 26 L MCHC 30 L RDW 17.2 H Lymph % (Auto) [place] % (Auto) Lymph # Seg Neutrophils % Seg Neuts % (Manual) 85.0 H Lymphocytes % (Manual) 6.0 L Seg Neutrophils # Man Lymphocytes # (Manual) 0.3 L POC ABG pH 7.211 L 7.236 L POC ABG pCO2 108.5 H 98.1 H POC ABG pO2 62 L Sodium Chloride Carbon Dioxide BUN Creatinine Glucose 11/29/18 11/29/18 11/30/18 04:04 11:15 05:16 WBC 15.7 H RBC 5.09 H Hct MCH 26 L MCHC 31 L RDW 16.9 H Lymph % (Auto) [place] % (Auto) Lymph # Seg Neutrophils % Seg Neuts % (Manual) 74.0 H Lymphocytes % (Manual) 6.0 L Seg Neutrophils # Man 11.6 H Lymphocytes # (Manual) 0.9 L POC ABG pH POC ABG pCO2 71.0 H POC ABG pO2 53 L Sodium Chloride 94.7 L Carbon Dioxide 38 H BUN Creatinine 0.7 L Glucose 152 H 11/30/18 11/30/18 12/02/18 05:16 05:31 05:50 WBC 11.5 H RBC 5.33 H Hct MCH 26 L MCHC 30 L RDW 16.7 H Lymph % (Auto) [place] % (Auto) Lymph # Seg Neutrophils % Seg Neuts % (Manual) 91.0 H Lymphocytes % (Manual) 6.0 L Seg Neutrophils # Man 10.5 H Lymphocytes # (Manual) 0.7 L POC ABG pH POC ABG pCO2 69.1 H POC ABG pO2 Sodium Chloride 95.2 L Carbon Dioxide 35 H BUN Creatinine Glucose 149 H 12/02/18 12/03/18 12/03/18 05:50 04:51 04:51 WBC RBC 5.31 H Hct MCH 26 L MCHC 30 L RDW 16.9 H Lymph % (Auto) [place] % (Auto) Lymph # Seg Neutrophils % Seg Neuts % (Manual) 79.0 H Lymphocytes % (Manual) 3.0 L Seg Neutrophils # Man 8.4 H Lymphocytes # (Manual) 0.3 L POC ABG pH POC ABG pCO2 POC ABG pO2 Sodium 146 H 146 H Chloride 97.9 L Carbon Dioxide 40 H 39 H BUN 28 H 23 H Creatinine 0.6 L Glucose 230 H 141 H 12/04/18 12/04/18 12/04/18 05:00 05:00 15:58 WBC RBC 5.26 H Hct MCH 26 L MCHC 30 L RDW 16.6 H Lymph % (Auto) [place] % (Auto) Lymph # Seg Neutrophils % Seg Neuts % (Manual) Lymphocytes % (Manual) Seg Neutrophils # Man Lymphocytes # (Manual) POC ABG pH 7.487 H POC ABG pCO2 67.0 H POC ABG pO2 Sodium 149 H Chloride Carbon Dioxide 43 H* BUN 23 H Creatinine 0.7 L Glucose 147 H 12/05/18 12/05/18 12/05/18 05:06 05:06 15:52 WBC RBC 5.84 H Hct 49.2 H MCH 26 L MCHC 31 L RDW 16.6 H Lymph % (Auto) [place] % (Auto) Lymph # Seg Neutrophils % Seg Neuts % (Manual) Lymphocytes % (Manual) Seg Neutrophils # Man Lymphocytes # (Manual) POC ABG pH 7.329 L POC ABG pCO2 80.5 H POC ABG pO2 73 L Sodium 146 H Chloride 96.2 L Carbon Dioxide 39 H BUN 22 H Creatinine 0.6 L Glucose 156 H 12/09/18 06:11 WBC RBC Hct MCH MCHC RDW Lymph % (Auto) [place] % (Auto) Lymph # Seg Neutrophils % Seg Neuts % (Manual) Lymphocytes % (Manual) Seg Neutrophils # Man Lymphocytes # (Manual) POC ABG pH POC ABG pCO2 POC ABG pO2 Sodium Chloride 93.3 L Carbon Dioxide 45 H* BUN 38 H Creatinine Glucose 176 H Allied health notes reviewed: nursing
[2018-12-11] MEDS: DUONEB *Not for PRN Use IH SCH ×4 (02:21→19:49)
[2018-12-11] MEDS: SOLU-Medrol IV SCH ×3 (06:04→22:20)
[2018-12-11] MEDS: PULMICORT IH SCH ×2 (08:30→19:49)
[2018-12-11] MEDS: BROVANA NEBU IH SCH ×2 (08:30→19:49)
[2018-12-11] MEDS: LOVENOX SUB-Q SCH (10:24)
[2018-12-11] MEDS: PLAVIX PO SCH (10:24)
[2018-12-11] MEDS: COLCHICINE PO SCH ×2 (10:24→22:19)
[2018-12-11] MEDS: SODIUM CHLORIDE FLUSH SYRINGE 10 ML IV SCH ×2 (10:25→22:19)
[2018-12-11] MEDS: GENVOYA (NF) PO SCH (10:34)
[2018-12-11] MEDS: NORVASC PO SCH (10:35)
[2018-12-11] MEDS: HCTZ PO SCH (10:35)
[2018-12-11] MEDS: ZESTRIL PO SCH (10:36)
--- NOTE | 2018-12-11 13:46 | Progress Note ---
Assessment and Plan Assessment and plan: - Patient Problems (1) Acute respiratory failure with hypoxia and Hypercapenia Current Visit: Yes Status: Acute Plan to address problem: Issue with acute respiratory unable to wean patient off high flow O2. Both times O2 saturations went down to the 70s.. . Will need CPAP upon discharge. We'll attempt to arrange CPAP for Sunday. Underlying etiology most likely infectious aspiration pneumonia. Continue broad-spectrum antibiotics IV steroids Solu-Medrol O2 supplementation with BiPAP in 4 to CPAP upon discharge. Discussed with Pulmonary will continue to wean O2 Discussed with case management, patient and family feel better going to SNF due to the oxygen requirement (2) CAD (coronary artery disease) Current Visit: No Status: Acute Qualifiers: Coronary Disease-Associated Artery/Lesion type: [place] artery Plan to address problem: Patient history of coronary disease remained chest pain-free at this time. (3) COPD with acute exacerbation Current Visit: No Status: Acute Plan to address problem: COPD what appears to be aspiration pneumonia. Tobacco nicotine abuse. Continue nicotine patch. (4) Accelerated hypertension Current Visit: No Status: Acute Plan to address problem: Hypertension fair control coronary disease continue medical management. Amlodipine lisinopril. (5) - Sepsis with Right lower lobe infiltrate IV Levaquin and azithromycin, rocephin on supplemental oxygen (6) Diarrhea Current Visit: Yes Status: Acute Plan to address problem: lomotil PRN (7) HIV (human immunodeficiency virus infection) Current Visit: Yes Status: Acute Plan to address problem: resume meds Pending SNF placement History Interval history: Patient is seen today for: respiratory failure Seen and examined at bedside; 24hour events reviewed; nursing staff ; no adverse overnight events reported to me; reports improvement in shortness of breath. Denies any chest pain, nausea, vomiting, diarrhea No fever Hospitalist Physical - Physical exam Narrative exam: VITAL SIGNS: Reviewed. GENERAL: The patient appeared well nourished and normally developed. Vital signs as documented. HEAD: No signs of head trauma. EYES: Pupils are equal. Extraocular motions intact. EARS: Hearing grossly intact. MOUTH: Oropharynx is normal. NECK: No adenopathy, no JVD. CHEST: Chest with Diminshed breath sounds bilaterally. No wheezes, rales, or rhonchi. CARDIAC: Regular rate and rhythm. S1 and S2, without murmurs, gallops, or rubs. VASCULAR: No Edema. Peripheral pulses normal and equal in all extremities. ABDOMEN: Soft, without detectable tenderness. No sign of distention. No rebound or guarding, and no masses palpated. Bowel Sounds normal. MUSCULOSKELETAL: Good range of motion of all major joints. Extremities without clubbing, cyanosis or edema. NEUROLOGIC EXAM: Alert and oriented x 3. No focal sensory or strength de ficits. Speech normal. Follows commands. PSYCHIATRIC: Mood normal. SKIN: No rash or lesions. - Constitutional Vitals: Temp Pulse Resp BP Pulse Ox 97.9 F 84 16 128/80 100 12/11/18 12:59 12/11/18 13:28 12/11/18 13:28 12/11/18 12:59 12/11/18 12:59 General appearance: Present: no acute distress Results - Labs CBC & Chem 7: 12/05/18 05:06 12/09/18 06:11 Labs: Laboratory Last Values WBC 5.9 K/mm3 (4.5-11.0) 12/05/18 05:06 RBC 5.84 M/mm3 (3.65-5.03) H 12/05/18 05:06 Hgb 15.0 gm/dl (11.8-15.2) 12/05/18 05:06 Hct 49.2 % (35.5-45.6) H 12/05/18 05:06 MCV 84 fl (84-94) 12/05/18 05:06 MCH 26 pg (28-32) L 12/05/18 05:06 MCHC 31 % (32-34) L 12/05/18 05:06 RDW 16.6 % (13.2-15.2) H 12/05/18 05:06 Plt Count 188 K/mm3 (140-440) 12/05/18 05:06 Lymph % (Auto) 10.0 % (13.4-35.0) L 11/28/18 23:34 [place] % (Auto) 7.5 % (0.0-7.3) H 11/28/18 23:34 Eos % (Auto) 0.2 % (0.0-4.3) 11/28/18 23:34 Baso % (Auto) 0.8 % (0.0-1.8) 11/28/18 23:34 Lymph # 0.6 K/mm3 (1.2-5.4) L 11/28/18 23:34 [place] # 0.5 K/mm3 (0.0-0.8) 11/28/18 23:34 Eos # 0.0 K/mm3 (0.0-0.4) 11/28/18 23:34 Baso # 0.1 K/mm3 (0.0-0.1) 11/28/18 23:34 Add Manual Diff Complete 12/03/18 04:51 Total Counted 100 12/03/18 04:51 Seg Neutrophils % Nurse Executive 12/03/18 04:51 Seg Neuts % (Manual) 79.0 % (40.0-70.0) H 12/03/18 04:51 Band Neutrophils % 11.0 % 12/03/18 04:51 Lymphocytes % (Manual) 3.0 % (13.4-35.0) L 12/03/18 04:51 Reactive Lymphs % (Man) 0 % 12/03/18 04:51 Monocytes % (Manual) 7.0 % (0.0-7.3) 12/03/18 04:51 Eosinophils % (Manual) 0 % (0.0-4.3) 12/03/18 04:51 Basophils % (Manual) 0 % (0.0-1.8) 12/03/18 04:51 Metamyelocytes % 0 % 12/03/18 04:51 Myelocytes % 0 % 12/03/18 04:51 Promyelocytes % 0 % 12/03/18 04:51 Blast Cells % 0 % 12/03/18 04:51 Nucleated RBC % Not Reportable 12/03/18 04:51 Seg Neutrophils # 5.3 K/mm3 (1.8-7.7) 11/28/18 23:34 Seg Neutrophils # Man 8.4 K/mm3 (1.8-7.7) H 12/03/18 04:51 Band Neutrophils # 1.2 K/mm3 12/03/18 04:51 Lymphocytes # (Manual) 0.3 K/mm3 (1.2-5.4) L 12/03/18 04:51 Abs React Lymphs (Man) 0.0 K/mm3 12/03/18 04:51 Monocytes # (Manual) 0.7 K/mm3 (0.0-0.8) 12/03/18 04:51 Eosinophils # (Manual) 0.0 K/mm3 (0.0-0.4) 12/03/18 04:51 Basophils # (Manual) 0.0 K/mm3 (0.0-0.1) 12/03/18 04:51 Metamyelocytes # 0.0 K/mm3 12/03/18 04:51 Myelocytes # 0.0 K/mm3 12/03/18 04:51 Promyelocytes # 0.0 K/mm3 12/03/18 04:51 Blast Cells # 0.0 K/mm3 12/03/18 04:51 WBC Morphology Not Reportable 12/03/18 04:51 Hypersegmented Neuts Not Reportable 12/03/18 04:51 Hyposegmented Neuts Not Reportable 12/03/18 04:51 Hypogranular Neuts Not Reportable 12/03/18 04:51 Smudge Cells Not Reportable 12/03/18 04:51 Toxic Granulation Not Reportable 12/03/18 04:51 Toxic Vacuolation Not Reportable 12/03/18 04:51 Dohle Bodies Not Reportable 12/03/18 04:51 Pelger-Huet Anomaly Not Reportable 12/03/18 04:51 Davina Rods Not Reportable 12/03/18 04:51 Platelet Estimate Appears normal 12/03/18 04:51 Clumped Platelets Not Reportable 12/03/18 04:51 Plt Clumps, EDTA Not Reportable 12/03/18 04:51 Large Platelets Not Reportable 12/03/18 04:51 Giant Platelets Not Reportable 12/03/18 04:51 Platelet Satelliting Not Reportable 12/03/18 04:51 Plt Morphology Comment Not Reportable 12/03/18 04:51 RBC Morphology Not Reportable 12/03/18 04:51 Dimorphic RBCs Not Reportable 12/03/18 04:51 Polychromasia Rare 12/03/18 04:51 Hypochromasia 1+ 12/03/18 04:51 Poikilocytosis Not Reportable 12/03/18 04:51 Anisocytosis 1+ 12/03/18 04:51 Microcytosis Not Reportable 12/03/18 04:51 Macrocytosis Not Reportable 12/03/18 04:51 Spherocytes Not Reportable 12/03/18 04:51 Pappenheimer Bodies Not Reportable 12/03/18 04:51 Sickle Cells Not Reportable 12/03/18 04:51 Target Cells Few 12/03/18 04:51 Tear Drop Cells Not Reportable 12/03/18 04:51 Ovalocytes Few 12/03/18 04:51 Helmet Cells Not Reportable 12/03/18 04:51 [place] Bodies Not Reportable 12/03/18 04:51 [place] Rings Not Reportable 12/03/18 04:51 [place] Cells Not Reportable 12/03/18 04:51 Bite Cells Not Reportable 12/03/18 04:51 Crenated Cell Not Reportable 12/03/18 04:51 Elliptocytes Not Reportable 12/03/18 04:51 Acanthocytes (Spur) Not Reportable 12/03/18 04:51 Rouleaux Not Reportable 12/03/18 04:51 Hemoglobin C Crystals Not Reportable 12/03/18 04:51 Schistocytes Not Reportable 12/03/18 04:51 Malaria parasites Not Reportable 12/03/18 04:51 [place] Bodies Not Reportable 12/03/18 04:51 Hem Pathologist Commnt No 12/03/18 04:51 PT 12.6 Sec. (12.2-14.9) 11/28/18 23:34 INR 0.90 (0.87-1.13) 11/28/18 23:34 APTT 30.8 Sec. (24.2-36.6) 11/28/18 23:34 POC ABG pH 7.329 (7.35-7.45) L 12/05/18 15:52 POC ABG pCO2 80.5 (35-45) H 12/05/18 15:52 POC ABG pO2 73 (80-105) L 12/05/18 15:52 POC ABG HCO3 42.3 12/05/18 15:52 POC ABG Total CO2 45 12/05/18 15:52 POC ABG O2 Sat 92 12/05/18 15:52 POC ABG Base Excess 16 12/05/18 15:52 FiO2 35 % 12/05/18 15:52 Sodium 144 mmol/L (137-145) 12/09/18 06:11 Potassium 4.3 mmol/L (3.6-5.0) 12/09/18 06:11 Chloride 93.3 mmol/L (98-107) L 12/09/18 06:11 Carbon Dioxide 45 mmol/L (22-30) H* 12/09/18 06:11 Anion Gap 10 mmol/L 12/09/18 06:11 BUN 38 mg/dL (9-20) H 12/09/18 06:11 Creatinine 0.8 mg/dL (0.8-1.5) 12/09/18 06:11 Estimated GFR > 60 ml/min 12/09/18 06:11 BUN/Creatinine Ratio 48 % 12/09/18 06:11 Glucose 176 mg/dL (75-100) H 12/09/18 06:11 Lactic Acid 1.30 mmol/L (0.7-2.0) 12/02/18 16:09 Calcium 8.7 mg/dL (8.4-10.2) 12/09/18 06:11 Total Bilirubin < 0.20 mg/dL (0.1-1.2) 12/02/18 05:50 AST 10 units/L (5-40) 12/02/18 05:50 ALT 17 units/L (7-56) 12/02/18 05:50 Alkaline Phosphatase 80 units/L (35-129) 12/02/18 05:50 Total Creatine Kinase 145 units/L (55-170) 11/28/18 23:34 CK-MB (CK-2) 3.3 ng/mL (0.0-4.0) 11/28/18 23:34 CK-MB (CK-2) Rel Index 2.2 (0-4) 11/28/18 23:34 Troponin T < 0.010 ng/mL (0.00-0.029) 12/02/18 16:09 NT-Pro-B Natriuret Pep 99.93 pg/mL (0-900) 11/28/18 23:34 Total Protein 6.7 g/dL (6.3-8.2) 12/02/18 05:50 Albumin 3.9 g/dL (3.9-5) 12/02/18 05:50 Albumin/Globulin Ratio 1.4 % 12/02/18 05:50 Nutrition/Malnutrition Assess - Dietary Evaluation Nutrition/Malnutrition Findings: Nutrition Notes Start: 12/02/18 11:54 Freq: Status: Active Protocol: Document 12/06/18 11:06 CT (Rec: 12/06/18 11:32 CT [id number]) Co-Sign 12/06/18 11:06 LP Nutrition Notes Initial or Follow up Brief Note Current Diagnosis COPD Coronary Artery Disease Hypertension Hyperlipidemia Other Pertinent Diagnosis HIV Current Diet cardiac Height 5 ft 11 in Weight 104.1 kg [place] Body Weight (kg) 78.18 BMI 32.0 Subjective/Other Information RD screen for LOS. Pt. eating 100% of meals. Preferences noted. Nutrition Intervention Revisit per MD consult or patient Sign Off request:
[2018-12-11] MEDS ORDERED: PROTONIX IV SCH (18:00)
--- NOTE | 2018-12-11 18:42 | Progress Note ---
Assessment and Plan Patient AWAKE. Eating his dinner. No acute respiratory distress at rest.Still complaining some shortness of breath. On 6 litres O2 O2 saturation 98%. - Patient Problems (1) COPD exacerbation Current Visit: Yes Status: Acute Plan to address problem: Presently resting on 6 litres O2. O2 saturation 98% BIPAP 16/6, rate 20, FIO2 40% during night time. Albuterol/atrovent aerosol treatments q 6 hours. Continue I/V solumedrol. Continue S/C Lovenox. (2) Hypoxia Current Visit: Yes Status: Acute Plan to address problem: Presently resting on 5 litres O2. O2 saturation 100% Patient is on BIPAP 16/6, rate 20, FIO2 40%. (3) CAD (coronary artery disease) Current Visit: No Status: Acute Qualifiers: Coronary Disease-Associated Artery/Lesion type: [place] artery Plan to address problem: Patient has history of coronary stent placement. Management as per cardiology. (4) HIV (human immunodeficiency virus infection) Current Visit: No Status: Chronic Plan to address problem: Management as per primary care and infectious diseases. (5) Hypertension Current Visit: No Status: Chronic Plan to address problem: Management as per primary care. 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 Eating his dinner. No acute respiratory distress at rest.Still complaining some shortness of breath. On 6 litres O2 O2 saturation 98%. Objective Vital Signs - 12hr 12/11/18 12/11/18 12/11/18 08:25 08:35 08:36 Temperature Pulse Rate Pulse Rate [ 81 83 Throughout] Respiratory Rate Respiratory 16 16 Rate [ Throughout] Blood Pressure O2 Sat by Pulse 98 Oximetry 12/11/18 12/11/18 12/11/18 10:00 10:36 12:59 Temperature 97.9 F Pulse Rate 89 Pulse Rate [ Throughout] Respiratory 22 Rate Respiratory Rate [ Throughout] Blood Pressure 102/58 128/80 O2 Sat by Pulse 4 L 100 Oximetry 12/11/18 12/11/18 13:16 13:28 Temperature Pulse Rate Pulse Rate [ 87 84 Throughout] Respiratory Rate Respiratory 18 16 Rate [ Throughout] Blood Pressure O2 Sat by Pulse Oximetry Constitutional: no acute distress, alert Eyes: non-icteric ENT: oropharynx moist, other (Mallampati 3) Neck: supple, no lymphadenopathy, no JVD, other (large neck circumference) Effort: mildly labored Ascultation: Bilateral: diminished breath sounds, wheezes, rhonchi, other (prolonged exp phase) Percussion: Bilateral: not dull Cardiovascular: regular rate and rhythm, other (S1,S2, no murmurs, gallops or rubs) Gastrointestinal: normoactive bowel sounds, soft, non-tender, non-distended, other (anterior abdominal wall ecchymosis) Integumentary: normal Extremities: no cyanosis, no edema, pulses normal, no ischemia or petechiae, other (old nielsen scars on his hands) Neurologic: normal mental status, non-focal exam, pupils equal and round, CN II- XII normal Psychiatric: other (Patient sleeping at this time.) CBC and BMP: 12/05/18 05:06 12/09/18 06:11 ABG, PT/INR, D-dimer: ABG POC ABG pH 7.329 (7.35-7.45) L 12/05/18 15:52 POC ABG pCO2 80.5 (35-45) H 12/05/18 15:52 POC ABG pO2 73 (80-105) L 12/05/18 15:52 POC ABG HCO3 42.3 12/05/18 15:52 POC ABG Total CO2 45 12/05/18 15:52 POC ABG O2 Sat 92 12/05/18 15:52 PT/INR, D-dimer PT 12.6 Sec. (12.2-14.9) 11/28/18 23:34 INR 0.90 (0.87-1.13) 11/28/18 23:34 Abnormal lab findings: Abnormal Labs 11/28/18 11/28/18 11/29/18 23:34 23:34 00:26 WBC RBC 5.30 H Hct MCH 26 L MCHC 30 L RDW 17.7 H Lymph % (Auto) 10.0 L [place] % (Auto) 7.5 H Lymph # 0.6 L Seg Neutrophils % 81.5 H Seg Neuts % (Manual) Lymphocytes % (Manual) Seg Neutrophils # Man Lymphocytes # (Manual) POC ABG pH 7.230 L POC ABG pCO2 100.6 H POC ABG pO2 Sodium Chloride 96.9 L Carbon Dioxide 38 H BUN Creatinine 0.7 L Glucose 123 H 11/29/18 11/29/18 11/29/18 01:37 03:07 04:04 WBC RBC 5.50 H Hct 47.7 H MCH 26 L MCHC 30 L RDW 17.2 H Lymph % (Auto) [place] % (Auto) Lymph # Seg Neutrophils % Seg Neuts % (Manual) 85.0 H Lymphocytes % (Manual) 6.0 L Seg Neutrophils # Man Lymphocytes # (Manual) 0.3 L POC ABG pH 7.211 L 7.236 L POC ABG pCO2 108.5 H 98.1 H POC ABG pO2 62 L Sodium Chloride Carbon Dioxide BUN Creatinine Glucose 11/29/18 11/29/18 11/30/18 04:04 11:15 05:16 WBC 15.7 H RBC 5.09 H Hct MCH 26 L MCHC 31 L RDW 16.9 H Lymph % (Auto) [place] % (Auto) Lymph # Seg Neutrophils % Seg Neuts % (Manual) 74.0 H Lymphocytes % (Manual) 6.0 L Seg Neutrophils # Man 11.6 H Lymphocytes # (Manual) 0.9 L POC ABG pH POC ABG pCO2 71.0 H POC ABG pO2 53 L Sodium Chloride 94.7 L Carbon Dioxide 38 H BUN Creatinine 0.7 L Glucose 152 H 11/30/18 11/30/18 12/02/18 05:16 05:31 05:50 WBC 11.5 H RBC 5.33 H Hct MCH 26 L MCHC 30 L RDW 16.7 H Lymph % (Auto) [place] % (Auto) Lymph # Seg Neutrophils % Seg Neuts % (Manual) 91.0 H Lymphocytes % (Manual) 6.0 L Seg Neutrophils # Man 10.5 H Lymphocytes # (Manual) 0.7 L POC ABG pH POC ABG pCO2 69.1 H POC ABG pO2 Sodium Chloride 95.2 L Carbon Dioxide 35 H BUN Creatinine Glucose 149 H 12/02/18 12/03/18 12/03/18 05:50 04:51 04:51 WBC RBC 5.31 H Hct MCH 26 L MCHC 30 L RDW 16.9 H Lymph % (Auto) [place] % (Auto) Lymph # Seg Neutrophils % Seg Neuts % (Manual) 79.0 H Lymphocytes % (Manual) 3.0 L Seg Neutrophils # Man 8.4 H Lymphocytes # (Manual) 0.3 L POC ABG pH POC ABG pCO2 POC ABG pO2 Sodium 146 H 146 H Chloride 97.9 L Carbon Dioxide 40 H 39 H BUN 28 H 23 H Creatinine 0.6 L Glucose 230 H 141 H 12/04/18 12/04/18 12/04/18 05:00 05:00 15:58 WBC RBC 5.26 H Hct MCH 26 L MCHC 30 L RDW 16.6 H Lymph % (Auto) [place] % (Auto) Lymph # Seg Neutrophils % Seg Neuts % (Manual) Lymphocytes % (Manual) Seg Neutrophils # Man Lymphocytes # (Manual) POC ABG pH 7.487 H POC ABG pCO2 67.0 H POC ABG pO2 Sodium 149 H Chloride Carbon Dioxide 43 H* BUN 23 H Creatinine 0.7 L Glucose 147 H 12/05/18 12/05/18 12/05/18 05:06 05:06 15:52 WBC RBC 5.84 H Hct 49.2 H MCH 26 L MCHC 31 L RDW 16.6 H Lymph % (Auto) [place] % (Auto) Lymph # Seg Neutrophils % Seg Neuts % (Manual) Lymphocytes % (Manual) Seg Neutrophils # Man Lymphocytes # (Manual) POC ABG pH 7.329 L POC ABG pCO2 80.5 H POC ABG pO2 73 L Sodium 146 H Chloride 96.2 L Carbon Dioxide 39 H BUN 22 H Creatinine 0.6 L Glucose 156 H 12/09/18 06:11 WBC RBC Hct MCH MCHC RDW Lymph % (Auto) [place] % (Auto) Lymph # Seg Neutrophils % Seg Neuts % (Manual) Lymphocytes % (Manual) Seg Neutrophils # Man Lymphocytes # (Manual) POC ABG pH POC ABG pCO2 POC ABG pO2 Sodium Chloride 93.3 L Carbon Dioxide 45 H* BUN 38 H Creatinine Glucose 176 H Allied health notes reviewed: nursing
[2018-12-12] MEDS: DUONEB *Not for PRN Use IH SCH ×4 (04:05→19:46)
[2018-12-12 05:59] LABS: BUN/Creatinine Ratio 44; Blood Urea Nitrogen 31 mg/dL (9-20); Calcium 8.7 mg/dL (8.4-10.2); Hemolysis Index 18
[2018-12-12] MEDS: SOLU-Medrol IV SCH ×2 (06:06→19:54)
[2018-12-12] MEDS: BROVANA NEBU IH SCH ×2 (07:41→19:46)
[2018-12-12] MEDS: PULMICORT IH SCH ×2 (07:41→19:46)
[2018-12-12] MEDS: LOVENOX SUB-Q SCH (11:00)
[2018-12-12] MEDS: ZESTRIL PO SCH (11:00)
[2018-12-12] MEDS: DELTASONE PO SCH (11:00)
[2018-12-12] MEDS: PLAVIX PO SCH (11:00)
[2018-12-12] MEDS: COLCHICINE PO SCH ×2 (11:00→23:04)
[2018-12-12] MEDS: PROTONIX PO SCH (11:01)
[2018-12-12] MEDS: NORVASC PO SCH (11:01)
[2018-12-12] MEDS: GENVOYA (NF) PO SCH (11:02)
[2018-12-12] MEDS: HCTZ PO SCH (11:02)
[2018-12-12] MEDS: SODIUM CHLORIDE FLUSH SYRINGE 10 ML IV SCH ×2 (11:03→22:04)
--- NOTE | 2018-12-12 14:55 | Progress Note ---
Assessment and Plan Assessment and plan: 63 year old man with a history of hypertension, hyperlipidemia, coronary artery disease, COPD, HIV comes to the emergency room with complaints of shortness of breath not relieved with his nebulizer treatments. Complain of cough productive of santos phlegm. Patient continued to improved following Continuous BIPAP treatment and oxygen, there was also concerned about aspiration pneumonia and the patient was treated with antibiotics, he is now stable for discharge and now awaiting placement - Patient Problems (1) Acute respiratory failure with hypoxia and Hypercapenia Current Visit: Yes Status: Acute Plan to address problem: Issue with acute respiratory unable to wean patient off high flow O2. Both times O2 saturations went down to the 70s.. . Will need CPAP upon discharge. We'll attempt to arrange CPAP for Sunday. Underlying etiology most likely infectious aspiration pneumonia. Continue broad-spectrum antibiotics IV steroids Solu-Medrol O2 supplementation with BiPAP in 4 to CPAP upon discharge. Discussed with Pulmonary will continue to wean O2 Discussed with case management, patient and family feel better going to SNF due to the oxygen requirement (2) CAD (coronary artery disease) Current Visit: No Status: Acute Qualifiers: Coronary Disease-Associated Artery/Lesion type: [place] artery Plan to address problem: Patient history of coronary disease remained chest pain-free at this time. (3) COPD with acute exacerbation Current Visit: No Status: Acute Plan to address problem: COPD what appears to be aspiration pneumonia. Tobacco nicotine abuse. Continue nicotine patch. (4) Accelerated hypertension Current Visit: No Status: Acute Plan to address problem: Hypertension fair control coronary disease continue medical management. Amlodipine lisinopril. (5) - Sepsis with Right lower lobe infiltrate IV Levaquin and azithromycin, rocephin on supplemental oxygen (6) Diarrhea Current Visit: Yes Status: Acute Plan to address problem: lomotil PRN (7) HIV (human immunodeficiency virus infection) Current Visit: Yes Status: Acute Plan to address problem: resume meds Pending SNF placement History Interval history: Patient is seen today for: respiratory failure Seen and examined at bedside; 24hour events reviewed; nursing staff ; no adverse overnight events reported to me; reports improvement in shortness of breath. Denies any chest pain, nausea, vomiting, diarrhea No fever Hospitalist Physical - Physical exam Narrative exam: VITAL SIGNS: Reviewed. GENERAL: The patient appeared well nourished and normally developed. Vital signs as documented. HEAD: No signs of head trauma. EYES: Pupils are equal. Extraocular motions intact. EARS: Hearing grossly intact. MOUTH: Oropharynx is normal. NECK: No adenopathy, no JVD. CHEST: Chest with Diminshed breath sounds bilaterally. No wheezes, rales, or rhonchi. CARDIAC: Regular rate and rhythm. S1 and S2, without murmurs, gallops, or rubs. VASCULAR: No Edema. Peripheral pulses normal and equal in all extremities. ABDOMEN: Soft, without detectable tenderness. No sign of distention. No rebound or guarding, and no masses palpated. Bowel Sounds normal. MUSCULOSKELETAL: Good range of motion of all major joints. Extremities without clubbing, cyanosis or edema. NEUROLOGIC EXAM: Alert and oriented x 3. No focal sensory or strength deficits. Speech normal. Follows commands. PSYCHIATRIC: Mood normal. SKIN: No rash or lesions. - Constitutional Vitals: Temp Pulse Resp BP Pulse Ox 97.9 F 92 H 20 115/70 98 12/12/18 12:09 12/12/18 11:00 12/12/18 12:09 12/12/18 12:09 12/12/18 09:06 General appearance: Present: no acute distress Results - Labs CBC & Chem 7: 12/05/18 05:06 12/12/18 04:57 Labs: Laboratory Last Values WBC 5.9 K/mm3 (4.5-11.0) 12/05/18 05:06 RBC 5.84 M/mm3 (3.65-5.03) H 12/05/18 05:06 Hgb 15.0 gm/dl (11.8-15.2) 12/05/18 05:06 Hct 49.2 % (35.5-45.6) H 12/05/18 05:06 MCV 84 fl (84-94) 12/05/18 05:06 MCH 26 pg (28-32) L 12/05/18 05:06 MCHC 31 % (32-34) L 12/05/18 05:06 RDW 16.6 % (13.2-15.2) H 12/05/18 05:06 Plt Count 188 K/mm3 (140-440) 12/05/18 05:06 Lymph % (Auto) 10.0 % (13.4-35.0) L 11/28/18 23:34 [place] % (Auto) 7.5 % (0.0-7.3) H 11/28/18 23:34 Eos % (Auto) 0.2 % (0.0-4.3) 11/28/18 23:34 Baso % (Auto) 0.8 % (0.0-1.8) 11/28/18 23:34 Lymph # 0.6 K/mm3 (1.2-5.4) L 11/28/18 23:34 [place] # 0.5 K/mm3 (0.0-0.8) 11/28/18 23:34 Eos # 0.0 K/mm3 (0.0-0.4) 11/28/18 23:34 Baso # 0.1 K/mm3 (0.0-0.1) 11/28/18 23:34 Add Manual Diff Complete 12/03/18 04:51 Total Counted 100 12/03/18 04:51 Seg Neutrophils % [employer] 12/03/18 04:51 Seg Neuts % (Manual) 79.0 % (40.0-70.0) H 12/03/18 04:51 Band Neutrophils % 11.0 % 12/03/18 04:51 Lymphocytes % (Manual) 3.0 % (13.4-35.0) L 12/03/18 04:51 Reactive Lymphs % (Man) 0 % 12/03/18 04:51 Monocytes % (Manual) 7.0 % (0.0-7.3) 12/03/18 04:51 Eosinophils % (Manual) 0 % (0.0-4.3) 12/03/18 04:51 Basophils % (Manual) 0 % (0.0-1.8) 12/03/18 04:51 Metamyelocytes % 0 % 12/03/18 04:51 Myelocytes % 0 % 12/03/18 04:51 Promyelocytes % 0 % 12/03/18 04:51 Blast Cells % 0 % 12/03/18 04:51 Nucleated RBC % Not Reportable 12/03/18 04:51 Seg Neutrophils # 5.3 K/mm3 (1.8-7.7) 11/28/18 23:34 Seg Neutrophils # Man 8.4 K/mm3 (1.8-7.7) H 12/03/18 04:51 Band Neutrophils # 1.2 K/mm3 12/03/18 04:51 Lymphocytes # (Manual) 0.3 K/mm3 (1.2-5.4) L 12/03/18 04:51 Abs React Lymphs (Man) 0.0 K/mm3 12/03/18 04:51 Monocytes # (Manual) 0.7 K/mm3 (0.0-0.8) 12/03/18 04:51 Eosinophils # (Manual) 0.0 K/mm3 (0.0-0.4) 12/03/18 04:51 Basophils # (Manual) 0.0 K/mm3 (0.0-0.1) 12/03/18 04:51 Metamyelocytes # 0.0 K/mm3 12/03/18 04:51 Myelocytes # 0.0 K/mm3 12/03/18 04:51 Promyelocytes # 0.0 K/mm3 12/03/18 04:51 Blast Cells # 0.0 K/mm3 12/03/18 04:51 WBC Morphology Not Reportable 12/03/18 04:51 Hypersegmented Neuts Not Reportable 12/03/18 04:51 Hyposegmented Neuts Not Reportable 12/03/18 04:51 Hypogranular Neuts Not Reportable 12/03/18 04:51 Smudge Cells Not Reportable 12/03/18 04:51 Toxic Granulation Not Reportable 12/03/18 04:51 Toxic Vacuolation Not Reportable 12/03/18 04:51 Dohle Bodies Not Reportable 12/03/18 04:51 Pelger-Huet Anomaly Not Reportable 12/03/18 04:51 Davina Rods Not Reportable 12/03/18 04:51 Platelet Estimate Appears normal 12/03/18 04:51 Clumped Platelets Not Reportable 12/03/18 04:51 Plt Clumps, EDTA Not Reportable 12/03/18 04:51 Large Platelets Not Reportable 12/03/18 04:51 Giant Platelets Not Reportable 12/03/18 04:51 Platelet Satelliting Not Reportable 12/03/18 04:51 Plt Morphology Comment Not Reportable 12/03/18 04:51 RBC Morphology Not Reportable 12/03/18 04:51 Dimorphic RBCs Not Reportable 12/03/18 04:51 Polychromasia Rare 12/03/18 04:51 Hypochromasia 1+ 12/03/18 04:51 Poikilocytosis Not Reportable 12/03/18 04:51 Anisocytosis 1+ 12/03/18 04:51 Microcytosis Not Reportable 12/03/18 04:51 Macrocytosis Not Reportable 12/03/18 04:51 Spherocytes Not Reportable 12/03/18 04:51 Pappenheimer Bodies Not Reportable 12/03/18 04:51 Sickle Cells Not Reportable 12/03/18 04:51 Target Cells Few 12/03/18 04:51 Tear Drop Cells Not Reportable 12/03/18 04:51 Ovalocytes Few 12/03/18 04:51 Helmet Cells Not Reportable 12/03/18 04:51 [place] Bodies Not Reportable 12/03/18 04:51 [place] Rings Not Reportable 12/03/18 04:51 [place] Cells Not Reportable 12/03/18 04:51 Bite Cells Not Reportable 12/03/18 04:51 Crenated Cell Not Reportable 12/03/18 04:51 Elliptocytes Not Reportable 12/03/18 04:51 Acanthocytes (Spur) Not Reportable 12/03/18 04:51 Rouleaux Not Reportable 12/03/18 04:51 Hemoglobin C Crystals Not Reportable 12/03/18 04:51 Schistocytes Not Reportable 12/03/18 04:51 Malaria parasites Not Reportable 12/03/18 04:51 [place] Bodies Not Reportable 12/03/18 04:51 Hem Pathologist Commnt No 12/03/18 04:51 PT 12.6 Sec. (12.2-14.9) 11/28/18 23:34 INR 0.90 (0.87-1.13) 11/28/18 23:34 APTT 30.8 Sec. (24.2-36.6) 11/28/18 23:34 POC ABG pH 7.329 (7.35-7.45) L 12/05/18 15:52 POC ABG pCO2 80.5 (35-45) H 12/05/18 15:52 POC ABG pO2 73 (80-105) L 12/05/18 15:52 POC ABG HCO3 42.3 12/05/18 15:52 POC ABG Total CO2 45 12/05/18 15:52 POC ABG O2 Sat 92 12/05/18 15:52 POC ABG Base Excess 16 12/05/18 15:52 FiO2 35 % 12/05/18 15:52 Sodium 144 mmol/L (137-145) 12/12/18 04:57 Potassium 4.6 mmol/L (3.6-5.0) 12/12/18 04:57 Chloride 94.8 mmol/L (98-107) L 12/12/18 04:57 Carbon Dioxide 39 mmol/L (22-30) H 12/12/18 04:57 Anion Gap 15 mmol/L 12/12/18 04:57 BUN 31 mg/dL (9-20) H 12/12/18 04:57 Creatinine 0.7 mg/dL (0.8-1.5) L 12/12/18 04:57 Estimated GFR > 60 ml/min 12/12/18 04:57 BUN/Creatinine Ratio 44 % 12/12/18 04:57 Glucose 254 mg/dL (75-100) H 12/12/18 04:57 Lactic Acid 1.30 mmol/L (0.7-2.0) 12/02/18 16:09 Calcium 8.7 mg/dL (8.4-10.2) 12/12/18 04:57 Total Bilirubin < 0.20 mg/dL (0.1-1.2) 12/02/18 05:50 AST 10 units/L (5-40) 12/02/18 05:50 ALT 17 units/L (7-56) 12/02/18 05:50 Alkaline Phosphatase 80 units/L (35-129) 12/02/18 05:50 Total Creatine Kinase 145 units/L (55-170) 11/28/18 23:34 CK-MB (CK-2) 3.3 ng/mL (0.0-4.0) 11/28/18 23:34 CK-MB (CK-2) Rel Index 2.2 (0-4) 11/28/18 23:34 Troponin T < 0.010 ng/mL (0.00-0.029) 12/02/18 16:09 NT-Pro-B Natriuret Pep 99.93 pg/mL (0-900) 11/28/18 23:34 Total Protein 6.7 g/dL (6.3-8.2) 12/02/18 05:50 Albumin 3.9 g/dL (3.9-5) 12/02/18 05:50 Albumin/Globulin Ratio 1.4 % 12/02/18 05:50 Nutrition/Malnutrition Assess - Dietary Evaluation Nutrition/Malnutrition Findings: Nutrition Notes Start: 12/02/18 11:54 Freq: Status: Active Protocol: Document 12/06/18 11:06 CT (Rec: 12/06/18 11:32 CT [id number]) Co-Sign 12/06/18 11:06 LP Nutrition Notes Initial or Follow up Brief Note Current Diagnosis COPD Coronary Artery Disease Hypertension Hyperlipidemia Other Pertinent Diagnosis HIV Current Diet cardiac Height 5 ft 11 in Weight 104.1 kg [place] Body Weight (kg) 78.18 BMI 32.0 Subjective/Other Information RD screen for LOS. Pt. eating 100% of meals. Preferences noted. Nutrition Intervention Revisit per MD consult or patient Sign Off request:
[2018-12-13] MEDS: DUONEB *Not for PRN Use IH SCH ×4 (01:02→22:21)
[2018-12-13] MEDS: TYLENOL PO PRN (05:23)
[2018-12-13] MEDS: LOVENOX SUB-Q SCH (10:38)
[2018-12-13] MEDS: ZESTRIL PO SCH (10:39)
[2018-12-13] MEDS: COLCHICINE PO SCH ×2 (10:39→22:43)
[2018-12-13] MEDS: PLAVIX PO SCH (10:39)
[2018-12-13] MEDS: HCTZ PO SCH (10:39)
[2018-12-13] MEDS: NORVASC PO SCH (10:39)
[2018-12-13] MEDS: DELTASONE PO SCH (10:39)
[2018-12-13] MEDS: PROTONIX PO SCH (10:40)
[2018-12-13] MEDS: SODIUM CHLORIDE FLUSH SYRINGE 10 ML IV SCH ×2 (10:40→22:44)
[2018-12-13] MEDS: GENVOYA (NF) PO SCH (10:40)
[2018-12-13] MEDS: BROVANA NEBU IH SCH ×2 (10:52→22:21)
[2018-12-13] MEDS: PULMICORT IH SCH ×2 (10:52→22:22)
--- NOTE | 2018-12-13 11:45 | Progress Note ---
Assessment and Plan Assessment and plan: A/P Acute on chronic LB pain post fall XR back Pain meds fall precautions Baclofen Bilateral knee pain, worsened by fall XR to eval for fracture optimal pain control fall precautions at all times Acute on chronic hypercapneic resp failure pulm on board Bipap at night HIV on meds Acute physical debility fall precautions at all times Obesity counseled DM II continue meds Further pt mgt per hospital course Disposition Plan: XRs, fall precautions Total Time Spent with Patient (Minutes): more than 35 mins spent History Interval history: HPI 63 year old man with a history of hypertension, hyperlipidemia, coronary artery disease, COPD, HIV comes to the emergency room with complaints of shortness of breath not relieved with his nebulizer treatments. Complain of cough productive of santos phlegm Subjective: Pt seen and exam by bedside. c/o severe LBP and BL knee pains after pt fell on his way to the restroom last night. Pt admitted to h/o back and knee pain but the fall aggravated his pain. 6/10 pain, associated with muscle spasms,. worsened by motion. Pt denied any head injury, he informed me that his "knees gave way" and he fell. Pt also refused to give his HIV meds to the pharm. Hospitalist Physical - Constitutional Vitals: Temp Pulse Resp BP Pulse Ox 98.4 F 93 H 18 133/74 100 12/13/18 05:57 12/13/18 11:07 12/13/18 11:07 12/13/18 10:39 12/13/18 10:00 General appearance: Present: mild distress, obese, other (chronically ill appearing) - EENT Eyes: Present: PERRL, EOM intact ENT: hearing intact, clear oral mucosa - Neck Neck: Present: supple, normal ROM - Respiratory Respiratory: bilateral: diminished, rhonchi, negative: rales, wheezing - Cardiovascular Rhythm: regular Heart Sounds: Present: S1 & S2 - Extremities Extremities: pulses symmetrical, No edema, normal temperature, normal color Extremity abnormal: other (right knee tender to palpation, with evidence of scar from an old surgery) - Abdominal General gastrointestinal: soft, non-tender, non-distended, normal bowel sounds, other (protuberant) - Psychiatric Psychiatric: appropriate mood/affect, intact judgment & insight, memory intact - Neurologic Neurologic: CNII-XII intact, moves all extremities, other (limited by pain) - Allied Health Allied health notes reviewed: OT, RT, social work, case management Results - Labs CBC & Chem 7: 12/05/18 05:06 12/12/18 04:57 Labs: Laboratory Last Values WBC 5.9 K/mm3 (4.5-11.0) 12/05/18 05:06 RBC 5.84 M/mm3 (3.65-5.03) H 12/05/18 05:06 Hgb 15.0 gm/dl (11.8-15.2) 12/05/18 05:06 Hct 49.2 % (35.5-45.6) H 12/05/18 05:06 MCV 84 fl (84-94) 12/05/18 05:06 MCH 26 pg (28-32) L 12/05/18 05:06 MCHC 31 % (32-34) L 12/05/18 05:06 RDW 16.6 % (13.2-15.2) H 12/05/18 05:06 Plt Count 188 K/mm3 (140-440) 12/05/18 05:06 Lymph % (Auto) 10.0 % (13.4-35.0) L 11/28/18 23:34 [place] % (Auto) 7.5 % (0.0-7.3) H 11/28/18 23:34 Eos % (Auto) 0.2 % (0.0-4.3) 11/28/18 23:34 Baso % (Auto) 0.8 % (0.0-1.8) 11/28/18 23:34 Lymph # 0.6 K/mm3 (1.2-5.4) L 11/28/18 23:34 [place] # 0.5 K/mm3 (0.0-0.8) 11/28/18 23:34 Eos # 0.0 K/mm3 (0.0-0.4) 11/28/18 23:34 Baso # 0.1 K/mm3 (0.0-0.1) 11/28/18 23:34 Add Manual Diff Complete 12/03/18 04:51 Total Counted 100 12/03/18 04:51 Seg Neutrophils % Assurance Analyst 12/03/18 04:51 Seg Neuts % (Manual) 79.0 % (40.0-70.0) H 12/03/18 04:51 Band Neutrophils % 11.0 % 12/03/18 04:51 Lymphocytes % (Manual) 3.0 % (13.4-35.0) L 12/03/18 04:51 Reactive Lymphs % (Man) 0 % 12/03/18 04:51 Monocytes % (Manual) 7.0 % (0.0-7.3) 12/03/18 04:51 Eosinophils % (Manual) 0 % (0.0-4.3) 12/03/18 04:51 Basophils % (Manual) 0 % (0.0-1.8) 12/03/18 04:51 Metamyelocytes % 0 % 12/03/18 04:51 Myelocytes % 0 % 12/03/18 04:51 Promyelocytes % 0 % 12/03/18 04:51 Blast Cells % 0 % 12/03/18 04:51 Nucleated RBC % Not Reportable 12/03/18 04:51 Seg Neutrophils # 5.3 K/mm3 (1.8-7.7) 11/28/18 23:34 Seg Neutrophils # Man 8.4 K/mm3 (1.8-7.7) H 12/03/18 04:51 Band Neutrophils # 1.2 K/mm3 12/03/18 04:51 Lymphocytes # (Manual) 0.3 K/mm3 (1.2-5.4) L 12/03/18 04:51 Abs React Lymphs (Man) 0.0 K/mm3 12/03/18 04:51 Monocytes # (Manual) 0.7 K/mm3 (0.0-0.8) 12/03/18 04:51 Eosinophils # (Manual) 0.0 K/mm3 (0.0-0.4) 12/03/18 04:51 Basophils # (Manual) 0.0 K/mm3 (0.0-0.1) 12/03/18 04:51 Metamyelocytes # 0.0 K/mm3 12/03/18 04:51 Myelocytes # 0.0 K/mm3 12/03/18 04:51 Promyelocytes # 0.0 K/mm3 12/03/18 04:51 Blast Cells # 0.0 K/mm3 12/03/18 04:51 WBC Morphology Not Reportable 12/03/18 04:51 Hypersegmented Neuts Not Reportable 12/03/18 04:51 Hyposegmented Neuts Not Reportable 12/03/18 04:51 Hypogranular Neuts Not Reportable 12/03/18 04:51 Smudge Cells Not Reportable 12/03/18 04:51 Toxic Granulation Not Reportable 12/03/18 04:51 Toxic Vacuolation Not Reportable 12/03/18 04:51 Dohle Bodies Not Reportable 12/03/18 04:51 Pelger-Huet Anomaly Not Reportable 12/03/18 04:51 Davina Rods Not Reportable 12/03/18 04:51 Platelet Estimate Appears normal 12/03/18 04:51 Clumped Platelets Not Reportable 12/03/18 04:51 Plt Clumps, EDTA Not Reportable 12/03/18 04:51 Large Platelets Not Reportable 12/03/18 04:51 Giant Platelets Not Reportable 12/03/18 04:51 Platelet Satelliting Not Reportable 12/03/18 04:51 Plt Morphology Comment Not Reportable 12/03/18 04:51 RBC Morphology Not Reportable 12/03/18 04:51 Dimorphic RBCs Not Reportable 12/03/18 04:51 Polychromasia Rare 12/03/18 04:51 Hypochromasia 1+ 12/03/18 04:51 Poikilocytosis Not Reportable 12/03/18 04:51 Anisocytosis 1+ 12/03/18 04:51 Microcytosis Not Reportable 12/03/18 04:51 Macrocytosis Not Reportable 12/03/18 04:51 Spherocytes Not Reportable 12/03/18 04:51 Pappenheimer Bodies Not Reportable 12/03/18 04:51 Sickle Cells Not Reportable 12/03/18 04:51 Target Cells Few 12/03/18 04:51 Tear Drop Cells Not Reportable 12/03/18 04:51 Ovalocytes Few 12/03/18 04:51 Helmet Cells Not Reportable 12/03/18 04:51 [place] Bodies Not Reportable 12/03/18 04:51 [place] Rings Not Reportable 12/03/18 04:51 [place] Cells Not Reportable 12/03/18 04:51 Bite Cells Not Reportable 12/03/18 04:51 Crenated Cell Not Reportable 12/03/18 04:51 Elliptocytes Not Reportable 12/03/18 04:51 Acanthocytes (Spur) Not Reportable 12/03/18 04:51 Rouleaux Not Reportable 12/03/18 04:51 Hemoglobin C Crystals Not Reportable 12/03/18 04:51 Schistocytes Not Reportable 12/03/18 04:51 Malaria parasites Not Reportable 12/03/18 04:51 [place] Bodies Not Reportable 12/03/18 04:51 Hem Pathologist Commnt No 12/03/18 04:51 PT 12.6 Sec. (12.2-14.9) 11/28/18 23:34 INR 0.90 (0.87-1.13) 11/28/18 23:34 APTT 30.8 Sec. (24.2-36.6) 11/28/18 23:34 POC ABG pH 7.329 (7.35-7.45) L 12/05/18 15:52 POC ABG pCO2 80.5 (35-45) H 12/05/18 15:52 POC ABG pO2 73 (80-105) L 12/05/18 15:52 POC ABG HCO3 42.3 12/05/18 15:52 POC ABG Total CO2 45 12/05/18 15:52 POC ABG O2 Sat 92 12/05/18 15:52 POC ABG Base Excess 16 12/05/18 15:52 FiO2 35 % 12/05/18 15:52 Sodium 144 mmol/L (137-145) 12/12/18 04:57 Potassium 4.6 mmol/L (3.6-5.0) 12/12/18 04:57 Chloride 94.8 mmol/L (98-107) L 12/12/18 04:57 Carbon Dioxide 39 mmol/L (22-30) H 12/12/18 04:57 Anion Gap 15 mmol/L 12/12/18 04:57 BUN 31 mg/dL (9-20) H 12/12/18 04:57 Creatinine 0.7 mg/dL (0.8-1.5) L 12/12/18 04:57 Estimated GFR > 60 ml/min 12/12/18 04:57 BUN/Creatinine Ratio 44 % 12/12/18 04:57 Glucose 254 mg/dL (75-100) H 12/12/18 04:57 POC Glucose 138 (70-105) H 12/13/18 08:07 Lactic Acid 1.30 mmol/L (0.7-2.0) 12/02/18 16:09 Calcium 8.7 mg/dL (8.4-10.2) 12/12/18 04:57 Total Bilirubin < 0.20 mg/dL (0.1-1.2) 12/02/18 05:50 AST 10 units/L (5-40) 12/02/18 05:50 ALT 17 units/L (7-56) 12/02/18 05:50 Alkaline Phosphatase 80 units/L (35-129) 12/02/18 05:50 Total Creatine Kinase 145 units/L (55-170) 11/28/18 23:34 CK-MB (CK-2) 3.3 ng/mL (0.0-4.0) 11/28/18 23:34 CK-MB (CK-2) Rel Index 2.2 (0-4) 11/28/18 23:34 Troponin T < 0.010 ng/mL (0.00-0.029) 12/02/18 16:09 NT-Pro-B Natriuret Pep 99.93 pg/mL (0-900) 11/28/18 23:34 Total Protein 6.7 g/dL (6.3-8.2) 12/02/18 05:50 Albumin 3.9 g/dL (3.9-5) 12/02/18 05:50 Albumin/Globulin Ratio 1.4 % 12/02/18 05:50 - Imaging and Cardiology Chest x-ray: report reviewed Nutrition/Malnutrition Assess - Dietary Evaluation Nutrition/Malnutrition Findings: Nutrition Notes Start: 12/02/18 11:54 Freq: Status: Active Protocol: Document 12/06/18 11:06 CT (Rec: 12/06/18 11:32 CT [id number]) Co-Sign 12/06/18 11:06 LP Nutrition Notes Initial or Follow up Brief Note Current Diagnosis COPD Coronary Artery Disease Hypertension Hyperlipidemia Other Pertinent Diagnosis HIV Current Diet cardiac Height 5 ft 11 in Weight 104.1 kg [place] Body Weight (kg) 78.18 BMI 32.0 Subjective/Other Information RD screen for LOS. Pt. eating 100% of meals. Preferences noted. Nutrition Intervention Revisit per MD consult or patient Sign Off request:
[2018-12-13] MEDS: ULTRAM PO PRN ×2 (13:11→22:43)
[2018-12-13] MEDS: LIORESAL PO SCH ×2 (13:11→22:43)
--- NOTE | 2018-12-13 13:38 | XRay Report ---
BILATERAL KNEES, 2 VIEWS History: Fall, knee pain Findings: Moderate osteoarthritic changes are identified in the right knee. Mild osteoarthritic changes are identified in the left knee. No evidence for fracture or bone lesion. Small right knee effusion is noted. Impression: Osteoarthritis. No acute process.
--- NOTE | 2018-12-13 13:39 | XRay Report ---
LUMBOSACRAL SPINE, 3 VIEWS History: Fall and back pain. Findings: Moderate multilevel degenerative disc disease and facet arthropathy are identified. No evidence for compression deformity or malalignment. The sacrum and SI joints are grossly intact. Impression: Lumbar spondylosis. No acute process is noted.
[2018-12-14 01:50] LABS: Mean Corpuscular HGB Conc 31 % (32-34); Mean Corpuscular Volume 83 fl (84-94); Platelet Count 117 K/mm3 (140-440); Red Blood Count 5.08 M/mm3 (3.65-5.03); Red Cell Distribution Width 16.1 % (13.2-15.2)
[2018-12-14 01:53] LABS: Hematocrit 42.2 % (35.5-45.6); Hemoglobin 12.9 gm/dl (11.8-15.2)
[2018-12-14 02:13] LABS: BUN/Creatinine Ratio 40; Blood Urea Nitrogen 24 mg/dL (9-20); Calcium 8.2 mg/dL (8.4-10.2); Hemolysis Index 12
[2018-12-14] MEDS: DUONEB *Not for PRN Use IH SCH ×4 (02:13→20:08)
[2018-12-14] MEDS: BROVANA NEBU IH SCH ×2 (08:02→20:08)
[2018-12-14] MEDS: PULMICORT IH SCH ×2 (08:02→20:08)
[2018-12-14] MEDS: LIORESAL PO SCH ×3 (08:08→19:37)
[2018-12-14] MEDS: COLCHICINE PO SCH ×2 (10:27→21:30)
[2018-12-14] MEDS: PLAVIX PO SCH (10:27)
[2018-12-14] MEDS: LOVENOX SUB-Q SCH (10:28)
[2018-12-14] MEDS: ZESTRIL PO SCH (10:29)
[2018-12-14] MEDS: NORVASC PO SCH (10:29)
[2018-12-14] MEDS: GENVOYA (NF) PO SCH (10:30)
[2018-12-14] MEDS: HCTZ PO SCH (10:30)
[2018-12-14] MEDS: DELTASONE PO SCH (10:33)
[2018-12-14] MEDS: PROTONIX PO SCH (10:33)
[2018-12-14] MEDS: SODIUM CHLORIDE FLUSH SYRINGE 10 ML IV SCH ×3 (11:05→21:30)
--- NOTE | 2018-12-14 15:46 | Progress Note ---
Assessment and Plan - Acute and chronic hypoxemic-hypercapnic respiratory failure Continue on bronchodilators, supplemental oxygen, IV Solu-Medrol, IV antibiotics - Right lower lobe infiltrate IV Levaquin and azithromycin, on supplemental oxygen - COPD exacerbation IV Solu-Medrol, supplemental oxygen Bronchodilators - CKD Improved IV hydration. Trend BUN and creatinine - H/o Tobacco abuse disorder/Nicotine dependence Counseling on tobacco cessation done -Coronary artery disease Aspirin, statins, -Hypertension Controlled. Continue with antihypertensive medications -Hyperlipidemia Continue with atorvastatin - HIV Resume any antiretroviral medications - DVT and GI prophylaxis with Lovenox and Pepcid Disposition: Per Clinical course Subjective Date of service: 12/14/18 Principal diagnosis: Ac and Ch hypoxemic hypercapnic Resp failure; RLL infiltrate; AE-COPD; CKD Interval history: Having shortness of breath. Denies any fever. No orthopnea. On oxygen via nasal cannula Objective - Exam Narrative Exam: Constitutional: Well-nourished well-developed. In no distress Head: Normocephalic atraumatic Eyes: Pupils are equal round and reactive to light Nose: No enlarged turbinates, no septal deviation. Mouth: Moist mucous membranes. Neck: Supple no thyromegaly. No bruit. No JVD Heart: Regular rate and rhythm, S1-S2 normal. No rubs murmurs or gallop Lungs: Decreased breath sounds bilaterally. Has rhonchi Abdomen: Soft, nontender. Bowel sound are present. Extremities: edema, no cyanosis, no clubbing. Neuro: Alert oriented Oriented x3. No focal sensory or motor deficit. Skin: No rashes or hyperpigmented spots Musculoskeletal system: No joint pain or swelling Hematological: No petechia or subcutanous hemorrhages. Immunological: No multiple septic spots on the skin Lymphatic: No generalized lymphadenopathy Psychiatry: Euthymic. Calm. - Constitutional Vitals: Vital Signs - 12hr 12/14/18 12/14/18 12/14/18 08:01 08:02 08:21 Temperature Pulse Rate Pulse Rate [ Anterior Bilateral Bases ] Pulse Rate [ 97 H 89 Throughout] Respiratory Rate Respiratory Rate [Anterior Bilateral Bases ] Respiratory 18 18 Rate [ Throughout] Blood Pressure O2 Sat by Pulse 97 Oximetry 12/14/18 12/14/18 12/14/18 10:25 10:29 12:17 Temperature 98.0 F Pulse Rate 83 91 H Pulse Rate [ Anterior Bilateral Bases ] Pulse Rate [ Throughout] Respiratory 18 Rate Respiratory Rate [Anterior Bilateral Bases ] Respiratory Rate [ Throughout] Blood Pressure 121/75 121/75 114/75 O2 Sat by Pulse 94 75 L Oximetry 12/14/18 12/14/18 14:54 15:06 Temperature Pulse Rate Pulse Rate [ 97 H Anterior Bilateral Bases ] Pulse Rate [ 112 H Throughout] Respiratory Rate Respiratory 24 Rate [Anterior Bilateral Bases ] Respiratory 20 Rate [ Throughout] Blood Pressure O2 Sat by Pulse Oximetry - Labs CBC & Chem 7: 12/14/18 01:10 12/14/18 01:10 Labs: Abnormal lab results 12/14/18 12/14/18 Range/Units 01:10 01:10 RBC 5.08 H (3.65-5.03) M/mm3 MCV 83 L (84-94) fl MCH 25 L (28-32) pg MCHC 31 L (32-34) % RDW 16.1 H (13.2-15.2) % Plt Count 117 L (140-440) K/mm3 Chloride 90.5 L (98-107) mmol/L Carbon Dioxide 42 H* (22-30) mmol/L BUN 24 H (9-20) mg/dL Creatinine 0.6 L (0.8-1.5) mg/dL Glucose 157 H (75-100) mg/dL Calcium 8.2 L (8.4-10.2) mg/dL
[2018-12-14] MEDS: ULTRAM PO PRN (19:53)
[2018-12-15] MEDS: DUONEB *Not for PRN Use IH SCH ×4 (01:20→20:39)
[2018-12-15] MEDS: ULTRAM PO PRN ×3 (02:25→22:47)
[2018-12-15 05:20] LABS: Basophils % (Auto) 0.5 % (0.0-1.8); Eosinophils % (Auto) 0.3 % (0.0-4.3); Lymphocytes # (Auto) 0.9 K/mm3 (1.2-5.4); Lymphocytes % (Auto) 14.5 % (13.4-35.0); Mean Corpuscular HGB Conc 31 % (32-34); Mean Corpuscular Volume 83 fl (84-94); Monocytes # (Auto) 0.6 K/mm3 (0.0-0.8); Monocytes % (Auto) 9.9 % (0.0-7.3); Red Blood Count 5.03 M/mm3 (3.65-5.03); Red Cell Distribution Width 16.1 % (13.2-15.2)
[2018-12-15 05:21] LABS: Hematocrit 41.9 % (35.5-45.6); Platelet Count 97 K/mm3 (140-440)
[2018-12-15 05:49] LABS: Alanine Aminotransferase 83 units/L (7-56); Albumin 3.1 g/dL (3.9-5); BUN/Creatinine Ratio 33; Blood Urea Nitrogen 20 mg/dL (9-20); Calcium 7.9 mg/dL (8.4-10.2); Hemolysis Index 7
[2018-12-15] MEDS: LIORESAL PO SCH ×3 (07:36→20:34)
[2018-12-15] MEDS: PULMICORT IH SCH ×2 (08:38→20:39)
[2018-12-15] MEDS: BROVANA NEBU IH SCH ×2 (08:38→20:39)
[2018-12-15] MEDS: NORVASC PO SCH (10:50)
[2018-12-15] MEDS: HCTZ PO SCH (10:50)
[2018-12-15] MEDS: ZESTRIL PO SCH (10:51)
[2018-12-15] MEDS: PROTONIX PO SCH (10:54)
[2018-12-15] MEDS: PLAVIX PO SCH (10:54)
[2018-12-15] MEDS: COLCHICINE PO SCH ×2 (10:55→22:44)
[2018-12-15] MEDS: DELTASONE PO SCH (10:55)
[2018-12-15] MEDS: SODIUM CHLORIDE FLUSH SYRINGE 10 ML IV SCH ×3 (10:56→22:45)
[2018-12-15] MEDS: LOVENOX SUB-Q SCH (10:56)
[2018-12-15] MEDS: GENVOYA (NF) PO SCH (10:57)
--- NOTE | 2018-12-15 17:23 | Progress Note ---
Assessment and Plan - Acute and chronic hypoxemic-hypercapnic respiratory failure Continue on bronchodilators, supplemental oxygen, IV Solu-Medrol, IV antibiotics - Right lower lobe infiltrate IV Levaquin and azithromycin, on supplemental oxygen - COPD exacerbation IV Solu-Medrol, supplemental oxygen Bronchodilators - CKD Improved IV hydration. Trend BUN and creatinine - H/o Tobacco abuse disorder/Nicotine dependence Counseling on tobacco cessation done -Coronary artery disease Aspirin, statins, -Hypertension Controlled. Continue with antihypertensive medications -Hyperlipidemia Continue with atorvastatin - HIV Resume any antiretroviral medications - DVT and GI prophylaxis with Lovenox and Pepcid Disposition: Awaiting placement Subjective Date of service: 12/15/18 Principal diagnosis: Ac and Ch hypoxemic hypercapnic Resp failure; RLL infiltrate; AE-COPD; CKD Interval history: Having shortness of breath. Denies any fever.No orthopnea. On oxygen via nasal cannula Objective - Exam Narrative Exam: Constitutional:Well-nourished well-developed. In no distress Head: Normocephalic atraumatic Eyes: Pupils are equal round and reactive to light Nose: No enlarged turbinates, no septal deviation. Mouth: Moist mucous membranes. Neck: Supple no thyromegaly. No bruit. No JVD Heart: Regular rate and rhythm, S1-S2 normal. No rubs murmurs or gallop Lungs: Decreased breath sounds bilaterally. Has rhonchi Abdomen: Soft, nontender. Bowel sound are present. Extremities: edema, no cyanosis, no clubbing. Neuro: Alert oriented Oriented x3. No focal sensory or motor deficit. Skin: No rashes or hyperpigmented spots Musculoskeletal system: No joint pain or swelling Hematological: No petechia or subcutanous hemorrhages. Immunological: No multiple septic spots on the skin Lymphatic: No generalized lymphadenopathy Psychiatry: Euthymic. Calm. - Constitutional Vitals: Vital Signs - 12hr 12/15/18 12/15/18 12/15/18 05:36 08:38 08:48 Temperature 98.2 F Pulse Rate 86 Pulse Rate [ 85 88 Anterior Bilateral Throughout] Respiratory 32 H Rate Respiratory 18 18 Rate [Anterior Bilateral Throughout] Blood Pressure 93/61 O2 Sat by Pulse 100 97 Oximetry 12/15/18 12/15/18 12/15/18 10:49 10:50 10:51 Temperature Pulse Rate Pulse Rate [ Anterior Bilateral Throughout] Respiratory Rate Respiratory Rate [Anterior Bilateral Throughout] Blood Pressure 113/65 113/65 113/65 O2 Sat by Pulse Oximetry 12/15/18 12/15/18 12/15/18 11:26 13:00 13:10 Temperature 98.0 F Pulse Rate 87 Pulse Rate [ 90 92 H Anterior Bilateral Throughout] Respiratory 22 Rate Respiratory 20 20 Rate [Anterior Bilateral Throughout] Blood Pressure 151/100 O2 Sat by Pulse 97 Oximetry - Labs CBC & Chem 7: 12/15/18 04:39 12/15/18 04:39 Labs: Abnormal lab results 12/15/18 12/15/18 Range/Units 04:39 04:39 MCV 83 L (84-94) fl MCH 26 L (28-32) pg MCHC 31 L (32-34) % RDW 16.1 H (13.2-15.2) % Plt Count 97 L (140-440) K/mm3 [place] % (Auto) 9.9 H (0.0-7.3) % Lymph # 0.9 L (1.2-5.4) K/mm3 Seg Neutrophils % 74.8 H (40.0-70.0) % Chloride 93.4 L (98-107) mmol/L Carbon Dioxide 42 H* (22-30) mmol/L Creatinine 0.6 L (0.8-1.5) mg/dL Glucose 188 H (75-100) mg/dL Calcium 7.9 L (8.4-10.2) mg/dL ALT 83 H (7-56) units/L Total Protein 5.1 L (6.3-8.2) g/dL Albumin 3.1 L (3.9-5) g/dL
[2018-12-16] MEDS: DUONEB *Not for PRN Use IH SCH ×3 (01:10→15:25)
[2018-12-16 05:41] LABS: Basophils % (Auto) 0.4 % (0.0-1.8); Eosinophils % (Auto) 0.3 % (0.0-4.3); Hematocrit 40.2 % (35.5-45.6); Hemoglobin 12.6 gm/dl (11.8-15.2); Lymphocytes # (Auto) 0.7 K/mm3 (1.2-5.4); Lymphocytes % (Auto) 9.2 % (13.4-35.0); Mean Corpuscular HGB Conc 31 % (32-34); Mean Corpuscular Volume 83 fl (84-94); Monocytes # (Auto) 0.6 K/mm3 (0.0-0.8); Monocytes % (Auto) 7.8 % (0.0-7.3); Red Blood Count 4.86 M/mm3 (3.65-5.03); Red Cell Distribution Width 15.9 % (13.2-15.2)
[2018-12-16 05:43] LABS: Platelet Count 95 K/mm3 (140-440)
[2018-12-16 06:01] LABS: Alanine Aminotransferase 106 units/L (7-56); Albumin 3.4 g/dL (3.9-5); BUN/Creatinine Ratio 36; Blood Urea Nitrogen 18 mg/dL (9-20); Hemolysis Index 16
[2018-12-16] MEDS: PULMICORT IH SCH (08:50)
[2018-12-16] MEDS: BROVANA NEBU IH SCH (08:50)
[2018-12-16] MEDS: LIORESAL PO SCH ×2 (10:14→16:12)
[2018-12-16] MEDS: PLAVIX PO SCH (10:14)
[2018-12-16] MEDS: PROTONIX PO SCH (10:15)
[2018-12-16] MEDS: HCTZ PO SCH (10:15)
[2018-12-16] MEDS: LOVENOX SUB-Q SCH (10:15)
[2018-12-16] MEDS: NORVASC PO SCH (10:15)
[2018-12-16] MEDS: SODIUM CHLORIDE FLUSH SYRINGE 10 ML IV SCH (10:16)
[2018-12-16] MEDS: ZESTRIL PO SCH (10:16)
[2018-12-16] MEDS: DELTASONE PO SCH (10:16)
[2018-12-16] MEDS: ULTRAM PO PRN (10:19)
[2018-12-16] MEDS: COLCHICINE PO SCH (10:19)
[2018-12-16] MEDS: GENVOYA (NF) PO SCH (10:22)
--- NOTE | 2018-12-16 15:17 | Discharge Summary ---
Providers - Providers Date of Admission: 11/29/18 03:28 Date of discharge: 12/16/18 Attending physician: THERESA SOARES 11/29/18 03:37 Consult to Physician [CONS] Routine Comment: Consulting Provider: ANSHU FELIPE Physician Instructions: Reason For Exam: copd 12/03/18 14:22 Physical Therapy Evaluation and Treat [CONS] Routine Comment: Reason For Exam: Debility 12/13/18 08:16 Physical Therapy Evaluation and Treat [CONS] Stat Comment: Reason For Exam: Fall Mode of Transport?: Wheelchair Weight bearing status?: Partial wt bearing Assistive devices?: No 12/13/18 08:18 Occupational Therapy Evaluate and Treat [CONS] Stat Comment: Reason For Exam: Fall Primary care physician: DANELLE CHEUNG Hospitalization Reason for admission: acute respiratory failure, coronary artery disease, COPD exacerbation, HIV Condition: Stable Pertinent studies: Chest x-ray showed no acute pulmonary infiltrates. Lumbar x-ray shows spondylosis Procedures: none Hospital course: 63 year old man with a history of hypertension, hyperlipidemia, coronary artery disease, COPD, HIV comes to the emergency room with complaints of shortness of breath not relieved with his nebulizer treatments. Complain of cough productive of santos phlegm. Patient continued to improved following Continuous BIPAP treatment and oxygen, there was also concerned about aspiration pneumonia. On admission patient was commenced on IV antibiotics and IV Solu-Medrol. He was weaned off of BiPAP and placed on oxygen via nasal cannula. Patient is a CO2 retainer. Temp is about presented. A cerebral lumbosacral spine was done. Findings were remarkable for multilevel DJD consistent with spondylolisthesis. Breathing progressively improved. Patient with open discharge home to follow primary care physician in 3-5 days. Plan to discharge to a [facility] facility was unsuccessful as insurance declined payment. Disposition: TO HOME OR SELFCARE Time spent for discharge: >35 mins - Discharge Diagnoses (1) Acute respiratory failure Status: Acute (2) COPD exacerbation Status: Acute (3) HIV (human immunodeficiency virus infection) Status: Acute (4) Shortness of breath Status: Acute (5) Accelerated hypertension Status: Acute Core Measure Documentation - Palliative Care Palliative Care/ Comfort Measures: Not Applicable - Core Measures Any of the following diagnoses?: none Exam - Physical Exam Narrative exam: Constitutional:Well-nourished well-developed. On oxygen via nasal cannula In no distress Head: Normocephalic atraumatic Eyes: Pupils are equal round and reactive to light Nose: No enlarged turbinates, no septal deviation. Mouth: Moist mucous membranes. Neck: Supple no thyromegaly. No bruit. No JVD Heart: Regular rate and rhythm, S1-S2 normal. No rubs murmurs or gallop Lungs: Decreased breath sounds bilaterally. Has rhonchi Abdomen: Soft, nontender. Bowel sound are present. Extremities: edema, no cyanosis, no clubbing. Neuro: Alert oriented Oriented x3. No focal sensory or motor deficit. Skin: No rashes or hyperpigmented spots Musculoskeletal system: No joint pain or swelling Hematological: No petechia or subcutanous hemorrhages. Immunological: No multiple septic spots on the skin Lymphatic: No generalized lymphadenopathy Psychiatry: Euthymic. Calm. - Constitutional Vitals: Temp Pulse Resp BP Pulse Ox 97.8 F 96 H 22 101/65 85 12/16/18 12:44 12/16/18 12:44 12/16/18 12:44 12/16/18 12:44 12/16/18 12:44 Plan Activity: advance as tolerated, fall precautions Weight Bearing Status: Non-Weight Bearing Diet: low cholesterol Special Instructions: home oxygen via ([place]) Durable Medical Equipment Needed Upon Discharge: Walker-Rolling Follow up with: DANELLE CHEUNG MD [Primary Care Provider] - 7 Days ANSHU FELIPE MD [Staff Physician] - 7 Days Prescriptions: Albuterol Sulfate [Albuterol 0.63% NEBS] 0.63 mg IH QID PRN #30 vial.neb PRN Reason: Shortness Of Breath Albuterol Sulfate [Ventolin HFA] 2 puff IH Q4H PRN #30 hfa.aer.ad PRN Reason: Shortness Of Breath Fluticasone/Salmeterol [Advair Diskus 250-50 mcg] 1 puff IH BID 30 Days blst.w.dev Pantoprazole [Protonix TAB] 40 mg PO QDAY #30 tablet Prednisone [predniSONE 10 mg (6-Day Pack, 21 Tabs)] 10 mg PO .TAPER #1 tab.ds.pk predniSONE [Deltasone] 10 mg PO QDAY #54 tablet
[2018-12-16 17:05] VITALS: BP 115/78
== END 2018-12-16 18:35 | disposition home health service (06) | DRG 871 ==
LOC: ED 22:50 → IMCU 11-29 03:28 → 3A 12-09 12:21
PROVIDERS: ADMIT Internal Medicine; ATTEND Family Medicine
PROC: 5A09557 Assistance with Respiratory Ventilation, Greater than 96 Consecutive Hours, Continuous Positive Airway Pressure (ICD-10-PCS; 2018-11-29)
PROC: 4A033R1 Measurement of Arterial Saturation, Peripheral, Percutaneous Approach (ICD-10-PCS; 2018-11-29)
PROC: 5A09457 Assistance with Respiratory Ventilation, 24-96 Consecutive Hours, Continuous Positive Airway Pressure (ICD-10-PCS; principal; 2018-12-13)
DX: A41.9 Sepsis, unspecified organism (principal); J96.21 Acute and chronic respiratory failure with hypoxia; J96.22 Acute and chronic respiratory failure with hypercapnia; J69.0 Pneumonitis due to inhalation of food and vomit; J44.1 Chronic obstructive pulmonary disease with (acute) exacerbation; I13.0 Hypertensive heart and chronic kidney disease with heart failure and stage 1 through stage 4 chronic kidney disease, or unspecified chronic kidney disease; E87.0 Hyperosmolality and hypernatremia; I25.10 Atherosclerotic heart disease of native coronary artery without angina pectoris; M43.17 Spondylolisthesis, lumbosacral region; Z82.49 Family history of ischemic heart disease and other diseases of the circulatory system; F17.200 Nicotine dependence, unspecified, uncomplicated; Z79.899 Other long term (current) drug therapy; N18.9 Chronic kidney disease, unspecified; E78.5 Hyperlipidemia, unspecified; E66.9 Obesity, unspecified; I50.9 Heart failure, unspecified; Z68.33 Body mass index [BMI] 33.0-33.9, adult; Z21 Asymptomatic human immunodeficiency virus [HIV] infection status
CPT/HCPCS: 36415; 36600; 71045; 72100; 80048; 80053; 82140; 82550; 82553; 82803; 82962; 83735; 83880; 84484; 85007; 85025; 85027; 85610; 85730; 87040; 94640; 94660; 94760; G0378; A9270-GY; J0360; J0696; J1650; J1940; J1956; J2405; J2920; J2930; J3105; J7512

== ENCOUNTER 2019-06-16 12:50 | Inpatient (IN) | payer MEDICARE ==
--- NOTE | 2019-06-16 13:31 | Event Note ---
ED Screening Note Date of service: 06/16/19 Time: 13:27 ED Screening Note: 64 y/o male comes in for SOB and chest pain. Hx/o COPD, HIV, CHF, HTN This initial assessment/diagnostic orders/clinical plan/treatment(s) is/are subject to change based on patients health status, clinical progression and re- assessment by fellow clinical providers in the ED. Further treatment and workup at subsequent clinical providers discretion. Patient/guardian urged not to elope from the ED as their condition may be serious if not clinically assessed and managed. Initial orders include:
[2019-06-16 13:50] LABS: Basophils # (Auto) 0.1 K/mm3 (0.0-0.1); Eosinophils % (Auto) 0.6 % (0.0-4.3); Hematocrit 39.1 % (35.5-45.6); Hemoglobin 12.4 gm/dl (11.8-15.2); Lymphocytes # (Auto) 0.9 K/mm3 (1.2-5.4); Lymphocytes % (Auto) 12.9 % (13.4-35.0); Mean Corpuscular HGB Conc 32 % (32-34); Mean Corpuscular Volume 79 fl (84-94); Monocytes # (Auto) 0.6 K/mm3 (0.0-0.8); Monocytes % (Auto) 8.9 % (0.0-7.3); Platelet Count 148 K/mm3 (140-440); Red Blood Count 4.94 M/mm3 (3.65-5.03); Red Cell Distribution Width 17.6 % (13.2-15.2)
[2019-06-16] MEDS ORDERED: ATROVENT IH ONE (14:03)
[2019-06-16] MEDS ORDERED: MAGNESIUM SULFATE 2GM/50ML 2 GM/50 ML BAG IV ONE (14:03)
[2019-06-16] MEDS ORDERED: SOLU-Medrol IV ONE (14:03)
[2019-06-16] MEDS ORDERED: PROVENTIL IH ONE (14:03)
[2019-06-16] MEDS ORDERED: ASPIRIN PO ONE (14:04)
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
[2019-06-16 14:14] LABS: Alanine Aminotransferase 16 units/L (7-56); Albumin 3.9 g/dL (3.9-5); BUN/Creatinine Ratio 26; Blood Urea Nitrogen 23 mg/dL (9-20); Calcium 9.1 mg/dL (8.4-10.2); Hemolysis Index 7
[2019-06-16 14:58] LABS: Bilirubin,Urine NEG (Negative); Blood,Urine NEG (Negative); Color,Urine Yellow (Yellow); Mucus,Urine FEW /HPF; Protein,Urine <15 mg/dL mg/dL (Negative); Urobilinogen,Urine < 2.0 mg/dL (<2.0); WBC,Urine < 1.0 /HPF (0.0-6.0)
[2019-06-16] MEDS ORDERED: LASIX IV ONE (15:00)
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
[2019-06-16 15:07] LABS: RBC,Urine < 1.0 /HPF (0.0-6.0)
[2019-06-16] MEDS ORDERED: TYLENOL PO ONE (20:13)
[2019-06-16] MEDS ORDERED: PROAIR IH PRN (21:25)
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
[2019-06-16] MEDS ORDERED: REGLAN IV PRN (21:27)
[2019-06-16] MEDS ORDERED: DILAUDID IV PRN (21:27)
[2019-06-16] MEDS ORDERED: ZOFRAN IV PRN (21:27)
[2019-06-16] MEDS ORDERED: TYLENOL PO PRN (21:27)
[2019-06-16] MEDS ORDERED: PROVENTIL IH PRN (21:29)
[2019-06-16] MEDS ORDERED: NON-FORMULARY (Lisinopril/Hydrochlorothiazide [Zestoretic 20-12.5 Mg] 1 TAB) PO SCH (21:30)
[2019-06-16] MEDS ORDERED: NON-FORMULARY (Elviteg/Cobi/Emtric/Tenofo Ala 1 EACH) PO SCH (21:30)
[2019-06-16] MEDS ORDERED: PEPCID IV SCH (22:00)
[2019-06-16] MEDS: NAPROSYN PO SCH (23:10)
[2019-06-17] MEDS: SOLU-Medrol IV SCH ×4 (02:08→21:34)
[2019-06-17] MEDS: LEVAQUIN 750MG/150ML 750 MG/150 ML BAG IV SCH ×2 (02:08→21:35)
[2019-06-17] MEDS: NACL 0.9% 1000 ML 1,000 ML IV SCH ×2 (02:08→02:34)
[2019-06-17] MEDS: SODIUM CHLORIDE FLUSH SYRINGE 10 ML IV SCH ×3 (02:09→22:44)
[2019-06-17] MEDS: ULTRAM PO PRN ×2 (02:36→16:42)
[2019-06-17] MEDS: NAPROSYN PO SCH ×6 (05:10→21:43)
[2019-06-17] MEDS: SODIUM CHLORIDE FLUSH SYRINGE 10 ML IV PRN (05:29)
[2019-06-17 05:46] LABS: Hematocrit 40.6 % (35.5-45.6); Hemoglobin 12.7 gm/dl (11.8-15.2); Mean Corpuscular HGB Conc 31 % (32-34); Mean Corpuscular Volume 80 fl (84-94); Platelet Count 158 K/mm3 (140-440); Red Blood Count 5.09 M/mm3 (3.65-5.03); Red Cell Distribution Width 17.8 % (13.2-15.2)
[2019-06-17 06:05] LABS: Alanine Aminotransferase 18 units/L (7-56); Albumin 4.3 g/dL (3.9-5); BUN/Creatinine Ratio 28; Blood Urea Nitrogen 25 mg/dL (9-20); Calcium 9.3 mg/dL (8.4-10.2); Hemolysis Index 12
[2019-06-17 06:34] LABS: Basophils % (Manual) 0 % (0.0-1.8); Eosinophils % (Manual) 0 % (0.0-4.3); Monocytes % (Manual) 0 % (0.0-7.3); Total Cells Counted 100
[2019-06-17 06:36] LABS: Anisocytosis 1+; Hypochromasia 1+; Ovalocytes Few
[2019-06-17 06:39] LABS: Platelet Estimate Consistent w Auto; Target Cells Rare
[2019-06-17] MEDS ORDERED: DUONEB *Not for PRN Use IH SCH (08:00)
[2019-06-17] MEDS ORDERED: LEXISCAN IV ONE ×2 (09:58→10:00)
[2019-06-17] MEDS: HCTZ PO SCH (11:51)
[2019-06-17] MEDS: PROTONIX PO SCH (11:51)
[2019-06-17] MEDS: CARDURA PO SCH (11:51)
[2019-06-17] MEDS: ZESTRIL PO SCH (11:51)
[2019-06-17] MEDS: NORVASC PO SCH (11:51)
[2019-06-17] MEDS: PERCOCET 5/325 PO PRN ×2 (11:52→21:34)
--- NOTE | 2019-06-17 13:10 | Progress Note ---
Assessment and Plan Assessment and plan: Chest pain. Continue chest pain protocol. Follow-up Lexiscan results. Acute COPD exacerbation. Continue IV Solu-Medrol, DuoNeb's and IV Levaquin. Acute CHF exacerbation. Continue diuresis. Cardiology consultation. Dobutamine stress MPI done 10/01/17 was negative for ischemia, EF 45-50%. Echo done 09/29/17 showed EF 55-60%. Acute on chronic hypoxemic respiratory failure. Etiology secondary to above. Continue O2 CAD. Patient is s/p PCI (DEJUAN to the mid LCX in 12/2014) Hypertension. Resume antihypertensive medications. Hyperlipidemia. Continue statins. HIV. History Interval history: New issues overnight. Hospitalist Physical - Constitutional Vitals: Temp Pulse Resp BP Pulse Ox 97.9 F 72 20 137/86 99 06/17/19 07:43 06/17/19 09:03 06/17/19 09:03 06/17/19 10:34 06/17/19 11:42 General appearance: Present: no acute distress, well-nourished - EENT Eyes: Present: PERRL, EOM intact ENT: hearing intact, clear oral mucosa, dentition normal - Neck Neck: Present: supple, normal ROM - Respiratory Respiratory effort: normal Respiratory: bilateral: CTA - Cardiovascular Rhythm: regular Heart Sounds: Present: S1 & S2. Absent: gallop, rub - Extremities Extremities: no ischemia, No edema, Full ROM - Abdominal General gastrointestinal: soft, non-tender, non-distended, normal bowel sounds - Integumentary Integumentary: Present: clear, warm, dry - Neurologic Neurologic: CNII-XII intact, moves all extremities Results - Labs CBC & Chem 7: 06/17/19 04:52 06/17/19 04:52 Labs: Laboratory Last Values WBC 10.5 K/mm3 (4.5-11.0) 06/17/19 04:52 RBC 5.09 M/mm3 (3.65-5.03) H 06/17/19 04:52 Hgb 12.7 gm/dl (11.8-15.2) 06/17/19 04:52 Hct 40.6 % (35.5-45.6) 06/17/19 04:52 MCV 80 fl (84-94) L 06/17/19 04:52 MCH 25 pg (28-32) L 06/17/19 04:52 MCHC 31 % (32-34) L 06/17/19 04:52 RDW 17.8 % (13.2-15.2) H 06/17/19 04:52 Plt Count 158 K/mm3 (140-440) 06/17/19 04:52 Lymph % (Auto) 12.9 % (13.4-35.0) L 06/16/19 13:35 [place] % (Auto) 8.9 % (0.0-7.3) H 06/16/19 13:35 Eos % (Auto) 0.6 % (0.0-4.3) 06/16/19 13:35 Baso % (Auto) 1.0 % (0.0-1.8) 06/16/19 13:35 Lymph # 0.9 K/mm3 (1.2-5.4) L 06/16/19 13:35 [place] # 0.6 K/mm3 (0.0-0.8) 06/16/19 13:35 Eos # 0.0 K/mm3 (0.0-0.4) 06/16/19 13:35 Baso # 0.1 K/mm3 (0.0-0.1) 06/16/19 13:35 Add Manual Diff Complete 06/17/19 04:52 Total Counted 100 06/17/19 04:52 Seg Neutrophils % Veterinarian Epidemiologist 06/17/19 04:52 Seg Neuts % (Manual) 94.0 % (40.0-70.0) H 06/17/19 04:52 0 % 06/17/19 04:52 6.0 % (13.4-35.0) L 06/17/19 04:52 Reactive Lymphs % (Man) 0 % 06/17/19 04:52 0 % (0.0-7.3) 06/17/19 04:52 0 % (0.0-4.3) 06/17/19 04:52 0 % (0.0-1.8) 06/17/19 04:52 0 % 06/17/19 04:52 0 % 06/17/19 04:52 0 % 06/17/19 04:52 0 % 06/17/19 04:52 Nucleated RBC % Not Reportable 06/17/19 04:52 Seg Neutrophils # 5.5 K/mm3 (1.8-7.7) 06/16/19 13:35 Seg Neutrophils # Man 9.9 K/mm3 (1.8-7.7) H 06/17/19 04:52 Band Neutrophils # 0.0 K/mm3 06/17/19 04:52 0.6 K/mm3 (1.2-5.4) L 06/17/19 04:52 Abs React Lymphs (Man) 0.0 K/mm3 06/17/19 04:52 0.0 K/mm3 (0.0-0.8) 06/17/19 04:52 0.0 K/mm3 (0.0-0.4) 06/17/19 04:52 0.0 K/mm3 (0.0-0.1) 06/17/19 04:52 0.0 K/mm3 06/17/19 04:52 0.0 K/mm3 06/17/19 04:52 0.0 K/mm3 06/17/19 04:52 Blast Cells # 0.0 K/mm3 06/17/19 04:52 WBC Morphology Not Reportable 06/17/19 04:52 Hypersegmented Neuts Not Reportable 06/17/19 04:52 Hyposegmented Neuts Not Reportable 06/17/19 04:52 Hypogranular Neuts Not Reportable 06/17/19 04:52 Not Reportable 06/17/19 04:52 Not Reportable 06/17/19 04:52 Not Reportable 06/17/19 04:52 Not Reportable 06/17/19 04:52 Not Reportable 06/17/19 04:52 Not Reportable 06/17/19 04:52 Consistent w auto 06/17/19 04:52 Not Reportable 06/17/19 04:52 Plt Clumps, EDTA Not Reportable 06/17/19 04:52 Not Reportable 06/17/19 04:52 Not Reportable 06/17/19 04:52 Not Reportable 06/17/19 04:52 Plt Morphology Comment Not Reportable 06/17/19 04:52 RBC Morphology Not Reportable 06/17/19 04:52 Dimorphic RBCs Not Reportable 06/17/19 04:52 Not Reportable 06/17/19 04:52 1+ 06/17/19 04:52 Not Reportable 06/17/19 04:52 1+ 06/17/19 04:52 Not Reportable 06/17/19 04:52 Not Reportable 06/17/19 04:52 Not Reportable 06/17/19 04:52 Not Reportable 06/17/19 04:52 Not Reportable 06/17/19 04:52 Rare 06/17/19 04:52 Not Reportable 06/17/19 04:52 Few 06/17/19 04:52 Not Reportable 06/17/19 04:52 Not Reportable 06/17/19 04:52 Not Reportable 06/17/19 04:52 Not Reportable 06/17/19 04:52 Not Reportable 06/17/19 04:52 Not Reportable 06/17/19 04:52 Not Reportable 06/17/19 04:52 Acanthocytes (Spur) Not Reportable 06/17/19 04:52 Rouleaux Not Reportable 06/17/19 04:52 Not Reportable 06/17/19 04:52 Not Reportable 06/17/19 04:52 Not Reportable 06/17/19 04:52 Not Reportable 06/17/19 04:52 Hem Pathologist Commnt No 06/17/19 04:52 APTT 28.0 Sec. (24.2-36.6) 06/16/19 13:35 Sodium 146 mmol/L (137-145) H 06/17/19 04:52 Potassium 4.7 mmol/L (3.6-5.0) 06/17/19 04:52 Chloride 101.5 mmol/L (98-107) 06/17/19 04:52 Carbon Dioxide 33 mmol/L (22-30) H 06/17/19 04:52 16 mmol/L 06/17/19 04:52 BUN 25 mg/dL (9-20) H 06/17/19 04:52 0.9 mg/dL (0.8-1.5) 06/17/19 04:52 Estimated GFR > 60 ml/min 06/17/19 04:52 28 % 06/17/19 04:52 Glucose 143 mg/dL (75-100) H 06/17/19 04:52 6.7 % (4-6) H 06/16/19 Unknown Calcium 9.3 mg/dL (8.4-10.2) 06/17/19 04:52 < 0.20 mg/dL (0.1-1.2) 06/17/19 04:52 AST 13 units/L (5-40) 06/17/19 04:52 ALT 18 units/L (7-56) 06/17/19 04:52 81 units/L (35-129) 06/17/19 04:52 108 units/L (55-170) 06/17/19 07:25 CK-MB (CK-2) 3.0 ng/mL (0.0-4.0) 06/17/19 07:25 CK-MB (CK-2) Rel Index 2.7 (0-4) 06/17/19 07:25 < 0.010 ng/mL (0.00-0.029) 06/17/19 07:25 NT-Pro-B Natriuret Pep 130.4 pg/mL (0-900) 06/16/19 13:35 7.4 g/dL (6.3-8.2) 06/17/19 04:52 4.3 g/dL (3.9-5) 06/17/19 04:52 1.4 % 06/17/19 04:52 Yellow (Yellow) 06/16/19 14:34 Clear (Clear) 06/16/19 14:34 5.0 (5.0-7.0) 06/16/19 14:34 Ur Specific [place] 1.017 (1.003-1.030) 06/16/19 14:34 <15 mg/dl mg/dL (Negative) 06/16/19 14:34 Neg mg/dL (Negative) 06/16/19 14:34 Neg mg/dL (Negative) 06/16/19 14:34 Neg (Negative) 06/16/19 14:34 Neg (Negative) 06/16/19 14:34 Neg (Negative) 06/16/19 14:34 < 2.0 mg/dL (<2.0) 06/16/19 14:34 Ur Leukocyte Esterase Neg (Negative) 06/16/19 14:34 < 1.0 /HPF (0.0-6.0) 06/16/19 14:34 < 1.0 /HPF (0.0-6.0) 06/16/19 14:34 Few /HPF 06/16/19 14:34 Active Medications - Current Medications Current Medications: Generic Name Dose Route Start Last Admin Trade Name Freq PRN Reason Stop Dose Admin Acetaminophen 650 mg 06/16/19 21:27 Tylenol PO Q4H PRN Pain MILD(1-3)/Fever >100.5/CHRISTIAN Albuterol 2.5 mg 06/16/19 21:29 Proventil IH Q4HRT PRN Shortness Of Breath Albuterol/Ipratropium 1 ampul 06/17/19 14:00 Duoneb *Not For Prn Use* IH TIDRT LEON Amlodipine Besylate 5 mg 06/17/19 10:00 06/17/19 11:51 Norvasc PO 5 mg DAILY LEON Administration Doxazosin Mesylate 4 mg 06/17/19 10:00 06/17/19 11:51 Cardura PO 4 mg QDAY LEON Administration Hydrochlorothiazide 12.5 mg 06/17/19 10:00 06/17/19 11:51 Hctz PO 12.5 mg QDAY LEON Administration Hydromorphone HCl 0.5 mg 06/16/19 21:27 Dilaudid IV Q3H PRN Pain , Severe (7-10) Sodium Chloride 1,000 mls @ 42 mls/hr 06/16/19 22:00 06/17/19 02:34 Nacl 0.9% 1000 Ml IV 42 mls/hr DIRECT LEON Administration Levofloxacin/Dextrose 750 mg in 150 mls @ 100 mls/hr 06/16/19 22:00 06/17/19 02:08 Levaquin 750mg/150ml IV 100 mls/hr Q24HR@2200 LEON Administration Protocol Lisinopril 20 mg 06/17/19 10:00 06/17/19 11:51 Zestril PO 20 mg QDAY LEON Administration Methylprednisolone Sodium Succinate 80 mg 06/16/19 22:00 06/17/19 05:18 Solu-Medrol IV 80 mg Q8HR LEON Administration Metoclopramide HCl 10 mg 06/16/19 21:27 06/17/19 02:09 Reglan IV 10 mg Q6H PRN Administration Nausea And Vomiting Miscellaneous Medication 1 each 06/16/19 21:30 Elviteg/Jannet/Emtric/Tenofo Ala PO DAILY LEON Naproxen 500 mg 06/16/19 22:00 06/17/19 11:53 Naprosyn PO Not Given Q6H LEON Ondansetron HCl 4 mg 06/16/19 21:27 Zofran IV Q8H PRN Nausea And Vomiting Oxycodone/Acetaminophen 1 tab 06/16/19 21:27 06/17/19 11:52 Percocet 5/325 PO 1 tab Q6H PRN Administration Pain, Moderate (4-6) Pantoprazole Sodium 40 mg 06/17/19 10:00 06/17/19 11:51 Protonix PO 40 mg QDAY LEON Administration Sodium Chloride 10 ml 06/16/19 22:00 06/17/19 11:52 Sodium Chloride Flush Syringe 10 Ml IV 10 ml BID LEON Administration Sodium Chloride 10 ml 06/16/19 21:27 06/17/19 05:29 Sodium Chloride Flush Syringe 10 Ml IV 10 ml PRN PRN Administration LINE FLUSH Tramadol HCl 50 mg 06/16/19 21:25 06/17/19 02:36 Ultram PO 50 mg Q6HR PRN Administration Pain
[2019-06-17] MEDS: DUONEB *Not for PRN Use IH SCH ×2 (14:11→21:01)
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
--- NOTE | 2019-06-17 16:39 | Treadmill Report ---
NUCLEAR STRESS TEST REFERRING PHYSICIAN: Dr. Rosario. PROTOCOL: The patient was brought to the stress lab in a postabsorptive state, given 10 mCi of technetium 99m at rest. The patient underwent rest imaging. The patient underwent Lexiscan stress test. At peak stress, the patient was given 26 mCi of technetium 99m. Shortly thereafter, the patient underwent stress imaging. Raw imaging reveals mild GI artifact. No significant motion artifact. SPECT image examined carefully in the horizontal long axis, vertical long axis, and short axis views. Technically difficult study, but grossly no evidence of significant fixed or reversible perfusion defects suggestive of prior infarction or ischemia. Gated wall motion reveals normal systolic thickening, calculated ejection fraction of 69%, no TID. CONCLUSIONS: 1. Technically difficult study due to GI artifact, but grossly probably normal without evidence of significant degree of ischemia or prior infarction. 2. Normal left ventricular systolic performance without evidence of transient ischemic dilatation or stress-induced segmental wall motion abnormalities. 3. Lexiscan stress test reported separately. JOB# [id number] LINNEA/DYLAN
[2019-06-18] MEDS: NAPROSYN PO SCH ×4 (04:23→23:48)
[2019-06-18] MEDS: SOLU-Medrol IV SCH (05:36)
[2019-06-18] MEDS: ULTRAM PO PRN ×2 (05:39→19:44)
[2019-06-18] MEDS: SODIUM CHLORIDE FLUSH SYRINGE 10 ML IV PRN (05:39)
[2019-06-18] MEDS: DUONEB *Not for PRN Use IH SCH ×3 (08:17→20:42)
[2019-06-18] MEDS: PROTONIX PO SCH (10:57)
[2019-06-18] MEDS: HCTZ PO SCH (10:57)
[2019-06-18] MEDS: DELTASONE PO SCH (10:57)
[2019-06-18] MEDS: ZESTRIL PO SCH (10:58)
[2019-06-18] MEDS: CARDURA PO SCH (10:58)
[2019-06-18] MEDS: NORVASC PO SCH (10:58)
[2019-06-18] MEDS: SODIUM CHLORIDE FLUSH SYRINGE 10 ML IV SCH ×2 (10:59→22:08)
[2019-06-18] MEDS: NACL 0.9% 1000 ML 1,000 ML IV SCH (11:07)
--- NOTE | 2019-06-18 12:04 | Progress Note ---
Assessment and Plan Assessment and plan: Chest pain. Continue chest pain protocol. Follow-up Lexiscan results. Acute COPD exacerbation. Continue IV Solu-Medrol, DuoNeb's and IV Levaquin. Right pleural effusion. ? Parapneumonic. Add Antibiotics. Follow-up ultrasound-guided thoracentesis. Acute on chronic hypoxemic respiratory failure. Etiology secondary to above. Continue O2 CAD. Patient is s/p PCI (DEJUAN to the mid LCX in 12/2014) Hypertension. Resume antihypertensive medications. Hyperlipidemia. Continue statins. HIV. History Interval history: New issues overnight. Hospitalist Physical - Constitutional Vitals: Temp Pulse Resp BP Pulse Ox 97.6 F 82 20 140/88 100 06/18/19 08:03 06/18/19 10:58 06/18/19 10:56 06/18/19 10:58 06/18/19 09:27 General appearance: Present: no acute distress, well-nourished - EENT Eyes: Present: PERRL, EOM intact ENT: hearing intact, clear oral mucosa, dentition normal - Neck Neck: Present: supple, normal ROM - Respiratory Respiratory effort: normal Respiratory: bilateral: diminished, wheezing - Cardiovascular Rhythm: regular Heart Sounds: Present: S1 & S2. Absent: gallop, rub - Extremities Extremities: no ischemia, No edema, Full ROM - Abdominal General gastrointestinal: soft, non-tender, non-distended, normal bowel sounds - Integumentary Integumentary: Present: clear, warm, dry - Neurologic Neurologic: CNII-XII intact, moves all extremities Results - Labs CBC & Chem 7: 06/17/19 04:52 06/17/19 04:52 Labs: Laboratory Last Values WBC 10.5 K/mm3 (4.5-11.0) 06/17/19 04:52 RBC 5.09 M/mm3 (3.65-5.03) H 06/17/19 04:52 Hgb 12.7 gm/dl (11.8-15.2) 06/17/19 04:52 Hct 40.6 % (35.5-45.6) 06/17/19 04:52 MCV 80 fl (84-94) L 06/17/19 04:52 MCH 25 pg (28-32) L 06/17/19 04:52 MCHC 31 % (32-34) L 06/17/19 04:52 RDW 17.8 % (13.2-15.2) H 06/17/19 04:52 Plt Count 158 K/mm3 (140-440) 06/17/19 04:52 Lymph % (Auto) 12.9 % (13.4-35.0) L 06/16/19 13:35 [place] % (Auto) 8.9 % (0.0-7.3) H 06/16/19 13:35 Eos % (Auto) 0.6 % (0.0-4.3) 06/16/19 13:35 Baso % (Auto) 1.0 % (0.0-1.8) 06/16/19 13:35 Lymph # 0.9 K/mm3 (1.2-5.4) L 06/16/19 13:35 [place] # 0.6 K/mm3 (0.0-0.8) 06/16/19 13:35 Eos # 0.0 K/mm3 (0.0-0.4) 06/16/19 13:35 Baso # 0.1 K/mm3 (0.0-0.1) 06/16/19 13:35 Add Manual Diff Complete 06/17/19 04:52 Total Counted 100 06/17/19 04:52 Seg Neutrophils % Aviation Engineer 06/17/19 04:52 Seg Neuts % (Manual) 94.0 % (40.0-70.0) H 06/17/19 04:52 0 % 06/17/19 04:52 6.0 % (13.4-35.0) L 06/17/19 04:52 Reactive Lymphs % (Man) 0 % 06/17/19 04:52 0 % (0.0-7.3) 06/17/19 04:52 0 % (0.0-4.3) 06/17/19 04:52 0 % (0.0-1.8) 06/17/19 04:52 0 % 06/17/19 04:52 0 % 06/17/19 04:52 0 % 06/17/19 04:52 0 % 06/17/19 04:52 Nucleated RBC % Not Reportable 06/17/19 04:52 Seg Neutrophils # 5.5 K/mm3 (1.8-7.7) 06/16/19 13:35 Seg Neutrophils # Man 9.9 K/mm3 (1.8-7.7) H 06/17/19 04:52 Band Neutrophils # 0.0 K/mm3 06/17/19 04:52 0.6 K/mm3 (1.2-5.4) L 06/17/19 04:52 Abs React Lymphs (Man) 0.0 K/mm3 06/17/19 04:52 0.0 K/mm3 (0.0-0.8) 06/17/19 04:52 0.0 K/mm3 (0.0-0.4) 06/17/19 04:52 0.0 K/mm3 (0.0-0.1) 06/17/19 04:52 0.0 K/mm3 06/17/19 04:52 0.0 K/mm3 06/17/19 04:52 0.0 K/mm3 06/17/19 04:52 Blast Cells # 0.0 K/mm3 06/17/19 04:52 WBC Morphology Not Reportable 06/17/19 04:52 Hypersegmented Neuts Not Reportable 06/17/19 04:52 Hyposegmented Neuts Not Reportable 06/17/19 04:52 Hypogranular Neuts Not Reportable 06/17/19 04:52 Not Reportable 06/17/19 04:52 Not Reportable 06/17/19 04:52 Not Reportable 06/17/19 04:52 Not Reportable 06/17/19 04:52 Not Reportable 06/17/19 04:52 Not Reportable 06/17/19 04:52 Consistent w auto 06/17/19 04:52 Not Reportable 06/17/19 04:52 Plt Clumps, EDTA Not Reportable 06/17/19 04:52 Not Reportable 06/17/19 04:52 Not Reportable 06/17/19 04:52 Not Reportable 06/17/19 04:52 Plt Morphology Comment Not Reportable 06/17/19 04:52 RBC Morphology Not Reportable 06/17/19 04:52 Dimorphic RBCs Not Reportable 06/17/19 04:52 Not Reportable 06/17/19 04:52 1+ 06/17/19 04:52 Not Reportable 06/17/19 04:52 1+ 06/17/19 04:52 Not Reportable 06/17/19 04:52 Not Reportable 06/17/19 04:52 Not Reportable 06/17/19 04:52 Not Reportable 06/17/19 04:52 Not Reportable 06/17/19 04:52 Rare 06/17/19 04:52 Not Reportable 06/17/19 04:52 Few 06/17/19 04:52 Not Reportable 06/17/19 04:52 Not Reportable 06/17/19 04:52 Not Reportable 06/17/19 04:52 Not Reportable 06/17/19 04:52 Not Reportable 06/17/19 04:52 Not Reportable 06/17/19 04:52 Not Reportable 06/17/19 04:52 Acanthocytes (Spur) Not Reportable 06/17/19 04:52 Rouleaux Not Reportable 06/17/19 04:52 Not Reportable 06/17/19 04:52 Not Reportable 06/17/19 04:52 Not Reportable 06/17/19 04:52 Not Reportable 06/17/19 04:52 Hem Pathologist Commnt No 06/17/19 04:52 APTT 28.0 Sec. (24.2-36.6) 06/16/19 13:35 POC ABG pH 7.468 (7.35-7.45) H 06/18/19 09:23 POC ABG pCO2 42.3 (35-45) 06/18/19 09:23 POC ABG pO2 200 (80-105) H 06/18/19 09:23 POC ABG HCO3 30.6 (22-26 mml/L) 06/18/19 09:23 POC ABG Total CO2 32 (23-27mmol/L) 06/18/19 09:23 POC ABG O2 Sat 100 06/18/19 09:23 POC ABG Base Excess 7 ((-2) - (+3)mmol/L) 06/18/19 09:23 32 % 06/18/19 09:23 Sodium 146 mmol/L (137-145) H 06/17/19 04:52 Potassium 4.7 mmol/L (3.6-5.0) 06/17/19 04:52 Chloride 101.5 mmol/L (98-107) 06/17/19 04:52 Carbon Dioxide 33 mmol/L (22-30) H 06/17/19 04:52 16 mmol/L 06/17/19 04:52 BUN 25 mg/dL (9-20) H 06/17/19 04:52 0.9 mg/dL (0.8-1.5) 06/17/19 04:52 Estimated GFR > 60 ml/min 06/17/19 04:52 28 % 06/17/19 04:52 Glucose 143 mg/dL (75-100) H 06/17/19 04:52 6.7 % (4-6) H 06/16/19 Unknown Calcium 9.3 mg/dL (8.4-10.2) 06/17/19 04:52 < 0.20 mg/dL (0.1-1.2) 06/17/19 04:52 AST 13 units/L (5-40) 06/17/19 04:52 ALT 18 units/L (7-56) 06/17/19 04:52 81 units/L (35-129) 06/17/19 04:52 108 units/L (55-170) 06/17/19 07:25 CK-MB (CK-2) 3.0 ng/mL (0.0-4.0) 06/17/19 07:25 CK-MB (CK-2) Rel Index 2.7 (0-4) 06/17/19 07:25 < 0.010 ng/mL (0.00-0.029) 06/17/19 12:58 NT-Pro-B Natriuret Pep 130.4 pg/mL (0-900) 06/16/19 13:35 7.4 g/dL (6.3-8.2) 06/17/19 04:52 4.3 g/dL (3.9-5) 06/17/19 04:52 1.4 % 06/17/19 04:52 Yellow (Yellow) 06/16/19 14:34 Clear (Clear) 06/16/19 14:34 5.0 (5.0-7.0) 06/16/19 14:34 Ur Specific [place] 1.017 (1.003-1.030) 06/16/19 14:34 <15 mg/dl mg/dL (Negative) 06/16/19 14:34 Neg mg/dL (Negative) 06/16/19 14:34 Neg mg/dL (Negative) 06/16/19 14:34 Neg (Negative) 06/16/19 14:34 Neg (Negative) 06/16/19 14:34 Neg (Negative) 06/16/19 14:34 < 2.0 mg/dL (<2.0) 06/16/19 14:34 Ur Leukocyte Esterase Neg (Negative) 06/16/19 14:34 < 1.0 /HPF (0.0-6.0) 06/16/19 14:34 < 1.0 /HPF (0.0-6.0) 06/16/19 14:34 Few /HPF 06/16/19 14:34 Active Medications - Current Medications Current Medications: Generic Name Dose Route Start Last Admin Trade Name Freq PRN Reason Stop Dose Admin Acetaminophen 650 mg 06/16/19 21:27 Tylenol PO Q4H PRN Pain MILD(1-3)/Fever >100.5/CHRISTIAN Albuterol 2.5 mg 06/16/19 21:29 Proventil IH Q4HRT PRN Shortness Of Breath Albuterol/Ipratropium 1 ampul 06/17/19 14:00 06/18/19 08:17 Duoneb *Not For Prn Use* IH 1 ampul TIDRT LEON Administration Amlodipine Besylate 5 mg 06/17/19 10:00 06/18/19 10:58 Norvasc PO 5 mg DAILY LEON Administration Doxazosin Mesylate 4 mg 06/17/19 10:00 06/18/19 10:58 Cardura PO 4 mg QDAY LEON Administration Hydrochlorothiazide 12.5 mg 06/17/19 10:00 06/18/19 10:57 Hctz PO 12.5 mg QDAY LEON Administration Hydromorphone HCl 0.5 mg 06/16/19 21:27 Dilaudid IV Q3H PRN Pain , Severe (7-10) Sodium Chloride 1,000 mls @ 42 mls/hr 06/16/19 22:00 06/18/19 11:07 Nacl 0.9% 1000 Ml IV 42 mls/hr DIRECT LEON Administration Lisinopril 20 mg 06/17/19 10:00 06/18/19 10:58 Zestril PO 20 mg QDAY LEON Administration Metoclopramide HCl 10 mg 06/16/19 21:27 06/17/19 02:09 Reglan IV 10 mg Q6H PRN Administration Nausea And Vomiting Miscellaneous Medication 1 each 06/16/19 21:30 Elviteg/Jannet/Emtric/Tenofo Ala PO DAILY [facility]ON Naproxen 500 mg 06/16/19 22:00 06/18/19 10:56 Naprosyn PO 500 mg Q6H [facility]ON Administration Ondansetron HCl 4 mg 06/16/19 21:27 Zofran IV Q8H PRN Nausea And Vomiting Oxycodone/Acetaminophen 1 tab 06/16/19 21:27 06/17/19 21:34 Percocet 5/325 PO 1 tab Q6H PRN Administration Pain, Moderate (4-6) Pantoprazole Sodium 40 mg 06/17/19 10:00 06/18/19 10:57 Protonix PO 40 mg QDAY LEON Administration Prednisone 20 mg 06/18/19 10:00 06/18/19 10:57 Deltasone PO 06/20/19 23:59 20 mg QDAY LEON Administration Sodium Chloride 10 ml 06/16/19 22:00 06/18/19 10:59 Sodium Chloride Flush Syringe 10 Ml IV 10 ml BID LEON Administration Sodium Chloride 10 ml 06/16/19 21:27 06/18/19 05:39 Sodium Chloride Flush Syringe 10 Ml IV 10 ml PRN PRN Administration LINE FLUSH Tramadol HCl 50 mg 06/16/19 21:25 06/18/19 05:39 Ultram PO 50 mg Q6HR PRN Administration Pain
--- NOTE | 2019-06-18 17:56 | Ultrasound Report ---
Limited bilateral chest Ultrasound HISTORY: Chest ultrasound performed to evaluate for potential pleural effusion. TECHNIQUE: Grayscale and color Doppler imaging performed. COMPARISON: Chest x-ray from 2 days prior FINDINGS: No pleural effusion identified in either lung. No significant incidental finding. IMPRESSION: Unremarkable exam. Signer Name: Aristeo Wright MD Signed: 06/18/2019 5:52 PM Workstation Name: [id number]
[2019-06-18] MEDS: LEVAQUIN 750MG/150ML 750 MG/150 ML BAG IV SCH (22:07)
[2019-06-18] MEDS: SENOKOT S PO PRN (23:49)
[2019-06-19] MEDS: NAPROSYN PO SCH ×4 (04:54→21:38)
[2019-06-19] MEDS: DUONEB *Not for PRN Use IH SCH ×3 (07:50→19:38)
[2019-06-19] MEDS: PERCOCET 5/325 PO PRN (10:29)
[2019-06-19] MEDS: ZESTRIL PO SCH (10:29)
[2019-06-19] MEDS: HCTZ PO SCH (10:29)
[2019-06-19] MEDS: CARDURA PO SCH (10:29)
[2019-06-19] MEDS: NORVASC PO SCH (10:29)
[2019-06-19] MEDS: PROTONIX PO SCH (10:29)
[2019-06-19] MEDS: DELTASONE PO SCH (10:29)
[2019-06-19] MEDS: SENOKOT S PO PRN ×2 (10:30→21:38)
--- NOTE | 2019-06-19 10:30 | Progress Note ---
Assessment and Plan Assessment and plan: Acute COPD exacerbation. Continue IV Solu-Medrol, DuoNeb's and IV Levaquin. ? Right pleural effusion. Ultrasound reveals no evidence of pleural effusion Acute on chronic hypoxemic respiratory failure. Etiology likely secondary to above. Continue O2. CTA chest to rule out PE. CAD. Patient is s/p PCI (DEJUAN to the mid LCX in 12/2014). Chest pain. Stress test negative with no evidence of ischemia. Hypertension. Resume antihypertensive medications. Hyperlipidemia. Continue statins. HIV. History Interval history: New issues overnight. Patient still complains of significant dyspnea. Hospitalist Physical - Constitutional Vitals: Temp Pulse Resp BP Pulse Ox 97.5 F L 90 20 129/84 95 06/19/19 07:45 06/19/19 07:52 06/19/19 07:52 06/19/19 07:45 06/19/19 09:12 General appearance: Present: no acute distress, well-nourished - EENT Eyes: Present: PERRL, EOM intact ENT: hearing intact, clear oral mucosa, dentition normal - Neck Neck: Present: supple, normal ROM - Respiratory Respiratory effort: normal Respiratory: bilateral: CTA - Cardiovascular Rhythm: regular Heart Sounds: Present: S1 & S2. Absent: gallop, rub - Extremities Extremities: no ischemia, No edema, Full ROM - Abdominal General gastrointestinal: soft, non-tender, non-distended, normal bowel sounds - Integumentary Integumentary: Present: clear, warm, dry - Neurologic Neurologic: CNII-XII intact, moves all extremities Results - Labs CBC & Chem 7: 06/17/19 04:52 06/17/19 04:52 Labs: Laboratory Last Values WBC 10.5 K/mm3 (4.5-11.0) 06/17/19 04:52 RBC 5.09 M/mm3 (3.65-5.03) H 06/17/19 04:52 Hgb 12.7 gm/dl (11.8-15.2) 06/17/19 04:52 Hct 40.6 % (35.5-45.6) 06/17/19 04:52 MCV 80 fl (84-94) L 06/17/19 04:52 MCH 25 pg (28-32) L 06/17/19 04:52 MCHC 31 % (32-34) L 06/17/19 04:52 RDW 17.8 % (13.2-15.2) H 06/17/19 04:52 Plt Count 158 K/mm3 (140-440) 06/17/19 04:52 Lymph % (Auto) 12.9 % (13.4-35.0) L 06/16/19 13:35 [place] % (Auto) 8.9 % (0.0-7.3) H 06/16/19 13:35 Eos % (Auto) 0.6 % (0.0-4.3) 06/16/19 13:35 Baso % (Auto) 1.0 % (0.0-1.8) 06/16/19 13:35 Lymph # 0.9 K/mm3 (1.2-5.4) L 06/16/19 13:35 [place] # 0.6 K/mm3 (0.0-0.8) 06/16/19 13:35 Eos # 0.0 K/mm3 (0.0-0.4) 06/16/19 13:35 Baso # 0.1 K/mm3 (0.0-0.1) 06/16/19 13:35 Add Manual Diff Complete 06/17/19 04:52 Total Counted 100 06/17/19 04:52 Seg Neutrophils % [employer] 06/17/19 04:52 Seg Neuts % (Manual) 94.0 % (40.0-70.0) H 06/17/19 04:52 0 % 06/17/19 04:52 6.0 % (13.4-35.0) L 06/17/19 04:52 Reactive Lymphs % (Man) 0 % 06/17/19 04:52 0 % (0.0-7.3) 06/17/19 04:52 0 % (0.0-4.3) 06/17/19 04:52 0 % (0.0-1.8) 06/17/19 04:52 0 % 06/17/19 04:52 0 % 06/17/19 04:52 0 % 06/17/19 04:52 0 % 06/17/19 04:52 Nucleated RBC % Not Reportable 06/17/19 04:52 Seg Neutrophils # 5.5 K/mm3 (1.8-7.7) 06/16/19 13:35 Seg Neutrophils # Man 9.9 K/mm3 (1.8-7.7) H 06/17/19 04:52 Band Neutrophils # 0.0 K/mm3 06/17/19 04:52 0.6 K/mm3 (1.2-5.4) L 06/17/19 04:52 Abs React Lymphs (Man) 0.0 K/mm3 06/17/19 04:52 0.0 K/mm3 (0.0-0.8) 06/17/19 04:52 0.0 K/mm3 (0.0-0.4) 06/17/19 04:52 0.0 K/mm3 (0.0-0.1) 06/17/19 04:52 0.0 K/mm3 06/17/19 04:52 0.0 K/mm3 06/17/19 04:52 0.0 K/mm3 06/17/19 04:52 Blast Cells # 0.0 K/mm3 06/17/19 04:52 WBC Morphology Not Reportable 06/17/19 04:52 Hypersegmented Neuts Not Reportable 06/17/19 04:52 Hyposegmented Neuts Not Reportable 06/17/19 04:52 Hypogranular Neuts Not Reportable 06/17/19 04:52 Not Reportable 06/17/19 04:52 Not Reportable 06/17/19 04:52 Not Reportable 06/17/19 04:52 Not Reportable 06/17/19 04:52 Not Reportable 06/17/19 04:52 Not Reportable 06/17/19 04:52 Consistent w auto 06/17/19 04:52 Not Reportable 06/17/19 04:52 Plt Clumps, EDTA Not Reportable 06/17/19 04:52 Not Reportable 06/17/19 04:52 Not Reportable 06/17/19 04:52 Not Reportable 06/17/19 04:52 Plt Morphology Comment Not Reportable 06/17/19 04:52 RBC Morphology Not Reportable 06/17/19 04:52 Dimorphic RBCs Not Reportable 06/17/19 04:52 Not Reportable 06/17/19 04:52 1+ 06/17/19 04:52 Not Reportable 06/17/19 04:52 1+ 06/17/19 04:52 Not Reportable 06/17/19 04:52 Not Reportable 06/17/19 04:52 Not Reportable 06/17/19 04:52 Not Reportable 06/17/19 04:52 Not Reportable 06/17/19 04:52 Rare 06/17/19 04:52 Not Reportable 06/17/19 04:52 Few 06/17/19 04:52 Not Reportable 06/17/19 04:52 Not Reportable 06/17/19 04:52 Not Reportable 06/17/19 04:52 Not Reportable 06/17/19 04:52 Not Reportable 06/17/19 04:52 Not Reportable 06/17/19 04:52 Not Reportable 06/17/19 04:52 Acanthocytes (Spur) Not Reportable 06/17/19 04:52 Rouleaux Not Reportable 06/17/19 04:52 Not Reportable 06/17/19 04:52 Not Reportable 06/17/19 04:52 Not Reportable 06/17/19 04:52 Not Reportable 06/17/19 04:52 Hem Pathologist Commnt No 06/17/19 04:52 APTT 28.0 Sec. (24.2-36.6) 06/16/19 13:35 POC ABG pH 7.468 (7.35-7.45) H 06/18/19 09:23 POC ABG pCO2 42.3 (35-45) 06/18/19 09:23 POC ABG pO2 200 (80-105) H 06/18/19 09:23 POC ABG HCO3 30.6 (22-26 mml/L) 06/18/19 09:23 POC ABG Total CO2 32 (23-27mmol/L) 06/18/19 09:23 POC ABG O2 Sat 100 06/18/19 09:23 POC ABG Base Excess 7 ((-2) - (+3)mmol/L) 06/18/19 09:23 32 % 06/18/19 09:23 Sodium 146 mmol/L (137-145) H 06/17/19 04:52 Potassium 4.7 mmol/L (3.6-5.0) 06/17/19 04:52 Chloride 101.5 mmol/L (98-107) 06/17/19 04:52 Carbon Dioxide 33 mmol/L (22-30) H 06/17/19 04:52 16 mmol/L 06/17/19 04:52 BUN 25 mg/dL (9-20) H 06/17/19 04:52 0.9 mg/dL (0.8-1.5) 06/17/19 04:52 Estimated GFR > 60 ml/min 06/17/19 04:52 28 % 06/17/19 04:52 Glucose 143 mg/dL (75-100) H 06/17/19 04:52 6.7 % (4-6) H 06/16/19 Unknown Calcium 9.3 mg/dL (8.4-10.2) 06/17/19 04:52 < 0.20 mg/dL (0.1-1.2) 06/17/19 04:52 AST 13 units/L (5-40) 06/17/19 04:52 ALT 18 units/L (7-56) 06/17/19 04:52 81 units/L (35-129) 06/17/19 04:52 108 units/L (55-170) 06/17/19 07:25 CK-MB (CK-2) 3.0 ng/mL (0.0-4.0) 06/17/19 07:25 CK-MB (CK-2) Rel Index 2.7 (0-4) 06/17/19 07:25 < 0.010 ng/mL (0.00-0.029) 06/17/19 12:58 NT-Pro-B Natriuret Pep 130.4 pg/mL (0-900) 06/16/19 13:35 7.4 g/dL (6.3-8.2) 06/17/19 04:52 4.3 g/dL (3.9-5) 06/17/19 04:52 1.4 % 06/17/19 04:52 Yellow (Yellow) 06/16/19 14:34 Clear (Clear) 06/16/19 14:34 5.0 (5.0-7.0) 06/16/19 14:34 Ur Specific [place] 1.017 (1.003-1.030) 06/16/19 14:34 <15 mg/dl mg/dL (Negative) 06/16/19 14:34 Neg mg/dL (Negative) 06/16/19 14:34 Neg mg/dL (Negative) 06/16/19 14:34 Neg (Negative) 06/16/19 14:34 Neg (Negative) 06/16/19 14:34 Neg (Negative) 06/16/19 14:34 < 2.0 mg/dL (<2.0) 06/16/19 14:34 Ur Leukocyte Esterase Neg (Negative) 06/16/19 14:34 < 1.0 /HPF (0.0-6.0) 06/16/19 14:34 < 1.0 /HPF (0.0-6.0) 06/16/19 14:34 Few /HPF 06/16/19 14:34 Active Medications - Current Medications Current Medications: Generic Name Dose Route Start Last Admin Trade Name Freq PRN Reason Stop Dose Admin Acetaminophen 650 mg 06/16/19 21:27 Tylenol PO Q4H PRN Pain MILD(1-3)/Fever >100.5/CHRISTIAN Albuterol 2.5 mg 06/16/19 21:29 Proventil IH Q4HRT PRN Shortness Of Breath Albuterol/Ipratropium 1 ampul 06/17/19 14:00 06/19/19 07:50 Duoneb *Not For Prn Use* IH 1 ampul TIDRT LEON Administration Amlodipine Besylate 5 mg 06/17/19 10:00 06/18/19 10:58 Norvasc PO 5 mg DAILY LEON Administration Doxazosin Mesylate 4 mg 06/17/19 10:00 06/18/19 10:58 Cardura PO 4 mg QDAY LEON Administration Hydrochlorothiazide 12.5 mg 06/17/19 10:00 06/18/19 10:57 Hctz PO 12.5 mg QDAY LEON Administration Hydromorphone HCl 0.5 mg 06/16/19 21:27 Dilaudid IV Q3H PRN Pain , Severe (7-10) Sodium Chloride 1,000 mls @ 42 mls/hr 06/16/19 22:00 06/18/19 11:07 Nacl 0.9% 1000 Ml IV 42 mls/hr DIRECT LEON Administration Levofloxacin/Dextrose 750 mg in 150 mls @ 100 mls/hr 06/18/19 22:00 06/18/19 22:07 Levaquin 750mg/150ml IV 100 mls/hr DAILY@2200 LEON Administration Protocol Lisinopril 20 mg 06/17/19 10:00 06/18/19 10:58 Zestril PO 20 mg QDAY LEON Administration Metoclopramide HCl 10 mg 06/16/19 21:27 06/17/19 02:09 Reglan IV 10 mg Q6H PRN Administration Nausea And Vomiting Miscellaneous Medication 1 each 06/16/19 21:30 Elviteg/Jannet/Emtric/Tenofo Ala PO DAILY LEON Naproxen 500 mg 06/16/19 22:00 06/19/19 04:54 Naprosyn PO 500 mg Q6H LEON Administration Ondansetron HCl 4 mg 06/16/19 21:27 Zofran IV Q8H PRN Nausea And Vomiting Oxycodone/Acetaminophen 1 tab 06/16/19 21:27 06/17/19 21:34 Percocet 5/325 PO 1 tab Q6H PRN Administration Pain, Moderate (4-6) Pantoprazole Sodium 40 mg 06/17/19 10:00 06/18/19 10:57 Protonix PO 40 mg QDAY LEON Administration Prednisone 20 mg 06/18/19 10:00 06/18/19 10:57 Deltasone PO 06/20/19 23:59 20 mg QDAY LEON Administration Senna/Docusate Sodium 2 tab 06/18/19 21:30 06/18/19 23:49 Senokot S PO 2 tab QHS PRN Administration Laxative Effect Sodium Chloride 10 ml 06/16/19 22:00 06/18/19 22:08 Sodium Chloride Flush Syringe 10 Ml IV 10 ml BID LEON Administration Sodium Chloride 10 ml 06/16/19 21:27 06/18/19 05:39 Sodium Chloride Flush Syringe 10 Ml IV 10 ml PRN PRN Administration LINE FLUSH Tramadol HCl 50 mg 06/16/19 21:25 06/18/19 19:44 Ultram PO 50 mg Q6HR PRN Administration Pain
--- NOTE | 2019-06-19 11:29 | Progress Note ---
Assessment and Plan Acute and chronic hypoxemic respiratory failure AE-COPD Chest pain HIV Right pleural effusion (Suspect significant element of sleep apnea and deconditioning at play here) - consider repeat 2D ECHO to evaluate for worsening pulmonary HTN (especially with HIV history) - add LABA & ICS for clinical COPD - PT/OT - advised outpatient sleep study - weight loss counseled - tobacco abstinence counseled - continue supplemental oxygen to keep oxygen saturations >/= 88-90% - continue Bronchodilators with pulmonary hygiene per RT - s/p Cardiac stress testing - Currently does not appear to be in AE-COPD. - continue Heart failure measures, optimize per cardiology team - VTE prophylaxis - Stop IV steroids - Ultra sound of the right chest wall to better evaluate for a right pleural effusion (no obvious effusion on CT chest) - Incentive spirometry - His current clinical presentation appears to be related to his cardiovascular system. If all testing is negative, get CTA to r/o pulmonary embolism. ... re-evaluate in am & prn Subjective Date of service: 06/19/19 Principal diagnosis: Ac and ch hypoxemic resp failure; AE-COPD; Chest pain; HIV; Obesity Interval history: Patient is seen today for: Acute and chronic hypoxemic respiratory failure; AE- COPD; Chest pain; HIV; Right pleural effusion; Obesity Seen and examined at bedside; 24hour events reviewed; nursing and respiratory care staff consulted; no adverse overnight events reported to me; resting peacefully in bed; states he is still SOB; No N/V/F/C; denies acute chest pains or palpitations; denies a h/o a sleep study but states he has a home CPAP machine Objective Vital Signs - 12hr 06/18/19 06/19/19 06/19/19 23:33 03:57 07:45 Temperature 97.6 F 97.7 F 97.5 F L Pulse Rate 84 83 76 Pulse Rate [ Anterior Bilateral Throughout] Respiratory 20 20 18 Rate Respiratory Rate [Anterior Bilateral Throughout] Blood Pressure 121/67 113/69 129/84 O2 Sat by Pulse 96 95 98 Oximetry 06/19/19 06/19/19 07:52 09:12 Temperature Pulse Rate Pulse Rate [ 90 Anterior Bilateral Throughout] Respiratory Rate Respiratory 20 Rate [Anterior Bilateral Throughout] Blood Pressure O2 Sat by Pulse 95 Oximetry Constitutional: no acute distress, alert, other (elderly obese AAM, normocephalic with mildly increased resp effort at rest) Eyes: non-icteric ENT: oropharynx moist Neck: supple, no lymphadenopathy, no JVD, other (large neck circumference) Effort: mildly labored Ascultation: Bilateral: clear, diminished breath sounds (severely), other (prolonged exp phase) Percussion: Bilateral: not dull Cardiovascular: regular rate and rhythm, other (S1,S2) Gastrointestinal: normoactive bowel sounds, soft, non-tender, non-distended, other (protuberant abdomen) Integumentary: normal Extremities: no cyanosis, no edema, pink and warm, pulses normal, no ischemia or petechiae Neurologic: normal mental status, non-focal exam, pupils equal and round, CN II- XII normal, motor strength normal and Psychiatric: mood appropriate, anxious CBC and BMP: 06/17/19 04:52 06/17/19 04:52 ABG, PT/INR, D-dimer: ABG POC ABG pH 7.468 (7.35-7.45) H 06/18/19 09:23 POC ABG pCO2 42.3 (35-45) 06/18/19 09:23 POC ABG pO2 200 (80-105) H 06/18/19 09:23 POC ABG HCO3 30.6 (22-26 mml/L) 06/18/19 09:23 POC ABG Total CO2 32 (23-27mmol/L) 06/18/19 09:23 POC ABG O2 Sat 100 06/18/19 09:23 Abnormal lab findings: Abnormal Labs 06/16/19 06/16/19 06/16/19 13:35 13:35 Unknown RBC MCV 79 L MCH 25 L MCHC RDW 17.6 H Lymph % (Auto) 12.9 L [place] % (Auto) 8.9 H Lymph # 0.9 L Seg Neutrophils % 76.6 H Seg Neuts % (Manual) Lymphocytes % (Manual) Seg Neutrophils # Man Lymphocytes # (Manual) POC ABG pH POC ABG pO2 Sodium Carbon Dioxide 32 H BUN 23 H Glucose Hemoglobin A1c 6.7 H 06/17/19 06/17/19 06/18/19 04:52 04:52 09:23 RBC 5.09 H MCV 80 L MCH 25 L MCHC 31 L RDW 17.8 H Lymph % (Auto) [place] % (Auto) Lymph # Seg Neutrophils % Seg Neuts % (Manual) 94.0 H Lymphocytes % (Manual) 6.0 L Seg Neutrophils # Man 9.9 H Lymphocytes # (Manual) 0.6 L POC ABG pH 7.468 H POC ABG pO2 200 H Sodium 146 H Carbon Dioxide 33 H BUN 25 H Glucose 143 H Hemoglobin A1c Chest x-ray: image reviewed (NO OBVIOUS ACUTE PROCESS; + RETAINED BULLETS IN CHEST) Allied health notes reviewed: nursing
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
[2019-06-19] MEDS: SODIUM CHLORIDE FLUSH SYRINGE 10 ML IV SCH ×2 (17:51→21:47)
[2019-06-19] MEDS: LEVAQUIN 750MG/150ML 750 MG/150 ML BAG IV SCH (21:37)
[2019-06-19] MEDS: NACL 0.9% 1000 ML 1,000 ML IV SCH (21:37)
[2019-06-20] MEDS: NAPROSYN PO SCH ×2 (03:55→11:11)
[2019-06-20] MEDS: DUONEB *Not for PRN Use IH SCH (09:10)
[2019-06-20] MEDS: ZESTRIL PO SCH (11:08)
[2019-06-20] MEDS: DELTASONE PO SCH (11:08)
[2019-06-20] MEDS: NORVASC PO SCH (11:08)
[2019-06-20] MEDS: HCTZ PO SCH (11:08)
[2019-06-20] MEDS: CARDURA PO SCH (11:08)
[2019-06-20] MEDS: PROTONIX PO SCH (11:10)
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
[2019-06-20] MEDS ORDERED: BROVANA NEBU IH SCH (13:00)
[2019-06-20] MEDS ORDERED: PULMICORT IH SCH (13:00)
[2019-06-20 13:31] VITALS: BP 112/74
== END 2019-06-20 13:46 | disposition home or self-care (01) | DRG 291 ==
LOC: ED 12:50 → 4A 17:04
PROVIDERS: ADMIT Internal Medicine; ATTEND Hospitalist
PROC: 4A033R1 Measurement of Arterial Saturation, Peripheral, Percutaneous Approach (ICD-10-PCS; principal; 2019-06-18)
PROC: 5A09357 Assistance with Respiratory Ventilation, Less than 24 Consecutive Hours, Continuous Positive Airway Pressure (ICD-10-PCS; 2019-06-19)
DX: I11.0 Hypertensive heart disease with heart failure (principal); J96.21 Acute and chronic respiratory failure with hypoxia; J44.1 Chronic obstructive pulmonary disease with (acute) exacerbation; J90 Pleural effusion, not elsewhere classified; I50.43 Acute on chronic combined systolic (congestive) and diastolic (congestive) heart failure; I25.10 Atherosclerotic heart disease of native coronary artery without angina pectoris; Z21 Asymptomatic human immunodeficiency virus [HIV] infection status; E66.9 Obesity, unspecified; E78.5 Hyperlipidemia, unspecified; Z68.36 Body mass index [BMI] 36.0-36.9, adult; Z82.49 Family history of ischemic heart disease and other diseases of the circulatory system; Z95.5 Presence of coronary angioplasty implant and graft; Z99.81 Dependence on supplemental oxygen; Z87.891 Personal history of nicotine dependence; Z71.6 Tobacco abuse counseling; Z71.3 Dietary counseling and surveillance; Z79.899 Other long term (current) drug therapy
CPT/HCPCS: 36415; 36600; 71046; 71275; 76604; 78452; 80053; 81001; 82550; 82553; 82803; 83036; 83880; 84484; 85007; 85025; 85730; 93005; 93010; 93017; 94640; 94644; 94660; 94760; G0378; A9502; J1940; J1956; J2765; J2785; J2930; J3475; J7030; J7512; Q9967

== ENCOUNTER 2019-09-23 16:14 | Inpatient (IN) | payer MEDICARE ==
[2019-09-23] MEDS ORDERED: SODIUM CHLORIDE 0.9% 1000 ML 1,000 ML IV ONE (17:10)
[2019-09-23] MEDS ORDERED: IPRATROPIUM 0.02% NEBU 2.5 ML IH ONE (17:12)
[2019-09-23] MEDS ORDERED: ALBUTEROL 2.5 MG/3 ML NEBU IH ONE (17:12)
[2019-09-23] MEDS ORDERED: methylPREDNISolone Sod Succinate 125 MG/2 ML INJ IV ONE (17:15)
[2019-09-23] MEDS ORDERED: BENZONATATE 100 MG CAP PO ONE (17:15)
[2019-09-23] MEDS ORDERED: ASPIRIN 325 MG TAB PO ONE (17:15)
[2019-09-23] MEDS ORDERED: FAMOTIDINE 20 MG/2 ML INJ IV ONE (17:16)
[2019-09-23] MEDS ORDERED: MAGNESIUM SULFATE 1 GM in SODIUM CHLORIDE 0.9% 50 ML IV ONE (17:30)
[2019-09-23] MEDS ORDERED: MAGNESIUM SULFATE 0 GM/0 ML BAG IV ONE (17:35)
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
[2019-09-23 18:03] LABS: Basophils % (Auto) 0.3 % (0.0-1.8); Eosinophils # (Auto) 0.1 K/mm3 (0.0-0.4); Hematocrit 37.3 % (35.5-45.6); Hemoglobin 11.6 gm/dl (11.8-15.2); Lymphocytes # (Auto) 1.1 K/mm3 (1.2-5.4); Lymphocytes % (Auto) 11.8 % (13.4-35.0); Mean Corpuscular HGB Conc 31 % (32-34); Mean Corpuscular Volume 80 fl (84-94); Monocytes # (Auto) 1.3 K/mm3 (0.0-0.8); Monocytes % (Auto) 14.3 % (0.0-7.3); Platelet Count 171 K/mm3 (140-440); Red Blood Count 4.67 M/mm3 (3.65-5.03)
[2019-09-23 18:18] LABS: Alanine Aminotransferase 12 units/L (7-56); Albumin 3.5 g/dL (3.9-5); BUN/Creatinine Ratio 11; Blood Urea Nitrogen 20 mg/dL (9-20); Calcium 8.8 mg/dL (8.4-10.2); Hemolysis Index 3
--- NOTE | 2019-09-23 18:20 | XRay Report ---
CHEST 1 VIEW 09/23/2019 5:35 PM INDICATION / CLINICAL INFORMATION: Shortness of breath. Chest pain. Hypotension. COMPARISON: 2 views of the chest from 06/16/2019. FINDINGS: SUPPORT DEVICES: None. HEART / MEDIASTINUM: No significant abnormality. LUNGS / PLEURA: Lung volumes are reduced. Generalized bilateral interstitial opacities are noted with probable left basilar atelectasis. No significant pleural effusion. No pneumothorax. ADDITIONAL FINDINGS: No significant additional findings. IMPRESSION: Suspected pulmonary edema with left basilar atelectasis. Signer Name: Marcos Mann MD Signed: 09/23/2019 6:16 PM Workstation Name: [id number]
[2019-09-23 18:30] LABS: Bacteria,Urine 1+ /HPF (Negative); Bilirubin,Urine NEG (Negative); Blood,Urine NEG (Negative); Color,Urine Amber (Yellow); Hyaline Casts,Urine 5 /LPF; Mucus,Urine 1+ /HPF
[2019-09-23] MEDS ORDERED: cefTRIAXone/NS 1 GM/50 ML 1 GM/50 ML BAG IV ONE (19:28)
[2019-09-23] MEDS ORDERED: ACETAMINOPHEN 325 MG TAB PO PRN (19:58)
[2019-09-23] MEDS ORDERED: ALBUTEROL 2.5 MG/3 ML NEBU IH PRN (19:58)
[2019-09-23] MEDS ORDERED: oxyCODONE /ACETAMINOPHEN 5-325MG TAB PO PRN (20:01)
--- NOTE | 2019-09-23 20:02 | History and Physical Report ---
History of Present Illness Chief complaint: Im short of breath, History of present illness: 64 YO Male with HTN, HLD, CAD, COPD, HIV, Nicotine Dependence, Obesity presents to ED for evaluation. Pt states that the has experienced shortness of breath as well as chest discomfort over the past 1 week with persistent symptoms over the same time frame. EMS notified, and upon arrival the patient was found to be in distress and transported to [facility]. Pt seen and evaluated in ED and found to have Bilateral Pneumonia as well as RICK. Pt initiated on Pneumonia protocol, and admitted to medical floor. Pt denies Chest pain at time of my exam, fever, chills, palpitations, NVD, Trauma, hemoptysis, prolonged travel/immobility, I ndividual/Family history of DVT/Bleeding/PE/Blood Clotting Disorders. Prior admission on 06/16/19 reviewed. All listed medication reconciled at time of admission. Past History Past Medical History: other (see hpi) Past Surgical History: Other (Knee surgery) Social history: , lives with family, smoking Family history: hypertension Medications and Allergies Allergies Allergy/AdvReac Type Severity Reaction Status Date / Time No Known Allergies Allergy Verified 05/30/18 16:40 Home Medications Medication Instructions Recorded Confirmed Last Taken Type Elviteg/Jannet/Emtric/Tenofo Ala 1 each PO DAILY 05/25/17 06/16/19 06/16/19 History [Genvoya (Nf)] traMADoL [Ultram 50 MG tab] 50 mg PO Q6HR PRN 05/25/17 06/16/19 06/16/19 History Albuterol Sulfate [Ventolin HFA] 2 puff IH Q4H PRN #30 hfa.aer.ad 12/10/18 06/16/19 06/16/19 Rx Naproxen [Naprosyn TAB] 500 mg PO Q6H 06/16/19 06/16/19 06/16/19 History Albuterol Sulfate [Albuterol 0.63% 0.63 mg IH QID PRN #30 vial.neb 06/20/19 Unknown Rx NEBS] Doxazosin [Cardura] 4 mg PO QDAY #30 tablet 06/20/19 Unknown Rx Lisinopril/Hydrochlorothiazide 1 tab PO QDAY #30 tablet 06/20/19 Unknown Rx [Zestoretic 20-12.5 mg] Pantoprazole [Protonix TAB] 40 mg PO QDAY #30 tablet 06/20/19 Unknown Rx amLODIPine 5 mg PO DAILY #30 tablet 06/20/19 Unknown Rx methylPREDNISolone [Medrol 4MG 4 mg PO DAILY #1 tab.ds.pk 06/20/19 Unknown Rx DOSEPAK (21 tabs)] oxyCODONE /ACETAMINOPHEN [Percocet 1 tab PO Q6H PRN #8 tablet 06/20/19 Unknown Rx 5/325 mg] Active Meds: Active Medications Ceftriaxone Sodium (Rocephin/Ns 1 Gm/50 Ml) 1 gm in 50 mls @ 100 mls/hr IV ONCE ONE; Protocol Stop: 09/23/19 19:57 Review of Systems Constitutional: no weight loss, no weight gain, no fever, no chills Ears, nose, mouth and throat: no ear pain, no ear discharge, no tinnitis, no decreased hearing, no nose pain Cardiovascular: shortness of breath, no chest pain, no orthopnea, no palpitations Respiratory: no cough, no cough with sputum, no hemoptysis, no dyspnea on exertion Gastrointestinal: no nausea, no vomiting, no diarrhea Genitourinary Male: no hematuria, no flank pain, no discharge, no urinary frequency, no urinary hesitancy Rectal: no pain, no incontinence, no bleeding Musculoskeletal: no neck stiffness, no neck pain, no shooting arm pain, no low back pain Integumentary: no rash, no pruritis, no redness, no sores, no wounds Neurological: no transient paralysis, no paralysis, no weakness, no parathesias, no numbness, no tingling Psychiatric: no anxiety, no memory loss, no change in sleep habits, no insomnia, no change in appetite, no change in libido Endocrine: no cold intolerance, no heat intolerance, no polyphagia, no excessive thirst, no polydipsia, no excessive sweating Hematologic/Lymphatic: no easy bruising, no lymphadenopathy Allergic/Immunologic: no urticaria, no allergic rhinitis, no persistent infections, no anaphylaxis Exam - Constitutional Vitals: Temp Pulse Resp BP Pulse Ox 98.2 F 89 27 H 115/65 96 09/23/19 16:31 09/23/19 19:31 09/23/19 19:31 09/23/19 19:31 09/23/19 19:31 General appearance: Present: mild distress, obese - EENT Eyes: Present: PERRL ENT: hearing intact, clear oral mucosa - Neck Neck: Present: supple, normal ROM - Respiratory Respiratory effort: normal Respiratory: bilateral: diminished, rhonchi - Cardiovascular Heart Sounds: Present: S1 & S2. Absent: rub, click - Extremities Extremities: pulses symmetrical, No edema Peripheral Pulses: within normal limits - Abdominal General gastrointestinal: Present: soft, non-tender, non-distended, normal bowel sounds Male genitourinary: Present: normal - Integumentary Integumentary: Present: clear, warm, dry - Musculoskeletal Musculoskeletal: gait normal, strength equal bilaterally - Psychiatric Psychiatric: appropriate mood/affect, intact judgment & insight - Neurologic Neurologic: CNII-XII intact, moves all extremities Results - Labs CBC & Chem 7: 09/23/19 17:43 09/23/19 17:43 Labs: Abnormal lab results 09/23/19 09/23/19 09/23/19 Range/Units 17:43 17:43 17:43 Hgb 11.6 L (11.8-15.2) gm/dl MCV 80 L (84-94) fl MCH 25 L (28-32) pg MCHC 31 L (32-34) % RDW 17.0 H (13.2-15.2) % Lymph % (Auto) 11.8 L (13.4-35.0) % [place] % (Auto) 14.3 H (0.0-7.3) % Lymph # 1.1 L (1.2-5.4) K/mm3 [place] # 1.3 H (0.0-0.8) K/mm3 Seg Neutrophils % 72.6 H (40.0-70.0) % Chloride 95.5 L (98-107) mmol/L Creatinine 1.8 H (0.8-1.5) mg/dL Glucose 113 H (75-100) mg/dL Lactic Acid 2.40 H* (0.7-2.0) mmol/L Albumin 3.5 L (3.9-5) g/dL Urine WBC (Auto) (0.0-6.0) /HPF 09/23/19 Range/Units 17:58 Hgb (11.8-15.2) gm/dl MCV (84-94) fl MCH (28-32) pg MCHC (32-34) % RDW (13.2-15.2) % Lymph % (Auto) (13.4-35.0) % [place] % (Auto) (0.0-7.3) % Lymph # (1.2-5.4) K/mm3 [place] # (0.0-0.8) K/mm3 Seg Neutrophils % (40.0-70.0) % Chloride (98-107) mmol/L Creatinine (0.8-1.5) mg/dL Glucose (75-100) mg/dL Lactic Acid (0.7-2.0) mmol/L Albumin (3.9-5) g/dL Urine WBC (Auto) 8.0 H (0.0-6.0) /HPF Assessment and Plan - Patient Problems (1) Pneumonia Current Visit: Yes Status: Acute Qualifiers: Laterality: bilateral Lung location: lower lobe of lung Plan to address problem: Pneumonia protocol: Chest x ray, supplemental oxygen, nebulizer therapy, pulse oximetry, NIPPV as clinically indicated, CBC, CMP, VQ scan, IV antibiotic therapy, (2) RICK (acute kidney injury) Current Visit: Yes Status: Acute Plan to address problem: IVF resuscitation therapy, monitor uop q shift, supportive care, repeat bmp (3) COPD (chronic obstructive pulmonary disease) Current Visit: Yes Status: Acute Qualifiers: Chronic bronchitis type: unspecified Plan to address problem: supportive care, pulse oximetry (4) Obesity hypoventilation syndrome Current Visit: Yes Status: Acute Plan to address problem: supplemental oxygen, nebulizer therapy, pulse oximetry, NIPPV as clinically indicated, chest x ray (5) HIV (human immunodeficiency virus infection) Current Visit: Yes Status: Chronic Qualifiers: Plan to address problem: continue HAART therapy, outpatient ID F/u care. (6) HLD (hyperlipidemia) Current Visit: Yes Status: Acute Qualifiers: Hyperlipidemia type: mixed hyperlipidemia Qualified Code(s): E78.2 - Mixed hyperlipidemia Plan to address problem: lipid therapy, statin therapy, supportive care. (7) HTN (hypertension) Current Visit: Yes Status: Acute Qualifiers: Hypertension type: essential hypertension Qualified Code(s): I10 - Essential (primary) hypertension Plan to address problem: Monitor BP q shift, (8) Nicotine dependence Current Visit: Yes Status: Acute Qualifiers: Nicotine product type: unspecified Plan to address problem: supportive care, smoking cessation counseling, +15min (9) DVT prophylaxis Current Visit: No Status: Acute Plan to address problem: SCD to BLE while in bed, Pt ambulatory
[2019-09-23] MEDS: NAPROXEN 500 MG TAB PO SCH (23:51)
[2019-09-24] MEDS: NAPROXEN 500 MG TAB PO SCH ×4 (04:02→21:35)
[2019-09-24 05:48] LABS: Hematocrit 37.1 % (35.5-45.6); Hemoglobin 11.6 gm/dl (11.8-15.2); Mean Corpuscular HGB Conc 31 % (32-34); Mean Corpuscular Volume 80 fl (84-94); Platelet Count 180 K/mm3 (140-440); Red Blood Count 4.64 M/mm3 (3.65-5.03); Red Cell Distribution Width 17.3 % (13.2-15.2)
[2019-09-24 06:16] LABS: Alanine Aminotransferase 13 units/L (7-56); Albumin 3.9 g/dL (3.9-5); BUN/Creatinine Ratio 19; Blood Urea Nitrogen 23 mg/dL (9-20); Calcium 8.9 mg/dL (8.4-10.2); Hemolysis Index 5
[2019-09-24 07:02] LABS: Basophils % (Manual) 0 % (0.0-1.8); Eosinophils % (Manual) 0 % (0.0-4.3); Platelet Estimate Consistent w Auto; Total Cells Counted 100
--- NOTE | 2019-09-24 08:19 | Nuclear Medicine Report ---
PERFUSION PULMONARY SCINTIGRAPHY HISTORY: Dyspnea, difficulty breathing COMPARISON: 09/23/2019 at 1731 hours chest radiograph. TECHNIQUE: Radiopharmaceutical was inhaled. Tc-99m-MAA was then injected. Ventilation and perfusion images were acquired. RADIOPHARMACEUTICAL: 5.2 mCi of Tc-99m-MAA injected FINDINGS: PERFUSION: No significant segmental or non-segmental defect. Additional Findings: None. IMPRESSION: 1. Low probability for pulmonary embolism. Signer Name: Felipe Sales Jr, MD Signed: 09/24/2019 8:14 AM Workstation Name: [id number]
--- NOTE | 2019-09-24 09:28 | Consultation ---
History of Present Illness Consult date: 09/24/19 Reason for consult: dyspnea, cough, chest pain, COPD History of present illness: Pulmonary and critical care consultation Dr. Up thank you for asking us to participate in the care of this patient. 64 YO Male with HTN, HLD, CAD, COPD, HIV, Nicotine Dependence, Obesity presents to ED for evaluation. Pt states that the has experienced shortness of breath as well as chest discomfort over the past 1 week with persistent symptoms over the same time frame. EMS notified, and upon arrival the patient was found to be in distress and transported to [facility]. Pt seen and evaluated in ED and found to have Bilateral Pneumonia as well as RICK. Pt initiated on Pneumonia protocol, and admitted to medical floor. Pt denies at time of my exam, fever, chills, palpitations, NVD, Trauma, hemoptysis, prolonged travel/immobility, Individual/Family history of DVT/Bleeding/PE/Blood Clotting Disorders. Patient is still complaining of shortness of breath, cough and pluritic like chest pain. patient has history of smoking 2 packs for 20 years. Patient states he stopped smoking 1 year ago. Denies Alcohol or drug use. 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 No known Drug allergies and has 2 children. Patient presently resting on 4 litres of O2, O2 Saturation is 95%. Chest X-ray reported suspected pulmonary edema and left basilar atelectsis V/Q scan reported low probability for Pulmonary Embolism. Past History Past Medical History: CAD, COPD, HIV/AIDS, hypertension, hyperlipidemia, other (see hpi) Past Surgical History: Other (Knee surgery) Social history: , lives with family, smoking Family history: hypertension Medications and Allergies Allergies Allergy/AdvReac Type Severity Reaction Status Date / Time No Known Allergies Allergy Verified 05/30/18 16:40 Home Medications Medication Instructions Recorded Confirmed Last Taken Type Elviteg/Jannet/Emtric/Tenofo Ala 1 each PO DAILY 05/25/17 09/23/19 09/23/19 History [Genvoya (Nf)] traMADoL [Ultram 50 MG tab] 50 mg PO Q6HR PRN 05/25/17 09/23/19 06/16/19 History Albuterol Sulfate [Ventolin HFA] 2 puff IH Q4H PRN #30 hfa.aer.ad 02/10/1609/23/19 09/23/19 Rx Naproxen [Naprosyn TAB] 500 mg PO Q6H 06/16/19 09/23/19 06/16/19 History Albuterol Sulfate [Albuterol 0.63% 0.63 mg IH QID PRN #30 vial.neb 06/20/19 09/23/19 09/23/19 Rx NEBS] Doxazosin [Cardura] 4 mg PO QDAY #30 tablet 06/20/19 09/23/19 09/23/19 Rx Lisinopril/Hydrochlorothiazide 1 tab PO QDAY #30 tablet 06/20/19 09/23/19 Unknown Rx [Zestoretic 20-12.5 mg] Pantoprazole [Protonix TAB] 40 mg PO QDAY #30 tablet 06/20/19 09/23/19 09/23/19 Rx amLODIPine 5 mg PO DAILY #30 tablet 06/20/19 09/23/19 09/23/19 Rx methylPREDNISolone [Medrol 4MG 4 mg PO DAILY #1 tab.ds.pk 06/20/19 09/23/19 Unknown Rx DOSEPAK (21 tabs)] oxyCODONE /ACETAMINOPHEN [Percocet 1 tab PO Q6H PRN #8 tablet 06/20/19 09/23/19 Unknown Rx 5/325 mg] Active Meds: Active Medications Acetaminophen (Tylenol) 650 mg PO Q4H PRN PRN Reason: Pain MILD(1-3)/Fever >100.5/CHRISTIAN Albuterol (Proventil) 2.5 mg IH Q4HRT PRN PRN Reason: Shortness Of Breath Amlodipine Besylate (Amlodipine) 5 mg PO DAILY LEON Doxazosin Mesylate (Cardura) 4 mg PO QDAY LEON Hydrochlorothiazide (Hctz) 12.5 mg PO QDAY [facility] Ceftriaxone Sodium (Rocephin/Ns 2 Gm/100 Ml) 2 gm in 100 mls @ 200 mls/hr IV Q24HR LEON; Protocol Azithromycin 500 mg/ Sodium (Chloride) 250 mls @ 250 mls/hr IV Q24HR LEON; Protocol Lisinopril (Zestril) 20 mg PO QDAY [facility] Miscellaneous Medication (Elviteg/Jannet/Emtric/Tenofo Ala) 1 each PO DAILY [facility] Naproxen (Naproxen) 500 mg PO Q6H [facility] Last Admin: 09/24/19 04:02 Dose: 500 mg Documented by: Ondansetron HCl (Zofran) 4 mg IV Q8H PRN PRN Reason: Nausea And Vomiting Oxycodone/Acetaminophen (Percocet 5/325) 1 tab PO Q6H PRN PRN Reason: Pain, Moderate (4-6) Last Admin: 09/24/19 04:01 Dose: 1 tab Documented by: Pantoprazole Sodium (Protonix) 40 mg PO QDAY [facility] Sodium Chloride (Sodium Chloride Flush Syringe 10 Ml) 10 ml IV BID [facility] Last Admin: 09/23/19 23:51 Dose: 10 ml Documented by: Sodium Chloride (Sodium Chloride Flush Syringe 10 Ml) 10 ml IV PRN PRN PRN Reason: LINE FLUSH Review of Systems All systems: negative Physical Examination Vital signs: Vital Signs Pulse Resp Pulse Ox 91 H 22 98 09/23/19 16:26 09/23/19 16:26 09/23/19 16:26 General appearance: no acute distress, alert Eyes: non-icteric ENT: oropharynx moist Neck: supple, no JVD Ascultation: Bilateral: diminished breath sounds, other (prolonged expiratory phase ) Cardiovascular: regular rate and rhythm Gastrointestinal: normoactive bowel sounds, soft, non-tender Integumentary: normal Extremities: no cyanosis, no edema Musculoskeletal: no deformities normal mental status, non-focal exam, pupils equal and round mood appropriate, affect normal Results - Laboratory Findings CBC and BMP: 09/24/19 05:00 09/24/19 05:00 Abnormal lab findings: Abnormal Labs 09/23/19 09/23/19 09/23/19 17:43 17:43 17:43 Hgb 11.6 L MCV 80 L MCH 25 L MCHC 31 L RDW 17.0 H Lymph % (Auto) 11.8 L Grant % (Auto) 14.3 H Lymph # 1.1 L Grant # 1.3 H Seg Neutrophils % 72.6 H Seg Neuts % (Manual) Lymphocytes % (Manual) Seg Neutrophils # Man Lymphocytes # (Manual) Chloride 95.5 L BUN Creatinine 1.8 H Glucose 113 H Lactic Acid 2.40 H* Albumin 3.5 L Urine WBC (Auto) 09/23/19 09/24/19 09/24/19 17:58 05:00 05:00 Hgb 11.6 L MCV 80 L MCH 25 L MCHC 31 L RDW 17.3 H Lymph % (Auto) Grant % (Auto) Lymph # Grant # Seg Neutrophils % Seg Neuts % (Manual) 94.0 H Lymphocytes % (Manual) 4.0 L Seg Neutrophils # Man 10.2 H Lymphocytes # (Manual) 0.4 L Chloride 97.0 L BUN 23 H Creatinine Glucose 269 H Lactic Acid Albumin Urine WBC (Auto) 8.0 H - Diagnostic Findings Chest x-ray: report reviewed (Reported suspected pulmonary edema and left basilar atelectasis.), image reviewed Additional studies: V/Q scan reported low probability for pulmonary emboli. Assessment and Plan 64 YO Male with HTN, HLD, CAD, COPD, HIV, Nicotine Dependence, Obesity presents to ED for evaluation. Pt states that the has experienced shortness of breath as well as chest discomfort over the past 1 week with persistent symptoms over the same time frame. EMS notified, and upon arrival the patient was found to be in distress and transported to [facility]. Pt seen and evaluated in ED and found to have Bilateral Pneumonia as well as RICK. Pt initiated on Pneumonia protocol, and admitted to medical floor. Pt denies at time of my exam, fever, chills, palpitations, NVD, Trauma, hemoptysis, prolonged travel/immobility, Individual/Family history of DVT/Bleeding/PE/Blood Clotting Disorders. Patient is still complaining of shortness of breath, cough and pluritic like chest pain. patient has history of smoking 2 packs for 20 years. Patient states he stopped smoking 1 year ago. Denies Alcohol or drug use. 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 No known Drug allergies and has 2 children. Patient presently resting on 4 litres of O2, O2 Saturation is 95%. Chest X-ray reported suspected pulmonary edema and left basilar atelectsis V/Q scan reported low probability for Pulmonary Embolism - Patient Problems (1) COPD with acute exacerbation Current Visit: Yes Status: Acute Plan to address problem: O2 4 Litres via nasal cannula ABGs and O2 Albuterol/Artovent aerosol treatment q6 hrs recommend IV solumedrol 60 mg IV 18 hrs continue ceftraxon and Azithromax Continue on protonix Recommend DVT prophylaxis Sub-q lovonox (2) RICK (acute kidney injury) Current Visit: Yes Status: Acute Plan to address problem: management as per nephrology (3) Acute bronchitis Current Visit: Yes Status: Acute Plan to address problem: continue ceftriaxon and azithromax (4) Chest pain Current Visit: Yes Status: Acute Plan to address problem: appears pleuritic in nature (5) HTN (hypertension) Current Visit: Yes Status: Acute Qualifiers: Hypertension type: essential hypertension Qualified Code(s): I10 - Essential (primary) hypertension Plan to address problem: management as per primary care team (6) Nicotine dependence Current Visit: Yes Status: Acute Qualifiers: Nicotine product type: unspecified Plan to address problem: three affiliated to stop smoking (7) HIV (human immunodeficiency virus infection) Current Visit: Yes Status: Chronic Qualifiers: Plan to address problem: Management as per infectious disease
[2019-09-24] MEDS: cefTRIAXone/NS 2 GM/100 ML 2 GM/100 ML BAG IV SCH (09:56)
[2019-09-24] MEDS: LISINOPRIL 20 MG TAB PO SCH (09:57)
[2019-09-24] MEDS: PANTOPRAZOLE 40 MG TAB PO SCH (09:57)
[2019-09-24] MEDS: amLODIPine 5 MG TAB PO SCH (09:57)
[2019-09-24] MEDS: hydroCHLOROthiazide 12.5 MG CAP PO SCH (09:57)
[2019-09-24] MEDS: DOXAZOSIN 4 MG TAB PO SCH (09:57)
[2019-09-24] MEDS ORDERED: NON-FORMULARY EACH (Lisinopril/Hydrochlorothiazide [Zestoretic 20-12.5 Mg] 1 TAB) PO SCH (10:00)
[2019-09-24] MEDS ORDERED: [UNRECOGNIZED DRUG - OTHER] PO SCH (10:00)
[2019-09-24] MEDS: AZITHROMYCIN 500 MG in SODIUM CHLORIDE 0.9% 250ML 250 ML IV SCH (10:36)
--- NOTE | 2019-09-24 11:57 | Progress Note ---
Assessment and Plan Assessment and plan: Pneumonia Pneumonia protocol: Chest x ray, supplemental oxygen, nebulizer therapy, pulse oximetry, NIPPV as clinically indicated, CBC, CMP, IV antibiotic therapy, Consult Pulm, ID physician RICK (acute kidney injury) due to vasomotor nephropathy IVF resuscitation therapy, monitor uop q shift, supportive care, repeat bmp COPD (chronic obstructive pulmonary disease) supportive care, pulse oximetry Obesity hypoventilation syndrome supplemental oxygen, nebulizer therapy, pulse oximetry, NIPPV as clinically indicated, chest x ray HIV (human immunodeficiency virus infection) continue HAART therapy, outpatient ID F/u care. Hyperlipidemia lipid therapy, statin therapy, supportive care. Hypertension Monitor BP q shift, Nicotine dependence supportive care, smoking cessation counseling, +15min DVT prophylaxis SCD to BLE while in bed, Pt ambulatory History Interval history: shortness of breath Hospitalist Physical - Physical exam Narrative exam: Gen: Not in acute distress, sitting up in chair, obese HEENT: Normocephalic, atraumatic Neck: supple, no JVD Heart: S1 and S2 reg, no murmurs, rubs or gallop Lungs: Bilateral crackles, No wheeze Abd: soft, non tender, non distended, normal BS, Ext: No edema, no clubbing, no cyanosis Neuro: Awake, alert, oriented X 3, moves all ext - Constitutional Vitals: Temp Pulse Resp BP Pulse Ox 97.5 F L 74 20 154/95 95 09/24/19 04:24 09/24/19 04:24 09/24/19 04:24 09/24/19 04:24 09/24/19 04:24 General appearance: Present: mild distress, obese Results - Labs CBC & Chem 7: 09/24/19 05:00 09/24/19 05:00 Labs: Laboratory Last Values WBC 10.8 K/mm3 (4.5-11.0) 09/24/19 05:00 RBC 4.64 M/mm3 (3.65-5.03) 09/24/19 05:00 Hgb 11.6 gm/dl (11.8-15.2) L 09/24/19 05:00 Hct 37.1 % (35.5-45.6) 09/24/19 05:00 MCV 80 fl (84-94) L 09/24/19 05:00 MCH 25 pg (28-32) L 09/24/19 05:00 MCHC 31 % (32-34) L 09/24/19 05:00 RDW 17.3 % (13.2-15.2) H 09/24/19 05:00 Plt Count 180 K/mm3 (140-440) 09/24/19 05:00 Lymph % (Auto) 11.8 % (13.4-35.0) L 09/23/19 17:43 [place] % (Auto) 14.3 % (0.0-7.3) H 09/23/19 17:43 Eos % (Auto) 1.0 % (0.0-4.3) 09/23/19 17:43 Baso % (Auto) 0.3 % (0.0-1.8) 09/23/19 17:43 Lymph # 1.1 K/mm3 (1.2-5.4) L 09/23/19 17:43 [place] # 1.3 K/mm3 (0.0-0.8) H 09/23/19 17:43 Eos # 0.1 K/mm3 (0.0-0.4) 09/23/19 17:43 Baso # 0.0 K/mm3 (0.0-0.1) 09/23/19 17:43 Add Manual Diff Complete 09/24/19 05:00 Total Counted 100 09/24/19 05:00 Seg Neutrophils % Glue Mounter Operator 09/24/19 05:00 Seg Neuts % (Manual) 94.0 % (40.0-70.0) H 09/24/19 05:00 Band Neutrophils % 0 % 09/24/19 05:00 Lymphocytes % (Manual) 4.0 % (13.4-35.0) L 09/24/19 05:00 Reactive Lymphs % (Man) 0 % 09/24/19 05:00 Monocytes % (Manual) 1.0 % (0.0-7.3) 09/24/19 05:00 Eosinophils % (Manual) 0 % (0.0-4.3) 09/24/19 05:00 Basophils % (Manual) 0 % (0.0-1.8) 09/24/19 05:00 Metamyelocytes % 1.0 % 09/24/19 05:00 Myelocytes % 0 % 09/24/19 05:00 Promyelocytes % 0 % 09/24/19 05:00 Blast Cells % 0 % 09/24/19 05:00 Nucleated RBC % Not Reportable 09/24/19 05:00 Seg Neutrophils # 6.7 K/mm3 (1.8-7.7) 09/23/19 17:43 Seg Neutrophils # Man 10.2 K/mm3 (1.8-7.7) H 09/24/19 05:00 Band Neutrophils # 0.0 K/mm3 09/24/19 05:00 Lymphocytes # (Manual) 0.4 K/mm3 (1.2-5.4) L 09/24/19 05:00 Abs React Lymphs (Man) 0.0 K/mm3 09/24/19 05:00 Monocytes # (Manual) 0.1 K/mm3 (0.0-0.8) 09/24/19 05:00 Eosinophils # (Manual) 0.0 K/mm3 (0.0-0.4) 09/24/19 05:00 Basophils # (Manual) 0.0 K/mm3 (0.0-0.1) 09/24/19 05:00 Metamyelocytes # 0.1 K/mm3 09/24/19 05:00 Myelocytes # 0.0 K/mm3 09/24/19 05:00 Promyelocytes # 0.0 K/mm3 09/24/19 05:00 Blast Cells # 0.0 K/mm3 09/24/19 05:00 WBC Morphology Not Reportable 09/24/19 05:00 Hypersegmented Neuts Not Reportable 09/24/19 05:00 Hyposegmented Neuts Not Reportable 09/24/19 05:00 Hypogranular Neuts Not Reportable 09/24/19 05:00 Smudge Cells Not Reportable 09/24/19 05:00 Toxic Granulation Not Reportable 09/24/19 05:00 Toxic Vacuolation Not Reportable 09/24/19 05:00 Dohle Bodies Not Reportable 09/24/19 05:00 Pelger-Huet Anomaly Not Reportable 09/24/19 05:00 Davina Rods Not Reportable 09/24/19 05:00 Platelet Estimate Consistent w auto 09/24/19 05:00 Clumped Platelets Not Reportable 09/24/19 05:00 Plt Clumps, EDTA Not Reportable 09/24/19 05:00 Large Platelets Not Reportable 09/24/19 05:00 Giant Platelets Not Reportable 09/24/19 05:00 Platelet Satelliting Not Reportable 09/24/19 05:00 Plt Morphology Comment Not Reportable 09/24/19 05:00 RBC Morphology Not Reportable 09/24/19 05:00 Dimorphic RBCs Not Reportable 09/24/19 05:00 Polychromasia Not Reportable 09/24/19 05:00 Hypochromasia Not Reportable 09/24/19 05:00 Poikilocytosis Not Reportable 09/24/19 05:00 Anisocytosis Not Reportable 09/24/19 05:00 Microcytosis Not Reportable 09/24/19 05:00 Macrocytosis Not Reportable 09/24/19 05:00 Spherocytes Not Reportable 09/24/19 05:00 Pappenheimer Bodies Not Reportable 09/24/19 05:00 Sickle Cells Not Reportable 09/24/19 05:00 Target Cells Not Reportable 09/24/19 05:00 Tear Drop Cells Not Reportable 09/24/19 05:00 Ovalocytes Not Reportable 09/24/19 05:00 Helmet Cells Not Reportable 09/24/19 05:00 [place] Bodies Not Reportable 09/24/19 05:00 [place] Rings Not Reportable 09/24/19 05:00 Marisa Cells Not Reportable 09/24/19 05:00 Bite Cells Not Reportable 09/24/19 05:00 Crenated Cell Not Reportable 09/24/19 05:00 Elliptocytes Not Reportable 09/24/19 05:00 Acanthocytes (Spur) Not Reportable 09/24/19 05:00 Rouleaux Not Reportable 09/24/19 05:00 Hemoglobin C Crystals Not Reportable 09/24/19 05:00 Schistocytes Not Reportable 09/24/19 05:00 Malaria parasites Not Reportable 09/24/19 05:00 [place] Bodies Not Reportable 09/24/19 05:00 Hem Pathologist Commnt No 09/24/19 05:00 Sodium 141 mmol/L (137-145) 09/24/19 05:00 Potassium 4.3 mmol/L (3.6-5.0) 09/24/19 05:00 Chloride 97.0 mmol/L (98-107) L 09/24/19 05:00 Carbon Dioxide 26 mmol/L (22-30) 09/24/19 05:00 Anion Gap 22 mmol/L 09/24/19 05:00 BUN 23 mg/dL (9-20) H 09/24/19 05:00 Creatinine 1.2 mg/dL (0.8-1.5) 09/24/19 05:00 Estimated GFR > 60 ml/min 09/24/19 05:00 BUN/Creatinine Ratio 19 % 09/24/19 05:00 Glucose 269 mg/dL (75-100) H 09/24/19 05:00 Lactic Acid 1.60 mmol/L (0.7-2.0) 09/23/19 19:34 Calcium 8.9 mg/dL (8.4-10.2) 09/24/19 05:00 Total Bilirubin < 0.20 mg/dL (0.1-1.2) 09/24/19 05:00 AST 10 units/L (5-40) 09/24/19 05:00 ALT 13 units/L (7-56) 09/24/19 05:00 Alkaline Phosphatase 74 units/L (35-129) 09/24/19 05:00 Troponin T < 0.010 ng/mL (0.00-0.029) 09/23/19 19:34 Total Protein 7.1 g/dL (6.3-8.2) 09/24/19 05:00 Albumin 3.9 g/dL (3.9-5) 09/24/19 05:00 Albumin/Globulin Ratio 1.2 % 09/24/19 05:00 Urine Color Viky (Yellow) 09/23/19 17:58 Urine Turbidity Cloudy (Clear) 09/23/19 17:58 Urine pH 5.0 (5.0-7.0) 09/23/19 17:58 Ur Specific [place] 1.024 (1.003-1.030) 09/23/19 17:58 Urine Protein 100 mg/dl mg/dL (Negative) 09/23/19 17:58 Urine Glucose (UA) Neg mg/dL (Negative) 09/23/19 17:58 Urine Ketones Neg mg/dL (Negative) 09/23/19 17:58 Urine Blood Neg (Negative) 09/23/19 17:58 Urine Nitrite Neg (Negative) 09/23/19 17:58 Urine Bilirubin Neg (Negative) 09/23/19 17:58 Urine Urobilinogen 2.0 mg/dL (<2.0) 09/23/19 17:58 Ur Leukocyte Esterase Neg (Negative) 09/23/19 17:58 Urine WBC (Auto) 8.0 /HPF (0.0-6.0) H 09/23/19 17:58 Urine RBC (Auto) 4.0 /HPF (0.0-6.0) 09/23/19 17:58 U Epithel Cells (Auto) 1.0 /HPF (0-13.0) 09/23/19 17:58 Urine Bacteria (Auto) 1+ /HPF (Negative) 09/23/19 17:58 Hyaline Casts 5 /LPF 09/23/19 17:58 Urine Mucus 1+ /HPF 09/23/19 17:58 Urine Yeast (Budding) Few /HPF 09/23/19 17:58 Active Medications - Current Medications Current Medications: Generic Name Dose Route Start Last Admin Trade Name Freq PRN Reason Stop Dose Admin Acetaminophen 650 mg 09/23/19 19:58 Tylenol PO Q4H PRN Pain MILD(1-3)/Fever >100.5/CHRISTIAN Albuterol 2.5 mg 09/23/19 19:58 Proventil IH Q4HRT PRN Shortness Of Breath Amlodipine Besylate 5 mg 09/24/19 10:00 09/24/19 09:57 Amlodipine PO 5 mg DAILY LEON Administration Doxazosin Mesylate 4 mg 09/24/19 10:00 09/24/19 09:57 Cardura PO 4 mg QDAY LEON Administration Hydrochlorothiazide 12.5 mg 09/24/19 10:00 09/24/19 09:57 Hctz PO 12.5 mg QDAY LEON Administration Ceftriaxone Sodium 2 gm in 100 mls @ 200 mls/hr 09/24/19 10:00 09/24/19 09:56 Rocephin/Ns 2 Gm/100 Ml IV 200 mls/hr Q24HR LEON Administration Protocol Azithromycin 500 mg/ Sodium 250 mls @ 250 mls/hr 09/24/19 10:00 09/24/19 10:36 Chloride IV 250 mls/hr Q24HR LENO Administration Protocol Lisinopril 20 mg 09/24/19 10:00 09/24/19 09:57 Zestril PO 20 mg QDAY LEON Administration Miscellaneous Medication 1 each 09/24/19 10:00 Elviteg/Jannet/Emtric/Tenofo Ala PO DAILY LEON Naproxen 500 mg 09/23/19 21:00 09/24/19 09:56 Naproxen PO 500 mg Q6H LEON Administration Ondansetron HCl 4 mg 09/23/19 19:58 Zofran IV Q8H PRN Nausea And Vomiting Oxycodone/Acetaminophen 1 tab 09/23/19 20:01 09/24/19 04:01 Percocet 5/325 PO 1 tab Q6H PRN Administration Pain, Moderate (4-6) Pantoprazole Sodium 40 mg 09/24/19 10:00 09/24/19 09:57 Protonix PO 40 mg QDAY LEON Administration Sodium Chloride 10 ml 09/23/19 22:00 09/24/19 09:58 Sodium Chloride Flush Syringe 10 Ml IV 10 ml BID LEON Administration Sodium Chloride 10 ml 09/23/19 19:58 Sodium Chloride Flush Syringe 10 Ml IV PRN PRN LINE FLUSH Nutrition/Malnutrition Assess - Dietary Evaluation Nutrition/Malnutrition Findings: Nutrition Notes Start: 09/24/19 08:16 Freq: Status: Active Protocol: Document 09/24/19 08:16 LP (Rec: 09/24/19 08:17 LP [id number]) Nutrition Notes Initial or Follow up Brief Note Height 5 ft 8 in Weight 113 kg [place] Body Weight (kg) 70.00 BMI 37.8 Subjective/Other Information Wt incorrect in chart. Nutrition Intervention Revisit per MD consult or patient Sign Off request:
--- NOTE | 2019-09-24 12:08 | Consultation ---
History of Present Illness - Reason for Consult Consult date: 09/24/19 - History of Present Illness 64 yo M PMhx HIV, HTN, CAD, COPD admitted for SOB and chest discomfort. Patient was picked up by EMS and found to be in distress and as such brought to the ER. He otherwise denies fevers, sweats, chills. No other complaints at this time. He was found to have bilateral pneumonia and and RICK. Complains of leg myalgias, acute on chronic. Regarding his HIV he was diagnosed approximately 15-20 years ago. Currently well controlled with Genvoya. Last CD4 >700, undetectable. Afebrile since admission, normal white count. Currently receiving ceftriaxone and azithromycin. Blood and urine cultures pending. Imaging personally reviewed: CXR - pulmonary edema and L basilar atelectasis Review of systems: Bold if positive; otherwise negative GENERAL: fever, chills, weight loss, fatigue, night sweats EYES: blurry vision, eye pain HENT: headache, hearing loss, sore throat, dysphagia, sinus pain CARDIO: chest pain, palpitations, orthopnea PULM: shortness of breath, wheezing, cough, sputum, hemoptysis GI: nausea, vomiting, diarrhea, abdominal pain, blood in stool : urinary frequency, urgency, dysuria, urethral discharge MSK: joint pain, back pain, swelling SKIN: rash, redness HEME: easy bruising, bleeding Past History Past Medical History: other (see hpi) Past Surgical History: Other (Knee surgery) Social history: , lives with family, smoking Family history: hypertension Medications and Allergies Allergies Allergy/AdvReac Type Severity Reaction Status Date / Time No Known Allergies Allergy Verified 05/30/18 16:40 Home Medications Medication Instructions Recorded Confirmed Last Taken Type Elviteg/Jannet/Emtric/Tenofo Ala 1 each PO DAILY 05/25/17 09/23/19 09/23/19 History [Genvoya (Nf)] traMADoL [Ultram 50 MG tab] 50 mg PO Q6HR PRN 05/25/17 09/23/19 06/16/19 History Albuterol Sulfate [Ventolin HFA] 2 puff IH Q4H PRN #30 hfa.aer.ad 12/10/18 09/23/19 09/23/19 Rx Naproxen [Naprosyn TAB] 500 mg PO Q6H 06/16/19 09/23/19 06/16/19 History Albuterol Sulfate [Albuterol 0.63% 0.63 mg IH QID PRN #30 vial.neb 06/20/19 09/23/19 09/23/19 Rx NEBS] Doxazosin [Cardura] 4 mg PO QDAY #30 tablet 06/20/19 09/23/19 09/23/19 Rx Lisinopril/Hydrochlorothiazide 1 tab PO QDAY #30 tablet 06/20/19 09/23/19 Unknown Rx [Zestoretic 20-12.5 mg] Pantoprazole [Protonix TAB] 40 mg PO QDAY #30 tablet 06/20/19 09/23/19 09/23/19 Rx amLODIPine 5 mg PO DAILY #30 tablet 06/20/19 09/23/19 09/23/19 Rx methylPREDNISolone [Medrol 4MG 4 mg PO DAILY #1 tab.ds.pk 06/20/19 09/23/19 Unknown Rx DOSEPAK (21 tabs)] oxyCODONE /ACETAMINOPHEN [Percocet 1 tab PO Q6H PRN #8 tablet 06/20/19 09/23/19 Unknown Rx 5/325 mg] Active Meds: Active Medications Acetaminophen (Tylenol) 650 mg PO Q4H PRN PRN Reason: Pain MILD(1-3)/Fever >100.5/CHRISTIAN Albuterol (Proventil) 2.5 mg IH Q4HRT PRN PRN Reason: Shortness Of Breath Amlodipine Besylate (Amlodipine) 5 mg PO DAILY REPLACED BY [facility] Last Admin: 09/24/19 09:57 Dose: 5 mg Documented by: Doxazosin Mesylate (Cardura) 4 mg PO QDAY REPLACED BY [facility] Last Admin: 09/24/19 09:57 Dose: 4 mg Documented by: Hydrochlorothiazide (Hctz) 12.5 mg PO QDAY REPLACED BY [facility] Last Admin: 09/24/19 09:57 Dose: 12.5 mg Documented by: Ceftriaxone Sodium (Rocephin/Ns 2 Gm/100 Ml) 2 gm in 100 mls @ 200 mls/hr IV Q24HR REPLACED BY [facility]; Protocol Last Admin: 09/24/19 09:56 Dose: 200 mls/hr Documented by: Azithromycin 500 mg/ Sodium (Chloride) 250 mls @ 250 mls/hr IV Q24HR REPLACED BY [facility]; Protocol Last Admin: 09/24/19 10:36 Dose: 250 mls/hr Documented by: Lisinopril (Zestril) 20 mg PO QDAY REPLACED BY [facility] Last Admin: 09/24/19 09:57 Dose: 20 mg Documented by: Miscellaneous Medication (Elviteg/Jannet/Emtric/Tenofo Ala) 1 each PO DAILY REPLACED BY [facility] Naproxen (Naproxen) 500 mg PO Q6H REPLACED BY [facility] Last Admin: 09/24/19 09:56 Dose: 500 mg Documented by: Ondansetron HCl (Zofran) 4 mg IV Q8H PRN PRN Reason: Nausea And Vomiting Oxycodone/Acetaminophen (Percocet 5/325) 1 tab PO Q6H PRN PRN Reason: Pain, Moderate (4-6) Last Admin: 09/24/19 04:01 Dose: 1 tab Documented by: Pantoprazole Sodium (Protonix) 40 mg PO QDAY REPLACED BY [facility] Last Admin: 09/24/19 09:57 Dose: 40 mg Documented by: Sodium Chloride (Sodium Chloride Flush Syringe 10 Ml) 10 ml IV BID REPLACED BY [facility] Last Admin: 09/24/19 09:58 Dose: 10 ml Documented by: Sodium Chloride (Sodium Chloride Flush Syringe 10 Ml) 10 ml IV PRN PRN PRN Reason: LINE FLUSH Physical Examination - Physical Exam Narrative exam: General Normal appearance, well developed, no acute distress Eyes - PERRLA, EOM intact ENT - Moist mucous membranes, no lymphadenopathy Neck - No noticeable or palpable swelling, redness or rash around throat or on face Lymph Nodes - No lymphadenopathy Cardiovascular - RRR no m/r/g, no JVD, no carotid bruits Lungs - Clear to auscultation, no use of accessory muscles, no crackles or wheezes. Skin - No rashes, skin warm and dry, no erythematous areas Abdomen - Normal bowel sounds, abdomen soft and nontender Extremities - No edema, cyanosis or clubbing Musculoskeletal - 5/5 strength, normal range of motion, no swollen or erythematous joints. Neurological Alert and oriented x 3, CN 2-12 grossly intact. - Constitutional Vitals: Vital Signs Temp Pulse Resp BP Pulse Ox 97.5 F L 74 20 154/95 95 09/24/19 04:24 09/24/19 04:24 09/24/19 04:24 09/24/19 04:24 09/24/19 04:24 Temperature -Last 24 Hours Temperature 97.5 F Temperature 97.8 F Temperature 98.0 F Temperature 98.2 F Temperature 98.2 F Results - Labs CBC & Chem 7: 09/24/19 05:00 09/24/19 05:00 Labs: Abnormal lab results 09/23/19 09/23/19 09/23/19 Range/Units 17:43 17:43 17:43 Hgb 11.6 L (11.8-15.2) gm/dl MCV 80 L (84-94) fl MCH 25 L (28-32) pg MCHC 31 L (32-34) % RDW 17.0 H (13.2-15.2) % Lymph % (Auto) 11.8 L (13.4-35.0) % [place] % (Auto) 14.3 H (0.0-7.3) % Lymph # 1.1 L (1.2-5.4) K/mm3 [place] # 1.3 H (0.0-0.8) K/mm3 Seg Neutrophils % 72.6 H (40.0-70.0) % Seg Neuts % (Manual) (40.0-70.0) % Lymphocytes % (Manual) (13.4-35.0) % Seg Neutrophils # Man (1.8-7.7) K/mm3 Lymphocytes # (Manual) (1.2-5.4) K/mm3 Chloride 95.5 L (98-107) mmol/L BUN (9-20) mg/dL Creatinine 1.8 H (0.8-1.5) mg/dL Glucose 113 H (75-100) mg/dL Lactic Acid 2.40 H* (0.7-2.0) mmol/L Albumin 3.5 L (3.9-5) g/dL Urine WBC (Auto) (0.0-6.0) /HPF 09/23/19 09/24/19 09/24/19 Range/Units 17:58 05:00 05:00 Hgb 11.6 L (11.8-15.2) gm/dl MCV 80 L (84-94) fl MCH 25 L (28-32) pg MCHC 31 L (32-34) % RDW 17.3 H (13.2-15.2) % Lymph % (Auto) (13.4-35.0) % [place] % (Auto) (0.0-7.3) % Lymph # (1.2-5.4) K/mm3 [place] # (0.0-0.8) K/mm3 Seg Neutrophils % (40.0-70.0) % Seg Neuts % (Manual) 94.0 H (40.0-70.0) % Lymphocytes % (Manual) 4.0 L (13.4-35.0) % Seg Neutrophils # Man 10.2 H (1.8-7.7) K/mm3 Lymphocytes # (Manual) 0.4 L (1.2-5.4) K/mm3 Chloride 97.0 L (98-107) mmol/L BUN 23 H (9-20) mg/dL Creatinine (0.8-1.5) mg/dL Glucose 269 H (75-100) mg/dL Lactic Acid (0.7-2.0) mmol/L Albumin (3.9-5) g/dL Urine WBC (Auto) 8.0 H (0.0-6.0) /HPF Assessment and Plan Cultures Blood culture 09/23/2019 no growth to date Urine culture 09/23/2019 no growth to date Assessment: 64 yo M PMhx HIV, HTN, CAD, COPD admitted with chest pain and SOB. 1. Pneumonia - continue ceftriaxone and azithromycin. Check procal. If low can stop antibiotics. Most likely viral picture at this time. 2. HIV - Brought his home Genvoya with him. Ok to continue his home medication. Well controlled, no issues. 3. COPD 4. HTN Recs: - continue ceftriaxone 2g q24h - continue azithromycin 500mg q24h - ordered procalcitonin - continue home Genvoya. Thank you for the consult, we will continue to follow. [facility] ([facility]) M: [phone] O: [phone] F: [phone]
[2019-09-24] MEDS: traMADol 50 MG TAB PO PRN (21:46)
[2019-09-25] MEDS: NAPROXEN 500 MG TAB PO SCH ×4 (04:33→21:13)
[2019-09-25 06:49] LABS: Hematocrit 36.3 % (35.5-45.6); Hemoglobin 11.2 gm/dl (11.8-15.2); Mean Corpuscular HGB Conc 31 % (32-34); Mean Corpuscular Volume 80 fl (84-94); Platelet Count 203 K/mm3 (140-440); Red Blood Count 4.54 M/mm3 (3.65-5.03)
[2019-09-25 07:09] LABS: BUN/Creatinine Ratio 30; Blood Urea Nitrogen 24 mg/dL (9-20); Calcium 8.6 mg/dL (8.4-10.2); Hemolysis Index 7
--- NOTE | 2019-09-25 09:40 | Progress Note ---
Assessment and Plan COPD with acute exacerbation Acute and chronic Hypoxemic Resp Failure Shortness of breath Deconditioning RICK (acute kidney injury) Anemia HTN (hypertension) Nicotine dependence HIV (human immunodeficiency virus infection) - VQ negative for VTE - consider repeat 2D ECHO to evaluate for worsening pulmonary HTN (especially with HIV history) - added LABA & ICS for clinical COPD - continue supplemental oxygen as needed to keep O2 sat's > 90% - continue bronchodilators (KM) with pulmonary hygiene per RT - consider empiric CAP directed antibiotics for severe COPD exacerbation - continue NIPPV qhs - PT/OT as tolerated - mobility protocols for pressure ulcer prophylaxis - GI & VTE prophylaxis - tobacco abstinence strongly counseled at bedside - Flu & Pneumovax addressed per protocol - continue other care per attending / other consultants ... re-evaluate in am & prn Subjective Date of service: 09/25/19 Principal diagnosis: Ac and ch hypoxemic resp failure; AE-COPD; HIV +ve; likely LARRY; Obesity Interval history: Patient is seen today for: Acute and chronic hypoxemic respiratory failure; AE- COPD; HIV +ve; likely LARRY; Obesity Seen and examined at bedside; 24hour events reviewed; nursing and respiratory care staff consulted; no adverse overnight events reported to me; resting peacefully in bed; still complains of SOB; No N/V/F/C Objective Vital Signs - 12hr 09/24/19 09/24/19 09/24/19 21:46 22:00 23:23 Temperature 97.9 F Pulse Rate 83 Respiratory 18 24 Rate Blood Pressure 160/85 O2 Sat by Pulse 99 94 Oximetry 09/25/19 09/25/19 09/25/19 04:33 05:59 08:56 Temperature 97.8 F Pulse Rate 73 Respiratory 16 20 Rate Blood Pressure 154/96 O2 Sat by Pulse 100 96 Oximetry Constitutional: no acute distress, alert, other (elderly looking obese M, normocephalic with mildly increased resp effort at rest) Eyes: non-icteric ENT: oropharynx moist, other (large neck circumference) Neck: supple, no JVD Effort: mildly labored Ascultation: Bilateral: diminished breath sounds, other (prolonged expiratory phase ) Percussion: Bilateral: not dull Cardiovascular: regular rate and rhythm Gastrointestinal: normoactive bowel sounds, soft, non-tender, non-distended, other (protuberant) Integumentary: normal Extremities: no cyanosis, no edema, pulses normal, no ischemia or petechiae Neurologic: normal mental status, non-focal exam, pupils equal and round, motor strength normal and Psychiatric: mood appropriate, affect normal CBC and BMP: 09/26/19 04:49 09/25/19 06:21 Abnormal lab findings: Abnormal Labs 09/23/19 09/23/19 09/23/19 17:43 17:43 17:43 WBC Hgb 11.6 L MCV 80 L MCH 25 L MCHC 31 L RDW 17.0 H Lymph % (Auto) 11.8 L Power % (Auto) 14.3 H Lymph # 1.1 L Power # 1.3 H Seg Neutrophils % 72.6 H Seg Neuts % (Manual) Lymphocytes % (Manual) Seg Neutrophils # Man Lymphocytes # (Manual) Chloride 95.5 L BUN Creatinine 1.8 H Glucose 113 H Lactic Acid 2.40 H* Albumin 3.5 L Urine WBC (Auto) 09/23/19 09/24/19 09/24/19 17:58 05:00 05:00 WBC Hgb 11.6 L MCV 80 L MCH 25 L MCHC 31 L RDW 17.3 H Lymph % (Auto) Power % (Auto) Lymph # Power # Seg Neutrophils % Seg Neuts % (Manual) 94.0 H Lymphocytes % (Manual) 4.0 L Seg Neutrophils # Man 10.2 H Lymphocytes # (Manual) 0.4 L Chloride 97.0 L BUN 23 H Creatinine Glucose 269 H Lactic Acid Albumin Urine WBC (Auto) 8.0 H 09/25/19 09/25/19 06:21 06:21 WBC 16.3 H Hgb 11.2 L MCV 80 L MCH 25 L MCHC 31 L RDW 17.0 H Lymph % (Auto) Power % (Auto) Lymph # Power # Seg Neutrophils % Seg Neuts % (Manual) Lymphocytes % (Manual) Seg Neutrophils # Man Lymphocytes # (Manual) Chloride BUN 24 H Creatinine Glucose 134 H Lactic Acid Albumin Urine WBC (Auto) Chest x-ray: image reviewed (no acute process) Allied health notes reviewed: nursing
--- NOTE | 2019-09-25 09:53 | Progress Note ---
Assessment and Plan Assessment and plan: Pneumonia Pneumonia protocol: Chest x ray, supplemental oxygen, nebulizer therapy, pulse oximetry, NIPPV as clinically indicated, CBC, CMP, IV antibiotic therapy, Consulted Pulm, ID physician and he was evaluated by both cont iv Abx RICK (acute kidney injury) due to vasomotor nephropathy IVF resuscitation therapy, monitor uop q shift, supportive care, Now resolved COPD (chronic obstructive pulmonary disease) supportive care, pulse oximetry Obesity hypoventilation syndrome supplemental oxygen, nebulizer therapy, pulse oximetry, NIPPV as clinically indicated, chest x ray HIV (human immunodeficiency virus infection) continue HAART therapy, outpatient ID F/u care. Hyperlipidemia lipid therapy, statin therapy, supportive care. Hypertension Monitor BP q shift, Nicotine dependence supportive care, smoking cessation counseling, +15min DVT prophylaxis SCD to BLE while in bed, Pt ambulatory hopefully dc home tomorrow. History Interval history: Still having shortness of breath Hospitalist Physical - Physical exam Narrative exam: Gen: Not in acute distress, sitting up in chair, obese HEENT: Normocephalic, atraumatic Neck: supple, no JVD Heart: S1 and S2 reg, no murmurs, rubs or gallop Lungs: Bilateral crackles, No wheeze Abd: soft, non tender, non distended, normal BS, Ext: No edema, no clubbing, no cyanosis Neuro: Awake, alert, oriented X 3, moves all ext - Constitutional Vitals: Temp Pulse Resp BP Pulse Ox 97.8 F 73 20 154/96 96 09/25/19 05:59 09/25/19 05:59 09/25/19 05:59 09/25/19 05:59 09/25/19 08:56 General appearance: Present: obese Results - Labs CBC & Chem 7: 09/25/19 06:21 09/25/19 06:21 Labs: Laboratory Last Values WBC 16.3 K/mm3 (4.5-11.0) H 09/25/19 06:21 RBC 4.54 M/mm3 (3.65-5.03) 09/25/19 06:21 Hgb 11.2 gm/dl (11.8-15.2) L 09/25/19 06:21 Hct 36.3 % (35.5-45.6) 09/25/19 06:21 MCV 80 fl (84-94) L 09/25/19 06:21 MCH 25 pg (28-32) L 09/25/19 06:21 MCHC 31 % (32-34) L 09/25/19 06:21 RDW 17.0 % (13.2-15.2) H 09/25/19 06:21 Plt Count 203 K/mm3 (140-440) 09/25/19 06:21 Lymph % (Auto) 11.8 % (13.4-35.0) L 09/23/19 17:43 [place] % (Auto) 14.3 % (0.0-7.3) H 09/23/19 17:43 Eos % (Auto) 1.0 % (0.0-4.3) 09/23/19 17:43 Baso % (Auto) 0.3 % (0.0-1.8) 09/23/19 17:43 Lymph # 1.1 K/mm3 (1.2-5.4) L 09/23/19 17:43 [place] # 1.3 K/mm3 (0.0-0.8) H 09/23/19 17:43 Eos # 0.1 K/mm3 (0.0-0.4) 09/23/19 17:43 Baso # 0.0 K/mm3 (0.0-0.1) 09/23/19 17:43 Add Manual Diff Complete 09/24/19 05:00 Total Counted 100 09/24/19 05:00 Seg Neutrophils % [place] 09/24/19 05:00 Seg Neuts % (Manual) 94.0 % (40.0-70.0) H 09/24/19 05:00 Band Neutrophils % 0 % 09/24/19 05:00 Lymphocytes % (Manual) 4.0 % (13.4-35.0) L 09/24/19 05:00 Reactive Lymphs % (Man) 0 % 09/24/19 05:00 Monocytes % (Manual) 1.0 % (0.0-7.3) 09/24/19 05:00 Eosinophils % (Manual) 0 % (0.0-4.3) 09/24/19 05:00 Basophils % (Manual) 0 % (0.0-1.8) 09/24/19 05:00 Metamyelocytes % 1.0 % 09/24/19 05:00 Myelocytes % 0 % 09/24/19 05:00 Promyelocytes % 0 % 09/24/19 05:00 Blast Cells % 0 % 09/24/19 05:00 Nucleated RBC % Not Reportable 09/24/19 05:00 Seg Neutrophils # 6.7 K/mm3 (1.8-7.7) 09/23/19 17:43 Seg Neutrophils # Man 10.2 K/mm3 (1.8-7.7) H 09/24/19 05:00 Band Neutrophils # 0.0 K/mm3 09/24/19 05:00 Lymphocytes # (Manual) 0.4 K/mm3 (1.2-5.4) L 09/24/19 05:00 Abs React Lymphs (Man) 0.0 K/mm3 09/24/19 05:00 Monocytes # (Manual) 0.1 K/mm3 (0.0-0.8) 09/24/19 05:00 Eosinophils # (Manual) 0.0 K/mm3 (0.0-0.4) 09/24/19 05:00 Basophils # (Manual) 0.0 K/mm3 (0.0-0.1) 09/24/19 05:00 Metamyelocytes # 0.1 K/mm3 09/24/19 05:00 Myelocytes # 0.0 K/mm3 09/24/19 05:00 Promyelocytes # 0.0 K/mm3 09/24/19 05:00 Blast Cells # 0.0 K/mm3 09/24/19 05:00 WBC Morphology Not Reportable 09/24/19 05:00 Hypersegmented Neuts Not Reportable 09/24/19 05:00 Hyposegmented Neuts Not Reportable 09/24/19 05:00 Hypogranular Neuts Not Reportable 09/24/19 05:00 Smudge Cells Not Reportable 09/24/19 05:00 Toxic Granulation Not Reportable 09/24/19 05:00 Toxic Vacuolation Not Reportable 09/24/19 05:00 Dohle Bodies Not Reportable 09/24/19 05:00 Pelger-Huet Anomaly Not Reportable 09/24/19 05:00 Davina Rods Not Reportable 09/24/19 05:00 Platelet Estimate Consistent w auto 09/24/19 05:00 Clumped Platelets Not Reportable 09/24/19 05:00 Plt Clumps, EDTA Not Reportable 09/24/19 05:00 Large Platelets Not Reportable 09/24/19 05:00 Giant Platelets Not Reportable 09/24/19 05:00 Platelet Satelliting Not Reportable 09/24/19 05:00 Plt Morphology Comment Not Reportable 09/24/19 05:00 RBC Morphology Not Reportable 09/24/19 05:00 Dimorphic RBCs Not Reportable 09/24/19 05:00 Polychromasia Not Reportable 09/24/19 05:00 Hypochromasia Not Reportable 09/24/19 05:00 Poikilocytosis Not Reportable 09/24/19 05:00 Anisocytosis Not Reportable 09/24/19 05:00 Microcytosis Not Reportable 09/24/19 05:00 Macrocytosis Not Reportable 09/24/19 05:00 Spherocytes Not Reportable 09/24/19 05:00 Pappenheimer Bodies Not Reportable 09/24/19 05:00 Sickle Cells Not Reportable 09/24/19 05:00 Target Cells Not Reportable 09/24/19 05:00 Tear Drop Cells Not Reportable 09/24/19 05:00 Ovalocytes Not Reportable 09/24/19 05:00 Helmet Cells Not Reportable 09/24/19 05:00 Dev[place]-Argentine Bodies Not Reportable 09/24/19 05:00 Barney Rings Not Reportable 09/24/19 05:00 [place] Cells Not Reportable 09/24/19 05:00 Bite Cells Not Reportable 09/24/19 05:00 Crenated Cell Not Reportable 09/24/19 05:00 Elliptocytes Not Reportable 09/24/19 05:00 Acanthocytes (Spur) Not Reportable 09/24/19 05:00 Rouleaux Not Reportable 09/24/19 05:00 Hemoglobin C Crystals Not Reportable 09/24/19 05:00 Schistocytes Not Reportable 09/24/19 05:00 Malaria parasites Not Reportable 09/24/19 05:00 German Bodies Not Reportable 09/24/19 05:00 Hem Pathologist Commnt No 09/24/19 05:00 Sodium 140 mmol/L (137-145) 09/25/19 06:21 Potassium 4.5 mmol/L (3.6-5.0) 09/25/19 06:21 Chloride 98.4 mmol/L (98-107) 09/25/19 06:21 Carbon Dioxide 29 mmol/L (22-30) 09/25/19 06:21 Anion Gap 17 mmol/L 09/25/19 06:21 BUN 24 mg/dL (9-20) H 09/25/19 06:21 Creatinine 0.8 mg/dL (0.8-1.5) 09/25/19 06:21 Estimated GFR > 60 ml/min 09/25/19 06:21 BUN/Creatinine Ratio 30 % 09/25/19 06:21 Glucose 134 mg/dL (75-100) H 09/25/19 06:21 Lactic Acid 1.60 mmol/L (0.7-2.0) 09/23/19 19:34 Calcium 8.6 mg/dL (8.4-10.2) 09/25/19 06:21 Total Bilirubin < 0.20 mg/dL (0.1-1.2) 09/24/19 05:00 AST 10 units/L (5-40) 09/24/19 05:00 ALT 13 units/L (7-56) 09/24/19 05:00 Alkaline Phosphatase 74 units/L (35-129) 09/24/19 05:00 Troponin T < 0.010 ng/mL (0.00-0.029) 09/23/19 19:34 Total Protein 7.1 g/dL (6.3-8.2) 09/24/19 05:00 Albumin 3.9 g/dL (3.9-5) 09/24/19 05:00 Albumin/Globulin Ratio 1.2 % 09/24/19 05:00 Urine Color Viky (Yellow) 09/23/19 17:58 Urine Turbidity Cloudy (Clear) 09/23/19 17:58 Urine pH 5.0 (5.0-7.0) 09/23/19 17:58 Ur Specific [place] 1.024 (1.003-1.030) 09/23/19 17:58 Urine Protein 100 mg/dl mg/dL (Negative) 09/23/19 17:58 Urine Glucose (UA) Neg mg/dL (Negative) 09/23/19 17:58 Urine Ketones Neg mg/dL (Negative) 09/23/19 17:58 Urine Blood Neg (Negative) 09/23/19 17:58 Urine Nitrite Neg (Negative) 09/23/19 17:58 Urine Bilirubin Neg (Negative) 09/23/19 17:58 Urine Urobilinogen 2.0 mg/dL (<2.0) 09/23/19 17:58 Ur Leukocyte Esterase Neg (Negative) 09/23/19 17:58 Urine WBC (Auto) 8.0 /HPF (0.0-6.0) H 09/23/19 17:58 Urine RBC (Auto) 4.0 /HPF (0.0-6.0) 09/23/19 17:58 U Epithel Cells (Auto) 1.0 /HPF (0-13.0) 09/23/19 17:58 Urine Bacteria (Auto) 1+ /HPF (Negative) 09/23/19 17:58 Hyaline Casts 5 /LPF 09/23/19 17:58 Urine Mucus 1+ /HPF 09/23/19 17:58 Urine Yeast (Budding) Few /HPF 09/23/19 17:58 Active Medications - Current Medications Current Medications: Generic Name Dose Route Start Last Admin Trade Name Freq PRN Reason Stop Dose Admin Acetaminophen 650 mg 09/23/19 19:58 Tylenol PO Q4H PRN Pain MILD(1-3)/Fever >100.5/CHRISTIAN Albuterol 2.5 mg 09/23/19 19:58 Proventil IH Q4HRT PRN Shortness Of Breath Amlodipine Besylate 5 mg 09/24/19 10:00 09/24/19 09:57 Amlodipine PO 5 mg DAILY LEON Administration Doxazosin Mesylate 4 mg 09/24/19 10:00 09/24/19 09:57 Cardura PO 4 mg QDAY LEON Administration Hydrochlorothiazide 12.5 mg 09/24/19 10:00 09/24/19 09:57 Hctz PO 12.5 mg QDAY LEON Administration Ceftriaxone Sodium 2 gm in 100 mls @ 200 mls/hr 09/24/19 10:00 09/24/19 09:56 Rocephin/Ns 2 Gm/100 Ml IV 200 mls/hr Q24HR LEON Administration Protocol Azithromycin 500 mg/ Sodium 250 mls @ 250 mls/hr 09/24/19 10:00 09/24/19 10:36 Chloride IV 250 mls/hr Q24HR LEON Administration Protocol Lisinopril 20 mg 09/24/19 10:00 09/24/19 09:57 Zestril PO 20 mg QDAY LEON Administration Miscellaneous Medication 1 each 09/24/19 10:00 Elviteg/Jannet/Emtric/Tenofo Ala PO DAILY LEON Naproxen 500 mg 09/23/19 21:00 09/25/19 08:51 Naproxen PO 500 mg Q6H LEON Administration Ondansetron HCl 4 mg 09/23/19 19:58 Zofran IV Q8H PRN Nausea And Vomiting Pantoprazole Sodium 40 mg 09/24/19 10:00 09/24/19 09:57 Protonix PO 40 mg QDAY LEON Administration Sodium Chloride 10 ml 09/23/19 22:00 09/24/19 21:36 Sodium Chloride Flush Syringe 10 Ml IV 10 ml BID LEON Administration Sodium Chloride 10 ml 09/23/19 19:58 Sodium Chloride Flush Syringe 10 Ml IV PRN PRN LINE FLUSH Tramadol HCl 50 mg 09/24/19 16:30 09/24/19 21:46 Ultram PO 50 mg Q6H PRN Administration Pain, Moderate (4-6) Nutrition/Malnutrition Assess - Dietary Evaluation Nutrition/Malnutrition Findings: Nutrition Notes Start: 09/24/19 08:16 Freq: Status: Active Protocol: Document 09/24/19 08:16 LP (Rec: 09/24/19 08:17 LP [id number]) Nutrition Notes Initial or Follow up Brief Note Height 5 ft 8 in Weight 113 kg [place] Body Weight (kg) 70.00 BMI 37.8 Subjective/Other Information Wt incorrect in chart. Nutrition Intervention Revisit per MD consult or patient Sign Off request:
[2019-09-25] MEDS: LISINOPRIL 20 MG TAB PO SCH (09:55)
[2019-09-25] MEDS: PANTOPRAZOLE 40 MG TAB PO SCH (09:55)
[2019-09-25] MEDS: traMADol 50 MG TAB PO PRN ×3 (09:55→21:15)
[2019-09-25] MEDS: hydroCHLOROthiazide 12.5 MG CAP PO SCH (09:55)
[2019-09-25] MEDS: DOXAZOSIN 4 MG TAB PO SCH (09:56)
[2019-09-25] MEDS: amLODIPine 5 MG TAB PO SCH (09:56)
[2019-09-25] MEDS: cefTRIAXone/NS 2 GM/100 ML 2 GM/100 ML BAG IV SCH (09:56)
[2019-09-25] MEDS: AZITHROMYCIN 500 MG in SODIUM CHLORIDE 0.9% 250ML 250 ML IV SCH (13:33)
[2019-09-25] MEDS: ONDANSETRON 4 MG/2 ML INJ IV PRN (16:00)
[2019-09-25] MEDS: ALBUTEROL 2.5 MG/3 ML NEBU IH SCH (19:26)
[2019-09-26] MEDS: NAPROXEN 500 MG TAB PO SCH ×2 (03:00→08:15)
[2019-09-26 05:54] LABS: Hematocrit 35.6 % (35.5-45.6); Mean Corpuscular HGB Conc 31 % (32-34); Mean Corpuscular Volume 80 fl (84-94); Platelet Count 184 K/mm3 (140-440); Red Blood Count 4.44 M/mm3 (3.65-5.03); Red Cell Distribution Width 17.3 % (13.2-15.2)
[2019-09-26] MEDS: ONDANSETRON 4 MG/2 ML INJ IV PRN (06:49)
[2019-09-26] MEDS: ALBUTEROL 2.5 MG/3 ML NEBU IH SCH ×2 (07:33→14:05)
--- NOTE | 2019-09-26 09:08 | Progress Note ---
Assessment and Plan Cultures Blood culture 09/23/2019 no growth to date Urine culture 09/23/2019 no growth to date Assessment: 64 yo M PMhx HIV, HTN, CAD, COPD admitted with chest pain and SOB. 1. Pneumonia - continue ceftriaxone and azithromycin. Check procal. If low can stop antibiotics. Most likely viral picture at this time. Procal is negative. Stop antibiotics 2. HIV - Brought his home Genvoya with him. Ok to continue his home medication. Well controlled, no issues. 3. COPD 4. HTN Recs: - Stopped ceftriaxone 2g q24h - Stopped azithromycin 500mg q24h - ordered procalcitonin - continue home Genvoya. Thank you for the consult, we will continue to follow. [facility] ([facility]) M: [phone] O: [phone] F: [phone] Subjective Date of service: 09/26/19 Interval history: Feels somewhat improved. Afebrile, normal white count. Cultures are negative. Objective - Exam Narrative Exam: General Normal appearance, well developed, no acute distress Eyes - PERRLA, EOM intact ENT - Moist mucous membranes, no lymphadenopathy Neck - No noticeable or palpable swelling, redness or rash around throat or on face Lymph Nodes - No lymphadenopathy Cardiovascular - RRR no m/r/g, no JVD, no carotid bruits Lungs - Clear to auscultation, no use of accessory muscles, no crackles or wheezes. Skin - No rashes, skin warm and dry, no erythematous areas Abdomen - Normal bowel sounds, abdomen soft and nontender Extremities - No edema, cyanosis or clubbing Musculoskeletal - 5/5 strength, normal range of motion, no swollen or erythematous joints. Neurological Alert and oriented x 3, CN 2-12 grossly intact. - Constitutional Vitals: Vital Signs Temp Pulse Resp BP Pulse Ox 97.6 F 62 14 91/64 97 09/25/19 21:26 09/26/19 07:33 09/26/19 07:33 09/25/19 21:26 09/26/19 08:30 Temperature -Last 24 Hours Temperature 97.6 F Temperature 98.0 F Temperature 97.7 F Temperature 97.7 F - Labs CBC & Chem 7: 09/26/19 04:49 09/25/19 06:21 Labs: Abnormal lab results 09/26/19 Range/Units 04:49 Hgb 11.0 L (11.8-15.2) gm/dl MCV 80 L (84-94) fl MCH 25 L (28-32) pg MCHC 31 L (32-34) % RDW 17.3 H (13.2-15.2) %
[2019-09-26] MEDS: PANTOPRAZOLE 40 MG TAB PO SCH (12:01)
--- NOTE | 2019-09-26 14:12 | Progress Note ---
Assessment and Plan COPD with acute exacerbation Acute and chronic Hypoxemic Resp Failure Shortness of breath Deconditioning RICK (acute kidney injury) Anemia HTN (hypertension) Nicotine dependence HIV (human immunodeficiency virus infection) - stressed importance of NIV use as prescribed re: hypercapnia / LARRY / OHS - VQ negative for VTE - consider repeat 2D ECHO to evaluate for worsening pulmonary HTN (especially wi th HIV history) - added LABA & ICS for clinical COPD - continue supplemental oxygen as needed to keep O2 sat's > 90% - continue bronchodilators (KM) with pulmonary hygiene per RT - consider empiric CAP directed antibiotics for severe COPD exacerbation - continue NIPPV qhs - PT/OT as tolerated - mobility protocols for pressure ulcer prophylaxis - GI & VTE prophylaxis - tobacco abstinence strongly counseled at bedside - Flu & Pneumovax addressed per protocol - continue other care per attending / other consultants - outpatient pulmonary clinic f/up ..... discharge planning ok pulmonary-hill ... re-evaluate in am & prn Subjective Date of service: 09/26/19 Principal diagnosis: Ac and ch hypoxemic resp failure; AE-COPD; HIV +ve; likely LARRY; Obesity Interval history: Patient is seen today for: Acute and chronic hypoxemic respiratory failure; AE-COPD; HIV +ve; likely LARRY; Obesity Seen and examined at bedside; 24hour events reviewed; nursing and respiratory care staff consulted; no adverse overnight events reported to me; resting peacefully in bed; denies acute chest pains or palpitations; ABG reviewed and suboptimal but acceptable; he is refusing BIPAP and states he has one at home Objective Vital Signs - 12hr 09/26/19 09/26/19 09/26/19 07:33 08:30 11:42 Temperature 97.7 F Pulse Rate 64 Pulse Rate [ 62 Anterior Bilateral Throughout] Respiratory 18 Rate Respiratory 14 Rate [Anterior Bilateral Throughout] Blood Pressure 108/66 O2 Sat by Pulse 97 99 Oximetry 09/26/19 14:05 Temperature Pulse Rate Pulse Rate [ 76 Anterior Bilateral Throughout] Respiratory Rate Respiratory 18 Rate [Anterior Bilateral Throughout] Blood Pressure O2 Sat by Pulse Oximetry Constitutional: no acute distress, alert, other (elderly looking obese M, normocephalic with mildly increased resp effort at rest) Eyes: non-icteric ENT: oropharynx moist, other (large neck circumference) Neck: supple, no JVD Effort: normal Ascultation: Bilateral: diminished breath sounds, other (prolonged expiratory phase ) Percussion: Bilateral: not dull Cardiovascular: regular rate and rhythm Gastrointestinal: normoactive bowel sounds, soft, non-tender, non-distended, other (protuberant) Integumentary: normal Extremities: no cyanosis, no edema, pulses normal, no ischemia or petechiae Neurologic: normal mental status, non-focal exam, pupils equal and round, motor strength normal and Psychiatric: mood appropriate, affect normal CBC and BMP: 09/26/19 04:49 09/25/19 06:21 Abnormal lab findings: Abnormal Labs 09/23/19 09/23/19 09/23/19 17:43 17:43 17:43 WBC Hgb 11.6 L MCV 80 L MCH 25 L MCHC 31 L RDW 17.0 H Lymph % (Auto) 11.8 L [place] % (Auto) 14.3 H Lymph # 1.1 L [place] # 1.3 H Seg Neutrophils % 72.6 H Seg Neuts % (Manual) Lymphocytes % (Manual) Seg Neutrophils # Man Lymphocytes # (Manual) Chloride 95.5 L BUN Creatinine 1.8 H Glucose 113 H Lactic Acid 2.40 H* Albumin 3.5 L Urine WBC (Auto) 09/23/19 09/24/19 09/24/19 17:58 05:00 05:00 WBC Hgb 11.6 L MCV 80 L MCH 25 L MCHC 31 L RDW 17.3 H Lymph % (Auto) [place] % (Auto) Lymph # [place] # Seg Neutrophils % Seg Neuts % (Manual) 94.0 H Lymphocytes % (Manual) 4.0 L Seg Neutrophils # Man 10.2 H Lymphocytes # (Manual) 0.4 L Chloride 97.0 L BUN 23 H Creatinine Glucose 269 H Lactic Acid Albumin Urine WBC (Auto) 8.0 H 09/25/19 09/25/19 09/26/19 06:21 06:21 04:49 WBC 16.3 H Hgb 11.2 L 11.0 L MCV 80 L 80 L MCH 25 L 25 L MCHC 31 L 31 L RDW 17.0 H 17.3 H Lymph % (Auto) [place] % (Auto) Lymph # [place] # Seg Neutrophils % Seg Neuts % (Manual) Lymphocytes % (Manual) Seg Neutrophils # Man Lymphocytes # (Manual) Chloride BUN 24 H Creatinine Glucose 134 H Lactic Acid Albumin Urine WBC (Auto) Allied health notes reviewed: nursing
--- NOTE | 2019-09-26 14:37 | XRay Report ---
CHEST 1 VIEW 09/26/2019 1:23 PM INDICATION / CLINICAL INFORMATION: pulmonary edema. COMPARISON: 09/23/2019 FINDINGS: SUPPORT DEVICES: None. HEART / MEDIASTINUM: Stable. LUNGS / PLEURA: Mildly improved interstitial edema. Stable tiny right pleural effusion. No pneumothor ax. ADDITIONAL FINDINGS: No significant additional findings. IMPRESSION: 1. Mild improvement in interstitial edema since the prior exam. Signer Name: Ayad Reza MD Signed: 09/26/2019 2:32 PM Workstation Name: [email or web address]
--- NOTE | 2019-09-26 14:41 | Discharge Summary ---
Providers - Providers Date of Admission: 09/23/19 19:59 Date of discharge: 09/26/19 Attending physician: LONI COLLINS 09/24/19 07:31 Consult to Physician [CONS] Routine Comment: Consulting Provider: AROLDO RODRÍGUEZ Physician Instructions: Reason For Exam: Pneumonia, HIV 09/24/19 07:32 Consult to Physician [CONS] Routine Comment: Consulting Provider: JASON FREEMAN Physician Instructions: Reason For Exam: Pneumonia, shortness of breath Hospitalization Condition: Stable Hospital course: 64 YO Male with HTN, HLD, CAD, COPD, HIV, Nicotine Dependence, Obesity presented to ED for evaluation. He presented with shortness of breath as well as chest discomfort for 1 week. EMS notified, and upon arrival the patient was found to be in distress and transported to [facility]. Pt seen and evaluated in ED and found to have Bilateral Pneumonia as well as RICK. Pt initiated on Pneumonia protocol, and admitted to medical floor. Pneumonia Pneumonia protocol: Chest x ray, supplemental oxygen, nebulizer therapy, pulse oximetry, NIPPV as clinically indicated, CBC, CMP, IV antibiotic therapy, Consulted Pulm, ID physician and he was evaluated by both cont iv Abx RICK (acute kidney injury) due to vasomotor nephropathy IVF resuscitation therapy, monitor uop q shift, supportive care, Now resolved COPD (chronic obstructive pulmonary disease) supportive care, pulse oximetry Obesity hypoventilation syndrome supplemental oxygen, nebulizer therapy, pulse oximetry, NIPPV as clinically indicated, chest x ray HIV (human immunodeficiency virus infection) continue HAART therapy, outpatient ID F/u care. Hyperlipidemia lipid therapy, statin therapy, supportive care. Hypertension Monitored BP q shift, Nicotine dependence supportive care, smoking cessation counseling, +15min DVT prophylaxis SCD to BLE while in bed, Pt ambulatory Total time spent on discharge, 33 mins Disposition: DC-01 TO HOME OR SELFCARE - Discharge Diagnoses (1) RICK (acute kidney injury) Status: Acute (2) Vasomotor nephropathy Status: Acute (3) RICK (acute kidney injury) Status: Acute (4) CAD (coronary artery disease) Status: Acute Qualifiers: Coronary Disease-Associated Artery/Lesion type: [place] artery (5) HIV (human immunodeficiency virus infection) Status: Acute (6) HTN (hypertension) Status: Acute Qualifiers: Hypertension type: essential hypertension Qualified Code(s): I10 - Essential (primary) hypertension (7) Pneumonia Status: Acute Qualifiers: Laterality: bilateral Lung location: lower lobe of lung Core Measure Documentation - Palliative Care Palliative Care/ Comfort Measures: Not Applicable - Core Measures Any of the following diagnoses?: none Exam - Constitutional Vitals: Temp Pulse Resp BP Pulse Ox 97.7 F 76 18 108/66 99 09/26/19 11:42 09/26/19 14:05 09/26/19 14:05 09/26/19 11:42 09/26/19 11:42 Plan Activity: advance as tolerated Diet: low fat, low cholesterol, low salt Plan of Treatment: 1.Follow up with PCP in 3-5 days. 2.Follow up with Pulmonology in 3-5 days 3.Continue home Oxygen continuosly Follow up with: JULIA MEJÍA [Other] - 7 Days Prescriptions: Prednisone [predniSONE 5 mg (6-Day Pack, 21 Tabs)] 5 mg PO .TAPER #1 tab.ds.pk
[2019-09-26 17:39] VITALS: BP 134/82
[2019-09-26] MEDS ORDERED: ARFORMOTEROL 15 MCG/2 ML NEBU IH SCH (20:00)
[2019-09-26] MEDS ORDERED: BUDESONIDE 0.5 MG/2 ML NEBU IH SCH (20:00)
== END 2019-09-26 18:00 | disposition home or self-care (01) | DRG 974 ==
LOC: ED 16:14 → 3A 19:59
PROVIDERS: ADMIT Internal Medicine; ATTEND Internal Medicine
PROC: 4A033R1 Measurement of Arterial Saturation, Peripheral, Percutaneous Approach (ICD-10-PCS; principal; 2019-09-26)
DX: J18.9 Pneumonia, unspecified organism (principal); N17.0 Acute kidney failure with tubular necrosis; B20 Human immunodeficiency virus [HIV] disease; J96.21 Acute and chronic respiratory failure with hypoxia; J44.1 Chronic obstructive pulmonary disease with (acute) exacerbation; J44.0 Chronic obstructive pulmonary disease with (acute) lower respiratory infection; E66.2 Morbid (severe) obesity with alveolar hypoventilation; N39.0 Urinary tract infection, site not specified; D64.9 Anemia, unspecified; F17.200 Nicotine dependence, unspecified, uncomplicated; I25.10 Atherosclerotic heart disease of native coronary artery without angina pectoris; J20.9 Acute bronchitis, unspecified; E78.2 Mixed hyperlipidemia; I11.0 Hypertensive heart disease with heart failure; I50.9 Heart failure, unspecified; I95.9 Hypotension, unspecified; Z82.49 Family history of ischemic heart disease and other diseases of the circulatory system; Z68.38 Body mass index [BMI] 38.0-38.9, adult; Z71.6 Tobacco abuse counseling; Z79.899 Other long term (current) drug therapy; Z95.5 Presence of coronary angioplasty implant and graft; Z99.81 Dependence on supplemental oxygen
CPT/HCPCS: 36415; 36600; 71045; 78580; 80048; 80053; 81001; 82140; 82803; 84145; 84484; 85007; 85025; 85027; 87040; 87086; 87116; 93005; 93010; 94640; 94760; G0378; A9540; J0456; J0696; J2405; J2930; J3475; J7030; J7050